=== PATIENT | female | born 1945 | race Caucasian/White ===

== ENCOUNTER 2024-09-09 18:25 | Inpatient (IN) | payer MEDICARE, BC, SELFPAY ==
[2024-09-09] VITALS (22 sets, daily range): BP systolic 48–102; BP diastolic 36–87; PULSE 79–171; RESP 14–21; TEMP 36.6; O2SAT 59–100; BMI 36.6
--- NOTE | 2024-09-09 18:29 | PD.EDRME ---
Rapid Medical Screening Exam RME Arrival date/time: 09/09/24 18:25 Time Seen by Provider: 09/09/24 18:29 RME Narrative: 79-year-old female with history of hypertension, on Xarelto, lisinopril, gabapentin, coming in with syncope while sitting down in bed. Patient was alert and oriented and talking to EMS on their arrival. Patient talking to EMS.
[2024-09-09] MEDS: SODIUM CHLORIDE 0.9% 1000 ML 1,000 ML 999 ML IV ×3 (19:10→20:06)
--- NOTE | 2024-09-09 19:17 | PD.EDADULT ---
ED General RME/HPI General Chief complaint: Nausea/Vomiting/Diarrhea Stated complaint: SYNCOPAL EPISODE Time Seen by Provider: 09/09/24 18:29 Arrival date/time: 09/09/24 18:25 CC: Syncope, weakness HPI patient presents to the ER with syncope and weakness. The EMS report hypotension 60s over palp. Patient is awake alert oriented x [address], stating that she is just tired she has a stomach ache, has had 2 episodes of diarrhea since last night has not been drinking a lot of fluid, and is tired . Patient denies any chest pain painful urination vomiting but is complaining of intermittent nausea. RME / HPI RME / HPI narrative: 79-year-old female with history of hypertension, on Xarelto, lisinopril, gabapentin, coming in with syncope while sitting down in bed. Patient was alert and oriented and talking to EMS on their arrival. Patient talking to EMS. Related Data Home Medications ?Medication ?Instructions ?Recorded ?Confirmed cyclobenzaprine 10 mg tablet 10 mg PO HS #0 tabs 06/23/17 05/31/23 gabapentin 100 mg capsule 200 mg PO BID 01/15/18 05/31/23 donepezil 5 mg tablet 5 mg PO QDAY 01/16/18 05/31/23 atorvastatin 20 mg tablet 60 mg PO QPM 09/14/18 05/31/23 duloxetine 60 mg capsule,delayed 60 mg PO BID 04/23/21 05/31/23 release ergocalciferol (vitamin D2) 1,250 50,000 unit PO QWEEK 04/23/21 05/31/23 mcg (50,000 unit) capsule multivitamin 1 tab PO QDAY 04/23/21 05/31/23 fesoterodine 4 mg tablet,extended 4 mg PO HS 05/31/23 05/31/23 release 24 hr (Toviaz) metoprolol tartrate 100 mg tablet 100 mg PO BID 05/31/23 05/31/23 mirabegron 50 mg tablet,extended 50 mg PO QDAY 05/31/23 05/31/23 release 24 hr (Myrbetriq) sumatriptan succinate 100 mg tablet 100 mg PO Q8H PRN Migraine Headache 06/02/23 06/02/23 Previous Rx's ?Medication ?Instructions ?Recorded ferrous sulfate 325 mg (65 mg 325 mg PO QOD #15 tabs 06/02/23 iron) tablet,delayed release miconazole nitrate 2 % topical 1 applic topical BID #14 grams 06/02/23 cream rivaroxaban 15 mg (42)-20 mg (9) See Rx Instructions PO .COMPLEX 06/02/23 tablets in a starter pack #51 tabs albuterol sulfate 90 mcg/actuation 2 puff inhalation Q6H PRN 01/18/24 aerosol inhaler shortness of breath or wheezing #8.5 grams prednisone 20 mg tablet 20 mg PO QDAY #15 tabs 01/18/24 Allergies Allergy/AdvReac Type Severity Reaction Status Date / Time ergotamine [From Cafergot] Allergy Intermediate Nausea Verified 09/09/24 18:46 adhesive tape Allergy Mild Rash Verified 09/09/24 18:46 citalopram [From Celexa] Allergy Mild Restless Verified 09/09/24 18:46 leg latex Allergy Mild Rash Verified 09/09/24 18:46 silver Allergy Rash Verified 09/09/24 18:46 Review of Systems Review of Systems Narrative Review of Systems: GEN: No fever, no chills, no weight loss EYES: No discharge, no visual changes, no pain HEENT: No ear pain, no congestion, no sore throat PULM: No shortness of breath, no cough, no congestion CV: No chest pain, no dyspnea on exertion, no palpitations GI: No nausea, no vomiting, no diarrhea, no pain, no constipation : No frequency, no urgency, no dysuria MUSC/SKEL: No joint pain, no back pain SKIN: No rash PSYCH: No hallucinations, no depression HEME/LYMPH: No easy bleeding or bruising tendencies NEURO: No weakness, no headache Past Medical History Past Medical History NEUROLOGIC: Positive Neurological Disorders, Peripheral Neuropathy, Migraine and Head Trauma; Negative Seizures CARDIAC: Positive Hypercholesterolemia, Hypertension and Varicose Veins; Negative Cardiac Disorders or Congestive Heart Failure RESPIRATORY: Positive Asthma, Pneumonia and Sleep Apnea; Negative Chronic Obstructive Pulmonary Disease (COPD) GASTROINTESTINAL: Positive Obesity; Negative Gastrointestinal Disorders GENITOURINARY: Positive Genitourinary Disorders; Negative Renal Disease REPRODUCTIVE: Positive Endometriosis and Previous Pregnancies MUSCULOSKELETAL: Positive Arthritis, Osteoporosis, Degenerative Disk Disease, Carpal Tunnel Syndrome, Fractures and Degenerative Joint Disease; Negative Musculoskeletal Disorders ENT: Positive Head Trauma; Negative Glaucoma or Macular Degeneration ENDOCRINE: Negative Endocrine Disorders, Diabetes Mellitus Type 1 or Diabetes Mellitus Type 2 HEMATOLOGIC: Negative Blood Disorders, Anemia or Sickle Cell Disease PSYCHO/SOCIAL: Positive Depression and Anxiety OTHER HISTORY: Positive Hospitalization, Autoimmune Disease, Falls, Chicken Pox and Measles; Negative Shingles, Blood Transfusions, Blood Transfusion Reaction or Anesthesia Reactions Family History FAMILY HISTORY: Positive Family Cardiac Disorders; Negative Family Psychiatric Problems, Family Respiratory Disorders, Family Gastrointestinal Problems, Family Cancer, Family Surgery or Family Anesthesia Reaction Surgical History SURGICAL: Positive Nose Surgery, Tonsillectomy, Abdominal Surgery, Joint Replacement and Hysterectomy Social History SMOKING STATUS: Never smoker SUBSTANCE USE: does not use ED Exam Narrative Physical exam: [General: Obese appears not in any acute distress Head normocephalic HEENT: Within acceptable limits Neck is supple nontender Chest equal chest rise nontender to palpation Respiratory: Clear to auscultation no wheezes crackles or rubs CV: Rate rhythm is regular no murmurs rubs or clicks Abdomen is distended secondary to body habitus soft nontender no masses positive bowel sounds all 4 quadrants Back: No CVA tenderness no spinous process tenderness from cervical spine thoracic and lumbar spine Skin: Intact no petechiae rash induration ulceration or crepitus Extremities: Moving all extremity against resistance cap refill less than 2 seconds neurosensory intact Neuro: Awake alert oriented x2, person and place Glascow coma 15 no focal deficits] Course Quality Measures none Orders Category Date Time Status Patient Condition Routine Admission 09/10/24 04:06 Ordered COVID-19 Screening Questionnaire NOW Care 09/10/24 04:08 Active Decision to Admit X1 Care 09/10/24 04:08 Completed EKG (ED ONLY) *Do not use* NOW Care 09/09/24 20:16 Completed In and Out Catheter X1 Care 09/09/24 20:22 Completed Notify provider NEEDED Care 09/10/24 04:06 Active Saline [Insert IV] NOW Care 09/09/24 19:16 Active EKG (ED Only) Stat Exams 09/09/24 20:15 Draft XR chest 1V Stat Exams 09/09/24 20:15 Completed B-Type Natriuretic Peptide Stat Lab 09/09/24 18:50 Completed Blood Culture (Lab) Stat Lab 09/09/24 18:58 Received CBC Stat Lab 09/09/24 18:50 Completed CMP [Comprehensive Metabolic Panel] Stat Lab 09/09/24 18:50 Completed CMP [Comprehensive Metabolic Panel] Stat Lab 09/09/24 22:49 Completed LDH (Lactate Dehydrogenase) Stat Lab 09/09/24 18:50 Completed Lactic Acid [Lactate (Lactic Acid)] Stat Lab 09/09/24 20:47 Completed Lactic Acid [Lactate (Lactic Acid)] Stat Lab 09/09/24 22:49 Completed Mag [Magnesium] Stat Lab 09/09/24 18:50 Completed Partial Thromboplastin Time Stat Lab 09/09/24 18:50 Completed Procalcitonin Stat Lab 09/09/24 18:50 Completed Prothrombin Time with INR Stat Lab 09/09/24 18:50 Completed Troponin I Stat Lab 09/09/24 18:50 Completed Urinalysis Stat Lab 09/09/24 21:30 Completed Sodium Chloride 0.9% 1000 ml [Ns] 1,000 ml Med 09/09/24 19:09 Discontinued IV 999 mls/hr Sodium Chloride 0.9% 1000 ml [Ns] 1,000 ml Med 09/09/24 19:35 Discontinued IV 999 mls/hr Code Status Routine Oth 09/10/24 04:06 Ordered Vital Signs Vital signs: Vital Signs Pulse Rate 171 H 09/09/24 18:38 Respiratory Rate 20 09/09/24 18:38 Oxygen Delivery Method Room Air 09/09/24 18:38 [facility] Patient data External records reviewed:: [facility] previous records and EMS form Clinical information provided by:: patient and EMS Social determinants that could affect healthcare access:: none Patient has the following chronic illnesses:: Morbid obesity, COPD severity of CPAP hypertension surgeries for right hip right knee How is presenting disease/condition affected by chronic disease/condition?: uneffected by Evaluation data The following diagnostics were reviewed and interpreted by me:: lab results and radiology exam(s) Lab and/or radiology exams considered but not ordered:: None Interpretation Summary: Hypotension Medications Medications considered but not ordered:: None Medication administrations:: Medication Administration History Acetaminophen (Acetaminophen 500 Mg Tablet) 1,000 mg PO Q6H PRN PRN Reason: Fever >101.5 Stop: 10/10/24 04:17 Hydrocodone Bitart/Acetaminophen (Hydrocodone/Apap 5/325 Tablet) 1 tab PO Q4HR PRN PRN Reason: PAIN SCALE 4-10(Mod-Sev Stop: 09/15/24 04:17 Albuterol/Ipratropium (Albuterol/Ipratropium (Duoneb) Rt Kristin 3 Ml Nebu) 3 ml INH BIDRT [facility] Stop: 10/10/24 07:14 Last Admin: 09/10/24 07:36 Dose: 3 ml Documented By: BandarT Atorvastatin Calcium (Atorvastatin Calcium 20 Mg Tablet) 40 mg PO HS [facility] Stop: 10/10/24 20:59 Budesonide (Budesonide Rt 0.25 Mg/2 Ml Nebu) 0.25 mg INH BIDRT [facility] Stop: 10/10/24 06:59 Last Admin: 09/10/24 07:05 Dose: Not Given Documented By: MANDY Non-Admin Reason: Medication Not Available Donepezil HCl (Donepezil Hcl 5 Mg Tablet) 5 mg PO HS [facility] Stop: 10/10/24 20:59 Duloxetine HCl (Duloxetine Hcl 30 Mg Capsule) 60 mg PO QDAY [facility] Stop: 10/10/24 08:59 Last Admin: 09/10/24 10:11 Dose: 60 mg Documented By: MGD Gabapentin (Gabapentin 100 Mg Capsule) 200 mg PO TID PRN PRN Reason: Back pain Stop: 10/10/24 05:59 Heparin Sodium (Porcine) (Heparin Sod Inj 5000 Unit/Ml Vial) 5,000 unit SC BID [facility] Stop: 09/24/24 08:59 Lactated Ringer's (Lactated Ringers) 1,000 mls @ 125 mls/hr IV .Q8H ONE Stop: 09/10/24 12:27 Last Admin: 09/10/24 08:35 Dose: 125 mls/hr Documented By: ANGELO Ondansetron HCl (Ondansetron Inj 2 Mg/Ml Inj 2 Ml) 4 mg IV Q6H PRN; Protocol PRN Reason: NAUSEA OR VOMITING Stop: 10/10/24 04:17 Last Admin: 09/10/24 06:32 Dose: 4 mg Documented By: DOROTA Pantoprazole Sodium (Pantoprazole Inj 40 Mg Vial) 40 mg IVP QDAY [facility] Stop: 10/10/24 08:59 Last Admin: 09/10/24 09:18 Dose: 40 mg Documented By: GM Discontinued Medications Acetaminophen (Acetaminophen 325 Mg Tablet) 1,000 mg PO Q6H PRN PRN Reason: Fever >101.5 Stop: 10/10/24 04:17 Albuterol/Ipratropium (Albuterol/Ipratropium (Duoneb) Rt Kristin 3 Ml Nebu) 3 ml INH BID [facility] Stop: 10/10/24 08:59 Dextrose (Dextrose 50%-Water Inj 50 Ml Syringe) 50 ml IV X1 ONE Stop: 09/10/24 09:13 Last Admin: 09/10/24 09:13 Dose: 50 ml Documented By: STEVE Dextrose (Dextrose 50%-Water Inj 50 Ml Syringe) Confirm Administered Dose 100 ml IV .STK-MED ONE Stop: 09/10/24 09:07 Last Admin: 09/10/24 09:18 Dose: Not Given Documented By: STEVE Non-Admin Reason: Duplicate Medication on eMAR Dextrose (Dextrose 50%-Water Inj 50 Ml Syringe) 50 ml IV X1 ONE Stop: 09/10/24 09:13 Last Admin: 09/10/24 09:19 Dose: 50 ml Documented By: STEVE Sodium Chloride (Ns) 1,000 mls @ 999 mls/hr IV .Q1H1M ONE Stop: 09/09/24 20:09 Last Infusion: 09/09/24 21:15 Dose: Infused Documented By: Admin: 09/09/24 20:04 Dose: 999 mls/hr Documented By: Infusion: 09/09/24 20:04 Dose: Infused Documented By: Admin: 09/09/24 19:10 Dose: 999 mls/hr Documented By: NATHAN Sodium Chloride (Ns) 1,000 mls @ 999 mls/hr IV .Q1H1M ONE Stop: 09/09/24 20:35 Last Infusion: 09/10/24 00:08 Dose: Infused Documented By: Admin: 09/09/24 20:06 Dose: 999 mls/hr Documented By: DOROTA None Consultations Consultation(s) initiated? (list below): No Diagnosis Differential Diagnosis ED Complaint MDM: Hypotension dehydration DARNELL Most likely diagnosis given after review of the tests above:: Hypotension dehydration Admission Indicated Admission indicated?: indicated Explain why admission is indicated or not indicated:: Further medical management Admission Request Was there a request for admission?: No Disposition Plan Disposition Plan: Admit Medical Decision Making Differential Diagnosis Differential Diagnosis: Hypotension dehydration DARNELL Lab Data 09/10/24 05:01 09/10/24 05:01 Labs: Lab Results 01/20/25 01/20/25 01/20/25 Range/Units 18:50 20:47 21:30 WBC 13.8 H (3.6-11.0) Thou/mm3 RBC 3.18 L (4.00-5.20) Miln/mm3 Hgb 9.0 L (12.0-16.0) g/dL Hct 30.2 L (36.0-46.0) % MCV 95 (80-100) fL MCH 28.3 (25.0-35.0) pg MCHC 29.8 L (31.0-37.0) g/dl RDW Std Deviation 50.1 H (36.4-46.3) fL Plt Count 405 (140-440) Thou/mm3 Neut % (Auto) 75 (37-80) % Lymph % (Auto) 14 (10-50) % [place] % (Auto) 6 (0-12) % Eos % (Auto) 4 (0-10) % Baso % (Auto) 1 (0-2.5) % Neut # (Auto) 10.3 H (1.8-7.7) Thou/mm3 Lymph # (Auto) 2.0 (1.0-4.8) Thou/mm3 [place] # (Auto) 0.9 H (0.0-0.8) Thou/mm3 Eos # (Auto) 0.5 (0.0-0.5) Thou/mm3 Baso # (Auto) 0.1 (0.0-0.2) Thou/mm3 Immature Gran # (Auto) 0.04 H (0.00-0.00) Thou/mm3 Absolute Nucleated RBC 0.00 (0.00-0.00) Thou/mm3 Immature Gran % 0 (0-0) % Nucleated RBC % 0 (0) /100 WBC PT 18.1 H (9.0-12.2) Seconds INR 1.7 H (0.9-1.3) APTT 36.1 H (22.0-36.0) Seconds Sodium 141 (136-145) mMol/L Potassium 4.4 (3.4-5.1) mMol/L Chloride 102 (98-107) mMol/L Carbon Dioxide 24.1 (20.0-31.0) mMol/L Anion Gap 15 (7-16) BUN 29 H (9-23) mg/dL Creatinine 1.7 H (0.6-1.3) mg/dL Estim Creat Clear Calc 28.6 L (>60) mL/min eGFR 31 L (60 - ) See Note BUN/Creatinine Ratio 17 (12-20) Ratio Glucose 132 H (74-106) mg/dL Calculated Osmolality 289 (275-295) Lactic Acid 2.8 H (0.4-2.0) mMol/L Calcium 9.0 (8.3-10.6) mg/dL Corrected Calcium 9.9 (8.5-10.1) mg/dL Magnesium 2.0 (1.6-2.6) mg/dL Total Bilirubin 0.2 L (0.3-1.2) mg/dL AST 26 (0-34) U/L ALT 14 (10-49) U/L Alkaline Phosphatase 64 (46-116) U/L Lactate Dehydrogenase 238 (120-246) U/L Troponin I < 0.020 (0.0-0.045) ng/mL B-Natriuretic Peptide 71 (0-100) pg/mL Total Protein 5.4 L (5.7-8.2) gm/dL Albumin 2.9 L (3.4-4.8) gm/dL Globulin 2.5 (2.3-3.5) gm/dL Albumin/Globulin Ratio 1.2 (1.2-2.2) Procalcitonin 0.94 H (0.0-0.49) ng/ml Ur Collection Type Catheter Urine Color Drk-Yellow A (Lt Yel-Yel) Urine Clarity Hazy (Clear/Hazy) Urine pH 5.0 (5.0-7.0) Ur Specific [place] 1.035 (1.001-1.035) Urine Protein 1+ A (Neg - Trace) Urine Glucose (UA) Negative (Negative) Urine Ketones Trace (Negative) Urine Blood Negative (Negative) Urine Nitrite Negative (Negative) Urine Bilirubin 1+ A (Negative) Urine Urobilinogen (Auto) 2.0 (0.0-1.0) mg/dL Ur Leukocyte Esterase Positive (Negative) Urine RBC 4 H (0-3) /hpf Urine WBC 7 H (0-5) /hpf Ur Squamous Epith Cells 2 (0-5) /hpf Urine Bacteria Rare (None) Hyaline Casts < 1 (0-1) /hpf Urine Yeast (Budding) Present A (None) 09/09/24 Range/Units 22:49 WBC (3.6-11.0) Thou/mm3 RBC (4.00-5.20) Miln/mm3 Hgb (12.0-16.0) g/dL Hct (36.0-46.0) % MCV (80-100) fL MCH (25.0-35.0) pg MCHC (31.0-37.0) g/dl RDW Std Deviation (36.4-46.3) fL Plt Count (140-440) Thou/mm3 Neut % (Auto) (37-80) % Lymph % (Auto) (10-50) % [place] % (Auto) (0-12) % Eos % (Auto) (0-10) % Baso % (Auto) (0-2.5) % Neut # (Auto) (1.8-7.7) Thou/mm3 Lymph # (Auto) (1.0-4.8) Thou/mm3 [place] # (Auto) (0.0-0.8) Thou/mm3 Eos # (Auto) (0.0-0.5) Thou/mm3 Baso # (Auto) (0.0-0.2) Thou/mm3 Immature Gran # (Auto) (0.00-0.00) Thou/mm3 Absolute Nucleated RBC (0.00-0.00) Thou/mm3 Immature Gran % (0-0) % Nucleated RBC % (0) /100 WBC PT (9.0-12.2) Seconds INR (0.9-1.3) APTT (22.0-36.0) Seconds Sodium 143 (136-145) mMol/L Potassium 4.4 (3.4-5.1) mMol/L Chloride 108 H (98-107) mMol/L Carbon Dioxide 26.7 (20.0-31.0) mMol/L Anion Gap 8 (7-16) BUN 25 H (9-23) mg/dL Creatinine 1.5 H (0.6-1.3) mg/dL Estim Creat Clear Calc 32.4 L (>60) mL/min eGFR 35 L (60 - ) See Note BUN/Creatinine Ratio 17 (12-20) Ratio Glucose 103 (74-106) mg/dL Calculated Osmolality 289 (275-295) Lactic Acid 1.9 (0.4-2.0) mMol/L Calcium 8.7 (8.3-10.6) mg/dL Corrected Calcium 9.5 (8.5-10.1) mg/dL Magnesium (1.6-2.6) mg/dL Total Bilirubin 0.2 L (0.3-1.2) mg/dL AST 39 H (0-34) U/L ALT 16 (10-49) U/L Alkaline Phosphatase 66 (46-116) U/L Lactate Dehydrogenase (120-246) U/L Troponin I (0.0-0.045) ng/mL B-Natriuretic Peptide (0-100) pg/mL Total Protein 5.3 L (5.7-8.2) gm/dL Albumin 3.0 L (3.4-4.8) gm/dL Globulin 2.3 (2.3-3.5) gm/dL Albumin/Globulin Ratio 1.3 (1.2-2.2) Procalcitonin (0.0-0.49) ng/ml Ur Collection Type Urine Color (Lt Yel-Yel) Urine Clarity (Clear/Hazy) Urine pH (5.0-7.0) Ur Specific [place] (1.001-1.035) Urine Protein (Neg - Trace) Urine Glucose (UA) (Negative) Urine Ketones (Negative) Urine Blood (Negative) Urine Nitrite (Negative) Urine Bilirubin (Negative) Urine Urobilinogen (Auto) (0.0-1.0) mg/dL Ur Leukocyte Esterase (Negative) Urine RBC (0-3) /hpf Urine WBC (0-5) /hpf Ur Squamous Epith Cells (0-5) /hpf Urine Bacteria (None) Hyaline Casts (0-1) /hpf Urine Yeast (Budding) (None) Discharge Plan Plan Patient Disposition: Admit Acute Care w/in Hospital Problem List Clinical Impression: Hypotension 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
[2024-09-09 19:48] LABS: Basophils # (Auto) 0.1 Thou/mm3 (0.0-0.2); Basophils % (Auto) 1 % (0-2.5); Eosinophils # (Auto) 0.5 Thou/mm3 (0.0-0.5); Eosinophils % (Auto) 4 % (0-10); Hematocrit 30.2 % (36.0-46.0); Immature Granulocytes % (Auto) 0 % (0-0); Immature Granulocytes Auto 0.04 Thou/mm3 (0.00-0.00); Lymphocytes % (Auto) 14 % (10-50); Mean Corpuscular HGB Conc 29.8 g/dl (31.0-37.0); Mean Corpuscular Hemoglobin 28.3 pg (25.0-35.0); Mean Corpuscular Volume 95 fL (80-100); Monocytes # (Auto) 0.9 Thou/mm3 (0.0-0.8); Monocytes % (Auto) 6 % (0-12); Neutrophils # (Auto) 10.3 Thou/mm3 (1.8-7.7); Neutrophils % (Auto) 75 % (37-80); Nucleated Red Blood Cell % 0 /100 WBC (0); Platelet Count 405 Thou/mm3 (140-440); RDW Standard Deviation 50.1 fL (36.4-46.3); Red Blood Count 3.18 Miln/mm3 (4.00-5.20); White Blood Count 13.8 Thou/mm3 (3.6-11.0)
--- NOTE | 2024-09-09 20:15 | EKG_ITS ---
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: : 1945 Requested By: Tobin Kramer Order Number: [id number] Reading MD: Tobin Kramer Measurements Intervals [place] Rate: 89 P: 36 NV: 149 QRS: -10 QRSD: 101 T: 2 QT: 387 QTc: 472 Interpretive Statements SINUS RHYTHM WITH OCCASIONAL SUPRAVENTRICULAR PREMATURE COMPLEXES MINIMAL VOLTAGE CRITERIA FOR LVH, CONSIDER NORMAL VARIANT [MEETS CRITERIA IN ONE OF: R(aVL), S(V1), R(V5), R(V5/V6)+S(V1)] POSSIBLE ANTERIOR MYOCARDIAL INFARCTION , OF INDETERMINATE AGE [30 ms Q WAVE IN V3/V4, OR R < 0.2 mV IN V4] Compared to ECG 05/31/2023 00:14:29 Myocardial infarct finding now present ST (T wave) deviation no longer present /store/S0/[id number].pdf
--- NOTE | 2024-09-09 20:15 | XR_ITS ---
Examination: AP chest single view Technique one AP portable chest single view Exam date and time: September 09, 20242030 hrs. Comparison January 18, 2024 Indications: Shortness of breath today. Findings: Air in the colon beneath right hemidiaphragm Mild enlargement cardiac contour with moderate vascular congestion Subsegmental atelectasis left lower lung zone Pneumonia right base obscuring detail right cardiac contour Impression: Right base pneumonia
[2024-09-09 20:16] LABS: Alanine Aminotransferase 14 U/L (10-49); Albumin, Serum 2.9 gm/dL (3.4-4.8); Albumin/Globulin Ratio 1.2 (1.2-2.2); Alkaline Phosphatase 64 U/L (46-116); Anion Gap 15 (7-16); Aspartate Amino Transferase 26 U/L (0-34); BUN/Creatinine Ratio 17 Ratio (12-20); Bilirubin,Total 0.2 mg/dL (0.3-1.2); Blood Urea Nitrogen 29 mg/dL (9-23); Calcium (Corrected) 9.9 mg/dL (8.5-10.1); Carbon Dioxide 24.1 mMol/L (20.0-31.0); Chloride 102 mMol/L (98-107); Creatinine (Component) 1.7 mg/dL (0.6-1.3); Estimated Creatinine Clearance 28.6 mL/min (>60); Globulin 2.5 gm/dL (2.3-3.5); Glucose 132 mg/dL (74-106); Osmolality,Calculated 289 (275-295); Potassium 4.4 mMol/L (3.4-5.1); Sodium 141 mMol/L (136-145); Total Protein 5.4 gm/dL (5.7-8.2); eGFR 31 See Note
[2024-09-09 20:51] LABS: Lactate (Lactic Acid) 2.8 mMol/L (0.4-2.0)
[2024-09-09 20:52] LABS: B-Type Natriuretic Peptide 71 pg/mL (0-100)
[2024-09-09 20:56] LABS: LDH (Lactate Dehydrogenase) 238 U/L (120-246); Procalcitonin 0.94 ng/ml (0.0-0.49); Troponin I < 0.020 ng/mL (0.0-0.045)
[2024-09-09 21:06] LABS: INR 1.7 (0.9-1.3); Partial Thromboplastin Time 36.1 Seconds (22.0-36.0); Prothrombin Time 18.1 Seconds (9.0-12.2)
[2024-09-09 21:42] LABS: Collection Type, Urine Catheter
[2024-09-09 21:55] LABS: Bacteria,Urine Rare; Bilirubin,Urine 1+ (Negative); Blood,Urine Negative (Negative); Budding Yeast,Urine Present; Color,Urine Drk-Yellow (Lt Yel-Yel); Glucose, Urine Negative (Negative); Hyaline Casts,Urine < 1 /hpf (0-1); Ketones,Urine Trace (Negative); Leukocyte Esterase,Urine Positive (Negative); Nitrite,Urine Negative (Negative); Protein,Urine 1+ (Neg - Trace); RBC,Urine 4 /hpf (0-3); Specific Gravity,Urine 1.035 (1.001-1.035); Squamous Epithelial Cell,Urine 2 /hpf (0-5); WBC,Urine 7 /hpf (0-5)
[2024-09-09 21:59] LABS: Clarity,Urine Hazy (Clear/Hazy)
[2024-09-09 22:54] LABS: Lactate (Lactic Acid) 1.9 mMol/L (0.4-2.0)
[2024-09-09 23:17] LABS: Alanine Aminotransferase 16 U/L (10-49); Albumin/Globulin Ratio 1.3 (1.2-2.2); Alkaline Phosphatase 66 U/L (46-116); Anion Gap 8 (7-16); Aspartate Amino Transferase 39 U/L (0-34); BUN/Creatinine Ratio 17 Ratio (12-20); Bilirubin,Total 0.2 mg/dL (0.3-1.2); Blood Urea Nitrogen 25 mg/dL (9-23); Calcium 8.7 mg/dL (8.3-10.6); Calcium (Corrected) 9.5 mg/dL (8.5-10.1); Carbon Dioxide 26.7 mMol/L (20.0-31.0); Chloride 108 mMol/L (98-107); Creatinine (Component) 1.5 mg/dL (0.6-1.3); Estimated Creatinine Clearance 32.4 mL/min (>60); Globulin 2.3 gm/dL (2.3-3.5); Glucose 103 mg/dL (74-106); Osmolality,Calculated 289 (275-295); Potassium 4.4 mMol/L (3.4-5.1); Sodium 143 mMol/L (136-145); Total Protein 5.3 gm/dL (5.7-8.2); eGFR 35 See Note
--- NOTE | 2024-09-09 23:27 | PC.NURSE ---
Pt continues to by hypotensive dispite IV fluids. Providers are aware.
--- NOTE | 2024-09-09 23:31 | PD.EDADDENDU ---
Emergency Room Addendum Addendum Narrative: 2325: Care assumed from Tobin Cha NP. Past medical, surgical, social and family history reviewed. Vitals and home medications reviewed. Results and treatment plan discussed. I will assume the care of the patient at this time and will follow the patient. Please refer to the emergency department record for history and examination from initial visit. 0058: Patient is awake and talking in full sentences. She appears clinically dehydrated. Her abdomen is soft, nontender, and not distended. She has a MAP of 85. She is agreeable to having a zapata catheter placed. Rectal exam shows light brown stool and very mildly positive. 0315: Patient's blood pressure is 97/60. 0319: Discussed case with [Dr. Lechuga] from Hospitalist service regarding admission. Discussed patients ED course, exam findings, labs, and radiology results. The Hospitalist states they will come evaluate the patient. 0347: Patient has a manual blood pressure of 120 systolically at the LUE and [address] RUE. [address]. Lechuga accepts the patient for admission.
[2024-09-09 23:49] LABS: Reflex Lactate? Y
[2024-09-10] VITALS (54 sets, daily range): BP systolic 50–205; BP diastolic 34–178; PULSE 56–124; RESP 13–85; TEMP 36.1–36.7; O2SAT 83–100
--- NOTE | 2024-09-10 00:20 | PC.NURSE ---
DR SMART HAD BEEN MADE AWARE OF THIS PT CONTINUOUSLY BEING HYPOTENSIVE BY NOT ONLY MYSELF BUT PRIMARY RN JOSE AND FRANCISCA PEREZ.
--- NOTE | 2024-09-10 04:36 | ECHO_ITS ---
Transthoracic Echo Report Ht (in): 62 Wt (lb): 200 Exam Location: Portable Status: Inpatient Modular Set Crew Member: Annel Sparks Indications: Procedure Performed: BP: 110 / 84 HR: 93 Rhythm: Sinus Technical Quality: Technically difficult study MEASUREMENTS (Male / Female) Normal Values 2D ECHO LVOT Diameter 1.9 cm LA Volume Index 20.7 cm?/m? 16 - 28 cm?/m? M-MODE Aortic Root Diameter MM 3.2 cm LA Systolic Diameter MM 3.9 cm LA Ao Ratio MM 1.2 AV Cusp Separation MM 2.3 cm DOPPLER AV Peak Velocity 135.0 cm/s AV Peak Gradient 7.3 mmHg AV Mean Gradient 4.0 mmHg AV Velocity Time Integral 23.5 cm LVOT Peak Velocity 101.0 cm/s LVOT Peak Gradient 4.1 mmHg LVOT Velocity Time Integral 19.8 cm LVOT Cardiac Index 2564.1 cm?/min?m? AV Area Cont Eq vti 2.4 cm? AV Area Cont Eq pk 2.1 cm? MV Peak Velocity 97.6 cm/s MV Peak Gradient 3.8 mmHg MV Mean Velocity 59.2 cm/s MV Mean Gradient 2.0 mmHg MV Area PHT 5.9 cm? Mitral E Point Velocity 50.4 cm/s Mitral A Point Velocity 86.3 cm/s Mitral E to A Ratio 0.6 LV E' Lateral Velocity 13.1 cm/s Mitral E to LV E' Lateral Ratio 3.8 LV E' Septal Velocity 11.5 cm/s Mitral E to LV E' Septal Ratio 4.4 FINDINGS Left Ventricle Normal left ventricular size, wall thickness, systolic function with no obvious regional wall motion abnormalities. The ejection fraction is visually estimated at 60-65%. Right Ventricle The right ventricle is normal in size and systolic function. Left Atrium The left atrium is normal by two-dimensional, color flow and Doppler imaging with no structural abnormalities, no thrombus formation present. Right Atrium The right atrium is normal by two-dimensional imaging, color flow and Doppler imaging with no struct ural abnormalities, no thrombus formation present. Atrial Septum The interatrial septum appears normal with no evidence of a shunt. Aorta The aorta is normal by two-dimensional, color flow and Doppler interrogation. Mitral Valve The mitral valve is normal by two-dimensional, color flow and Doppler interrogation. There is trace mitral valve regurgitation. Aortic Valve The aortic valve is trileaflet and normal by two-dimensional, color flow and Doppler interrogation. There is no significant aortic valve regurgitation. Tricuspid Valve The tricuspid valve is normal by two-dimensional, color flow and Doppler interrogation. There is tra ce tricuspid valve regurgitation. Pulmonic Valve The pulmonic valve is not well visualized. There is no significant pulmonic valve regurgitation. Vessels The pulmonary artery appears normal. The inferior vena cava pulmonary and hepatic veins appear apolonia l. Pericardium The pericardium is normal by two-dimensional imaging. There is no significant pericardial effusion. CONCLUSIONS Normal LV size and function. Estimated EF 60-65% Normal RV size and function Trace MR, TR. Jaelyn Simon (Electronically Signed) Final Date: 11 September 2024 08:21
--- NOTE | 2024-09-10 04:36 | PD.RESHP ---
Documentation for date of: 09/10/24 HPI History of Present Illness Chief complaint: Syncope, diarrhea History of present illness: HPI: Patient is a 79-year-old female with a past medical history significant for COPD on 3L home O2, history of pulmonary embolism [05/2023], essential hypertension, hyperlipidemia, major depressive disorder and iron deficiency anemia presenting today with a chief complaint of syncopal episode and diarrhea. According to the patient last night she was sitting on the toilet having an episode of diarrhea and the next thing she remembers is being carried into the ambulance by the inspector canned food reconditioning. Denies any head trauma, vomiting, fever, postictal aggression/confusion and fever. Family was not available at the time for further questioning. Patient endorses that 2 nights ago she had diarrhea throughout the entire night but only noticed it the next morning. Patient stated that she was farting during the night in bed and had fecal incontinence unknown to her, the following morning she awoke in a pool of her own stool. Described the diarrhea as watery, brown, no blood, no mucus and not dark. Patient also denies any recent travel, eating street food and any recent change in diet. Upon review patient denied any chest pain/pressure, palpitations, cough, sick contacts, headache, dizziness and LUTS. Of note patient states that for the past 3 years she has been bedbound due to her right femur fracture and never receiving adequate physiotherapy. She stated that after she broke her leg she was bedbound and gained about 100 pounds. ED course: BP 63/47 [110/87 manual], pulse 94, RR 18, temp 98F, SpO2 94% on 3L nasal cannula. Labs significant for WBC 13.8, Hb 9, HCT 30.2, platelets 4 5, BUN 29, CR 1.7, LA 2.8, PT 18.1, INR 1.7, APTT 36.1 and Pro-Williams 0.94. EKG significant for sinus rhythm with ectopic beats, rate 89, incomplete RBBB in V3. No acute ST changes. Chest x-ray significant for moderate vascular congestion, atelectasis left lung zone, right lung base consolidation. In the ED patient received 3L normal saline IV fluid bolus. On automatic vitals monitoring, patient appeared to be hypotensive. However this was due to improper cuff size, on manual BP monitoring patient is normotensive Patient will be admitted for workup and management of syncopal episode. GI, Dr. Diaz consulted and closely following the case. Appreciate recommendations. Review of Systems Review of Systems Narrative Review of Systems: GENERAL: Denies fever/chills or diaphoresis. HEENT: Denies headaches or visual changes. Denies discharge. Neuro: Denies unusual weakness or difficulty speaking. CARDIO: Denies chest pain or palpitations. PULM: Denies SOB, couging or wheezing. GI: As above URO: Denies buring/itching/pain/urinary changes. MSK/EXT/SKIN: Denies joint/skeletal/muscle pain, issues/changes in upper or lower extremities, itchiness, or superficial pain. PSYCH: Cooperative, pleasant mood & affect. The rest of the review of systems is otherwise negative. Past Medical History Past Medical History Comments [facility] COMMENT: Past medical history: ? Chronic bacteriuria ? History of pulmonary embolism [05/2023] ? COPD on 3.5L home oxygen ? Essential hypertension ? Hyperlipidemia ? Major depressive disorder ? Iron deficiency anemia - Obesity Class II Medication list: Awaiting reconciliation Past surgical history: Multiple surgeries on right femur and knee Right carpal tunnel release Multiple lower back surgeries Rhinoplasty x 2 Allergies: Ergotamines?nausea Citalopram?restless leg Latex?rash Sulfa?rash Social history: Occupational History: Retired. 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 Marital Status: . Has 2 children. 1 from a car crash and complications of mitral valve prolapse Tobacco use: Denies ETHO use: Denies Illicit drug use: Denies Social History Note: lives at home with grand-daughter. At baseline patient is bedbound and requires assistance with daily hygiene needs including bathing and using the toilet. Family History: Strong family history of cardiac disease. Son?congestive heart failure Grandson?congenital heart disease [unsure of name] Daughter?mitral valve prolapse Exam Vital Signs Temp Pulse Resp BP Pulse Ox O2 Del Method O2 Flow Rate 98.0 F 94 18 63/47 L 94 L Nasal Cannula 3 09/10/24 04:24 09/10/24 04:24 09/10/24 04:24 09/10/24 02:52 09/10/24 04:24 09/10/24 04:24 09/10/24 04:24 Narrative Exam Constitutional Alert, oriented x 3 and comfortable. Elderly female on O2 via NC, obese, mucous membranes dry and pale HEENT Vision grossly intact. Patent nares. Trachea midline Respiratory Chest normal on inspection and clear auscultation bilaterally, reduced air entry at bases bilaterally Cardiovascular S1 and S2 audible, RRR. No murmurs carotid bruit. No gross JVD. Abdominal Soft, obese and non tender to palpation in all quadrants. BS + Genitourinary No bladder tenderness, no flank pain. Normal to palpation Musculoskeletal Extremities tone within normal limits. Trace LE edema. Neurological CN II - XII grossly intact. Extremity motor and sensation grossly intact. Skin Warm, dry and intact. No apparent lesions. Psychiatric Patient has good affect, is cooperative Results: Labs 09/09/24 18:50 09/09/24 22:49 Labs: Short CBC 09/09/24 Range/Units 18:50 WBC 13.8 H (3.6-11.0) Thou/mm3 Hgb 9.0 L (12.0-16.0) g/dL Hct 30.2 L (36.0-46.0) % Plt Count 405 (140-440) Thou/mm3 BMP 09/09/24 09/09/24 18:50 22:49 Sodium 141 143 Potassium 4.4 4.4 Chloride 102 108 H Carbon Dioxide 24.1 26.7 BUN 29 H 25 H Creatinine 1.7 H 1.5 H Glucose 132 H 103 Calcium 9.0 8.7 Cardiac Enzymes 09/09/24 Range/Units 18:50 Troponin I < 0.020 (0.0-0.045) ng/mL Liver Function 09/09/24 09/09/24 Range/Units 18:50 22:49 Total Bilirubin 0.2 L 0.2 L (0.3-1.2) mg/dL AST 26 39 H (0-34) U/L ALT 14 16 (10-49) U/L Alkaline Phosphatase 64 66 (46-116) U/L Albumin 2.9 L 3.0 L (3.4-4.8) gm/dL Urine 09/09/24 Range/Units 21:30 Urine Color Drk-Yellow A (Lt Yel-Yel) Urine Clarity Hazy (Clear/Hazy) Urine pH 5.0 (5.0-7.0) Ur Specific [place] 1.035 (1.001-1.035) Urine Protein 1+ A (Neg - Trace) Urine Glucose (UA) Negative (Negative) Quality Measures Quality Measures VTE prophylaxis Advance care planning discussed with:: patient Medications Home Medications and Allergies Home Medications ?Medication ?Instructions ?Recorded ?Confirmed ?Type cyclobenzaprine 10 mg tablet 10 mg PO HS #0 tabs 06/23/17 05/31/23 History gabapentin 100 mg capsule 200 mg PO BID 01/15/18 05/31/23 History donepezil 5 mg tablet 5 mg PO QDAY 01/16/18 05/31/23 History atorvastatin 20 mg tablet 60 mg PO QPM 09/14/18 05/31/23 History duloxetine 60 mg capsule,delayed 60 mg PO BID 04/23/21 05/31/23 History release ergocalciferol (vitamin D2) 1,250 50,000 unit PO QWEEK 04/23/21 05/31/23 History mcg (50,000 unit) capsule multivitamin 1 tab PO QDAY 04/23/21 05/31/23 History fesoterodine 4 mg tablet,extended 4 mg PO HS 05/31/23 05/31/23 History release 24 hr (Toviaz) metoprolol tartrate 100 mg tablet 100 mg PO BID 05/31/23 05/31/23 History mirabegron 50 mg tablet,extended 50 mg PO QDAY 05/31/23 05/31/23 History release 24 hr (Myrbetriq) sumatriptan succinate 100 mg tablet 100 mg PO Q8H PRN Migraine Headache 06/02/23 06/02/23 History Allergies Allergy/AdvReac Type Severity Reaction Status Date / Time ergotamine [From Cafergot] Allergy Intermediate Nausea Verified 09/09/24 18:46 adhesive tape Allergy Mild Rash Verified 09/09/24 18:46 citalopram [From Celexa] Allergy Mild Restless Verified 09/09/24 18:46 leg latex Allergy Mild Rash Verified 09/09/24 18:46 silver Allergy Rash Verified 09/09/24 18:46 Visit Medications Acetaminophen (Acetaminophen 325 Mg Tablet) 1,000 mg PO Q6H PRN PRN Reason: Fever >101.5 Stop: 10/10/24 04:17 Hydrocodone Bitart/Acetaminophen (Hydrocodone/Apap 5/325 Tablet) 1 tab PO Q4HR PRN PRN Reason: PAIN SCALE 4-10(Mod-Sev Stop: 09/15/24 04:17 Albuterol/Ipratropium (Albuterol/Ipratropium (Duoneb) Rt Kristin 3 Ml Nebu) 3 ml INH BID CARLO Stop: 10/10/24 08:59 Atorvastatin Calcium (Atorvastatin Calcium 20 Mg Tablet) 40 mg PO HS CARLO Stop: 10/10/24 20:59 Donepezil HCl (Donepezil Hcl 5 Mg Tablet) 5 mg PO HS CARLO Stop: 10/10/24 20:59 Duloxetine HCl (Duloxetine Hcl 30 Mg Capsule) 60 mg PO QDAY CARLO Stop: 10/10/24 08:59 Gabapentin (Gabapentin 100 Mg Capsule) 200 mg PO TID PRN PRN Reason: Back pain Stop: 10/10/24 05:59 Heparin Sodium (Porcine) (Heparin Sod Inj 5000 Unit/Ml Vial) 5,000 unit SC BID CARLO Stop: 09/24/24 08:59 Lactated Ringer's (Lactated Ringers) 1,000 mls @ 125 mls/hr IV .Q8H ONE Stop: 09/10/24 12:27 Ondansetron HCl (Ondansetron Inj 2 Mg/Ml Inj 2 Ml) 4 mg IV Q6H PRN; Protocol PRN Reason: NAUSEA OR VOMITING Stop: 10/10/24 04:17 Pantoprazole Sodium (Pantoprazole Inj 40 Mg Vial) 40 mg IVP QDAY CARLO Stop: 10/10/24 08:59 Discontinued Medications Sodium Chloride (Ns) 1,000 mls @ 999 mls/hr IV .Q1H1M ONE Stop: 09/09/24 20:09 Last Infusion: 09/09/24 21:15 Dose: Infused Sodium Chloride (Ns) 1,000 mls @ 999 mls/hr IV .Q1H1M ONE Stop: 09/09/24 20:35 Last Infusion: 09/10/24 00:08 Dose: Infused Assessment & Plan Plan Patient is a 79-year-old female with a past medical history significant for COPD on 3L home O2, history of pulmonary embolism [05/2023], essential hypertension, hyperlipidemia, major depressive disorder and iron deficiency anemia presenting today with a chief complaint of syncopal episode and diarrhea. Patient will be admitted for workup and management of syncopal episode. 1. Syncopal episode for investigation 2. Diarrhea 3. Dehydration Patient was on the toilet last night having an episode of diarrhea when she had a syncopal episode. On arrival to the ED patient was A and O x 3. Patient initially appeared to be hypotensive but this was due to improper cuff size. Manual blood pressure was normotensive. Patient's mucous membranes were pale and dry and she had increased skin turgor initially. She was given 3 L normal saline IV fluid bolus in the ED. Plan: ? Cardiac diet ? Orthostatic vitals ? Transthoracic echocardiogram to assess for wall motion abnormalities, valvular defects and ejection fraction. ? Stool studies including C. difficile, calprotectin, Giardia antigen, H. pylori antigen, norovirus, ova and parasites, stool culture and stool for WBCs ordered. ? Blood cultures ordered ? 1 L lactated Ringer's IV fluid at 125 cc/hour ? CONSTANZA, Dr. Diaz consulted and closely following the case. Appreciate recommendations 4. Acute kidney injury prerenal versus renal On admission CR 1.7. From chart review baseline appears to be between 1?1.2 Etiology likely prerenal due to dehydration from excessive diarrhea. Plan: ? Encourage p.o. fluid intake ? Renally dose medication ? Avoid nephrotoxic drugs 5. Iron deficiency anemia 6. Possible GI bleed Patient had a history of iron deficiency anemia for many years. However her Hb from 01/18/2024 was 13.8 and on admission was 9 Plan: ? Iron panel ordered ?Guaiac test ordered ? Xarelto on hold ? CONSTANZA, Dr. Diaz consulted. Appreciate recommendations. 7. COPD 8. OHS versus BRYSON Patient says she never smoked but has COPD for many years On 3.5L home oxygen Patient also states that she uses a CPAP machine to sleep at night but has not used it for more than 2 years due to it being nonfunctional. Plan: ? Supplemental O2 to maintain O2 sats between 88-92% ? DuoNebs twice daily ? Beclomethasone inhaler twice daily ? CPAP as needed at night 9. History of pulmonary embolism [05/2023] Patient had a pulmonary embolism diagnosed May 2023 but still appears to be on therapeutic dose rivaroxaban. She says it was never stopped by her PCP and unsure if she has had a hypercoagulable workup. Chest CTA completed on 05/31/2023 findings include: Suspicious for small emboli in left lower pulmonary artery branches. This is not a definite finding and should be clinically correlated. Short-term follow-up imaging as clinically warranted Plan: ? Home rivaroxaban on hold as may no longer be necessary and also possibility of GI bleed. ? Day team to decide on follow-up chest CTA ? Recommend hypercoagulable workup 2 days after discontinuing Xarelto. 10. Essential hypertension 11. Hyperlipidemia Home medication metoprolol tartrate 100 Mg p.o. twice daily and atorvastatin 40 Mg p.o. at bedtime Plan: ? Antihypertensives on hold for now due to low blood pressure. ? Resumed home medication atorvastatin 40 Mg p.o. at bedtime? 12. Major depressive disorder Patient's home medication duloxetine 60 Mg p.o. daily and donepezil 5 Mg p.o. at bedtime Plan: ? Resume home medication duloxetine 60 Mg p.o. daily ? Resume home medication donepezil 5 Mg p.o. at bedtime Health maintenance: Disposition: IVF, Syncope workup. GI consult Diet: Cardiac Lines: pIVs GI Prophylaxis: Pantoprazole Thrombo Prophylaxis: Heparin Code status: Limited Code. [Defib, NO compressions, Intubation if only for a few days] Plan of care discussed with Attending Dr. Alan Miller MD PGY 1 Attending Provider Attestation/Addendum I have examined the patient, reviewed labs and imaging findings, discussed the case with the resident(s), and reviewed entered orders. I agree with the plan of care as outlined in this note, with these additional summaries/recommendations: Patient is a 79-year-old female with a medical history of COPD, BRYSON on CPAP, primary hypertension, morbid obesity, bedbound, pulmonary embolism on Xarelto, hyperlipidemia, restless leg syndrome, and dementia who presents to [facility] emergency department on 09/10/2024 for syncopal episode while in bed. Patient endorses diarrhea and poor oral intake. Patient seen at bedside. Of note machine blood pressure reading is giving extremely low readings with SBP trending in the 40s to 60s. Manual blood pressure readings show SBP 120s in left upper extremity and 110s in right upper extremity. Patient does not appear in distress, talking normally at bedside, and denies lightheadedness. Machine blood pressure readings are unreliable in this patient and recommend manual readings to monitor BP. Nonetheless patient will be admitted to the hospital for syncopal episode. Etiology for syncope possibly secondary to reflex versus orthostatic versus cardiac arrhythmia. EKG showed sinus rhythm with an occasional supraventricular premature complexes, rate 89, QTc 472 (slightly increased). Syncope in the setting of poor oral intake and diarrhea suggest orthostatic syncope from hypovolemia. Patient received 2L LR in ED and will be started on maintenance fluids. Order echocardiogram. Order orthostatic vital signs. Order stool studies. FOBT positive on admission, consult gastroenterology, hemoglobin 9.0 and HCT 30.2. Hold chemical anticoagulation. Patient was also noted to have acute kidney injury with creatinine 1.7 and BUN 29 on admission. Most likely secondary to prerenal azotemia and we will continue maintenance fluids. Repeat renal panel in a.m. and avoid nephrotoxic agents/renally dose medications. Baseline creatinine approximately 1.2. Lactic acidosis present on admission resolved with fluids. Chest x-ray on admission shows right base pneumonia although patient denying cough. We will defer antibiotics for now but low threshold to start if cough becomes evident or leukocytosis worsens. CPAP at night for BRYSON. As needed breathing treatments for COPD. Hold home Xarelto for now. Dr. Phillips
--- NOTE | 2024-09-10 05:00 | PC.LAC ---
unable to obtain manual bp. attempted 3 times. notified RN and rn wound
[2024-09-10 05:53] LABS: Basophils % (Auto) 0 % (0-2.5); Eosinophils # (Auto) 0.1 Thou/mm3 (0.0-0.5); Eosinophils % (Auto) 0 % (0-10); Hematocrit 26.8 % (36.0-46.0); Immature Granulocytes % (Auto) 1 % (0-0); Immature Granulocytes Auto 0.12 Thou/mm3 (0.00-0.00); Lymphocytes # (Auto) 0.9 Thou/mm3 (1.0-4.8); Lymphocytes % (Auto) 5 % (10-50); Mean Corpuscular HGB Conc 29.5 g/dl (31.0-37.0); Mean Corpuscular Hemoglobin 27.8 pg (25.0-35.0); Mean Corpuscular Volume 94 fL (80-100); Monocytes # (Auto) 1.6 Thou/mm3 (0.0-0.8); Monocytes % (Auto) 8 % (0-12); Neutrophils % (Auto) 86 % (37-80); Nucleated Red Blood Cell % 0 /100 WBC (0); Platelet Count 377 Thou/mm3 (140-440); RDW Standard Deviation 49.2 fL (36.4-46.3); Red Blood Count 2.84 Miln/mm3 (4.00-5.20); White Blood Count 18.7 Thou/mm3 (3.6-11.0)
[2024-09-10 05:55] LABS: Hemoglobin 7.9 g/dL (12.0-16.0)
--- NOTE | 2024-09-10 06:05 | PC.LAC ---
Throughout the night, Unable to obtain BP manualy or on monitor. Multiple RNs and CNAs.. However ER Dr is able to get it manualy. Pt appears pale but is able to carry on a conversation.
[2024-09-10 06:21] LABS: Alanine Aminotransferase 17 U/L (10-49); Albumin, Serum 2.8 gm/dL (3.4-4.8); Albumin/Globulin Ratio 1.3 (1.2-2.2); Alkaline Phosphatase 65 U/L (46-116); Anion Gap 8 (7-16); Aspartate Amino Transferase 33 U/L (0-34); BUN/Creatinine Ratio 18 Ratio (12-20); Bilirubin,Total 0.2 mg/dL (0.3-1.2); Blood Urea Nitrogen 28 mg/dL (9-23); Calcium 8.1 mg/dL (8.3-10.6); Calcium (Corrected) 9.1 mg/dL (8.5-10.1); Carbon Dioxide 25.8 mMol/L (20.0-31.0); Cardiac Risk Estimate 2.1 RATIO (3.7-5.6); Chloride 107 mMol/L (98-107); Cholesterol 83 mg/dL (132-200); Creatinine (Component) 1.6 mg/dL (0.6-1.3); Estimated Creatinine Clearance 30.4 mL/min (>60); Globulin 2.2 gm/dL (2.3-3.5); Glucose 90 mg/dL (74-106); HDL Cholesterol 39 mg/dL (40-60); LDL Cholesterol,Calculated 24 mg/dL (0-130); Magnesium 1.7 mg/dL (1.6-2.6); Osmolality,Calculated 286 (275-295); Potassium 4.1 mMol/L (3.4-5.1); Sodium 141 mMol/L (136-145); Thyroid Stimulating Hormone 3.01 uIU/mL (0.55-4.78); Triglycerides 101 mg/dL (30-150); eGFR 33 See Note
[2024-09-10] MEDS: ONDANSETRON INJ 2 MG/ML INJ 2 ML 4 MG IV (06:32)
--- NOTE | 2024-09-10 06:32 | PC.NURSE ---
Pt is awake and alert. pt co nausea.
[2024-09-10 07:00] LABS: Ferritin 38 ng/mL (7.3-270.7); Total Iron Binding Capacity 232 mcg/dL (250-425)
[2024-09-10 07:10] LABS: Iron 9 mcg/dL (50-170); Percent Iron Saturation 3 % (20-55); Unsaturated Iron Binding 223 (225-295)
[2024-09-10] MEDS: ALBUTEROL/IPRATROPIUM (Duoneb) RT SOL 3 ML NEBU INH ×2 (07:36→18:35)
[2024-09-10] MEDS: RINGERS LACTATED 1000 ML 1,000 ML 125 ML IV (08:35)
--- NOTE | 2024-09-10 08:52 | PC.NURSE ---
Unable to do orthostatics with patient standing, patient unable to bare weight, See othorstatic assessment lying and sitting.
--- NOTE | 2024-09-10 09:00 | PC.NURSE ---
PT GIVEN 1 ORANGE JUICE BOX. PT DRANK 100% OF IT WITH NO DIFFICULTY
[2024-09-10] MEDS: DEXTROSE 50%-WATER INJ 50 ML SYRINGE IV ×2 (09:13→09:19)
[2024-09-10] MEDS: PANTOPRAZOLE INJ 40 MG VIAL IVP (09:18)
[2024-09-10] MEDS: DULoxetine HCL 30 MG CAPSULE 60 MG PO (10:11)
--- NOTE | 2024-09-10 13:21 | ESPR_ITS ---
Documentation for date of: 09/10/24 Senior resident attestation: Patient is a 79-year-old female past medical history of COPD on 3.5 L home O2, history of pulmonary embolism in 2022, on Xarelto, hypertension, hyperlipidemia, major depressive disorder and iron deficiency anemia who presented following a syncopal episode and fecal incontinence/diarrhea. Stool occult was positive in the ER, hemoglobin 9 of note patient had a prior documented hemoglobin of 14, GI consult was placed for possible upper GI bleed. Initial chest imaging shows pneumonia right lung base. Patient is obese and has limited functional mobility. Manual blood pressure only. #Acute hypoxic respiratory failure #COPD exacerbation secondary to pneumonia #Acute blood loss anemia #Possible GI bleed?Dr. Diaz is consulted, will patient will be n.p.o. for EGD tomorrow. #Diarrhea: Diarrhea following antibiotic use, will order C. difficile studies. #Syncope?head CT on admission was negative for hemorrhage. 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 Patient likely requires lifelong anticoagulation. #Raynaud's phenomenon: Noted bilateral purplish discoloration of extremities, patient reported she often develops discoloration when she feels cold. Patient evaluated and examined at the bedside, plan of care discussed with rest of the team including my attending physician, except as noted. Quresh PGY2 Subjective Subjective Interval history: 09/10: Patient is an overnight admit. patient is seen and examined at bedside this morning. Patient states that she has been feeling weak for several weeks and has lost appetite and has not eaten anything in the last 3 days patient denies any nausea vomiting she states the decreased appetite is unrelated to any GI symptoms. Approximately 1 week ago patient completed a course of ciprofloxacin and complains of 1 episode of diarrhea. Patient states that she had a femur fracture for which he underwent surgery and after surgery she had knee replacement surgery which was then complicated which caused her to miss physiotherapy and since then she has been been bedbound. Patient states she lives with her 2 granddaughters who help her with daily activities and cooking and cleaning. Patient denies any blood in her stool. Patient states that she was diagnosed with COPD however she has never smoked in her life nor has she been exposed to secondhand smoking. Patient uses 3.5 L of oxygen at home for the past 1 year. Patient states that she has a chronic productive cough with phlegm because of COPD. Pt denies any abdominal pain or chest pain. Exam Vital Signs Temp Pulse Resp BP Pulse Ox O2 Del Method O2 Flow Rate 98.0 F 93 19 110/84 97 Nasal Cannula 3.5 09/10/24 08:56 09/10/24 08:53 09/10/24 08:53 09/10/24 08:53 09/10/24 08:53 09/10/24 08:53 09/10/24 08:53 Narrative Exam GENERAL: A&Ox3. Awake, obese elderly female not in acute distress NEURO: no focal neurological deficits HEENT: Atraumatic, Normocephalic. mucous membranes moist. Eyes open, symmetrical, & clear HEART: Normal Heart Sounds LUNGS: Clear to auscultation with no wheezing or crackles. ABDOMEN: soft, non-distended, non-tender, bowel sounds heard, no guarding or rebound tenderness SKIN: No Rash, multiple ecchymoses EXTREMITIES: Non pittin edema bilaterally on lower extremities, tenderness, able to move all 4 extremities, pedal pulses palpated Objective Labs 09/11/24 05:10 09/11/24 05:10 Labs: Laboratory Results - last 24 hr 09/09/24 09/09/24 09/09/24 18:50 20:47 21:30 WBC 13.8 H RBC 3.18 L Hgb 9.0 L Hct 30.2 L MCV 95 MCH 28.3 MCHC 29.8 L RDW Std Deviation 50.1 H Plt Count 405 Neut % (Auto) 75 Lymph % (Auto) 14 [place] % (Auto) 6 Eos % (Auto) 4 Baso % (Auto) 1 Neut # (Auto) 10.3 H Lymph # (Auto) 2.0 [place] # (Auto) 0.9 H Eos # (Auto) 0.5 Baso # (Auto) 0.1 Immature Gran # (Auto) 0.04 H Absolute Nucleated RBC 0.00 Immature Gran % 0 Nucleated RBC % 0 PT 18.1 H INR 1.7 H APTT 36.1 H Sodium 141 Potassium 4.4 Chloride 102 Carbon Dioxide 24.1 Anion Gap 15 BUN 29 H Creatinine 1.7 H Estim Creat Clear Calc 28.6 L eGFR 31 L BUN/Creatinine Ratio 17 Glucose 132 H Calculated Osmolality 289 Lactic Acid 2.8 H Calcium 9.0 Corrected Calcium 9.9 Magnesium 2.0 Iron TIBC Iron Saturation Unsat Iron Binding Ferritin Total Bilirubin 0.2 L AST 26 ALT 14 Alkaline Phosphatase 64 Lactate Dehydrogenase 238 Troponin I < 0.020 B-Natriuretic Peptide 71 Total Protein 5.4 L Albumin 2.9 L Globulin 2.5 Albumin/Globulin Ratio 1.2 Triglycerides Cholesterol LDL Cholesterol, Calc HDL Cholesterol Cholesterol/HDL Ratio Procalcitonin 0.94 H TSH Ur Collection Type Catheter Urine Color Drk-Yellow A Urine Clarity Hazy Urine pH 5.0 Ur Specific [place] 1.035 Urine Protein 1+ A Urine Glucose (UA) Negative Urine Ketones Trace Urine Blood Negative Urine Nitrite Negative Urine Bilirubin 1+ A Urine Urobilinogen (Auto) 2.0 Ur Leukocyte Esterase Positive Urine RBC 4 H Urine WBC 7 H Ur Squamous Epith Cells 2 Urine Bacteria Rare Hyaline Casts < 1 Urine Yeast (Budding) Present A Blood Type Antibody Screen Crossmatch Blood Bank Wristband ID 09/09/24 09/10/24 09/10/24 22:49 05:01 12:04 WBC 18.7 H RBC 2.84 L Hgb 7.9 L Hct 26.8 L MCV 94 MCH 27.8 MCHC 29.5 L RDW Std Deviation 49.2 H Plt Count 377 Neut % (Auto) 86 H Lymph % (Auto) 5 L [place] % (Auto) 8 Eos % (Auto) 0 Baso % (Auto) 0 Neut # (Auto) 16.0 H Lymph # (Auto) 0.9 L [place] # (Auto) 1.6 H Eos # (Auto) 0.1 Baso # (Auto) 0.0 Immature Gran # (Auto) 0.12 H Absolute Nucleated RBC 0.00 Immature Gran % 1 H Nucleated RBC % 0 PT INR APTT Sodium 143 141 Potassium 4.4 4.1 Chloride 108 H 107 Carbon Dioxide 26.7 25.8 Anion Gap 8 8 BUN 25 H 28 H Creatinine 1.5 H 1.6 H Estim Creat Clear Calc 32.4 L 30.4 L eGFR 35 L 33 L BUN/Creatinine Ratio 17 18 Glucose 103 90 Calculated Osmolality 289 286 Lactic Acid 1.9 Calcium 8.7 8.1 L Corrected Calcium 9.5 9.1 Magnesium 1.7 Iron 9 L TIBC 232 L Iron Saturation 3 L Unsat Iron Binding 223 L Ferritin 38 Total Bilirubin 0.2 L 0.2 L AST 39 H 33 ALT 16 17 Alkaline Phosphatase 66 65 Lactate Dehydrogenase Troponin I B-Natriuretic Peptide Total Protein 5.3 L 5.0 L Albumin 3.0 L 2.8 L Globulin 2.3 2.2 L Albumin/Globulin Ratio 1.3 1.3 Triglycerides 101 Cholesterol 83 L LDL Cholesterol, Calc 24 HDL Cholesterol 39 L Cholesterol/HDL Ratio 2.1 L Procalcitonin TSH 3.01 Ur Collection Type Urine Color Urine Clarity Urine pH Ur Specific [place] Urine Protein Urine Glucose (UA) Urine Ketones Urine Blood Urine Nitrite Urine Bilirubin Urine Urobilinogen (Auto) Ur Leukocyte Esterase Urine RBC Urine WBC Ur Squamous Epith Cells Urine Bacteria Hyaline Casts Urine Yeast (Budding) Blood Type A Positive Antibody Screen NEGATIVE Crossmatch See Detail Blood Bank Wristband ID Yes Quality Measures Quality Measures none Advance care planning discussed with:: patient Assessment & Plan Assessment Current Active Medications: Generic Name Dose Route Start Last Admin Trade Name Freq PRN Reason Stop Dose Admin Acetaminophen 1,000 mg 09/10/24 07:05 Acetaminophen 500 Mg Tablet PO 10/10/24 04:17 Q6H PRN Fever >101.5 Hydrocodone Bitart/Acetaminophen 1 tab 09/10/24 04:18 Hydrocodone/Apap 5/325 Tablet PO 09/15/24 04:17 Q4HR PRN PAIN SCALE 4-10(Mod-Sev Albuterol/Ipratropium 3 ml 09/10/24 07:15 09/10/24 07:36 Albuterol/Ipratropium (Duoneb) Rt Kristin 3 Ml Nebu INH 10/10/24 07:14 3 ml BIDRT CARLO Administration Atorvastatin Calcium 40 mg 09/10/24 21:00 Atorvastatin Calcium 20 Mg Tablet PO 10/10/24 20:59 HS CARLO Budesonide 0.25 mg 09/10/24 07:00 09/10/24 07:05 Budesonide Rt 0.25 Mg/2 Ml Nebu INH 10/10/24 06:59 Not Given BIDRT CARLO Donepezil HCl 5 mg 09/10/24 21:00 Donepezil Hcl 5 Mg Tablet PO 10/10/24 20:59 HS CARLO Duloxetine HCl 60 mg 09/10/24 09:00 09/10/24 10:11 Duloxetine Hcl 30 Mg Capsule PO 10/10/24 08:59 60 mg QDAY CARLO Administration Gabapentin 200 mg 09/10/24 04:24 Gabapentin 100 Mg Capsule PO 10/10/24 05:59 TID PRN Back pain Heparin Sodium (Porcine) 5,000 unit 09/10/24 09:00 Heparin Sod Inj 5000 Unit/Ml Vial SC 09/24/24 08:59 BID CARLO Ondansetron HCl 4 mg 09/10/24 04:18 09/10/24 06:32 Ondansetron Inj 2 Mg/Ml Inj 2 Ml IV 10/10/24 04:17 4 mg Q6H PRN Administration NAUSEA OR VOMITING Protocol Pantoprazole Sodium 40 mg 09/10/24 09:00 09/10/24 09:18 Pantoprazole Inj 40 Mg Vial IVP 10/10/24 08:59 40 mg QDAY CARLO Administration Plan Patient is a 79-year-old female with a past medical history significant for COPD on 3L home O2, history of pulmonary embolism [05/2023], essential hypertension, hyperlipidemia, major depressive disorder and iron deficiency anemia presenting today with a chief complaint of syncopal episode and diarrhea. Patient will be admitted for workup and management of syncopal episode. #Syncope #Diarrhea #Dehydration Patient was on the toilet last night having an episode of diarrhea when she had a syncopal episode. On arrival to the ED patient was A and O x 3. Patient initially appeared to be hypotensive but this was due to improper cuff size. Manual blood pressure was normotensive. Patient's mucous membranes were pale and dry and she had increased skin turgor initially. She was given 3 L normal saline IV fluid bolus in the ED. Plan: ? Cardiac diet ? Orthostatic vitals ? Transthoracic echocardiogram to assess for wall motion abnormalities, valvular defects and ejection fraction. ? Stool studies including C. difficile, calprotectin, Giardia antigen, H. pylori antigen, norovirus, ova and parasites, stool culture and stool for WBCs ordered. ? Blood cultures ordered ? 1 L lactated Ringer's IV fluid at 125 cc/hour ? GI, Dr. Diaz consulted and closely following the case. Appreciate recommendations #Acute kidney injury likely prerenal On admission CR 1.7. From chart review baseline appears to be between 1?1.2 Etiology likely prerenal due to dehydration from excessive diarrhea. Plan: ? Encourage p.o. fluid intake -Maintenance IV fluids ordered ? Renally dose medication ? Avoid nephrotoxic drugs #Iron deficiency anemia #Possible GI bleed Patient had a history of iron deficiency anemia for many years. However her Hb from 01/18/2024 was 13.8 and on admission was 9 -> 7.9 Plan: ? Iron panel ordered ?FOBT positive ? Xarelto on hold ? GI, Dr. Diaz consulted. Appreciate recommendations. #COPD #OHS versus [facility] Patient says she never smoked but has COPD for many years On 3.5L home oxygen Patient also states that she uses a CPAP machine to sleep at night but has not used it for more than 2 years due to it being nonfunctional. Plan: ? Supplemental O2 to maintain O2 sats between 88-92% ? DuoNebs twice daily ? Beclomethasone inhaler twice daily ? CPAP as needed at night #History of pulmonary embolism [05/2023] Patient had a pulmonary embolism diagnosed May 2023 but still appears to be on therapeutic dose rivaroxaban. She says it was never stopped by her PCP and unsure if she has had a hypercoagulable workup. Chest CTA completed on 05/31/2023 findings include:Suspicious for small emboli in left lower pulmonary artery branches. This is not a definite finding and should be clinically correlated. Plan: ? Home rivaroxaban on hold as may no longer be necessary and also possibility of GI bleed. ? Recommend hypercoagulable workup 2 days after discontinuing Xarelto. #Essential hypertension #Hyperlipidemia Home medication metoprolol tartrate 100 Mg p.o. twice daily and atorvastatin 40 Mg p.o. at bedtime Plan: ? Antihypertensives on hold for now due to low blood pressure. ? Resumed home medication atorvastatin 40 Mg p.o. at bedtime? #Major depressive disorder Patient's home medication duloxetine 60 Mg p.o. daily and donepezil 5 Mg p.o. at bedtime Plan: ? Resume home medication duloxetine 60 Mg p.o. daily ? Resume home medication donepezil 5 Mg p.o. at bedtime Health maintenance: Disposition: IVF, Syncope workup. GI consult Diet: Cardiac Lines: pIVs GI Prophylaxis: Pantoprazole Thrombo Prophylaxis: Heparin Code status: Limited Code. [Defib, NO compressions, Intubation if only for a few days] Assessment and plan discussed with my senior resident Dr. Davis & attending physician Dr. Tea Kaur (PGY-1)- Internal medicine resident Attending Provider Attestation/Addendum I, Dilcia Metcalf, DO, attest that I was physically present for the benavides portions of the service and evaluated the patient with the resident and I reviewed and discussed the case with the resident and agree with the resident's findings and plans of care as documented above Patient seen and evaluated this AM. Patient states she lives with her granddaughters at home. Pt is bedbound and states she gained a significant amount of weight since losing her mobility. However, she has since lost about 50lbs intentionally. She reports progressively worsening fatigue and some shortness of breath. She wears 3.5L/NC at home. Patient was FOBT positive in ED. Hgb downtrending. Will type and screen and hold 2 units of PRBCs. GI consulted, will f/u with recommendations. Syncope likely 2/2 acute blood loss anemia
[2024-09-10 15:58] LABS: Hematocrit 24.7 % (36.0-46.0)
[2024-09-10 16:13] LABS: Stool for WBCs Few (Negative)
[2024-09-10 17:45] LABS: Clostridium Difficile PCR Negative (Negative)
--- NOTE | 2024-09-10 17:53 | PC.NURSE ---
patient's finger tips purple in color bilateral since she arrived at the floor and cool to touch, patient said fingers is always like that secondary to back and neck injury before, dr. jansen is awre. .
[2024-09-10 18:35] LABS: Hemoglobin 7.7 g/dL (12.0-16.0)
[2024-09-10] MEDS: BUDESONIDE RT 0.25 MG/2 ML NEBU INH (18:35)
[2024-09-10] MEDS: DONEPEZIL HCL 5 MG TABLET PO (20:41)
[2024-09-10] MEDS: ATORVASTATIN CALCIUM 20 MG TABLET 40 MG PO (20:41)
[2024-09-10] MEDS: GABAPENTIN 100 MG CAPSULE 200 MG PO (20:44)
--- NOTE | 2024-09-10 21:12 | PD.IMCONS ---
HPI Data of Consult Requesting Physician: Sourav Phillips MD Primary Care Provider: Physician No Primary/Family Consult Narrative Reason for consult: Posthemorrhagic anemia, FOBT positive, drop in H/H 7.7/24.7 History of present illness: 79 years old female who presented to the emergency room with weakness and near syncopal episode Hemoglobin hematocrit initially was 7.9 and 26.8 which has gone down to 7.7 and 24.7 and she is FOBT positive BUN/creatinine 28 and 1.6 Platelet count 317,000 No history of any agnieszka GI bleeding Patient has significant drop in hemoglobin hematocrit from December of this year when it was 13 hemoglobin now 7.9 Patient has a history of COPD on 3 L nasal cannula pulmonary embolism on Xarelto essential hypertension hyperlipidemia depression and iron deficiency anemia Iron panel has been reordered cc:: cc: Sourav Phillips MD Review of Systems Review of Systems Systems Reviewed: All systems reviewed, normal except as documented Past Medical History Surgical History OTHER SURGICAL HX: As in the history of present illness Meds Home Medications and Allergies Home Medications ?Medication ?Instructions ?Recorded ?Confirmed ?Type cyclobenzaprine 10 mg tablet 5 mg PO HS #0 tabs 06/23/17 09/11/24 History gabapentin 100 mg capsule 200 mg PO BID 01/15/18 09/11/24 History donepezil 5 mg tablet 5 mg PO QDAY 01/16/18 09/11/24 History atorvastatin 20 mg tablet 40 mg PO QPM 09/14/18 09/11/24 History duloxetine 60 mg capsule,delayed 60 mg PO BID 04/23/21 09/11/24 History release ergocalciferol (vitamin D2) 1,250 50,000 unit PO QWEEK 04/23/21 09/11/24 History mcg (50,000 unit) capsule multivitamin (One Daily 1 tab PO QDAY 04/23/21 09/11/24 History Multivitamin tablet) metoprolol tartrate 100 mg tablet 100 mg PO BID 05/31/23 09/11/24 History sumatriptan succinate 100 mg tablet 100 mg PO Q8H PRN Migraine Headache 06/02/23 09/11/24 History celecoxib 200 mg capsule (Celebrex) 200 mg PO QDAY 09/10/24 09/11/24 History hydrocodone 10 mg-acetaminophen 1 tab PO Q6H PRN Pain (Scale Score 09/10/24 09/11/24 History 325 mg tablet 7-10) rivaroxaban 20 mg tablet (Xarelto) 20 mg PO QDAY 09/10/24 09/11/24 History Allergies Allergy/AdvReac Type Severity Reaction Status Date / Time ergotamine [From Cafergot] Allergy Intermediate Nausea Verified 09/09/24 18:46 adhesive tape Allergy Mild Rash Verified 09/09/24 18:46 citalopram [From Celexa] Allergy Mild Restless Verified 09/09/24 18:46 leg latex Allergy Mild Rash Verified 09/09/24 18:46 silver Allergy Rash Verified 09/09/24 18:46 Exam Vital Signs Temp Pulse Resp BP Pulse Ox O2 Del Method O2 Flow Rate 97.0 F 107 H 17 127/98 H 90 L Nasal Cannula 3 09/10/24 20:00 09/10/24 20:00 09/10/24 20:00 09/10/24 20:00 09/10/24 20:00 09/10/24 20:00 09/10/24 20:00 Constitutional Comments: Chronically ill-appearing Routine Respiratory Exam Comments: Scattered rhonchi Routine Abdominal Exam Comments: Soft nontender positive bowel sounds Results Labs 09/11/24 19:32 09/11/24 19:32 Labs: Short CBC 09/10/24 09/10/24 Range/Units 05:01 15:26 WBC 18.7 H (3.6-11.0) Thou/mm3 Hgb 7.9 L 7.7 L (12.0-16.0) g/dL Hct 26.8 L 24.7 L (36.0-46.0) % Plt Count 377 (140-440) Thou/mm3 [facility] 09/09/24 09/10/24 22:49 05:01 Sodium 143 141 Potassium 4.4 4.1 Chloride 108 H 107 Carbon Dioxide 26.7 25.8 BUN 25 H 28 H Creatinine 1.5 H 1.6 H Glucose 103 90 Calcium 8.7 8.1 L Liver Function 09/09/24 09/10/24 Range/Units 22:49 05:01 Total Bilirubin 0.2 L 0.2 L (0.3-1.2) mg/dL AST 39 H 33 (0-34) U/L ALT 16 17 (10-49) U/L Alkaline Phosphatase 66 65 (46-116) U/L Albumin 3.0 L 2.8 L (3.4-4.8) gm/dL Urine 09/09/24 Range/Units 21:30 Urine Color Drk-Yellow A (Lt Yel-Yel) Urine Clarity Hazy (Clear/Hazy) Urine pH 5.0 (5.0-7.0) Ur Specific [place] 1.035 (1.001-1.035) Urine Protein 1+ A (Neg - Trace) Urine Glucose (UA) Negative (Negative) Assessment and Plan Additional Assessment & Plan Additional Plan: # Posthemorrhagic anemia with FOBT + stool etiology uncertain being on the Xarelto which she needs for pulmonary embolism makes things more complicated and she has to stay on Xarelto for the long-term health Plan Clear liquid diet N.p.o. tomorrow at 9 AM EGD tomorrow afternoon Consent obtained If upper endoscopy negative we will consider doing a fibrotic colonoscopy prior to discharge Other medical problems include # Pulmonary embolism Xarelto on hold hopefully we can start back on prior to discharge # COPD on 3 L nasal cannula # Essential hypertension # Hyperlipidemia # Depression thank you very much for the opportunity to participate in care of this patient
[2024-09-11] VITALS (19 sets, daily range): BP systolic 83–133; BP diastolic 60–83; PULSE 103–135; RESP 15–30; TEMP 36.1–36.8; O2SAT 88–98; BMI 43.1
[2024-09-11] MEDS: DEXTROSE 50%-WATER INJ 50 ML SYRINGE IV ×2 (01:15→01:35)
[2024-09-11 02:23] LABS: Glucose 265 mg/dL (74-106)
[2024-09-11 06:10] LABS: Basophils # (Auto) 0.1 Thou/mm3 (0.0-0.2); Basophils % (Auto) 0 % (0-2.5); Eosinophils # (Auto) 0.4 Thou/mm3 (0.0-0.5); Eosinophils % (Auto) 2 % (0-10); Hematocrit 22.7 % (36.0-46.0); Immature Granulocytes % (Auto) 1 % (0-0); Lymphocytes # (Auto) 1.1 Thou/mm3 (1.0-4.8); Lymphocytes % (Auto) 7 % (10-50); Mean Corpuscular Hemoglobin 27.5 pg (25.0-35.0); Mean Corpuscular Volume 92 fL (80-100); Monocytes # (Auto) 1.9 Thou/mm3 (0.0-0.8); Monocytes % (Auto) 12 % (0-12); Neutrophils # (Auto) 12.5 Thou/mm3 (1.8-7.7); Neutrophils % (Auto) 77 % (37-80); Nucleated Red Blood Cell # 0.02 Thou/mm3 (0.00-0.00); Nucleated Red Blood Cell % 0 /100 WBC (0); Platelet Count 350 Thou/mm3 (140-440); RDW Standard Deviation 48.5 fL (36.4-46.3); Red Blood Count 2.47 Miln/mm3 (4.00-5.20); White Blood Count 16.2 Thou/mm3 (3.6-11.0)
[2024-09-11 06:19] LABS: Hemoglobin 6.8 g/dL (12.0-16.0)
[2024-09-11 06:24] LABS: Alanine Aminotransferase 21 U/L (10-49); Albumin, Serum 2.7 gm/dL (3.4-4.8); Albumin/Globulin Ratio 1.4 (1.2-2.2); Alkaline Phosphatase 74 U/L (46-116); Anion Gap 9 (7-16); Aspartate Amino Transferase 30 U/L (0-34); BUN/Creatinine Ratio 19 Ratio (12-20); Bilirubin,Total 0.2 mg/dL (0.3-1.2); Blood Urea Nitrogen 32 mg/dL (9-23); Calcium 8.3 mg/dL (8.3-10.6); Calcium (Corrected) 9.3 mg/dL (8.5-10.1); Carbon Dioxide 24.9 mMol/L (20.0-31.0); Chloride 103 mMol/L (98-107); Creatinine (Component) 1.7 mg/dL (0.6-1.3); Estimated Creatinine Clearance 31.4 mL/min (>60); Glucose 73 mg/dL (74-106); Magnesium 1.6 mg/dL (1.6-2.6); Osmolality,Calculated 279 (275-295); Phosphorous 4.4 mg/dL (2.4-5.1); Potassium 3.8 mMol/L (3.4-5.1); Sodium 137 mMol/L (136-145); Total Protein 4.7 gm/dL (5.7-8.2); eGFR 31 See Note
[2024-09-11] MEDS: BUDESONIDE RT 0.25 MG/2 ML NEBU INH ×2 (06:53→19:34)
[2024-09-11] MEDS: ALBUTEROL/IPRATROPIUM (Duoneb) RT SOL 3 ML NEBU INH ×2 (06:53→19:34)
[2024-09-11] MEDS: HYDROcodone/APAP 5/325 TABLET 1 TAB PO ×3 (08:54→22:36)
[2024-09-11] MEDS: PANTOPRAZOLE INJ 40 MG VIAL IVP (08:54)
[2024-09-11] MEDS: DULoxetine HCL 30 MG CAPSULE 60 MG PO (08:54)
[2024-09-11] MEDS: SODIUM CHLORIDE 0.9% 1000 ML 1,000 ML 100 ML IV ×2 (08:54→23:42)
--- NOTE | 2024-09-11 10:16 | PC.NURSE ---
Patient shivering/ shaking during blood transfusion, Dr. Kaur notified. Patient not having any fever or impending doom symptoms. No sob. Ok to continue blood transfusion.
--- NOTE | 2024-09-11 13:37 | PD.RESPRO ---
Documentation for date of: 09/11/24 Senior resident attestation: Patient is a 79-year-old female past medical history of COPD on 3.5 L home O2, history of pulmonary embolism in 2022, on Xarelto, hypertension, hyperlipidemia, major depressive disorder and iron deficiency anemia who presented following a syncopal episode and fecal incontinence/diarrhea. Stool occult was positive in the ER, hemoglobin 9 of note patient had a prior documented hemoglobin of 14, GI consult was placed for possible upper GI bleed. Initial chest imaging shows pneumonia right lung base. Patient is obese and has limited functional mobility. Manual blood pressure only, As there is marked difference between NIBP and manage blood pressure.. #Acute hypoxic respiratory failure #COPD exacerbation secondary to pneumonia - on banc and ceftriaxone. #Acute blood loss anemia - on Xarelto for PE, Hemoglobin 9.9 after blood transfusion. #Possible GI bleed?Dr. Diaz is consulted, will patient will be n.p.o. for EGD tomorrow. #Diarrhea: Diarrhea following antibiotic use, will order C. difficile studies. #Syncope?head CT on admission was negative for hemorrhage. #History of pulm embolism: Per patient she was diagnosed with pulm embolism in 2022 and has been on Xarelto since then, patient did not report following marketing area manager, though reported that Xarelto was started by her marketing area manager and the prescriptions are filled by primary care physician since then. Patient likely requires lifelong anticoagulation. #Raynaud's phenomenon: Noted bilateral purplish discoloration of extremities, patient reported she often develops discoloration when she feels cold. #Tachycardia -Noted to have tachycardia, heart rate in the 140s, patient's home medication metoprolol was held due to concern for hypotension. #Concern for Hypoglycemia - There is concern for hypoglycemia, hence patient's fingerstick blood glucose measurements have been in the low 20s to 30s, but patient has been conscious and alert at the time, blood glucose levels however have been normal. Patient reported a history of cold extremities and purple tinge to her fingers when she feels cold. Likely vasoconstriction causing falsely low fingerstick glucose levels. Patient evaluated and examined at the bedside, plan of care discussed with rest of the team including my attending physician, except as noted. Quresh PGY2 Subjective Subjective Interval history: 09/11: Overnight team reported patient's fingerstick glucose was in the 30s however patient remained asymptomatic she was given D50 x 2 and her fingerstick was between 60s and 70s after 30 minutes of each D50. But patient remained asymptomatic. Patient hemoglobin dropped to 6.9 and 2 units of PRBC is transfused. Patient is seen and examined at bedside this morning patient denies any shortness of breath or dizziness she states her whole body hurts all the time but this is a chronic problem for her. Patient is saturating on 3.5 L of oxygen via NC. Patient is scheduled for EGD today with Dr. Diaz. Patient denies any chest pain or abdominal pain. Exam Vital Signs Temp Pulse Resp BP Pulse Ox O2 Del Method O2 Flow Rate 97.8 F 113 H 15 92/62 91 L Nasal Cannula 4.5 09/11/24 13:09 09/11/24 13:09 09/11/24 13:09/11/24 13:09/11/24 13:09/11/24 12:00 09/11/24 12:00 Narrative Exam GENERAL: A&Ox3. Awake, obese elderly female not in acute distress NEURO: no focal neurological deficits HEENT: Atraumatic, Normocephalic. mucous membranes moist. Eyes open, symmetrical, & clear HEART: Normal Heart Sounds LUNGS: Clear to auscultation with no wheezing or crackles. ABDOMEN: soft, non-distended, non-tender, bowel sounds heard, no guarding or rebound tenderness SKIN: No Rash, multiple ecchymoses from IV lines EXTREMITIES: Non pitting edema bilaterally on lower extremities, no tenderness, able to move all 4 extremities, pedal pulses palpated Objective Labs 09/12/24 07:30 09/12/24 10:04 Labs: Laboratory Results - last 24 hr 09/10/24 09/10/24 09/10/24 12:04 15:00 15:26 WBC RBC Hgb 7.7 L Hct 24.7 L MCV MCH MCHC RDW Std Deviation Plt Count Neut % (Auto) Lymph % (Auto) Beckham % (Auto) Eos % (Auto) Baso % (Auto) Neut # (Auto) Lymph # (Auto) Beckham # (Auto) Eos # (Auto) Baso # (Auto) Immature Gran # (Auto) Absolute Nucleated RBC Immature Gran % Nucleated RBC % Sodium Potassium Chloride Carbon Dioxide Anion Gap BUN Creatinine Estim Creat Clear Calc eGFR BUN/Creatinine Ratio Glucose Calculated Osmolality Calcium Corrected Calcium Phosphorus Magnesium Total Bilirubin AST ALT Alkaline Phosphatase Total Protein Albumin Globulin Albumin/Globulin Ratio Stool for White Cells Few A Stl C. diff Tox B Gene Negative Blood Type A Positive Antibody Screen NEGATIVE Crossmatch See Detail Blood Bank Wristband ID Yes 09/11/24 09/11/24 01:21 05:10 WBC 16.2 H RBC 2.47 L Hgb 6.8 L* Hct 22.7 L MCV 92 MCH 27.5 MCHC 30.0 L RDW Std Deviation 48.5 H Plt Count 350 Neut % (Auto) 77 Lymph % (Auto) 7 L Beckham % (Auto) 12 Eos % (Auto) 2 Baso % (Auto) 0 Neut # (Auto) 12.5 H Lymph # (Auto) 1.1 Beckham # (Auto) 1.9 H Eos # (Auto) 0.4 Baso # (Auto) 0.1 Immature Gran # (Auto) 0.20 H Absolute Nucleated RBC 0.02 H Immature Gran % 1 H Nucleated RBC % 0 Sodium 137 Potassium 3.8 Chloride 103 Carbon Dioxide 24.9 Anion Gap 9 BUN 32 H Creatinine 1.7 H Estim Creat Clear Calc 31.4 L eGFR 31 L BUN/Creatinine Ratio 19 Glucose 265 H D 73 L D Calculated Osmolality 279 Calcium 8.3 Corrected Calcium 9.3 Phosphorus 4.4 Magnesium 1.6 Total Bilirubin 0.2 L AST 30 ALT 21 Alkaline Phosphatase 74 Total Protein 4.7 L Albumin 2.7 L Globulin 2.0 L Albumin/Globulin Ratio 1.4 Stool for White Cells Stl C. diff Tox B Gene Blood Type Antibody Screen Crossmatch Blood Bank Wristband ID Quality Measures Quality Measures none Advance care planning discussed with:: patient Assessment & Plan Assessment Current Active Medications: Generic Name Dose Route Start Last Admin Trade Name Freq PRN Reason Stop Dose Admin Acetaminophen 1,000 mg 09/10/24 07:05 Acetaminophen 500 Mg Tablet PO 10/10/24 04:17 Q6H PRN Fever >101.5 Hydrocodone Bitart/Acetaminophen 1 tab 09/10/24 04:18 09/11/24 08:54 Hydrocodone/Apap 5/325 Tablet PO 09/15/24 04:17 1 tab Q4HR PRN Administration PAIN SCALE 4-10(Mod-Sev Albuterol/Ipratropium 3 ml 09/10/24 07:15 09/11/24 06:53 Albuterol/Ipratropium (Duoneb) Rt Kristin 3 Ml Nebu INH 10/10/24 07:14 3 ml BIDRT CARLO Administration Atorvastatin Calcium 40 mg 09/10/24 21:00 09/10/24 20:41 Atorvastatin Calcium 20 Mg Tablet PO 10/10/24 20:59 40 mg HS CARLO Administration Budesonide 0.25 mg 09/10/24 07:00 09/11/24 06:53 Budesonide Rt 0.25 Mg/2 Ml Nebu INH 10/10/24 06:59 0.25 mg BIDRT CARLO Administration Donepezil HCl 5 mg 09/10/24 21:00 09/10/24 20:41 Donepezil Hcl 5 Mg Tablet PO 10/10/24 20:59 5 mg HS CARLO Administration Duloxetine HCl 60 mg 09/10/24 09:00 09/11/24 08:54 Duloxetine Hcl 30 Mg Capsule PO 10/10/24 08:59 60 mg QDAY CARLO Administration Gabapentin 200 mg 09/10/24 04:24 09/10/24 20:44 Gabapentin 100 Mg Capsule PO 10/10/24 05:59 200 mg TID PRN Administration Back pain Heparin Sodium (Porcine) 5,000 unit 09/10/24 09:00 Heparin Sod Inj 5000 Unit/Ml Vial SC 09/24/24 08:59 BID CARLO Sodium Chloride 1,000 mls @ 100 mls/hr 09/11/24 07:35 09/11/24 08:54 Ns IV 10/11/24 07:34 100 mls/hr .Q10H CARLO Administration Ondansetron HCl 4 mg 09/10/24 04:18 09/10/24 06:32 Ondansetron Inj 2 Mg/Ml Inj 2 Ml IV 10/10/24 04:17 4 mg Q6H PRN Administration NAUSEA OR VOMITING Protocol Pantoprazole Sodium 40 mg 09/10/24 09:00 09/11/24 08:54 Pantoprazole Inj 40 Mg Vial IVP 10/10/24 08:59 40 mg QDAY CARLO Administration Plan Patient is a 79-year-old female with a past medical history significant for COPD on 3L home O2, history of pulmonary embolism [05/2023], essential hypertension, hyperlipidemia, major depressive disorder and iron deficiency anemia presenting today with a chief complaint of syncopal episode and diarrhea. Patient will be admitted for workup and management of syncopal episode. #Syncope #Diarrhea #Dehydration Patient was on the toilet last night having an episode of diarrhea when she had a syncopal episode. On arrival to the ED patient was A and O x 3. Patient is hypotensive on automatic blood pressure cuff, Manual cuff give correct blood pressure reading for this patient. Patient's mucous membranes were pale and dry and she had increased skin turgor initially. She was given 3 L normal saline IV fluid bolus in the ED. Plan: ? Cardiac diet ? Orthostatic vitals ? Transthoracic echocardiogram to assess for wall motion abnormalities, valvular defects and ejection fraction. ? Stool studies including C. difficile (neg), calprotectin, Giardia antigen, H. pylori antigen, norovirus, ova and parasites, stool culture and stool for WBCs (few)- pending ? Blood cultures no growth after 48 hours ? 1 L NS IV fluid at 100 cc/hour ? GI, Dr. Diaz consulted and closely following the case. Appreciate recommendations- Pt is scheduled to undergo EGD today #Acute kidney injury likely prerenal On admission CR 1.7. From chart review baseline appears to be between 1?1.2 Etiology likely prerenal due to dehydration from excessive diarrhea. Plan: ? Encourage p.o. fluid intake -Maintenance IV fluids ordered ? Renally dose medication ? Avoid nephrotoxic drugs #Iron deficiency anemia #Possible GI bleed Patient had a history of iron deficiency anemia for many years. However her Hb from 01/18/2024 was 13.8 and on admission was 9 -> 7.9 Plan: ? Iron panel ordered ?FOBT positive ? Xarelto on hold ? GIDr. Diaz consulted. Appreciate recommendations. #COPD #OHS versus BRYSON Patient says she never smoked but has COPD for many years On 3.5L home oxygen Patient also states that she uses a CPAP machine to sleep at night but has not used it for more than 2 years due to it being nonfunctional. Plan: ? Supplemental O2 to maintain O2 sats between 88-92% ? DuoNebs twice daily ? Beclomethasone inhaler twice daily ? CPAP as needed at night #History of pulmonary embolism [05/2023] Patient had a pulmonary embolism diagnosed May 2023 but still appears to be on therapeutic dose rivaroxaban. She says it was never stopped by her PCP and unsure if she has had a hypercoagulable workup. Chest CTA completed on 05/31/2023 findings include:Suspicious for small emboli in left lower pulmonary artery branches. This is not a definite finding and should be clinically correlated. Plan: ? Home rivaroxaban on hold as may no longer be necessary and also possibility of GI bleed. ? Recommend hypercoagulable workup 2 days after discontinuing Xarelto. #Essential hypertension #Hyperlipidemia Home medication metoprolol tartrate 100 Mg p.o. twice daily and atorvastatin 40 Mg p.o. at bedtime Plan: ? Antihypertensives on hold for now due to low blood pressure. ? Resumed home medication atorvastatin 40 Mg p.o. at bedtime? #Major depressive disorder Patient's home medication duloxetine 60 Mg p.o. daily and donepezil 5 Mg p.o. at bedtime Plan: ? Resume home medication duloxetine 60 Mg p.o. daily ? Resume home medication donepezil 5 Mg p.o. at bedtime Health maintenance: Disposition: IVF, Syncope workup. GI consult Diet: Cardiac Lines: pIVs GI Prophylaxis: Pantoprazole Thrombo Prophylaxis: Heparin on hold in the setting of acute GI bleed. will resume when able post GI work up Code status: Limited Code. [Defib, NO compressions, Intubation if only for a few days] Assessment and plan discussed with my senior resident Dr. Davis & attending physician Dr. Tea Kaur (PGY-1)- Internal medicine resident Attending Provider Attestation/Addendum Dilcia Arias, , attest that I was physically present for the benavides portions of the service and evaluated the patient with the resident and I reviewed and discussed the case with the resident and agree with the resident's findings and plans of care as documented above Patient seen and evaluated this AM. She states that she is doing well. No acute events overnight. Patient noted to have hypoglycemia this morning, resolved with 2 amps of D50. Patient has no active complaints. She remains at her baseline 3.5L/NC. She denies any shortness of breath. However, patient began hallucinating in the afternoon around 6pm during which patient was noted to be hypoglycemic again. She again received 2 amps of D50 and BG increased to 354 from 85. Patient was otherwise able to answer questions appropriately. Patient continued to have sinus tachycardia, will give 2L bolus of IV fluids and increase IV fluid rate. Bcx reviewed and noted to be postiive for 1/2 bottles for GPC. Will start on broad spectrum antibiotics with vancomycin and rocephin. Will repeat blood cultures.
--- NOTE | 2024-09-11 14:24 | PC.CC ---
Notified by Dr. Kaur that patient this morning was having difficulty obtaining a medication outpatient. Met w/ patient and granddaughter, Niesha, at bedside. Patient reported it was a coordination issue between Jerry Rivas and her PCP regarding a nebulizer Rx, but it should be taken care of. No other needs at this time.
[2024-09-11] MEDS: DEXTROSE 50%-WATER INJ 50 ML SYRINGE 100 ML IV (18:16)
[2024-09-11 18:49] LABS: Glucose 136 mg/dL (74-106)
--- NOTE | 2024-09-11 18:54 | XR_ITS ---
Examination: AP chest single view Technique one AP portable upright chest single view Exam date and time: September 16, 2024 1914 hrs. Comparison September 09, 2024 Indications: Shortness of breath today. Findings: Mild prominence of ventricle Moderate ectasia thoracic aorta Subsegmental atelectasis both lungs Suspicious for early pneumonia in the right lower lung zone No pulmonary edema Impression: Suspicious for early pneumonia in the right lower lung zone
--- NOTE | 2024-09-11 19:33 | PC.NURSE ---
Patient having worsening shaking, confusion. BS check on finger less than 10. Repeat check 22 on other hand. Apple juice given and Dr. Sanders notified. Repeat BS on ear lobe checked 85. Dr. Metcalf ordered to still give 2 amps of D50. Patient awake alert but still confused. Post D50 BS check 354 on earlobe. Checked again 30 min later and BS 215. Dr. Metcalf notified of increase confusion and hallucinations. Dr. Morse called and notfied of Urine output for day of 275.
[2024-09-11 19:41] LABS: Base Excess, Venous -4 (-3-3); Basophils # (Auto) 0.1 Thou/mm3 (0.0-0.2); Basophils % (Auto) 1 % (0-2.5); Eosinophils # (Auto) 0.5 Thou/mm3 (0.0-0.5); Eosinophils % (Auto) 3 % (0-10); Hematocrit 30.3 % (36.0-46.0); Hemoglobin 9.9 g/dL (12.0-16.0); Immature Granulocytes % (Auto) 1 % (0-0); Immature Granulocytes Auto 0.07 Thou/mm3 (0.00-0.00); Lymphocytes # (Auto) 1.1 Thou/mm3 (1.0-4.8); Lymphocytes % (Auto) 8 % (10-50); Mean Corpuscular HGB Conc 32.7 g/dl (31.0-37.0); Mean Corpuscular Hemoglobin 29.7 pg (25.0-35.0); Mean Corpuscular Volume 91 fL (80-100); Monocytes # (Auto) 1.3 Thou/mm3 (0.0-0.8); Monocytes % (Auto) 9 % (0-12); Neutrophils % (Auto) 79 % (37-80); Nucleated Red Blood Cell % 0 /100 WBC (0); O2 Saturation, Venous 97 % (96-97); PCO2, Venous 38 mmHg (36-56); PO2, Venous 75 mmHg (15-58); Platelet Count 306 Thou/mm3 (140-440); RDW Standard Deviation 47.2 fL (36.4-46.3); Red Blood Count 3.33 Miln/mm3 (4.00-5.20); pH, Venous 7.36 (7.33-7.66)
[2024-09-11] MEDS: RINGERS LACTATED 1000 ML 1,000 ML 999 ML IV ×2 (19:42→22:37)
[2024-09-11 19:43] LABS: Lactate (Lactic Acid) 2.6 mMol/L (0.4-2.0)
[2024-09-11 20:00] LABS: Anion Gap 7 (7-16); Calcium 8.4 mg/dL (8.3-10.6); Carbon Dioxide 24.2 mMol/L (20.0-31.0); Chloride 108 mMol/L (98-107); Potassium 3.8 mMol/L (3.4-5.1); Sodium 139 mMol/L (136-145)
[2024-09-11 20:03] LABS: BUN/Creatinine Ratio 21 Ratio (12-20); Blood Urea Nitrogen 29 mg/dL (9-23); Creatinine (Component) 1.4 mg/dL (0.6-1.3); Estimated Creatinine Clearance 38.1 mL/min (>60); Glucose 164 mg/dL (74-106); Osmolality,Calculated 287 (275-295); eGFR 39 See Note
[2024-09-11] MEDS: Vancomycin Inj 1,500 MG in SODIUM CHLORIDE 0.9% 500 ML 500 ML 200 MG IV (20:46)
[2024-09-11] MEDS: cefTRIAXone/D5w 1gm IV premix 50 ML IV (20:46)
--- NOTE | 2024-09-11 21:07 | ESPR_ITS ---
Documentation for date of: 09/11/24 Subjective Subjective Interval history: Patient evaluated\hemoglobin hematocrit 9.9 and 30.3 after blood transfusion Patient is a rapid response today She was scheduled for an upper endoscopy but her heart rate in 140s I will wait till she is hemodynamically stable Procedure canceled Clear liquid diet Procedure rescheduled for tomorrow Exam Vital Signs Temp Pulse Resp BP Pulse Ox O2 Del Method O2 Flow Rate 97.1 F 126 H 22 H 118/69 98 Nasal Cannula 6 09/11/24 19:58 09/11/24 19:58 09/11/24 19:58 09/11/24 19:58 09/11/24 19:58 09/11/24 19:58 09/11/24 19:58 Objective Labs 09/11/24 19:32 09/11/24 19:32 Labs: Laboratory Results - last 24 hr 09/10/24 09/11/24 09/11/24 12:04 01:21 05:10 WBC 16.2 H RBC 2.47 L Hgb 6.8 L* Hct 22.7 L MCV 92 MCH 27.5 MCHC 30.0 L RDW Std Deviation 48.5 H Plt Count 350 Neut % (Auto) 77 Lymph % (Auto) 7 L Henderson % (Auto) 12 Eos % (Auto) 2 Baso % (Auto) 0 Neut # (Auto) 12.5 H Lymph # (Auto) 1.1 Henderson # (Auto) 1.9 H Eos # (Auto) 0.4 Baso # (Auto) 0.1 Immature Gran # (Auto) 0.20 H Absolute Nucleated RBC 0.02 H Immature Gran % 1 H Nucleated RBC % 0 VBG pH VBG pCO2 VBG pO2 VBG O2 Sat (Osiris) VBG Base Excess Sodium 137 Potassium 3.8 Chloride 103 Carbon Dioxide 24.9 Anion Gap 9 BUN 32 H Creatinine 1.7 H Estim Creat Clear Calc 31.4 L eGFR 31 L BUN/Creatinine Ratio 19 Glucose 265 H D 73 L D Calculated Osmolality 279 Lactic Acid Calcium 8.3 Corrected Calcium 9.3 Phosphorus 4.4 Magnesium 1.6 Total Bilirubin 0.2 L AST 30 ALT 21 Alkaline Phosphatase 74 Total Protein 4.7 L Albumin 2.7 L Globulin 2.0 L Albumin/Globulin Ratio 1.4 Blood Type A Positive Antibody Screen NEGATIVE Crossmatch See Detail Blood Bank Wristband ID Yes 09/11/24 09/11/24 18:20 19:32 WBC 14.0 H RBC 3.33 L Hgb 9.9 L D Hct 30.3 L MCV 91 MCH 29.7 MCHC 32.7 RDW Std Deviation 47.2 H Plt Count 306 D Neut % (Auto) 79 Lymph % (Auto) 8 L Henderson % (Auto) 9 Eos % (Auto) 3 Baso % (Auto) 1 Neut # (Auto) 11.0 H Lymph # (Auto) 1.1 Henderson # (Auto) 1.3 H Eos # (Auto) 0.5 Baso # (Auto) 0.1 Immature Gran # (Auto) 0.07 H Absolute Nucleated RBC 0.00 Immature Gran % 1 H Nucleated RBC % 0 VBG pH 7.36 VBG pCO2 38 VBG pO2 75 H VBG O2 Sat (Osiris) 97 VBG Base Excess -4 L Sodium 139 Potassium 3.8 Chloride 108 H Carbon Dioxide 24.2 Anion Gap 7 BUN 29 H Creatinine 1.4 H Estim Creat Clear Calc 38.1 L eGFR 39 L BUN/Creatinine Ratio 21 H Glucose 136 H D 164 H Calculated Osmolality 287 Lactic Acid 2.6 H Calcium 8.4 Corrected Calcium Phosphorus Magnesium Total Bilirubin AST ALT Alkaline Phosphatase Total Protein Albumin Globulin Albumin/Globulin Ratio Blood Type Antibody Screen Crossmatch Blood Bank Wristband ID Impressions Impression: # Acute posthemorrhagic anemia requiring blood transfusion Procedure canceled today which was upper endoscopy because the patient general condition once it improves I will reschedule for tomorrow ABG Interpretation ABG results: 09/11/24 19:32 VBG pH 7.36 VBG pCO2 38 VBG pO2 75 H VBG Base Excess -4 L Assessment & Plan A&P Narrative # Posthemorrhagic anemia with FOBT + stool etiology uncertain being on the Xarelto which she needs for pulmonary embolism makes things more complicated and she has to stay on Xarelto for the long-term health Plan Clear liquid diet N.p.o. tomorrow at 9 AM EGD tomorrow afternoon Consent obtained If upper endoscopy negative we will consider doing a fibrotic colonoscopy prior to discharge Other medical problems include # Pulmonary embolism Xarelto on hold hopefully we can start back on prior to discharge # COPD on 3 L nasal cannula # Essential hypertension # Hyperlipidemia # Depression thank you very much for the opportunity to participate in care of this patient Time Spent With Patient Time: Total time spent is greater than 50% in coordination of care (as documented) at patient's floor/unit and/or counseling patient:
[2024-09-11] MEDS: ATORVASTATIN CALCIUM 20 MG TABLET 40 MG PO (21:27)
[2024-09-11] MEDS: DONEPEZIL HCL 5 MG TABLET PO (21:28)
[2024-09-11 22:38] LABS: Reflex Lactate? Y
[2024-09-12] VITALS (12 sets, daily range): BP systolic 105–147; BP diastolic 62–88; PULSE 98–141; RESP 16–21; TEMP 36–36.2; O2SAT 90–100; BMI 43.1
[2024-09-12 00:03] LABS: Lactic Acid, 3 HR 3.4 mMol/L (0.4-2.0)
[2024-09-12] MEDS: SODIUM CHLORIDE 0.9% 1000 ML 1,000 ML 999 ML IV (00:45)
[2024-09-12 06:06] LABS: Lactate (Lactic Acid) 1.3 mMol/L (0.4-2.0)
[2024-09-12 06:51] LABS: Alanine Aminotransferase 29 U/L (10-49); Albumin, Serum 2.8 gm/dL (3.4-4.8); Albumin/Globulin Ratio 1.4 (1.2-2.2); Alkaline Phosphatase 89 U/L (46-116); Anion Gap 7 (7-16); Aspartate Amino Transferase 44 U/L (0-34); BUN/Creatinine Ratio 25 Ratio (12-20); Bilirubin,Total 0.3 mg/dL (0.3-1.2); Blood Urea Nitrogen 25 mg/dL (9-23); Calcium 7.9 mg/dL (8.3-10.6); Calcium (Corrected) 8.9 mg/dL (8.5-10.1); Carbon Dioxide 24.3 mMol/L (20.0-31.0); Chloride 107 mMol/L (98-107); Estimated Creatinine Clearance 53.3 mL/min (>60); Glucose 83 mg/dL (74-106); Magnesium 1.6 mg/dL (1.6-2.6); Osmolality,Calculated 279 (275-295); Phosphorous 2.9 mg/dL (2.4-5.1); Potassium 4.2 mMol/L (3.4-5.1); Sodium 138 mMol/L (136-145); Total Protein 4.8 gm/dL (5.7-8.2); eGFR 58 See Note
[2024-09-12] MEDS: ALBUTEROL/IPRATROPIUM (Duoneb) RT SOL 3 ML NEBU INH (07:17)
[2024-09-12] MEDS: BUDESONIDE RT 0.25 MG/2 ML NEBU INH ×2 (07:17→19:53)
--- NOTE | 2024-09-12 07:46 | EKG_ITS ---
[facility] (Formerly [facility])[3] Test Date: 2024-09-12 Pat Name: MANUEL ALBA Department: Room: S265A Gender: Female [employer]: MAE : 1945 Requested By: Prabhakar Bethea Order Number: [id number] Reading MD: Prabhakar Bethea Measurements Intervals [place] Rate: 143 P: 23 ID: [id number] QRS: -11 QRSD: 91 T: 29 QT: 327 QTc: 506 Interpretive Statements SINUS TACHYCARDIA, POSSIBLE ATRIAL FLUTTER POSSIBLE ANTERIOR MYOCARDIAL INFARCTION , PROBABLY OLD ABNORMAL RHYTHM ECG Compared to ECG 09/09/2024 20:29:02 Sinus rhythm no longer present Myocardial infarct finding still present /store/S0/[id number].pdf
--- NOTE | 2024-09-12 08:12 | PC.SS ---
Update: Rapid response initiated due to patient experiencing elevated heart rate. Plan is for EKG.
--- NOTE | 2024-09-12 08:21 | XR_ITS ---
Examination: CTA chest with intravenous contrast 2-D reconstructions 3-D reconstructions, vascular Date and time of exam: September 12, 2024 at 10:45 AM INDICATIONS: Onset chest pain shortness of breath today CTDI: vol (mGy) 19.6 DLP: (mGycm) 678 Technique: Multiple axial sections of the thorax have been obtained. 3 mm slice thickness, from below the hemidiaphragms to above the apices of the lungs. Mediastinal and lung density settings have been obtained. 2-D sagittal and coronal reconstructions. 3-D angiographic renderings, 3-D volume renderings, 3D post processing, vascular maximum intensity projections obtained. Contrast administered is 100 cc Isovue-370. Low dose protocols were performed. One or more of the following dose reduction techniques were used; automated exposure control, adjustment of the mA and/or KV according to patient size, use of iterative reconstruction technique. Findings: No thoracic aortic aneurysm dilatation or dissection No pulmonary artery emboli No paratracheal tracheobronchial or bronchopulmonary adenopathy Mild pneumonia right lung base Moderate vascular congestion No agnieszka pulmonary edema Significant calcification left anterior descending coronary artery IMPRESSION: Negative for pulmonary artery emboli Mild pneumonia right base Moderate vascular congestion
[2024-09-12] MEDS: SODIUM CHLORIDE 0.9% 1000 ML 1,000 ML 125 ML IV (08:23)
--- NOTE | 2024-09-12 08:31 | PD.RESEVENT ---
Documentation for date of: 09/12/24 Event Note Event Note: Rapid response called at 8:09 am for Pt's HR in 160's. On arrival patients is laying calmly, not in acute distress. Pt is A&O x3. Pt states she would like to brush teeth and take her dentures off. bedside glucose check is 100, BP 117/73 on manual cuff. Pt denies chest pain, abdominal pain, or diziness. Pt is started on IV fluids at 125ml/hr. Stat EKG, Lactic acid and CTA (wells score is 4.5) are ordered. Pt is given metoprolol 25mg x1, Pt HR is below <130 and EKG show sinus tachycardia. Assessment and plan discussed with my senior resident Dr. Davis & attending physician Dr. Tea Kaur (PGY-1)- Internal medicine resident
[2024-09-12 08:41] LABS: Basophils # (Auto) 0.1 Thou/mm3 (0.0-0.2); Basophils % (Auto) 1 % (0-2.5); Eosinophils # (Auto) 0.6 Thou/mm3 (0.0-0.5); Eosinophils % (Auto) 4 % (0-10); Hematocrit 30.7 % (36.0-46.0); Hemoglobin 9.7 g/dL (12.0-16.0); Immature Granulocytes % (Auto) 0 % (0-0); Immature Granulocytes Auto 0.04 Thou/mm3 (0.00-0.00); Lymphocytes # (Auto) 1.3 Thou/mm3 (1.0-4.8); Lymphocytes % (Auto) 9 % (10-50); Mean Corpuscular HGB Conc 31.6 g/dl (31.0-37.0); Mean Corpuscular Hemoglobin 28.8 pg (25.0-35.0); Mean Corpuscular Volume 91 fL (80-100); Monocytes # (Auto) 1.4 Thou/mm3 (0.0-0.8); Monocytes % (Auto) 10 % (0-12); Neutrophils # (Auto) 10.6 Thou/mm3 (1.8-7.7); Neutrophils % (Auto) 76 % (37-80); Nucleated Red Blood Cell % 0 /100 WBC (0); Platelet Count 344 Thou/mm3 (140-440); RDW Standard Deviation 48.5 fL (36.4-46.3); Red Blood Count 3.37 Miln/mm3 (4.00-5.20)
[2024-09-12] MEDS: GABAPENTIN 100 MG CAPSULE 200 MG PO (08:45)
[2024-09-12] MEDS: PANTOPRAZOLE INJ 40 MG VIAL IVP ×2 (08:45→21:51)
[2024-09-12] MEDS: cefTRIAXone/D5w 1gm IV premix 50 ML IV (08:46)
[2024-09-12] MEDS: DULoxetine HCL 30 MG CAPSULE 60 MG PO (08:46)
[2024-09-12] MEDS: METOPROLOL TARTRATE 25 MG TABLET PO ×2 (08:46→14:33)
--- NOTE | 2024-09-12 08:55 | PC.SS ---
Delayed entry from 09-11-24: BEHAVIOR CLINICIAN conducted bedside contact with the patient conduct initial assessment and to discuss discharge planning. Patient confirmed demographic information. Patient resides at home with granddaughter, Niesha Mohr . Patient utilizes a wheelchair for mobility. Patient utilizes home oxygen. Patient possesses a nebulizer. Patient requires assistance with completion of ADL?s. Family provides assistance with completion of ADL?s. Patient identified granddaughter, Niesha Mohr; as medical surrogate decision maker. Patient?s PCP is Samreen Brooks [facility]. Patient does not participate with dialysis. Patient does not possess any specialty providers. Patient utilizes [facility] for medication services. Patient is aligned with home health services. Patient could not recall name of agency. Patient wants to resume home health services upon discharge. Patient requesting wheel chair upon discharge. adoption services manager to submit DME referral. Plan is for the patient to return home at the time of discharge. Family will provide transportation on behalf of the patient. No further intervention required at this time, social group worker will be available to address any further concerns. Next of Kin: Niesha Mohr D/C Plan: Home
--- NOTE | 2024-09-12 08:58 | PC.SS ---
Walkers The diagnosis creates mobility limitation that significantly impairs ability to participate in the patients activities of daily living either in their entirety, or in a reasonable time frame. Also the patient is able to safely use the walker and the patient?s mobility is sufficiently resolved with the use of the walker and cane has been ruled out.
[2024-09-12] MEDS: Magnesium Sulfate 4 GM Ivpb 4 GM/50 ML BAG IV (09:12)
[2024-09-12 10:16] LABS: Lactate (Lactic Acid) 1.8 mMol/L (0.4-2.0)
[2024-09-12 10:38] LABS: Glucose 85 mg/dL (74-106)
--- NOTE | 2024-09-12 14:55 | ESPR_ITS ---
Documentation for date of: 09/12/24 Senior resident attestation: Patient is a 79-year-old female past medical history of COPD on 3.5 L home O2, history of pulmonary embolism in 2022, on Xarelto, hypertension, hyperlipidemia, major depressive disorder and iron deficiency anemia who presented following a syncopal episode and fecal incontinence/diarrhea. Stool occult was positive in the ER, hemoglobin 9 of note patient had a prior documented hemoglobin of 14, GI consult was placed for possible upper GI bleed. Initial chest imaging shows pneumonia right lung base. Patient is obese and has limited functional mobility. Manual blood pressure only. Due to vasoconstriction patient falsely low fingerstick glucose, recommend blood glucose checks only. -Rapid response was called in the morning for tachycardia, heart rate in the 160s, heart rate in the 160s, EKG showed sinus tachycardia, given Xarelto and aspirin was withheld, concern for pulmonary embolism, CTA chest was ordered to rule out PE, which was negative. Patient's home dose of metoprolol tartrate 100 mg twice daily was on hold as patient's presentation was with hypotension. Manual blood pressure reading was normal and patient was given metoprolol to tartrate 25 mg x 1, repeat dose was given an hour later as heart rate, which resulted in improvement in heart rate. Ordered metoprolol tartrate 50 mg twice daily with holding parameters in place. -Rapid response was called at 6 PM for altered mental status, due to concern for stroke head CT and CTA was ordered, teleneuro consult was initiated, head CT was negative for stroke, teleneurologist recommended against tPA due to history of GI bleed, also determined patient's presentation is more consistent with somnolence and less likely stroke. #Acute encephalopathy?likely toxic/metabolic encephalopathy, patient was noted hallucinating by the RN in the morning, we spoke to the patient and she was A and O x 3, said she was fine and she has a habit of talking to herself even at her home, RN reported patient was seeing cats in the room, we spoke to the patient's family who reported patient can become confused when she is unable to sleep, she has not slept for 2 nights and is found to be excessively somnolent. Rapid response was called at 6 PM for altered mental status, due to concern for stroke head CT and CTA was ordered, teleneuro consult was initiated, head CT was negative for stroke, teleneurologist recommended against tPA due to history of GI bleed, also determined patient's presentation is more consistent with somnolence and less likely stroke. #GPC bacteremia- Blood cultures grew GPC's 04/21/2025 and 2 bottles, grew 2 different organisms from 1 sample, likely contamination, repeat blood cultures on 09/11/2024 negative to date. Patient was started on vancomycin in addition to ceftriaxone. #Acute hypoxic respiratory failure #COPD exacerbation secondary to pneumonia #Acute blood loss anemia?blood transfusion to keep hemoglobin more than 7 #Possible GI bleed?Dr. Diaz is consulted, pending EGD, which has been canceled twice due to patient's deteriorating condition as noted above. Patient home medication include Xarelto, celecoxib and aspirin 325 mg, putting her at risk for gastritis/peptic ulcer disease. On IV Protonix twice daily. #Diarrhea: Diarrhea following antibiotic use, will order C. difficile which were negative, stool culture only grew coliforms. #Syncope?head CT on admission was negative for hemorrhage. 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 Patient likely requires lifelong anticoagulation. #Concern for pulmonary embolism?ruled out?she had a rapid response on 09/12/2023 for tachycardia, heart rate in the 160s, EKG showed sinus tachycardia, given Xarelto and aspirin was withheld, concern for pulmonary embolism, CTA chest was ordered to rule out PE, which was negative. Heparin drip was considered but given the risk of EGD bleed requiring blood transfusion, and will hold off on heparin drip until EGD is done. #Raynaud's phenomenon: Noted bilateral purplish discoloration of extremities, patient reported she often develops discoloration when she feels cold. #Concern for hypoglycemia?ruled out?the patient has purple discoloration of her extremities, which she reported has been off and on for quite some time, and are more prominent when she becomes cold. Likely Raynaud's phenomenon, causing vasoconstriction, leading to falsely low fingerstick glucose readings, D50 pushes have been given multiple times, but patient has been asymptomatic throughout, also blood draw glucose has been normal as well as glucometer readings from earlobe have also been normal. Patient evaluated and examined at the bedside, plan of care discussed with rest of the team including my attending physician, except as noted. Quresh PGY2 Subjective Subjective Interval history: 09/12: Overnight pt became hypoglycemic and asymptomatic. and pt was given dextrose. Pt is seen and examined at bedside. Pt had a rapid response earlier for HR of 160's. Pt is seen again later in the morning and her HR remains around 130's and additional metoprolol 25mg is given. Pt underwent CTA which is pending official read by radiologist. Pt remains asymptomatic, denies chest pain or dizzinesses. Pt was scheduled to undergo EGD yesterday which is rescheduled for today. noted that paitents who body is shaking to which she states she always have tremors at baseline. Exam Vital Signs Temp Pulse Resp BP Pulse Ox O2 Del Method O2 Flow Rate 97.2 F 109 H 16 105/62 95 Nasal Cannula 3.5 09/12/24 12:00 09/12/24 14:33 09/12/24 12:00 09/12/24 14:33 09/12/24 12:00 09/12/24 12:00 09/12/24 12:00 Narrative Exam GENERAL: A&Ox3. Awake, obese elderly female not in acute distress, on 3.5L O2 via [place] NEURO: no focal neurological deficits HEENT: Atraumatic, Normocephalic. mucous membranes moist. Eyes open, symmetrical, & clear HEART: Normal Heart Sounds LUNGS: Clear to auscultation with no wheezing or crackles. ABDOMEN: soft, non-distended, non-tender, bowel sounds heard, no guarding or rebound tenderness SKIN: No Rash, multiple ecchymoses from IV lines EXTREMITIES: Non pitting edema bilaterally on lower extremities, no tenderness, able to move all 4 extremities, pedal pulses palpated Objective Labs 09/13/24 07:43 09/13/24 07:43 Labs: Laboratory Results - last 24 hr 09/10/24 09/11/24 09/11/24 12:04 18:20 19:32 WBC 14.0 H RBC 3.33 L Hgb 9.9 L D Hct 30.3 L MCV 91 MCH 29.7 MCHC 32.7 RDW Std Deviation 47.2 H Plt Count 306 D Neut % (Auto) 79 Lymph % (Auto) 8 L [place] % (Auto) 9 Eos % (Auto) 3 Baso % (Auto) 1 Neut # (Auto) 11.0 H Lymph # (Auto) 1.1 [place] # (Auto) 1.3 H Eos # (Auto) 0.5 Baso # (Auto) 0.1 Immature Gran # (Auto) 0.07 H Absolute Nucleated RBC 0.00 Immature Gran % 1 H Nucleated RBC % 0 VBG pH 7.36 VBG pCO2 38 VBG pO2 75 H VBG O2 Sat (Osiris) 97 VBG Base Excess -4 L Sodium 139 Potassium 3.8 Chloride 108 H Carbon Dioxide 24.2 Anion Gap 7 BUN 29 H Creatinine 1.4 H Estim Creat Clear Calc 38.1 L eGFR 39 L BUN/Creatinine Ratio 21 H Glucose 136 H D 164 H Calculated Osmolality 287 Lactic Acid 2.6 H Calcium 8.4 Corrected Calcium Phosphorus Magnesium Total Bilirubin AST ALT Alkaline Phosphatase Total Protein Albumin Globulin Albumin/Globulin Ratio Blood Type A Positive Antibody Screen NEGATIVE Crossmatch See Detail Blood Bank Wristband ID Yes 09/11/24 09/12/24 09/12/24 23:55 05:52 07:30 WBC 14.0 H RBC 3.37 L Hgb 9.7 L Hct 30.7 L MCV 91 MCH 28.8 MCHC 31.6 RDW Std Deviation 48.5 H Plt Count 344 D Neut % (Auto) 76 Lymph % (Auto) 9 L [place] % (Auto) 10 Eos % (Auto) 4 Baso % (Auto) 1 Neut # (Auto) 10.6 H Lymph # (Auto) 1.3 [place] # (Auto) 1.4 H Eos # (Auto) 0.6 H Baso # (Auto) 0.1 Immature Gran # (Auto) 0.04 H Absolute Nucleated RBC 0.00 Immature Gran % 0 Nucleated RBC % 0 VBG pH VBG pCO2 VBG pO2 VBG O2 Sat (Osiris) VBG Base Excess Sodium 138 Potassium 4.2 Chloride 107 Carbon Dioxide 24.3 Anion Gap 7 BUN 25 H Creatinine 1.0 Estim Creat Clear Calc 53.3 L eGFR 58 L BUN/Creatinine Ratio 25 H Glucose 83 D Calculated Osmolality 279 Lactic Acid 3.4 H 1.3 Calcium 7.9 L Corrected Calcium 8.9 Phosphorus 2.9 Magnesium 1.6 Total Bilirubin 0.3 AST 44 H ALT 29 Alkaline Phosphatase 89 D Total Protein 4.8 L Albumin 2.8 L Globulin 2.0 L Albumin/Globulin Ratio 1.4 Blood Type Antibody Screen Crossmatch Blood Bank Wristband ID 09/12/24 10:04 WBC RBC Hgb Hct MCV MCH MCHC RDW Std Deviation Plt Count Neut % (Auto) Lymph % (Auto) [place] % (Auto) Eos % (Auto) Baso % (Auto) Neut # (Auto) Lymph # (Auto) [place] # (Auto) Eos # (Auto) Baso # (Auto) Immature Gran # (Auto) Absolute Nucleated RBC Immature Gran % Nucleated RBC % VBG pH VBG pCO2 VBG pO2 VBG O2 Sat (Osiris) VBG Base Excess Sodium Potassium Chloride Carbon Dioxide Anion Gap BUN Creatinine Estim Creat Clear Calc eGFR BUN/Creatinine Ratio Glucose 85 Calculated Osmolality Lactic Acid 1.8 Calcium Corrected Calcium Phosphorus Magnesium Total Bilirubin AST ALT Alkaline Phosphatase Total Protein Albumin Globulin Albumin/Globulin Ratio Blood Type Antibody Screen Crossmatch Blood Bank Wristband ID ABG Interpretation ABG results: 09/11/24 19:32 VBG pH 7.36 VBG pCO2 38 VBG pO2 75 H VBG Base Excess -4 L Quality Measures Quality Measures none Advance care planning discussed with:: patient Assessment & Plan Assessment Current Active Medications: Generic Name Dose Route Start Last Admin Trade Name Freq PRN Reason Stop Dose Admin Acetaminophen 1,000 mg 09/10/24 07:05 Acetaminophen 500 Mg Tablet PO 10/10/24 04:17 Q6H PRN Fever >101.5 Hydrocodone Bitart/Acetaminophen 1 tab 09/10/24 04:18 09/11/24 22:36 Hydrocodone/Apap 5/325 Tablet PO 09/15/24 04:17 1 tab Q4HR PRN Administration PAIN SCALE 4-10(Mod-Sev Atorvastatin Calcium 40 mg 09/10/24 21:00 09/11/24 21:27 Atorvastatin Calcium 20 Mg Tablet PO 10/10/24 20:59 40 mg HS CARLO Administration Budesonide 0.25 mg 09/10/24 07:00 09/12/24 07:17 Budesonide Rt 0.25 Mg/2 Ml Nebu INH 10/10/24 06:59 0.25 mg BIDRT CARLO Administration Dextrose 25 ml 09/11/24 19:28 Dextrose 50%-Water Inj 50 Ml Syringe IV 10/11/24 19:27 Q15MIN PRN BG 50-70 responsive npo pt Dextrose 50 ml 09/11/24 19:28 Dextrose 50%-Water Inj 50 Ml Syringe IV 10/11/24 19:27 Q15MIN PRN BG <50 OR BG <70 & pt unresponsive Donepezil HCl 5 mg 09/10/24 21:00 09/11/24 21:28 Donepezil Hcl 5 Mg Tablet PO 10/10/24 20:59 5 mg HS CARLO Administration Duloxetine HCl 60 mg 09/10/24 09:00 09/12/24 08:46 Duloxetine Hcl 30 Mg Capsule PO 10/10/24 08:59 60 mg QDAY CARLO Administration Gabapentin 200 mg 09/10/24 04:24 09/10/24 20:44 Gabapentin 100 Mg Capsule PO 10/10/24 05:59 200 mg TID PRN Administration Back pain Gabapentin 200 mg 09/12/24 09:00 09/12/24 08:45 Gabapentin 100 Mg Capsule PO 10/12/24 08:59 200 mg BID CARLO Administration Glucagon 1 mg 09/11/24 19:28 Glucagon Inj 1 Mg Vial IM Q15MIN PRN BG <70, and no IV access Heparin Sodium (Porcine) 5,000 unit 09/10/24 09:00 Heparin Sod Inj 5000 Unit/Ml Vial SC 09/24/24 08:59 BID CARLO Ceftriaxone Sodium/Dextrose 50 mls @ 100 mls/hr 09/11/24 19:17 09/12/24 08:46 Rocephin/D5w 1gm Iv Premix IV 09/18/24 19:16 100 mls/hr QDAY CARLO Administration Vancomycin HCl 200 mls @ 120 mls/hr 09/12/24 22:00 Vancomycin/Water 1250 Mg Ivpb IV 09/19/24 21:59 QDAY@2200 CARLO Sodium Chloride 1,000 mls @ 125 mls/hr 09/12/24 07:36 09/12/24 08:23 Ns IV 10/12/24 07:35 125 mls/hr .Q8H CARLO Administration Metoprolol Tartrate 100 mg 09/12/24 09:00 Metoprolol Tartrate 25 Mg Tablet PO 10/12/24 08:59 BID CARLO Ondansetron HCl 4 mg 09/10/24 04:18 09/10/24 06:32 Ondansetron Inj 2 Mg/Ml Inj 2 Ml IV 10/10/24 04:17 4 mg Q6H PRN Administration NAUSEA OR VOMITING Protocol Pantoprazole Sodium 40 mg 09/10/24 09:00 09/12/24 08:45 Pantoprazole Inj 40 Mg Vial IVP 10/10/24 08:59 40 mg QDAY CARLO Administration Pharmacy Consult 1 each 09/12/24 06:39 Vancomycin Pharmacy To Dose 1 Each Each IV 10/12/24 06:38 QDAY PRN CONSULT Plan Patient is a 79-year-old female with a past medical history significant for COPD on 3L home O2, history of pulmonary embolism [05/2023], essential hypertension, hyperlipidemia, major depressive disorder and iron deficiency anemia presenting today with a chief complaint of syncopal episode and diarrhea. Patient will be admitted for workup and management of syncopal episode. #sinus tachycardia -Pt HR has been above 130's, her home metoprolol 100mg was held due to hypotension on admission and Pts BP remained soft during hospitalization. Pt denies chest pain or dizziness. -Pt is given metoprolol 25mg x2 today (09/12) -will resume home dose of the metoprolol when able when BP permits. -will continue IV fluids at 125ml/hr -will diurese if pt becomes fluid overlaoded. Pt's net balance in 24 hours is +5L, Pt denies SOB, No crackles are heard on lung auscultation and no pitting edema is notes on LE #Hypoglycemia -at night pts. finger stick glucose is in 30's and pt remains asymptomatic -confirm Blood sugar with labs draws and use ear lobes for spot check glucose -dextrose is given -continue IV fluids #Iron deficiency anemia #Possible GI bleed Patient had a history of iron deficiency anemia for many years. However her Hb from 01/18/2024 was 13.8 and on admission was 9 -> 7.9 Plan: ? Iron panel - Iron 9, TIBC 232, iron saturation 3, unsat iron binding 223 ?FOBT positive ? Hold chemical anticoagulation in the setting of possible GI bleed ? GI, Dr. Diaz consulted. Appreciate recommendations- pt is pending EGD, due to tachycardia pt is rescheduled #Syncope- resolved #Diarrhea-resolved #Dehydration-improving Patient was on the toilet last night having an episode of diarrhea when she had a syncopal episode. On arrival to the ED patient was A and O x 3. Patient is hypotensive on automatic blood pressure cuff, Manual cuff give correct blood pressure reading for this patient. Patient's mucous membranes were pale and dry and she had increased skin turgor initially. She was given 3 L normal saline IV fluid bolus in the ED. Plan: ? Cardiac diet ? Transthoracic echocardiogram to assess for wall motion abnormalities, valvular defects and ejection fraction. ? Stool studies including C. difficile (neg), calprotectin, Giardia antigen, H. pylori antigen, norovirus, ova and parasites, stool culture and stool for WBCs (few)- pending ? Blood cultures 1/2 positive for GPC -Patient was started on ceftriaxone and vancomycin on 09/11? ? 1 L NS IV fluid at 125 cc/hour ? GI, Dr. Diaz consulted and closely following the case. Appreciate recommendations- Pt is scheduled to undergo EGD today #Acute kidney injury likely prerenal - resolved On admission CR 1.7. From chart review baseline appears to be between 1?1.2 Etiology likely prerenal due to dehydration from excessive diarrhea. Plan: ? Encourage p.o. fluid intake -Maintenance IV fluids ordered ? Renally dose medication ? Avoid nephrotoxic drugs #COPD #OHS versus BRYSON Patient says she never smoked but has COPD for many years On 3.5L home oxygen Patient also states that she uses a CPAP machine to sleep at night but has not used it for more than 2 years due to it being nonfunctional. Plan: ? Supplemental O2 to maintain O2 sats between 88-92% ? DuoNebs twice daily ? Beclomethasone inhaler twice daily ? CPAP as needed at night #History of pulmonary embolism [05/2023] Patient had a pulmonary embolism diagnosed May 2023 but still appears to be on therapeutic dose rivaroxaban. She says it was never stopped by her PCP and unsure if she has had a hypercoagulable workup. Chest CTA completed on 05/31/2023 findings include:Suspicious for small emboli in left lower pulmonary artery branches. This is not a definite finding and should be clinically correlated. Plan: ? Home rivaroxaban on hold due possibility of GI bleed. -Repeat CTA ordered-pending radiologist read #Essential hypertension #Hyperlipidemia Home medication metoprolol tartrate 100 Mg p.o. twice daily and atorvastatin 40 Mg p.o. at bedtime Plan: ? Antihypertensives on hold for now due to low blood pressure. ? Resumed home medication atorvastatin 40 Mg p.o. at bedtime? #Major depressive disorder Patient's home medication duloxetine 60 Mg p.o. daily and donepezil 5 Mg p.o. at bedtime Plan: ? Resume home medication duloxetine 60 Mg p.o. daily ? Resume home medication donepezil 5 Mg p.o. at bedtime Health maintenance: Disposition: IVF, Syncope workup. GI consult Diet: Cardiac Lines: pIVs GI Prophylaxis: Pantoprazole Thrombo Prophylaxis: Heparin on hold in the setting of acute GI bleed. will resume when able post GI work up Code status: Limited Code. [Defib, NO compressions, Intubation if only for a few days] Assessment and plan discussed with my senior resident Dr. Davis & attending physician Dr. Tea Kaur (PGY-1)- Internal medicine resident Attending Provider Attestation/Addendum I, Dilcia Metcalf DO, attest that I was physically present for the benavides portions of the service and evaluated the patient with the resident and I reviewed and discussed the case with the resident and agree with the resident's findings and plans of care as documented above Patient seen and evaluated this AM during which she had a rapid response for sinus tachycardia in the 150s. BP has been stable and lactic acid improved with IV fluids overnight. Will start patient on metoprolol 25mg PO BID and uptitrate as tolerated, as patient takes 100mg PO BID at home. Blood glucose remains low- normal. However, patient is scheduled for endoscopy this evening, will place on D5LR. Patient denied any further episodes of hallucinations at time of evaluation and able to answer questions appropriately, but has had intermittent confusion per nursing. Suspect hospital delirium. Patient is tremulous, but states that she has tremors at baseline. PGY3 was able to speak with granddaughters who stated that the patient suffers from insomnia and has not slept for 4 nights, which may contribute to her confusion. Patient had a rapid response in the evening due to worsening lethargy and confusion. Stroke alert was called. CT head negative for acute CVA. However, patient's change in mentation appears to be more consistent with metabolic encephalopathy due to gradual progression. ABG, CMP, ammonia, lactic acid ordered. Will hold rocephin as it may cause confusion as well. Continue with vancomycin otherwise.
--- NOTE | 2024-09-12 15:14 | PC.SS ---
Rounding Note: EGD is pending.
[2024-09-12] MEDS: DEXTROSE 5%-LACTATED RINGERS 1,000 ML 75 ML IV (16:01)
--- NOTE | 2024-09-12 16:04 | PC.SS ---
DME referral submitted on [facility]. Pending responses.
--- NOTE | 2024-09-12 18:46 | ECHO_ITS ---
Transthoracic Echo Report Ht (in): 62 Wt (lb): 236 Exam Location: Echo Lab Status: Inpatient Case Monitor: Parris Boudreaux Indications: Procedure Performed: BP: 112 / 70 HR: 102 Rhythm: Sinus Technical Quality: Very technically difficult study MEASUREMENTS (Male / Female) Normal Values 2D ECHO LV Diastolic Diameter PLAX 3.9 cm 4.2 - 5.9 / 3.9 - 5.3 cm LV Systolic Diameter PLAX 2.8 cm IVS Diastolic Thickness 1.1 cm 0.6 - 1.0 / 0.6 - 0.9 cm LVPW Diastolic Thickness 0.9 cm 0.6 - 1.0 / 0.6 - 0.9 cm LV Relative Wall Thickness 0.5 LVOT Diameter 1.7 cm Aortic Root Diameter 3.7 cm DOPPLER AV Peak Velocity 100.0 cm/s AV Peak Gradient 4.0 mmHg AV Mean Gradient 2.0 mmHg AV Velocity Time Integral 19.0 cm LVOT Peak Velocity 80.5 cm/s LVOT Peak Gradient 2.6 mmHg LVOT Velocity Time Integral 15.7 cm LVOT Cardiac Index 1633.2 cm?/min?m? AV Area Cont Eq vti 1.9 cm? AV Area Cont Eq pk 1.8 cm? MV Area PHT 4.6 cm? Mitral E Point Velocity 71.8 cm/s Mitral A Point Velocity 92.6 cm/s Mitral E to A Ratio 0.8 LV E' Lateral Velocity 12.5 cm/s Mitral E to LV E' Lateral Ratio 5.7 LV E' Septal Velocity 10.0 cm/s Mitral E to LV E' Septal Ratio 7.2 TR Peak Velocity 297.0 cm/s TR Peak Gradient 35.3 mmHg FINDINGS Left Ventricle Normal left ventricular size, wall thickness, systolic function with no obvious regional wall motion abnormalities. Normal left ventricular diastolic filling pattern for age. The ejection fraction is v isually estimated at 60-65 %. Right Ventricle The right ventricle is normal in size and systolic function. Left Atrium The left atrium is normal by two-dimensional, color flow and Doppler imaging with no structural abnormalities, no thrombus formation present. Right Atrium The right atrium is normal by two-dimensional imaging, color flow and Doppler imaging with no struct ural abnormalities, no thrombus formation present. Atrial Septum The interatrial septum appears normal with no evidence of a shunt. Aorta The aorta is normal by two-dimensional, color flow and Doppler interrogation. Mitral Valve The mitral valve is normal by two-dimensional, color flow and Doppler interrogation. There is trace mitral valve regurgitation, stenosis or prolapse. Aortic Valve The aortic valve is trileaflet and normal by two-dimensional, color flow and Doppler interrogation. There is no significant aortic valve regurgitation. Tricuspid Valve The tricuspid valve is normal by two-dimensional, color flow and Doppler interrogation. There is mil d tricuspid valve regurgitation. Pulmonic Valve The pulmonic valve is not well visualized. There is no significant pulmonic valve regurgitation. Vessels The pulmonary artery appears normal. The inferior vena cava pulmonary and hepatic veins appear apolonia l. Pericardium The pericardium is normal by two-dimensional imaging. There is no significant pericardial effusion. CONCLUSIONS Indication: with bubble study Bubble study negative Normal left ventricular size and function. Estimated EF 60-65% RV is normal in size and systolic function. Trace MR. Mild TR. Altagracia Burr (Electronically Signed) Final Date: 14 September 2024 09:13
--- NOTE | 2024-09-12 18:46 | XR_ITS ---
Examination: CT brain head without contrast. 2-D sagittal coronal reconstructions Date and time of exam:2024 1802 hours Indications: Stroke alert, onset focal neurologic deficit beginning this morning 0700 hrs. CTDI: vol (mGy):823 DLP: (mGycm):1642 Technique: Multiple CT axial sections of the brain have been obtained, 5 mm slice thickness. Contrast has not been administered. 2-D sagittal, coronal reconstructions have been obtained Low dose protocols were performed. One or more of the following dose reduction techniques were used; automated exposure control, adjustment of the mA and/or KV according to patient size, use of iterative reconstruction technique. Findings: No significant ventricular enlargement. 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 No mass effect or midline shift Basal cisterns are not remarkable. Fourth ventricle is midline. Cranial vault intact. Impression: Negative for acute hemorrhage, mass effect or midline shift Consider brain MRI MRA, without contrast, stroke protocol, follow-up
--- NOTE | 2024-09-12 18:47 | EKG_ITS ---
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
--- NOTE | 2024-09-12 19:00 | XR_ITS ---
Examination: CTA carotids with intravenous contrast CTA brain, head with intravenous contrast. 2-D sagittal, coronal reconstructions. 3-D reconstructions. Exam date and time: September 12, 2024 1904 hrs. Indications: Stroke alert, onset focal neurologic deficit beginning 7:00 AM this morning CTDI: vol (mGy) 11.3 DLP: (mGycm) 386 Technique: Multiple CTA axial brain, head carotid images post intravenous contrast injection 75 cc, [id number]. 2-D sagittal, coronal reconstructions. 3-D reconstructions, 3-D post processing including vascular maximum intensity projection images. Low dose protocols were performed. One or more of the following dose reduction techniques were used; automated exposure control, adjustment of the mA and/or KV according to patient size, use of iterative reconstruction technique. Findings: Pleural and parenchymal disease right upper lobe image 204 No significant common carotid carotid bifurcation or internal carotid artery stenoses Dominant right vertebral artery Markedly atretic left vertebral artery No cerebral large vessel arterial occlusions thrombus or dissection Impression: No significant neck carotid stenoses Markedly atretic left vertebral artery, recommend carotid vertebral Doppler sonography to exclude retrograde flow in the left vertebral artery No cerebral large vessel arterial occlusions
--- NOTE | 2024-09-12 19:01 | EVENTNT_ITS ---
Documentation for date of: 09/12/24 Event Note Event Note: Rapid response: Rapid response was called at 18:38. Patient was found altered and was alert to herself and mumbling with generalized shaking. Patient was able to protect her airways. Vitals were difficult to assess due to her Raynaud's/autoimmune disease however blood pressure was 140 systolic, heart rate 131 bpm, saturating 87% on 3.5 L nasal cannula and was afebrile. Patient's blood sugar was 116 mg/dL. Examination showed bilateral reactive pupils, sinus tachycardia and bilateral breath sounds without crackles or wheezing. She was having generalized shaking. No tongue bite or urinary incontinence. Stroke alert was initiated. We ordered stat head CT for stroke protocol, CT angio for stroke protocol, MRI brain for stroke protocol, lactic acid, CBC, CMP, electrolytes, ABGs and EKG. Additionally, her medications including gabapentin, duloxetine, donepezil and ceftriaxone were held. Additionally, metoprolol tartrate was also stopped to allow permissive hypertension. Teleneuro was consulted for stroke. Dr Wilkinson, neurologist has been consulted for further recommendations.She is NPO and we ordered PT/speech therapist. Head CT came negative for acute hemorrhage, mass effect or midline shift.Rest of Imagings/labs are pending. We updated night team to follow-up with imaging findings. I called Grand Daughter Slick who is person to notify and informed her about patients' altere d mental status. Attending, Dr. Metcalf was updated regarding patient's evaluation and stroke workup. -- Patient was seen and discussed with attending physician, Dr. Alan Torrez MD, PGY 2
[2024-09-12 19:20] LABS: Lactate (Lactic Acid) 1.1 mMol/L (0.4-2.0)
[2024-09-12 19:45] LABS: Basophils # (Auto) 0.1 Thou/mm3 (0.0-0.2); Basophils % (Auto) 1 % (0-2.5); Eosinophils # (Auto) 0.6 Thou/mm3 (0.0-0.5); Eosinophils % (Auto) 6 % (0-10); Hematocrit 29.5 % (36.0-46.0); Hemoglobin 9.7 g/dL (12.0-16.0); Immature Granulocytes % (Auto) 0 % (0-0); Immature Granulocytes Auto 0.05 Thou/mm3 (0.00-0.00); Lymphocytes # (Auto) 0.7 Thou/mm3 (1.0-4.8); Lymphocytes % (Auto) 7 % (10-50); Mean Corpuscular HGB Conc 32.9 g/dl (31.0-37.0); Mean Corpuscular Hemoglobin 29.8 pg (25.0-35.0); Mean Corpuscular Volume 91 fL (80-100); Monocytes # (Auto) 0.9 Thou/mm3 (0.0-0.8); Monocytes % (Auto) 8 % (0-12); Neutrophils # (Auto) 8.8 Thou/mm3 (1.8-7.7); Neutrophils % (Auto) 79 % (37-80); Nucleated Red Blood Cell % 0 /100 WBC (0); Platelet Count 412 Thou/mm3 (140-440); RDW Standard Deviation 48.9 fL (36.4-46.3); Red Blood Count 3.26 Miln/mm3 (4.00-5.20); White Blood Count 11.1 Thou/mm3 (3.6-11.0)
[2024-09-12 19:48] LABS: Ammonia 13 uMol/L (11-32)
--- NOTE | 2024-09-12 19:49 | PD.TNEURO ---
Tele Neuro Consultation Consultation Date 09/12/24 Most Recent Vital Signs Last Vital Signs Temp 96.8 F 09/12/24 16:00 Pulse 110 H 09/12/24 16:00 Resp 21 H 09/12/24 16:00 BP 117/66 09/12/24 16:00 Pulse Ox 95 09/12/24 16:00 O2 Del Method Nasal Cannula 09/12/24 16:00 O2 Flow Rate 3.5 09/12/24 16:00 Laboratory-Coagulation Panel PT 18.1 Seconds (9.0-12.2) H 09/09/24 18:50 INR 1.7 (0.9-1.3) H 09/09/24 18:50 APTT 36.1 Seconds (22.0-36.0) H 09/09/24 18:50 Consultation Narrative [facility] Patient Name:???Gabriela Milan Date of :???1945 Identification Number:??? Date of Service:???09/12/2024 18:47:15 Diagnosis:?R40.0 - Somnolence Impression: ?79 yo woman currently admitted for syncope and likely GI bleed who is a stroke alert for worsening lethargy and slurred speech. While her speech is slurred, it seems like that of someone who is somnolent rather than a true dysarthria. While a stroke is possible, she is not a thrombolytic candidate due to her GI bleed and anemia. Low suspicion of LVO but CTA is pending. ? ?Recommend brain MRI if she does not improve. Please have neurology follow. Our recommendations are outlined below. Recommendations: ? Stroke/Telemetry Floor ? Neuro Checks ? Bedside Swallow Eval ? DVT Prophylaxis ? IV Fluids, Normal Saline ? Head of Bed 30 Degrees ? Euglycemia and Avoid Hyperthermia (PRN Acetaminophen) Sign Out: ? Discussed with Primary Attending Advanced Imaging:Advanced imaging has been ordered. Results pending. Metrics: Last Known Well: 09/12/2024 14:00:00 Dispatch Time: 09/12/2024 18:47:15 Initial Response Time: 09/12/2024 18:48:59Symptoms: lethargy, garbled speech. Initial patient interaction: 09/12/2024 19:08:31 NIHSS Assessment Completed: 09/12/2024 19:13:33Patient is not a candidate for Thrombolytic. Thrombolytic Medical Decision: 09/12/2024 19:13:34Patient was not deemed candidate for Thrombolytic because of following reasons: Recent gastrointestinal or urinary tract hemorrhage (within previous 21 days) . CT head showed no acute hemorrhage or acute core infarct. Primary Provider Notified of Diagnostic Impression and Management Plan on: 09/12/2024 19:22:56 Spoke With: Dr. Puckett Able to Reach 09/12/2024 19:22:56 History of Present Illness:Patient is a 79 year old Female. Inpatient stroke alert was called for symptoms of lethargy, garbled speech. This is a 79 yo woman who has a history of HTN, HLD, PE on xarelto who presented with syncope. She was also noted to be quite anemic and there is a concern for gastric ulcer. An EGD is pending. FOBT was positive and she has been transfused. A stroke alert is called tonight after she was found to be quite lethargic and having mumbling speech once aroused. She had a rapid response called this morning for pulse in the 160s. Her nurse reports that since last night, she's had visual hallucinations of cats in her room and then saw people in her room who weren't there. It sounds like this has progressed throughout the day. On my current exam, she is quite somnolent but will wake up after being roused several times. She'll keep her eyes open but once we stop talking to her, they close. She says she is very sleepy. She will follow basic commands. She is weak throughout and quite tremulous in her upper extremities. Speech is dysarthric with the quality more due to somnolence. She is able to name some objects and read a sentence. Spontaneous speech is minimal. No clear gaze deviation. Head CT neg for acute pathology. dr puckett [phone] ? Past Medical History: ?Hypertension ?Hyperlipidemia Other PMH:? depression ?PE Medications: No Anticoagulant use? No Antiplatelet use Reviewed EMR for current medications Allergies:? Reviewed Social History: Unable To Obtain Due To Patient Status :?Patient Is Obtunded/ Comatose Family History: Family History Cannot Be Obtained Because:Patient Is Obtunded/ Comatose ROS :?ROS Cannot Be Obtained Because:? Patient Is Obtunded/ Comatose Past Surgical History: Past Surgical History Cannot Be Obtained Because: Patient Is Obtunded/ Comatose ? Examination: BP(113/69),?Pulse(102), 1A: Level of Consciousness - Arouses to minor stimulation?+ 1 1B: Ask Month and Age - Could Not Answer Either Question Correctly?+ 2 1C: Blink Eyes & Squeeze Hands - Performs Both Tasks?+ 0 2: Test Horizontal Extraocular Movements - Normal?+ 0 3: Test Visual Ruff - No Visual Loss?+ 0 4: Test Facial Palsy (Use Grimace if Obtunded) - Normal symmetry?+ 0 5A: Test Left Arm Motor Drift - Drift, but doesn't hit bed?+ 1 5B: Test Right Arm Motor Drift - Drift, but doesn't hit bed?+ 1 6A: Test Left Leg Motor Drift - Some Effort Against Poth?+ 2 6B: Test Right Leg Motor Drift - Some Effort Against Poth?+ 2 7: Test Limb Ataxia (FNF/Heel-Wilcox) - No Ataxia?+ 0 8: Test Sensation - Normal; No sensory loss?+ 0 9: Test Language/Aphasia - Normal; No aphasia?+ 0 10: Test Dysarthria - Normal?+ 0 11: Test Extinction/Inattention - No abnormality?+ 0 NIHSS Score:?9 Pre-Morbid Modified Susana Scale:Unable to assess Spoke with :?Dr. Puckett This consult was conducted in real time using interactive audio and video technology. Patient was informed of the technology being used for this visit and agreed to proceed. Patient located in hospital and provider located at home/office setting. Patient is being evaluated for possible acute neurologic impairment and high probability of imminent or life-threatening deterioration. I spent total of 45 minutes providing care to this patient, including time for face to face visit via telemedicine, review of medical records, imaging studies and discussion of findings with providers, the patient and/or family. Dr Mukund Mobley [facility] For Inpatient follow-up with [facility] physician please call [facility] at . As we are not an outpatient service for any post hospital discharge needs please contact the hospital for assistance. If you have any questions for the [facility] physicians or need to reconsult for clinical or diagnostic changes please contact us via [facility] at . ?
[2024-09-12 19:57] LABS: Alanine Aminotransferase 27 U/L (10-49); Albumin, Serum 2.4 gm/dL (3.4-4.8); Albumin/Globulin Ratio 1.3 (1.2-2.2); Alkaline Phosphatase 76 U/L (46-116); Anion Gap 7 (7-16); Aspartate Amino Transferase 34 U/L (0-34); BUN/Creatinine Ratio 21 Ratio (12-20); Bilirubin,Total 0.2 mg/dL (0.3-1.2); Blood Urea Nitrogen 19 mg/dL (9-23); Calcium 7.6 mg/dL (8.3-10.6); Calcium (Corrected) 8.9 mg/dL (8.5-10.1); Carbon Dioxide 22.6 mMol/L (20.0-31.0); Chloride 107 mMol/L (98-107); Creatinine (Component) 0.9 mg/dL (0.6-1.3); Estimated Creatinine Clearance 59.3 mL/min (>60); Globulin 1.9 gm/dL (2.3-3.5); Glucose 102 mg/dL (74-106); Magnesium 2.4 mg/dL (1.6-2.6); Osmolality,Calculated 276 (275-295); Sodium 137 mMol/L (136-145); Total Protein 4.3 gm/dL (5.7-8.2); Troponin I 0.034 ng/mL (0.0-0.045); eGFR > 60 See Note
--- NOTE | 2024-09-12 20:12 | PD.IMPROG ---
Documentation for date of: 09/12/24 Subjective Subjective Interval history: Patient tachycardic heart rate in the 130s Rapid response called twice today I have canceled the procedure for today for safety of the patient and reevaluation in the morning Exam Vital Signs Temp Pulse Resp BP Pulse Ox O2 Del Method O2 Flow Rate 96.8 F 98 21 H 117/66 100 Nasal Cannula 6 09/12/24 16:00 09/12/24 19:53 09/12/24 19:53 09/12/24 16:00 09/12/24 19:53 09/12/24 16:00 09/12/24 19:53 Objective Labs 09/12/24 19:34 09/12/24 19:13 Labs: Laboratory Results - last 24 hr 09/11/24 09/12/24 09/12/24 23:55 05:52 07:30 WBC 14.0 H RBC 3.37 L Hgb 9.7 L Hct 30.7 L MCV 91 MCH 28.8 MCHC 31.6 RDW Std Deviation 48.5 H Plt Count 344 D Neut % (Auto) 76 Lymph % (Auto) 9 L [place] % (Auto) 10 Eos % (Auto) 4 Baso % (Auto) 1 Neut # (Auto) 10.6 H Lymph # (Auto) 1.3 [place] # (Auto) 1.4 H Eos # (Auto) 0.6 H Baso # (Auto) 0.1 Immature Gran # (Auto) 0.04 H Absolute Nucleated RBC 0.00 Immature Gran % 0 Nucleated RBC % 0 Sodium 138 Potassium 4.2 Chloride 107 Carbon Dioxide 24.3 Anion Gap 7 BUN 25 H Creatinine 1.0 Estim Creat Clear Calc 53.3 L eGFR 58 L BUN/Creatinine Ratio 25 H Glucose 83 D Calculated Osmolality 279 Lactic Acid 3.4 H 1.3 Calcium 7.9 L Corrected Calcium 8.9 Phosphorus 2.9 Magnesium 1.6 Total Bilirubin 0.3 AST 44 H ALT 29 Alkaline Phosphatase 89 D Ammonia Troponin I Total Protein 4.8 L Albumin 2.8 L Globulin 2.0 L Albumin/Globulin Ratio 1.4 09/12/24 09/12/24 09/12/24 10:04 19:13 19:34 WBC 11.1 H RBC 3.26 L Hgb 9.7 L Hct 29.5 L MCV 91 MCH 29.8 MCHC 32.9 RDW Std Deviation 48.9 H Plt Count 412 D Neut % (Auto) 79 Lymph % (Auto) 7 L [place] % (Auto) 8 Eos % (Auto) 6 Baso % (Auto) 1 Neut # (Auto) 8.8 H Lymph # (Auto) 0.7 L [place] # (Auto) 0.9 H Eos # (Auto) 0.6 H Baso # (Auto) 0.1 Immature Gran # (Auto) 0.05 H Absolute Nucleated RBC 0.00 Immature Gran % 0 Nucleated RBC % 0 Sodium 137 Potassium 4.0 Chloride 107 Carbon Dioxide 22.6 Anion Gap 7 BUN 19 Creatinine 0.9 Estim Creat Clear Calc 59.3 L eGFR > 60 BUN/Creatinine Ratio 21 H Glucose 85 102 Calculated Osmolality 276 Lactic Acid 1.8 1.1 Calcium 7.6 L Corrected Calcium 8.9 Phosphorus Magnesium 2.4 Total Bilirubin 0.2 L AST 34 ALT 27 Alkaline Phosphatase 76 Ammonia 13 Troponin I 0.034 Total Protein 4.3 L Albumin 2.4 L Globulin 1.9 L Albumin/Globulin Ratio 1.3 Impressions Impression: # Anemia blood loss # Status post diabetes positive heart rate in the 130s Procedure canceled for today Reevaluation in the morning ABG Interpretation ABG results: 09/11/24 19:32 VBG pH 7.36 VBG pCO2 38 VBG pO2 75 H VBG Base Excess -4 L Assessment & Plan A&P Narrative # Posthemorrhagic anemia with FOBT + stool etiology uncertain being on the Xarelto which she needs for pulmonary embolism makes things more complicated and she has to stay on Xarelto for the long-term health Plan Clear liquid diet N.p.o. tomorrow at 9 AM EGD tomorrow afternoon Consent obtained If upper endoscopy negative we will consider doing a fibrotic colonoscopy prior to discharge Other medical problems include # Pulmonary embolism Xarelto on hold hopefully we can start back on prior to discharge # COPD on 3 L nasal cannula # Essential hypertension # Hyperlipidemia # Depression thank you very much for the opportunity to participate in care of this patient Time Spent With Patient Time: Total time spent is greater than 50% in coordination of care (as documented) at patient's floor/unit and/or counseling patient:
[2024-09-12 20:15] LABS: INR 1.1 (0.9-1.3); Prothrombin Time 11.9 Seconds (9.0-12.2)
[2024-09-12 20:42] LABS: Base Excess, Venous -2 (-3-3); O2 Saturation, Venous 77 % (96-97); PCO2, Venous 52 mmHg (36-56); PO2, Venous 39 mmHg (15-58); pH, Venous 7.29 (7.33-7.66)
[2024-09-12] MEDS: WATER IV (21:51)
[2024-09-12] MEDS: VANCOMYCIN IV (21:51)
[2024-09-12] MEDS: ATORVASTATIN CALCIUM 20 MG TABLET 40 MG PO (21:53)
[2024-09-13] VITALS (15 sets, daily range): BP systolic 80–116; BP diastolic 48–84; PULSE 88–102; RESP 13–85; TEMP 36.1–36.6; O2SAT 93–98; BMI 43.5; BMI 43.7
--- NOTE | 2024-09-13 | XR_ITS ---
Examinations: MRI Brain without intravenous contrast. MRA brain without intravenous contrast. MRA carotids without intravenous contrast 3-D vascular reconstructions Date and time of exam: September 13, 2024 1429 hours Comparison July 11, 2017 INDICATIONS: Syncope weakness, stroke alert September 12, 2024 onset focal neurologic deficit Technique: Multiple axial and sagittal images of the brain have been obtained MRA brain carotid images without contrast obtained, including 3-D postprocessing, vascular maximum intensity projection images Findings: S[place] is not enlarged. The optic chiasm and infundibular stalk are not remarkable. Prepontine and interpeduncular cisterns are not enlarged. No localized enlargement of the medulla or dorie. Fourth ventricle and cerebellar tonsils normal in position. Subacute hemorrhage is not seen. Fourth ventricle is midline. Mass in the cerebellopontine angle region is not evident. 7th and 8th nerve complexes exhibits symmetry. Globes are symmetrical with no retro-orbital mass. 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 Patient refused MRA carotid images MRA brain images no large vessel occlusions Impression: Negative for acute hemorrhage mass effect or midline shift No acute infarct No cerebral large vessel occlusions
[2024-09-13] MEDS: DEXTROSE 5%-LACTATED RINGERS 1,000 ML 75 ML IV (05:11)
[2024-09-13 08:20] LABS: Basophils # (Auto) 0.1 Thou/mm3 (0.0-0.2); Basophils % (Auto) 1 % (0-2.5); Eosinophils # (Auto) 0.7 Thou/mm3 (0.0-0.5); Eosinophils % (Auto) 9 % (0-10); Hematocrit 30.4 % (36.0-46.0); Hemoglobin 9.7 g/dL (12.0-16.0); Immature Granulocytes % (Auto) 1 % (0-0); Immature Granulocytes Auto 0.06 Thou/mm3 (0.00-0.00); Lymphocytes # (Auto) 0.9 Thou/mm3 (1.0-4.8); Lymphocytes % (Auto) 12 % (10-50); Mean Corpuscular HGB Conc 31.9 g/dl (31.0-37.0); Mean Corpuscular Volume 91 fL (80-100); Monocytes # (Auto) 0.8 Thou/mm3 (0.0-0.8); Monocytes % (Auto) 10 % (0-12); Neutrophils # (Auto) 5.3 Thou/mm3 (1.8-7.7); Neutrophils % (Auto) 69 % (37-80); Nucleated Red Blood Cell % 0 /100 WBC (0); Platelet Count 318 Thou/mm3 (140-440); RDW Standard Deviation 49.4 fL (36.4-46.3); Red Blood Count 3.35 Miln/mm3 (4.00-5.20); White Blood Count 7.7 Thou/mm3 (3.6-11.0)
[2024-09-13] MEDS: PANTOPRAZOLE INJ 40 MG VIAL IVP ×2 (08:20→21:19)
[2024-09-13] MEDS: METOPROLOL TARTRATE 25 MG TABLET 50 MG PO ×2 (08:37→21:17)
[2024-09-13 08:40] LABS: Alanine Aminotransferase 28 U/L (10-49); Albumin, Serum 2.5 gm/dL (3.4-4.8); Albumin/Globulin Ratio 1.3 (1.2-2.2); Alkaline Phosphatase 85 U/L (46-116); Anion Gap 7 (7-16); Aspartate Amino Transferase 42 U/L (0-34); BUN/Creatinine Ratio 20 Ratio (12-20); Bilirubin,Total 0.3 mg/dL (0.3-1.2); Blood Urea Nitrogen 16 mg/dL (9-23); Calcium 8.1 mg/dL (8.3-10.6); Calcium (Corrected) 9.3 mg/dL (8.5-10.1); Carbon Dioxide 24.8 mMol/L (20.0-31.0); Chloride 108 mMol/L (98-107); Creatinine (Component) 0.8 mg/dL (0.6-1.3); Glucose 84 mg/dL (74-106); Magnesium 2.3 mg/dL (1.6-2.6); Osmolality,Calculated 279 (275-295); Phosphorous 2.7 mg/dL (2.4-5.1); Potassium 3.9 mMol/L (3.4-5.1); Sodium 140 mMol/L (136-145); Total Protein 4.5 gm/dL (5.7-8.2); eGFR > 60 See Note
--- NOTE | 2024-09-13 11:51 | PC.SS ---
SHOP SUPERVISOR informed by PT that recommendation is for patient to obtain melanie lyft. In addition patient will require a wheelchair. SHOP SUPERVISOR to submit DME referral on [facility].
--- NOTE | 2024-09-13 11:52 | PC.SS ---
Update: Patient undergoing stroke work up, receiving IV antibiotics.
--- NOTE | 2024-09-13 13:25 | PC.SS ---
Wheel Chairs Patients diagnosis creates mobility limitations that significantly impairs ability to participate in the patients activities of daily living either in their entirety, or in a reasonable time frame in the home and the patients mobility limitations can not be sufficiently resolved with an appropriately fitted cane or walker. Also the use of a manual wheelchair will sufficiently improve patient?s ability to participate in the activities of daily living in the home and the patient is willing to use the wheelchair that is provided in the home. The patient has some one in the home that is available, willing and able to provide assistance with the wheelchair. Lindy Lift Patient requires transfer between the bed, chair, wheelchair and commode that requires the assistance of more than one person. Without the use of the lift the patient would be confined or a dependent transfer.
--- NOTE | 2024-09-13 14:48 | PC.PT ---
PT eval only. Patient is at her PLOF.
--- NOTE | 2024-09-13 18:03 | ESPR_ITS ---
<Statement entered by Parker Jin MD - 09/21/24 13:38> I reviewed above note and agree with findings and plans. I have also personally examined the patient with medicine team and went over assessment and plan with medical team including event marketing intern and resident physician. Documentation for date of: 09/13/24 Senior resident attestation: Patient is a 79-year-old female past medical history of COPD on 3.5 L home O2, history of pulmonary embolism in 2022, on Xarelto, hypertension, hyperlipidemia, major depressive disorder and iron deficiency anemia who presented following a syncopal episode and fecal incontinence/diarrhea. Stool occult was positive in the ER, hemoglobin 9 of note patient had a prior documented hemoglobin of 14, GI consult was placed for possible upper GI bleed. Initial chest imaging shows pneumonia right lung base. Patient is obese and has limited functional mobility. Manual blood pressure only. Due to vasoconstriction patient falsely low fingerstick glucose, recommend blood glucose checks only. #Acute toxic/metabolic encephalopathy vs hospital acquired delirium #Ruled out acute Stroke- intermittent hallucainations and altered mental status , possibly due to hypoglycemia, due to concern for stroke head CT and CTA was ordered, teleneuro consult was initiated, head CT was negative for stroke, teleneurologist recommended against tPA due to history of GI bleed, also determined patient's presentation is more consistent with somnolence and less likely stroke. #GPC bacteremia- Blood cultures grew GPC's 04/21/2025 and 08/22 bottles, grew 2 different organisms from 1 sample, likely contamination, repeat blood cultures on 09/11/2024 negative to date. Patient was started on vancomycin in addition to ceftriaxone. Staph auricularis likely contaminant. #Acute hypoxic respiratory failure #COPD exacerbation secondary to pneumonia #Acute blood loss anemia?blood transfusion to keep hemoglobin more than 7 #Possible GI bleed?Dr. Diaz is consulted, pending EGD, which has been canceled twice due to patient's deteriorating condition as noted above. Patient home medication include Xarelto, celecoxib and aspirin 325 mg, putting her at risk for gastritis/peptic ulcer disease. On IV Protonix twice daily. Pending EGD once stable for procedure. #Diarrhea: Diarrhea following antibiotic use, C. difficile negative, stool culture only grew coliforms. #Syncope?head CT on admission was negative for hemorrhage. #History of pulm embolism: Per patient she was diagnosed with pulm embolism in 2022 and has been on Xarelto since then, patient did not report following central processing tech, though reported that Xarelto was started by her central processing tech and the prescriptions are filled by primary care physician since then. Patient likely requires lifelong anticoagulation. Ruled out acute pulmonary embolism, CTA negative for PE. #Concern for hypoglycemia?ruled out?the patient has purple discoloration of her extremities, which she reported has been off and on for quite some time, and are more prominent when she becomes cold. Likely Raynaud's phenomenon, causing vasoconstriction, leading to falsely low fingerstick glucose readings, D50 pushes have been given multiple times, but patient has been asymptomatic throughout, also blood draw glucose has been normal as well as glucometer readings from earlobe have also been normal. Patient evaluated and examined at the bedside, plan of care discussed with rest of the team including my attending physician, except as noted. Quresh PGY2 Subjective Subjective Interval history: 09/13: Late evening patient had a rapid response called for altered mental status and generalized shaking. Stroke alert was activated. CT and MRI were negative for acute stroke. Patient is seen and examined at bedside this morning patient is awake and alert with heart rate of 100 patient is saturating 97% on 3.5 L of oxygen. Patient denies any chest pain or abdominal pain she states she has chronic shoulder and neck pain as well as bilateral leg pain. Patient's EGD was rescheduled the last couple days due to unstable vital signs however patient is scheduled to undergo EGD today. Patient's hemoglobin is stable at 9.7. Due to frequency of patient becoming hypoglycemic in the evenings with altered mentation likely secondary to the extreme hypoglycemia requiring dextrose will order abdominal MRI with and without contrast. Patient otherwise has no other complaints. Exam Vital Signs Temp Pulse Resp BP Pulse Ox O2 Del Method O2 Flow Rate 97.0 F 91 18 112/70 95 BiPAP 6 09/13/24 08:00 09/13/24 16:00 09/13/24 08:00 09/13/24 08:37 09/13/24 08:00 09/13/24 08:00 09/13/24 04:00 FiO2 30 09/13/24 07:00 Narrative Exam GENERAL: A&Ox3. Awake, obese elderly female not in acute distress, on 3.5L O2 via NC NEURO: no focal neurological deficits HEENT: Atraumatic, Normocephalic. mucous membranes moist. Eyes open, symmetrical, & clear HEART: Normal Heart Sounds LUNGS: Clear to auscultation with no wheezing or crackles. ABDOMEN: soft, non-distended, non-tender, bowel sounds heard, no guarding or rebound tenderness SKIN: No Rash, multiple ecchymoses from IV lines EXTREMITIES: Non pitting edema bilaterally on lower extremities, no tenderness, able to move all 4 extremities, pedal pulses palpated Objective Labs 09/13/24 07:43 09/13/24 07:43 Labs: Laboratory Results - last 24 hr 09/12/24 09/12/24 09/12/24 19:13 19:34 20:30 WBC 11.1 H RBC 3.26 L Hgb 9.7 L Hct 29.5 L MCV 91 MCH 29.8 MCHC 32.9 RDW Std Deviation 48.9 H Plt Count 412 D Neut % (Auto) 79 Lymph % (Auto) 7 L [place] % (Auto) 8 Eos % (Auto) 6 Baso % (Auto) 1 Neut # (Auto) 8.8 H Lymph # (Auto) 0.7 L [place] # (Auto) 0.9 H Eos # (Auto) 0.6 H Baso # (Auto) 0.1 Immature Gran # (Auto) 0.05 H Absolute Nucleated RBC 0.00 Immature Gran % 0 Nucleated RBC % 0 PT 11.9 D INR 1.1 APTT 31.0 VBG pH 7.29 L VBG pCO2 52 D VBG pO2 39 D VBG O2 Sat ([place]is) 77 L VBG Base Excess -2 Sodium 137 Potassium 4.0 Chloride 107 Carbon Dioxide 22.6 Anion Gap 7 BUN 19 Creatinine 0.9 Estim Creat Clear Calc 59.3 L eGFR > 60 BUN/Creatinine Ratio 21 H Glucose 102 Calculated Osmolality 276 Lactic Acid 1.1 Calcium 7.6 L Corrected Calcium 8.9 Phosphorus Magnesium 2.4 Total Bilirubin 0.2 L AST 34 ALT 27 Alkaline Phosphatase 76 Ammonia 13 Troponin I 0.034 Total Protein 4.3 L Albumin 2.4 L Globulin 1.9 L Albumin/Globulin Ratio 1.3 09/13/24 07:43 WBC 7.7 RBC 3.35 L Hgb 9.7 L Hct 30.4 L MCV 91 MCH 29.0 MCHC 31.9 RDW Std Deviation 49.4 H Plt Count 318 D Neut % (Auto) 69 Lymph % (Auto) 12 [place] % (Auto) 10 Eos % (Auto) 9 Baso % (Auto) 1 Neut # (Auto) 5.3 Lymph # (Auto) 0.9 L [place] # (Auto) 0.8 Eos # (Auto) 0.7 H Baso # (Auto) 0.1 Immature Gran # (Auto) 0.06 H Absolute Nucleated RBC 0.00 Immature Gran % 1 H Nucleated RBC % 0 PT INR APTT VBG pH VBG pCO2 VBG pO2 VBG O2 Sat ([place]) VBG Base Excess Sodium 140 Potassium 3.9 Chloride 108 H Carbon Dioxide 24.8 Anion Gap 7 BUN 16 Creatinine 0.8 Estim Creat Clear Calc 67.0 eGFR > 60 BUN/Creatinine Ratio 20 Glucose 84 Calculated Osmolality 279 Lactic Acid Calcium 8.1 L Corrected Calcium 9.3 Phosphorus 2.7 Magnesium 2.3 Total Bilirubin 0.3 AST 42 H ALT 28 Alkaline Phosphatase 85 Ammonia Troponin I Total Protein 4.5 L Albumin 2.5 L Globulin 2.0 L Albumin/Globulin Ratio 1.3 ABG Interpretation ABG results: 09/11/24 09/12/24 19:32 20:30 VBG pH 7.36 7.29 L VBG pCO2 38 52 D VBG pO2 75 H 39 D VBG Base Excess -4 L -2 Quality Measures Quality Measures none Advance care planning discussed with:: patient Assessment & Plan Assessment Current Active Medications: Generic Name Dose Route Start Last Admin Trade Name Katerin PRN Reason Stop Dose Admin Acetaminophen 1,000 mg 09/10/24 07:05 Acetaminophen 500 Mg Tablet PO 10/10/24 04:17 Q6H PRN Fever >101.5 Hydrocodone Bitart/Acetaminophen 1 tab 09/10/24 04:18 09/11/24 22:36 Hydrocodone/Apap 5/325 Tablet PO 09/15/24 04:17 1 tab Q4HR PRN Administration PAIN SCALE 4-10(Mod-Sev Atorvastatin Calcium 40 mg 09/10/24 21:00 09/12/24 21:53 Atorvastatin Calcium 20 Mg Tablet PO 10/10/24 20:59 40 mg HS CARLO Administration Dextrose 25 ml 09/11/24 19:28 Dextrose 50%-Water Inj 50 Ml Syringe IV 10/11/24 19:27 Q15MIN PRN BG 50-70 responsive npo pt Dextrose 50 ml 09/11/24 19:28 Dextrose 50%-Water Inj 50 Ml Syringe IV 10/11/24 19:27 Q15MIN PRN BG <50 OR BG <70 & pt unresponsive Diphenhydramine HCl 25 mg 09/13/24 17:44 Diphenhydramine Inj 50 Mg/Ml Vial IV 09/13/24 19:44 [id number] PRN MODERATE SEDATION Donepezil HCl 5 mg 09/10/24 21:00 09/11/24 21:28 Donepezil Hcl 5 Mg Tablet PO 10/10/24 20:59 5 mg HS CARLO Administration Duloxetine HCl 60 mg 09/10/24 09:00 09/12/24 08:46 Duloxetine Hcl 30 Mg Capsule PO 10/10/24 08:59 60 mg QDAY CARLO Administration Fentanyl Citrate 50 mcg 09/13/24 17:44 Fentanyl Cit Inj 50 Mcg/Ml Amp 2ml IV 09/13/24 19:44 Q2M PRN MODERATE SEDATION Gabapentin 200 mg 09/12/24 09:00 09/12/24 08:45 Gabapentin 100 Mg Capsule PO 10/12/24 08:59 200 mg BID CARLO Administration Glucagon 1 mg 09/11/24 19:28 Glucagon Inj 1 Mg Vial IM Q15MIN PRN BG <70, and no IV access Heparin Sodium (Porcine) 5,000 unit 09/10/24 09:00 Heparin Sod Inj 5000 Unit/Ml Vial SC 09/24/24 08:59 BID CARLO Vancomycin HCl 200 mls @ 120 mls/hr 09/12/24 22:00 09/12/24 21:51 Vancomycin/Water 1250 Mg Ivpb IV 09/19/24 21:59 120 mls/hr QDAY@2200 CARLO Administration Protocol Dextrose/Lactated Ringer's 1,000 mls @ 75 mls/hr 09/12/24 15:45 09/13/24 05:11 D5-Lr IV 10/12/24 15:44 75 mls/hr .[id number] CARLO Administration Metoprolol Tartrate 50 mg 09/12/24 21:00 09/13/24 08:37 Metoprolol Tartrate 25 Mg Tablet PO 10/12/24 20:59 50 mg BID CARLO Administration Midazolam HCl 2 mg 09/13/24 17:44 Midazolam Inj 1 Mg/Ml Vial 2 Ml IV 09/13/24 19:44 Q2M PRN Moderate Sedation Ondansetron HCl 4 mg 09/10/24 04:18 09/10/24 06:32 Ondansetron Inj 2 Mg/Ml Inj 2 Ml IV 10/10/24 04:17 4 mg Q6H PRN Administration NAUSEA OR VOMITING Protocol Pantoprazole Sodium 40 mg 09/12/24 21:00 09/13/24 08:20 Pantoprazole Inj 40 Mg Vial IVP 10/12/24 20:59 40 mg BID CARLO Administration Pharmacy Consult 1 each 09/12/24 06:39 Vancomycin Pharmacy To Dose 1 Each Each IV 10/12/24 06:38 QDAY PRN CONSULT Plan Patient is a 79-year-old female with a past medical history significant for COPD on 3L home O2, history of pulmonary embolism [05/2023], essential hypertension, hyperlipidemia, major depressive disorder and iron deficiency anemia presenting today with a chief complaint of syncopal episode and diarrhea. Patient will be admitted for workup and management of syncopal episode. #sinus tachycardia- improved -Pt HR has been above 130's, her home metoprolol 100mg was held due to hypotension on admission and Pts BP remained soft during hospitalization. Pt denies chest pain or dizziness. -Pt is given metoprolol 25mg x2 today (09/12) -will resume home dose of the metoprolol when able when BP permits. -will continue D5 LR 75ml/hr -will diurese if pt becomes fluid overlaoded. Pt's net balance in 24 hours is +5L, Pt denies SOB, No crackles are heard on lung auscultation and no pitting edema is notes on LE #Hypoglycemia -at night pts. finger stick glucose is in 30's and pt remains asymptomatic -confirm Blood sugar with labs draws and use ear lobes for spot check glucose -dextrose is given -continue IV fluids -M RI with and without contrast pending-to rule out adrenal and neuroendocrine type tumor such as insulinoma #Possible GI bleed #Iron deficiency anemia Patient had a history of iron deficiency anemia for many years. However her Hb from 01/18/2024 was 13.8 and on admission was 9 -> 7.9 Plan: ? Iron panel - Iron 9, TIBC 232, iron saturation 3, unsat iron binding 223 ?FOBT positive ? Hold chemical anticoagulation in the setting of possible GI bleed ? GI, Dr. Diaz consulted. Appreciate recommendations- pt is pending EGD, due to tachycardia and hypoglycemia pt was rescheduled multiple times #Syncope- resolved #Diarrhea-resolved #Dehydration-improving Patient was on the toilet last night having an episode of diarrhea when she had a syncopal episode. On arrival to the ED patient was A and O x 3. Patient is hypotensive on automatic blood pressure cuff, Manual cuff give correct blood pressure reading for this patient. Patient's mucous membranes were pale and dry and she had increased skin turgor initially. She was given 3 L normal saline IV fluid bolus in the ED. Plan: ? Cardiac diet ? Transthoracic echocardiogram to assess for wall motion abnormalities, valvular defects and ejection fraction. ? Stool studies including C. difficile (neg), calprotectin, Giardia antigen, H. pylori antigen, norovirus, ova and parasites, stool culture and stool for WBCs (few)- pending ? Blood cultures 1/2 positive for GPC -Patient was started on ceftriaxone and vancomycin on 09/11? ? 1 L NS IV fluid at 125 cc/hour ? GI, Dr. Diaz consulted and closely following the case. Appreciate recommendations- Pt is scheduled to undergo EGD today #Acute kidney injury likely prerenal - resolved On admission CR 1.7. From chart review baseline appears to be between 1?1.2 Etiology likely prerenal due to dehydration from excessive diarrhea. Plan: ? Encourage p.o. fluid intake -Maintenance IV fluids ordered ? Renally dose medication ? Avoid nephrotoxic drugs #COPD #OHS versus BRYSON Patient says she never smoked but has COPD for many years On 3.5L home oxygen Patient also states that she uses a CPAP machine to sleep at night but has not used it for more than 2 years due to it being nonfunctional. Plan: ? Supplemental O2 to maintain O2 sats between 88-92% ? DuoNebs twice daily ? Beclomethasone inhaler twice daily ? CPAP as needed at night #History of pulmonary embolism [05/2023] Patient had a pulmonary embolism diagnosed May 2023 but still appears to be on therapeutic dose rivaroxaban. She says it was never stopped by her PCP and unsure if she has had a hypercoagulable workup. Chest CTA completed on 05/31/2023 findings include:Suspicious for small emboli in left lower pulmonary artery branches. This is not a definite finding and should be clinically correlated. Plan: ? Home rivaroxaban on hold due possibility of GI bleed. -Repeat CTA ordered-pending radiologist read #Essential hypertension #Hyperlipidemia Home medication metoprolol tartrate 100 Mg p.o. twice daily and atorvastatin 40 Mg p.o. at bedtime Plan: ? Antihypertensives on hold for now due to low blood pressure. ? Resumed home medication atorvastatin 40 Mg p.o. at bedtime? #Major depressive disorder #chronic should and neck pain Patient's home medication duloxetine 60 Mg p.o. daily and donepezil 5 Mg p.o. at bedtime Pt has history of chronic pain in the shoulders and neck for which she takes norco prn at home Plan: ? Resume home medication duloxetine 60 Mg p.o. daily ? Resume home medication donepezil 5 Mg p.o. at bedtime -Resume home [place] 5 as needed Health maintenance: Disposition: IVF, Syncope workup. GI consult Diet: Cardiac Lines: pIVs GI Prophylaxis: Pantoprazole Thrombo Prophylaxis: Heparin on hold in the setting of acute GI bleed. will resume when able post GI work up Code status: Limited Code. [Defib, NO compressions, Intubation if only for a few days] Assessment and plan discussed with my senior resident Dr. Davis & attending physician Dr. Annabel Kaur (PGY-1)- Internal medicine resident
[2024-09-13] MEDS: ATORVASTATIN CALCIUM 20 MG TABLET 40 MG PO (21:18)
[2024-09-13] MEDS: VANCOMYCIN IV (21:20)
[2024-09-13] MEDS: WATER IV (21:20)
[2024-09-13] MEDS: ACETAMINOPHEN 500 MG TABLET 1000 MG PO (22:54)
--- NOTE | 2024-09-13 23:26 | VVPN_ITS ---
Telemedicine visit statement This visit was conducted with the use of interactive audio and video telecommunications system that permits real time communication between the patient and the provider. Patient's verbal consent for virtual visit was obtained on 09/13/24 at 2326. Documentation for date of: 09/13/24 Subjective Subjective Interval history: Patient is in telemetry. No recurrent episodes of altered mental status or fainting for the last 24 hours. She complains of pain in the neck and is asking for medication to control. Virtual exam Vital Signs Temp Pulse Resp BP Pulse Ox O2 Del Method O2 Flow Rate 96.9 F 93 16 106/66 97 Nasal Cannula 3 09/13/24 20:00 09/13/24 21:17 09/13/24 20:30 09/13/24 21:17 09/13/24 20:30 09/13/24 20:00 09/13/24 20:30 FiO2 30 09/13/24 07:00 Objective Labs 09/13/24 07:43 09/13/24 07:43 Labs: Laboratory Results - last 24 hr 09/13/24 07:43 WBC 7.7 RBC 3.35 L Hgb 9.7 L Hct 30.4 L MCV 91 MCH 29.0 MCHC 31.9 RDW Std Deviation 49.4 H Plt Count 318 D Neut % (Auto) 69 Lymph % (Auto) 12 [place] % (Auto) 10 Eos % (Auto) 9 Baso % (Auto) 1 Neut # (Auto) 5.3 Lymph # (Auto) 0.9 L [place] # (Auto) 0.8 Eos # (Auto) 0.7 H Baso # (Auto) 0.1 Immature Gran # (Auto) 0.06 H Absolute Nucleated RBC 0.00 Immature Gran % 1 H Nucleated RBC % 0 Sodium 140 Potassium 3.9 Chloride 108 H Carbon Dioxide 24.8 Anion Gap 7 BUN 16 Creatinine 0.8 Estim Creat Clear Calc 67.0 eGFR > 60 BUN/Creatinine Ratio 20 Glucose 84 Calculated Osmolality 279 Calcium 8.1 L Corrected Calcium 9.3 Phosphorus 2.7 Magnesium 2.3 Total Bilirubin 0.3 AST 42 H ALT 28 Alkaline Phosphatase 85 Total Protein 4.5 L Albumin 2.5 L Globulin 2.0 L Albumin/Globulin Ratio 1.3 ABG Interpretation ABG results: 09/11/24 09/12/24 19:32 20:30 VBG pH 7.36 7.29 L VBG pCO2 38 52 D VBG pO2 75 H 39 D VBG Base Excess -4 L -2 Assessment & Plan Problem List (1) Altered mental status: Status: Acute Assessment and plan: Resolved, EEG did not show any epileptiform discharges. (2) Sepsis secondary to UTI: Status: Acute Assessment and plan: Continue with antibiotics and follow-up with the culture (3) Hypertension: Status: Chronic Assessment and plan: Continue with metoprolol (4) Acute febrile illness: Status: Acute Assessment and plan: Continue with symptomatic therapy, antibiotics and follow-up with culture.
[2024-09-14] VITALS (9 sets, daily range): BP systolic 110–132; BP diastolic 68–88; PULSE 64–94; RESP 12–21; TEMP 36.1–36.3; O2SAT 94–99; BMI 47.0
[2024-09-14] MEDS: DEXTROSE 5%-LACTATED RINGERS 1,000 ML 75 ML IV (02:26)
[2024-09-14 05:51] LABS: Basophils # (Auto) 0.1 Thou/mm3 (0.0-0.2); Basophils % (Auto) 1 % (0-2.5); Eosinophils # (Auto) 0.6 Thou/mm3 (0.0-0.5); Eosinophils % (Auto) 12 % (0-10); Hematocrit 30.4 % (36.0-46.0); Hemoglobin 9.7 g/dL (12.0-16.0); Immature Granulocytes % (Auto) 1 % (0-0); Immature Granulocytes Auto 0.06 Thou/mm3 (0.00-0.00); Lymphocytes # (Auto) 0.8 Thou/mm3 (1.0-4.8); Lymphocytes % (Auto) 15 % (10-50); Mean Corpuscular HGB Conc 31.9 g/dl (31.0-37.0); Mean Corpuscular Hemoglobin 29.2 pg (25.0-35.0); Mean Corpuscular Volume 92 fL (80-100); Monocytes # (Auto) 0.8 Thou/mm3 (0.0-0.8); Monocytes % (Auto) 14 % (0-12); Neutrophils # (Auto) 2.9 Thou/mm3 (1.8-7.7); Neutrophils % (Auto) 56 % (37-80); Nucleated Red Blood Cell % 0 /100 WBC (0); Platelet Count 327 Thou/mm3 (140-440); RDW Standard Deviation 50.6 fL (36.4-46.3); Red Blood Count 3.32 Miln/mm3 (4.00-5.20); White Blood Count 5.2 Thou/mm3 (3.6-11.0)
[2024-09-14 06:24] LABS: Alanine Aminotransferase 26 U/L (10-49); Albumin, Serum 2.5 gm/dL (3.4-4.8); Albumin/Globulin Ratio 1.3 (1.2-2.2); Alkaline Phosphatase 86 U/L (46-116); Anion Gap 7 (7-16); Aspartate Amino Transferase 24 U/L (0-34); BUN/Creatinine Ratio 15 Ratio (12-20); Bilirubin,Total 0.3 mg/dL (0.3-1.2); Blood Urea Nitrogen 12 mg/dL (9-23); Calcium 8.2 mg/dL (8.3-10.6); Calcium (Corrected) 9.4 mg/dL (8.5-10.1); Carbon Dioxide 25.8 mMol/L (20.0-31.0); Chloride 109 mMol/L (98-107); Creatinine (Component) 0.8 mg/dL (0.6-1.3); Estimated Creatinine Clearance 65.7 mL/min (>60); Globulin 1.9 gm/dL (2.3-3.5); Glucose 108 mg/dL (74-106); Osmolality,Calculated 283 (275-295); Potassium 3.6 mMol/L (3.4-5.1); Sodium 142 mMol/L (136-145); Total Protein 4.4 gm/dL (5.7-8.2); eGFR > 60 See Note
[2024-09-14] MEDS: METOPROLOL TARTRATE 25 MG TABLET 50 MG PO (08:10)
[2024-09-14] MEDS: PANTOPRAZOLE INJ 40 MG VIAL IVP (08:11)
--- NOTE | 2024-09-14 11:52 | PC.CM ---
Addendum entered by Prudence Suh 09/14/24 12:07: 1153 ASWPrudence spoke to Esteban with [facility] as they have accepted patient but were requesting a d/c date ASW informed him that d/c can possibly happen today he reports SOC date would be tomorrow 09/15/2024. Original Note: 1152 ASWPrudence submitted referral via [facility].
--- NOTE | 2024-09-14 12:04 | PC.SS ---
Addendum entered by Ines Wallis 09/14/24 14:52: Pt has O2 tank at bedside for transportation. SS setup transportation with Rashid from [employer] for 4:30pm. Pt is returning home. Pt is aware. Both granddaughters are aware. Pt states her granddaughters are unable to afford to pay for transportation. Bedside nurse, Miley is aware. Zarina LÓPEZ is aware. Addendum entered by Ines Wallis 09/14/24 12:54: SS attempted to setup gurney transportation with [employer] but was unsuccessful. Dinorah from [facility] explained pt is not found in their system. Per bedside nurse, Miley pt is maximum assist to transfer. Addendum entered by Ines Wallis 09/14/24 12:38: SS met with pt who states she was requesting a wheelchair not a rollator walker. [facility] has delivered rollator walker to bedside. SS followed up with Marsha from [facility] this morning who explained pt is not eligible for a new wheelchair as she has received one a couple of years ago. Pt is aware. Pt utilizes home O2 from [facility] but states she does not have small O2 tanks. Pt is adamant about not paying privately for transportation. Pt is aware to contact [facility] when she needs small O2 tanks to be refilled. SS has contacted her granddaughter, Kathe who is requesting to speak with physicians before pt is d/c. SS attempted to contact her granddaughter, Niesha but was unsuccessful. Original Note: Pt is waiting to have zapata cath removed and void on her own before being d/c.
--- NOTE | 2024-09-14 14:04 | ESDS_ITS ---
<Statement entered by Parker Jin MD - 09/21/24 13:39> I reviewed above note and agree with findings and plans. I have also personally examined the patient with medicine team and went over assessment and plan with medical team including mechanical intern and resident physician. Planned Discharge Date 09/14/24 DS: Providers Provider Date of admission: 09/10/24 04:18 Primary care physician: Physician No Primary/Family Admitting Provider: Sourav Phillips MD Attending Provider on Admission: Dilcia Metcalf DO Consults: 09/10/24 04:37 Consult to Gastroenterology Routine Comment: FOBT (+) Consulting Provider: Gomez Diaz 09/12/24 18:48 Referral Speech Therapy Stat Comment: 09/12/24 18:51 Consult to Neurology / Tele-Neurology Stat Comment: Consulting Provider: Eleazar Wilkinson Referral Physical Therapy Stat Comment: Physician Instructions: Attending Provider on DC: Prabhakar Bethea MD Discharging Provider: Prabhakar Bethea MD DS: Diagnosis Problem List Completed Was Problem List Reviewed/Reconciled?: Yes Hospital Course Hospital Course Hospital course: Ms. Milan is a 79-year-old female with past medical history of COPD on 3 L at home, previous history of pulmonary emboli (May/2023), essential hypertension, hyperlipidemia, major depressive disorder, and iron deficiency anemia who presented to [facility] following a episode of syncope and associated diarrhea. Patient was at home having an active bowel movement on the toilet and passed out with the next memory being emergency medical collections representative arriving and taking her to the hospital. Prior to the episode of syncope she denied any chest pain, shortness of breath, postictal confusion or associated fever. Patient had been having diarrhea for period of a few days with associated incontinence and a noted diarrhea that was watery and brown. Patient also informed the admitting team that she had been bedbound for the past 3 years following a right femur fracture and had led to 100 pound weight gain. In initial presentation patient's blood pressure was noted to be extremely hypotensive with BP 63/47 but a manual blood pressure was taken which improved to 110/87 so it is our suspicion that it was due to patient's large circumference of her arm that was contributing to lower than appropriate readings. Chest x-ray revealed moderate vascular congestion and atelectasis in the left lung zone along with right lung base consolidation. She was admitted for the workup of her syncope and her initial hemoglobin was noted to be 9. Patient was initiated on broad-spectrum antibiotic therapy due to the x-ray findings and GI was consulted due to patient's hemoglobin being lower than her previously documented hemoglobin of 14. Patient informed us that she had been taking Xarelto, aspirin 325, and Celebrex for management of her chronic conditions. Quickly during patient's hospitalization she began to develop signi ficant hypoglycemia with her blood glucose noted to be in the 30s requiring the use of D50 so decision was made to use the patient's ears as a source of her blood glucose measurements. Also patient developed significant tachycardia due to the fact that her home metoprolol was being held so it was later resumed. Later on her hemoglobin down trended to 6.8 requiring blood transfusion with 2 units of PRBCs given and appropriate increased to 9.9. Patient is EGD remained held for period of 2 days due to the complications associated with her hospitalization. She also developed tremors and altered mentation which primary team suspected was due to hospital associated delirium but a stroke alert was called and patient underwent a complete stroke workup with MRI being negative for any acute infarct. Once patient had obtained adequate sleep it appeared that her mentation has improved to her baseline. Patient received EGD with Dr. Diaz on September 13 which revealed gastritis and esophagitis along with previous ring around the stomach indicating that patient may have had a gastric sleeve in the past. Dr. Diaz was able to pass his scope through the gastric sleeve indicating that there was no obstruction. No acute site was located for the bleed the patient's hemoglobin remained stable above 9.7 once the blood transfusions had been given. Patient's tachycardia resolved as well with a dequate hydration and the resumption of her home medication of metoprolol. During the course of her hospitalization patient was also noted to have a bloodstream infection with staph auricularis growing 1 out of 2 bottles and later blood cultures being negative for more than 72 hours. It is our suspicion that the patient's blood cultures were likely positive due to contamination. Patient was medically cleared for discharge following her EGD with fairly benign findings of gastritis and esophagitis for which she will be prescribed Protonix 40 mg to be taken twice daily. Patient's Xarelto was discontinued and we counseled family that patient would benefit from outpatient follow-up with hematology or cardiology in regards to continuation of that medication due to the unknown nature of this being a provoked versus unprovoked pulmonary emboli for which she was prescribed this medication. Her Celebrex is also being discontinued due to the recent history of potential GI bleed along with co ncurrent use of aspirin 325 which may have exacerbated all of these things together leading to her syncopal episode. Patient will benefit from outpatient cardiology workup to measure her cardiac risks for atherosclerotic disease so we recommend outpatient follow-up with primary care physician to obtain referral for cardiology. We also recommend outpatient follow-up with gastroenterology to obtain colonoscopy because last colonoscopy date is unknown and currently patient does not require inpatient workup. Patient appears to be trending towards baseline health and home health will be ordered for the patient along with a Lindy lift to help assist family with physical therapy. Plan for discharge discussed with supervising attending Dr. Jin #New medications Protonix 40 twice daily Aspirin 81 mg p.o. daily Discontinued medications Xarelto Aspirin 325 mg p.o. daily Celebrex Continue to avoid NSAIDs upon discharge and use acetaminophen for pain. Patient is a 79-year-old female with a past medical history significant for COPD on 3L home O2, history of pulmonary embolism [05/2023], essential hypertension, hyperlipidemia, major depressive disorder and iron deficiency anemia presenting today with a chief complaint of syncopal episode and diarrhea. Patient will be admitted for workup and management of syncopal episode. #sinus tachycardia- improved -Pt HR has been above 130's, her home metoprolol 100mg was held due to hypotension on admission and Pts BP remained soft during hospitalization. Pt denies chest pain or dizziness. -Pt is given metoprolol 25mg x2 today (09/12) -will resume home dose of the metoprolol when able when BP permits. -will continue D5 LR 75ml/hr -will diurese if pt becomes fluid overlaoded. Pt's net balance in 24 hours is +5 L, Pt denies SOB, No crackles are heard on lung auscultation and no pitting edema is notes on LE #Hypoglycemia -at night pts. finger stick glucose is in 30's and pt remains asymptomatic -confirm Blood sugar with labs draws and use ear lobes for spot check glucose -dextrose is given -continue IV fluids -M RI with and without contrast pending-to rule out adrenal and neuroendocrine type tumor such as insulinoma #Possible GI bleed #Iron deficiency anemia Patient had a history of iron deficiency anemia for many years. However her Hb from 01/18/2024 was 13.8 and on admission was 9 -> 7.9 Plan: ? Iron panel - Iron 9, TIBC 232, iron saturation 3, unsat iron binding 223 ?FOBT positive ? Hold chemical anticoagulation in the setting of possible GI bleed ? GI, Dr. Diaz consulted. Appreciate recommendations- pt is pending EGD, due to tachycardia and hypoglycemia pt was rescheduled multiple times #Syncope- resolved #Diarrhea-resolved #Dehydration-improving Patient was on the toilet last night having an episode of diarrhea when she had a syncopal episode. On arrival to the ED patient was A and O x 3. Patient is hypotensive on automatic blood pressure cuff, Manual cuff give correct blood pressure reading for this patient. Patient's mucous membranes were pale and dry and she had increased skin turgor initially. She was given 3 L normal saline IV fluid bolus in the ED. Plan: ? Cardiac diet ? Transthoracic echocardiogram to assess for wall motion abnormalities, valvular defects and ejection fraction. ? Stool studies including C. difficile (neg), calprotectin, Giardia antigen, H. pylori antigen, norovirus, ova and parasites, stool culture and stool for WBCs (few)- pending ? Blood cultures 1/2 positive for GPC -Patient was started on ceftriaxone and vancomycin on 09/11? ? 1 L NS IV fluid at 125 cc/hour ? GI, Dr. Diaz consulted and closely following the case. Appreciate recommendations- Pt is scheduled to undergo EGD today #Acute kidney injury likely prerenal - resolved On admission CR 1.7. From chart review baseline appears to be between 1?1.2 Etiology likely prerenal due to dehydration from excessive diarrhea. Plan: ? Encourage p.o. fluid intake -Maintenance IV fluids ordered ? Renally dose medication ? Avoid nephrotoxic drugs #COPD #OHS versus BRYSON Patient says she never smoked but has COPD for many years On 3.5L home oxygen Patient also states that she uses a CPAP machine to sleep at night but has not used it for more than 2 years due to it being nonfunctional. Plan: ? Supplemental O2 to maintain O2 sats between 88-92% ? DuoNebs twice daily ? Beclomethasone inhaler twice daily ? CPAP as needed at night #History of pulmonary embolism [05/2023] Patient had a pulmonary embolism diagnosed May 2023 but still appears to be on therapeutic dose rivaroxaban. She says it was never stopped by her PCP and unsure if she has had a hypercoagulable workup. Chest CTA completed on 05/31/2023 findings include:Suspicious for small emboli in left lower pulmonary artery branches. This is not a definite finding and should be clinically correlated. Plan: ? Home rivaroxaban on hold due possibility of GI bleed. -Repeat CTA ordered-pending radiologist read #Essential hypertension #Hyperlipidemia Home medication metoprolol tartrate 100 Mg p.o. twice daily and atorvastatin 40 Mg p.o. at bedtime Plan: ? Antihypertensives on hold for now due to low blood pressure. ? Resumed home medication atorvastatin 40 Mg p.o. at bedtime? #Major depressive disorder #chronic should and neck pain Patient's home medication duloxetine 60 Mg p.o. daily and donepezil 5 Mg p.o. at bedtime Pt has history of chronic pain in the shoulders and neck for which she takes norco prn at home Plan: ? Resume home medication duloxetine 60 Mg p.o. daily ? Resume home medication donepezil 5 Mg p.o. at bedtime -Resume home [place] 5 as needed Health maintenance: Disposition: IVF, Syncope workup. GI consult Diet: Cardiac Lines: pIVs GI Prophylaxis: Pantoprazole Thrombo Prophylaxis: Heparin on hold in the setting of acute GI bleed. will resume when able post GI work up Code status: Limited Code. [Defib, NO compressions, Intubation if only for a few days] Status at Discharge Functional status at discharge: bed bound Overall status at discharge: patient is progressing back to baseline Time Spent with Patient Time attestation: Total time spent providing and/or coordinating discharge services:60 Time spent: Greater than 30 minutes Quality: Stroke Pt Provided Written Stroke Discharge Instructions: No (education given) Home Health Home Health Referral Orders: 09/14/24 10:38 Home Health Referral Routine Reason For Exam: PT and Lindy salguero Home-Bound The patient must either because of illness or injury, need the aid of supportive devices such as crutches, canes, wheelchairs, and walkers; the use of special transportation; or the assistance of another person in order to leave their place of residence; OR have a condition such that leaving his or her home is medically contraindicated. In addition, the patient also meets the following criteria: patient is normally unable to leave the home and leaving home requires considerable taxing effort. Addendum to Home Health Certification Practitioner's Certification: I certify that the patient has been under my care in the hospital and the care of attending physician (see below). We had a [id number] encounter on (see date below). My clinical findings indicate that the patient is home bound per the above criteria and the Home Health Services noted in these orders are medically necessary. The primary reason for the [id number] encounter is related to the fact that the patient requires home health services. Date Certifying [id number]-[id number] Physician Encounter: 09/10/24 Physician's Name who will Assume Oversight for HH Services: Physician No Primary/Family DIRECTOR ELECTRONICS - Community Resources: No PT to Evaluate: Yes PT to evaluate and provide a treatmnet plan to increase patient's mobility and strength. Wound Care: No IV Therapy: No RN Safety Evaluation: Yes RN to evaluate and create a plan of care that will produce positive outcomes. Palliative Treatment: No Palliative treatment and evaluate the need for hospice. Home Health Aide - Personal Care: No Home Health Aide to assist with any ADL's. Exam Vital Signs Temp Pulse Resp BP Pulse Ox O2 Del Method O2 Flow Rate 97.2 F 81 16 132/88 H 95 Nasal Cannula 3 09/14/24 12:09/14/24 12:09/14/24 12:09/14/24 12:09/14/24 12:09/14/24 12:09/14/24 12:00 FiO2 30 09/14/24 02:16 Narrative Exam GENERAL: A&Ox3. Awake, obese elderly female not in acute distress, on 3.5L O2 via [place] NEURO: no focal neurological deficits HEENT: Atraumatic, Normocephalic. mucous membranes moist. Eyes open, symmetrical, & clear HEART: Normal Heart Sounds LUNGS: Clear to auscultation with no wheezing or crackles. ABDOMEN: soft, non-distended, non-tender, bowel sounds heard, no guarding or rebound tenderness SKIN: No Rash, multiple ecchymoses from IV lines EXTREMITIES: Non pitting edema bilaterally on lower extremities, no tenderness, able to move all 4 extremities, pedal pulses palpated Discharge Plan Plan Patient Disposition: Home w/HOME HEALTH Care Plan Goals: Patient is recommended to follow-up with primary care physician within 1 week to discuss recent hospitalization Patient is also recommended to obtain outpatient referral to cardiology for further management of cardiac risk. Recommend to hold Xarelto until follow-up with cardiology. Recommend discontinuation of aspirin 325 mg once daily and to only continue with 81 mg once daily to stratify CVA risk Patient is also recommended to discontinue Celebrex completely and continue only with acetaminophen for pain. Patient source of bleed may have been secondary to the use of Xarelto with concurrent use of aspirin and Celebrex. Patient's hemoglobin has remained stable since initial blood transfusions. Patient will be sent home on Protonix for management of gastritis likely secondary to NSAID use. Patient grew staph auricularis and 1 out of 2 bottles on blood cultures and remained on vancomycin and ceftriaxone during hospitalization. Blood cultures came back negative after 48 hours and it is our suspicion that likely this was a contaminant and patient does not require antibiotic therapy. Prescriptions/Referrals Prescriptions/Med Rec: New pantoprazole 40 mg tablet,delayed release (DR/EC) 40 mg PO BID Qty: 60 0RF Continued cyclobenzaprine 10 mg Tablet 5 mg PO HS Qty: 0 gabapentin 100 mg Capsule 200 mg PO BID Rx Instructions: 200 mg orally ;100 mg orally donepezil 5 mg Tablet 5 mg PO QDAY atorvastatin 20 mg Tablet 40 mg PO QPM multivitamin [One Daily Multivitamin] Tablet 1 tab PO QDAY ergocalciferol (vitamin D2) 1,250 mcg (50,000 unit) capsule 50,000 unit PO QWEEK Patient Comments: TAKE 1 CAPSULE BY MOUTH EVERY WEEK duloxetine 60 mg capsule,delayed release(DR/EC) 60 mg PO BID Patient Comments: TAKE 1 CAPSULE BY MOUTH TWICE DAILY metoprolol tartrate 100 mg tablet 100 mg PO BID sumatriptan succinate 100 mg tablet 100 mg PO Q8H PRN (Reason: Migraine Headache) Patient Comments: TAKE 1 TABLET BY MOUTH AT ONSET OF MIGRAINE. MAY REPEAT IN 2 HOURS NEEDED ferrous sulfate 325 mg (65 mg iron) Tablet,Delayed Release (Dr/Ec) 325 mg PO QOD Qty: 15 0RF albuterol sulfate 90 mcg/actuation HFA aerosol inhaler 2 puff inhalation Q6H PRN (Reason: shortness of breath or wheezing) Qty: 8.5 0RF hydrocodone-acetaminophen 10-325 mg Tablet 1 tab PO Q6H PRN (Reason: Pain (Scale Score 7-10)) Discontinued celecoxib [Celebrex] 200 mg Capsule 200 mg PO QDAY Xarelto 20 mg Tablet 20 mg PO QDAY Rx Instructions: must administer with evening meal Referrals: Gomez Diaz MD [Physician] - No Primary/Family,Physician [Primary Care Provider] - Eleazar Wilkinson MD [Physician] - Patient/Caregiver Discharge Instructions Print Language: Malagasy Stand Alone Forms: [employer] Award Info., Patient Portal Info Letter Discharge Order Discharge Orders: Discharge (Routine); Ordered 09/14/24 Ordered By: Theo Pfeiffer Quality Discharge Quality Measures none
--- NOTE | 2024-09-14 14:59 | PC.CM ---
Addendum entered by Victor M Maria RN 09/14/24 18:58: dc summary and dc orders sent. Start of care date is 09/15/24 Addendum entered by Victor M Maria RN 09/14/24 15:00: need to send dc orders and dc summary. Tamela ALAN gave start of care of 09/15/24 but pt is still inhouse. start of care depends on pt discharge. Original Note: initial HH referral sent by . Tamela ALAN accepted the pt and it was booked by
--- NOTE | 2024-09-14 15:56 | PD.IMPROG ---
Documentation for date of: 09/14/24 Subjective Subjective Interval history: Hemoglobin hematocrit 9.7 and 30.4 Upper endoscopy showed gastritis and esophagitis At least at the moment patient is not a candidate for colonoscopy But if the things change and patient gets more stabilized we will do a GoLytely prep and do the colonoscopy Exam Vital Signs Temp Pulse Resp BP Pulse Ox O2 Del Method O2 Flow Rate 97.2 F 81 16 132/88 H 95 Nasal Cannula 3 09/14/24 12:00 09/14/24 12:00 09/14/24 12:00 09/14/24 12:00 09/14/24 12:00 09/14/24 12:00 09/14/24 12:00 FiO2 30 09/14/24 02:16 Objective Labs 09/14/24 05:15 09/14/24 05:15 Labs: Laboratory Results - last 24 hr 09/14/24 05:15 WBC 5.2 RBC 3.32 L Hgb 9.7 L Hct 30.4 L MCV 92 MCH 29.2 MCHC 31.9 RDW Std Deviation 50.6 H Plt Count 327 Neut % (Auto) 56 Lymph % (Auto) 15 [place] % (Auto) 14 H Eos % (Auto) 12 H Baso % (Auto) 1 Neut # (Auto) 2.9 Lymph # (Auto) 0.8 L [place] # (Auto) 0.8 Eos # (Auto) 0.6 H Baso # (Auto) 0.1 Immature Gran # (Auto) 0.06 H Absolute Nucleated RBC 0.00 Immature Gran % 1 H Nucleated RBC % 0 Sodium 142 Potassium 3.6 Chloride 109 H Carbon Dioxide 25.8 Anion Gap 7 BUN 12 Creatinine 0.8 Estim Creat Clear Calc 65.7 eGFR > 60 BUN/Creatinine Ratio 15 Glucose 108 H Calculated Osmolality 283 Calcium 8.2 L Corrected Calcium 9.4 Magnesium 2.0 Total Bilirubin 0.3 AST 24 ALT 26 Alkaline Phosphatase 86 Total Protein 4.4 L Albumin 2.5 L Globulin 1.9 L Albumin/Globulin Ratio 1.3 Impressions Impression: # Posthemorrhagic anemia # Gastritis # Esophagitis Continue current management ABG Interpretation ABG results: 09/11/24 09/12/24 19:32 20:30 VBG pH 7.36 7.29 L VBG pCO2 38 52 D VBG pO2 75 H 39 D VBG Base Excess -4 L -2 Assessment & Plan A&P Narrative # Posthemorrhagic anemia with FOBT + stool etiology uncertain being on the Xarelto which she needs for pulmonary embolism makes things more complicated and she has to stay on Xarelto for the long-term health Plan Clear liquid diet N.p.o. tomorrow at 9 AM EGD tomorrow afternoon Consent obtained If upper endoscopy negative we will consider doing a fibrotic colonoscopy prior to discharge Other medical problems include # Pulmonary embolism Xarelto on hold hopefully we can start back on prior to discharge # COPD on 3 L nasal cannula # Essential hypertension # Hyperlipidemia # Depression thank you very much for the opportunity to participate in care of this patient Time Spent With Patient Time: Total time spent is greater than 50% in coordination of care (as documented) at patient's floor/unit and/or counseling patient:
--- NOTE | 2024-09-14 16:04 | VVPN_ITS ---
Telemedicine visit statement This visit was conducted with the use of interactive audio and video telecommunications system that permits real time communication between the patient and the provider. Patient's verbal consent for virtual visit was obtained on 09/14/24. Documentation for date of: 09/14/24 Subjective Subjective Interval history: Patient is in telemetry. No recurrent episodes of altered mental status or fainting for the last 24 hours. She complains of pain in the neck and is asking for medication to control. Virtual exam Vital Signs Temp Pulse Resp BP Pulse Ox O2 Del Method O2 Flow Rate 96.9 F 89 15 119/73 96 Nasal Cannula 3 09/14/24 16:00 09/14/24 16:00 09/14/24 16:00 09/14/24 16:00 09/14/24 16:00 09/14/24 16:00 09/14/24 16:00 FiO2 30 09/14/24 02:16 Objective Labs 09/14/24 05:15 09/14/24 05:15 Labs: Laboratory Results - last 24 hr 09/14/24 05:15 WBC 5.2 RBC 3.32 L Hgb 9.7 L Hct 30.4 L MCV 92 MCH 29.2 MCHC 31.9 RDW Std Deviation 50.6 H Plt Count 327 Neut % (Auto) 56 Lymph % (Auto) 15 [place] % (Auto) 14 H Eos % (Auto) 12 H Baso % (Auto) 1 Neut # (Auto) 2.9 Lymph # (Auto) 0.8 L [place] # (Auto) 0.8 Eos # (Auto) 0.6 H Baso # (Auto) 0.1 Immature Gran # (Auto) 0.06 H Absolute Nucleated RBC 0.00 Immature Gran % 1 H Nucleated RBC % 0 Sodium 142 Potassium 3.6 Chloride 109 H Carbon Dioxide 25.8 Anion Gap 7 BUN 12 Creatinine 0.8 Estim Creat Clear Calc 65.7 eGFR > 60 BUN/Creatinine Ratio 15 Glucose 108 H Calculated Osmolality 283 Calcium 8.2 L Corrected Calcium 9.4 Magnesium 2.0 Total Bilirubin 0.3 AST 24 ALT 26 Alkaline Phosphatase 86 Total Protein 4.4 L Albumin 2.5 L Globulin 1.9 L Albumin/Globulin Ratio 1.3 ABG Interpretation ABG results: 09/11/24 09/12/24 19:32 20:30 VBG pH 7.36 7.29 L VBG pCO2 38 52 D VBG pO2 75 H 39 D VBG Base Excess -4 L -2 Assessment & Plan Problem List (1) Altered mental status: Status: Acute Assessment and plan: Resolved, EEG did not show any epileptiform discharges. Patient is stable for discharge (2) Sepsis secondary to UTI: Status: Acute Assessment and plan: Treated with antibiotics (3) Hypertension: Status: Chronic Assessment and plan: Continue with metoprolol (4) Acute febrile illness: Status: Acute Assessment and plan: Continue with symptomatic therapy, antibiotics. Culture resulted negative.
[2024-09-17 07:01] LABS: Giardia Result NOT DETECTED; Helicobacter pylori Ag, Stool* NOT DETECTED (NOT DETECTED); Norovirus, EIA (Stool)* NOT DETECTED
[2024-09-18 06:45] LABS: Calprotectin, Stool* 200 mcg/g
== END 2024-09-14 17:25 | disposition home health service (06) | DRG 377 ==
LOC: SERX 19:33 → SERHOLD 09-10 04:38 → S2NX 09-10 09:50
PROVIDERS: Registered Nurse General Practice; Specialist; Student in an Organized Health Care Education/Training Program; Admitting Provider Student in an Organized Health Care Education/Training Program; Emergency Provider Emergency Medicine; Visit Provider Internal Medicine
PROC: 0DJ08ZZ Inspection of Upper Intestinal Tract, Via Natural or Artificial Opening Endoscopic (ICD-10-PCS; CPT 43239; principal; 2024-09-13 19:30)
DX: K29.71 Gastritis, unspecified, with bleeding (principal); J18.9 Pneumonia, unspecified organism; J96.01 Acute respiratory failure with hypoxia; N17.9 Acute kidney failure, unspecified; D62 Acute posthemorrhagic anemia; Z68.42 Body mass index [BMI] 45.0-49.9, adult; E87.20 Acidosis, unspecified; J44.0 Chronic obstructive pulmonary disease with (acute) lower respiratory infection; F03.93 Unspecified dementia, unspecified severity, with mood disturbance; F03.918 Unspecified dementia, unspecified severity, with other behavioral disturbance; J44.1 Chronic obstructive pulmonary disease with (acute) exacerbation; K20.91 Esophagitis, unspecified with bleeding; I10 Essential (primary) hypertension; E86.0 Dehydration; E78.5 Hyperlipidemia, unspecified; F32.9 Major depressive disorder, single episode, unspecified; G47.00 Insomnia, unspecified; G25.81 Restless legs syndrome; G47.33 Obstructive sleep apnea (adult) (pediatric); E16.2 Hypoglycemia, unspecified; F03.92 Unspecified dementia, unspecified severity, with psychotic disturbance; R44.1 Visual hallucinations; I73.00 Raynaud's syndrome without gangrene; E66.01 Morbid (severe) obesity due to excess calories; M54.2 Cervicalgia; I95.9 Hypotension, unspecified; G89.29 Other chronic pain; M25.519 Pain in unspecified shoulder; Z99.81 Dependence on supplemental oxygen; Z86.711 Personal history of pulmonary embolism; Z96.659 Presence of unspecified artificial knee joint; Z74.01 Bed confinement status; Z66 Do not resuscitate; Z79.899 Other long term (current) drug therapy
CPT/HCPCS: 36415; 36600; 70450; 70496; 70498; 70544; 70551; 71045; 71275; 80048; 80053; 80061; 80202; 81001; 82140; 82728; 82803; 82947; 83540; 83550; 83605; 83615; 83735; 83880; 83993; 84100; 84145; 84443; 84484; 85014; 85018; 85025; 85610; 85730; 86850; 86900; 86901; 86923; 87015; 87040; 87045; 87046; 87077; 87081; 87177; 87186; 87205; 87209; 87329; 87338; 87449; 87493; 87811; 87899; 92526; 92610; 93005; 93306; 94640; 94660; 94664; 94762; 95816; 96374; 97162; 99285; A4649; A9270; J0696; J1200; J2250; J2405; J2470; J3010; J3370; J3372; J3475; J7030; J7040; J7120; J7121; P9016; Q9967

== ENCOUNTER 2024-10-16 07:53 | Inpatient (IN) | payer MEDICARE, BC, SELFPAY ==
[2024-10-16] VITALS (8 sets, daily range): BP systolic 121–162; BP diastolic 68–98; PULSE 72–100; RESP 18–21; TEMP 36.5–37.5; O2SAT 91–100; BMI 48.9; BMI 12.0; BMI 55.5
--- NOTE | 2024-10-16 | XR_ITS ---
Examination: MRI brain without intravenous contrast. Date and time of exam: October 16, 2024 1259 hrs. Indications: Onset nausea shortness of breath hallucinations loss of consciousness episode today Technique: Multiple axial and sagittal images of the brain obtained. Siemens high-resolution 1.5 Leelee short bore scanners utilized. Sagittal sections, T1-weighted, TR 500, TE 14, are performed. Axial sections proton-density and T2-weighted have been obtained. Inversion recovery axial images, TR 9, 260, TE 111, TI 2500. Diffusion weighted images, axial sections, TR 4800, TE 128, B value 1000 Axial sections, ADC map, TR 4800, TE 128 Findings: Enlargement of the sella turcica is not present. The optic chiasm and infundibular are not remarkable. Prepontine and interpeduncular cisterns are not enlarged. There is no localized enlargement of the medulla or dorie. Fourth ventricle and cerebellar tonsils appear normal in position. No subacute area of hemorrhage density is seen. Mass in the cerebellopontine angle region is not evident. Globes symmetrical. Orbital musculature including medial lateral rectus muscles do not exhibit abnormality. Diffusion-weighted images demonstrate no focus of restricted diffusion. Increased white matter signal moderate including old infarcts left cerebellar hemisphere right frontal lobe Prominent left mastoiditis Mass effect upon the ventricular system is not identified. 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
--- NOTE | 2024-10-16 07:57 | EKG_ITS ---
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
--- NOTE | 2024-10-16 07:58 | PD.EDAMS ---
Altered Mental Status RME/HPI General Chief Complaint: Psychiatric Symptoms Stated Complaint: HALLUCINATIONS Time Seen by Provider: 10/16/24 07:56 Arrival date/time: 10/16/24 07:53 RME / HPI RME / HPI narrative: 79 year old female with history of COPD on 3L home O2, hypertension, hyperlipidemia, major depressive disorder presents to the ED BIBA from home for evaluation of hallucinations. Per medics, patient en route was talking to babies in the ambulance that were not there. While in the ED patient reports I've been having a hard time with psychotic episodes . Patient additionally complains of nausea and shortness of breath although is unchanged from her usual. Prehospital BS 94. No other associated symptoms or complaints reported. Related Data Home Medications ?Medication ?Instructions ?Recorded ?Confirmed cyclobenzaprine 10 mg tablet 5 mg PO HS #0 tabs 06/23/17 09/11/24 gabapentin 100 mg capsule 200 mg PO BID 01/15/18 09/11/24 donepezil 5 mg tablet 5 mg PO QDAY 01/16/18 09/11/24 atorvastatin 20 mg tablet 40 mg PO QPM 09/14/18 09/11/24 duloxetine 60 mg capsule,delayed 60 mg PO BID 04/23/21 09/11/24 release ergocalciferol (vitamin D2) 1,250 50,000 unit PO QWEEK 04/23/21 09/11/24 mcg (50,000 unit) capsule multivitamin (One Daily 1 tab PO QDAY 04/23/21 09/11/24 Multivitamin tablet) metoprolol tartrate 100 mg tablet 100 mg PO BID 05/31/23 09/11/24 sumatriptan succinate 100 mg tablet 100 mg PO Q8H PRN Migraine Headache 06/02/23 09/11/24 hydrocodone 10 mg-acetaminophen 1 tab PO Q6H PRN Pain (Scale Score 09/10/24 09/11/24 325 mg tablet 7-10) Previous Rx's ?Medication ?Instructions ?Recorded ferrous sulfate 325 mg (65 mg 325 mg PO QOD #15 tabs 06/02/23 iron) tablet,delayed release albuterol sulfate 90 mcg/actuation 2 puff inhalation Q6H PRN 01/18/24 aerosol inhaler shortness of breath or wheezing #8.5 grams pantoprazole 40 mg tablet,delayed 40 mg PO BID #60 tabs 09/14/24 release Allergies Allergy/AdvReac Type Severity Reaction Status Date / Time ergotamine (From Cafergot) Allergy Intermediate Nausea Verified 09/13/24 20:28 adhesive tape Allergy Mild Rash Verified 09/13/24 20:28 citalopram (From Celexa) Allergy Mild Restless Verified 09/13/24 20:28 leg latex Allergy Mild Rash Verified 09/13/24 20:28 silver Allergy Rash Verified 09/13/24 20:28 Review of Systems Review of Systems Narrative Review of Systems: Constitutional: DENIES; Fevers Eyes: DENIES; Loss of vision Head/Ear/Nose: DENIES; Loss of hearing Throat: DENIES; Dysphagia Cardiovascular: DENIES; Chest pain, dyspnea or syncope Respiratory: DENIES; Shortness of breath Gastrointestinal: DENIES; Rectal bleeding or melena. Genitourinary: DENIES; Dysuria (painful or difficult urination) Musculoskeletal: DENIES; Arthralgia (pain in a joint),; Skin: DENIES; Rash Neurological: DENIES; Loss of function or movement Psychiatric: DENIES; recent major life stressor, emotional problem, illicit drug use or abuse Endocrinology: DENIES; Weight change Hematologic/Lymphatic: DENIES; Abnormal bruising Allergic/Immunologic: DENIES; Urticaria (hives) ED Exam Narrative Physical exam: Physical Exam: General: The vital signs were reviewed. Patient states she is having a psychotic episodes, no obvious hallucinosis at this time EMS reports an O2 sat of 96% on room air the patient is non-toxic, in no apparent distress and appears healthy with a patent airway, no respiratory distress and has no apparent circulatory problems. Head & Scalp: Normocephalic, atraumatic. Face: Appears normal and is without lesions, deformity. Ears: Left external pinna appears normal. Right external pinna appears normal. Eyes: The sclera is anicteric. No obvious photophobia. The Left and Right Orbit/Lid/Conjunctiva appears normal without swelling, discoloration or injection. Nose: The nose is without deformity, discharge or tenderness; Throat: Appears normal. The mucous membranes are pink and moist without exudates, redness or mass seen. The tongue appears normal. Neck: The neck is supple and no apparent mass or adenopathy. Chest: The chest wall is normal in size and symmetry and has no chest wall tenderness or crepitus. The patient displays normal ventilator effort without retractions, accessory muscle use and has adequate air movement bilaterally with no wheezes and no rales. Cardiovascular: Regular rate and rhythm; No murmurs, rubs, or gallops; Gastrointestinal: The abdomen appears normal. No obvious hernias or mass. The abdomen is soft and benign, non-distended, with no pain, no guarding and no rebound tenderness. Bowel sounds are present and normal sounding. No CVA tenderness. Genitourinary: Back/Spine: Normal inspection Extremities/Musculoskeletal/lymphatic: The bilateral upper and lower extremities are warm. There is no evidence of arterial insufficiency. There is no evidence of venous insufficiency/edema. The patient spontaneously moves bilateral upper and lower extremities with no pain and no limitation of movement. There is no apparent, injury or trauma. Skin: The skin is warm, dry and intact. No rashes. No petechia. No purpura. No abnormal bruising. The color is appropriate with no cyanosis. Mental status/Psychiatric: Mental status is appropriate for age. The patient has no apparent delusions, visual hallucinations, no apparent audible hallucinations. The patient has no apparent suicidal thoughts/ideation and no apparent homicidal thoughts/ideation. There are reports that the patient is talking to people at the house and seeing babies. Neurological: The patient is awake, alert, interactive, cordial, cooperative and is oriented to name and situation. The patient follows commands and answers historical question with no impairment. There is no visual disturbance apparent. The pupils are equal and reactive bilaterally with normal eye movements and no diplopia The bilateral upper and lower extremities have normal strength, normal range of motion and normal functioning. The gait, station and balance were not tested due to in the ambulance bay. Course Quality Measures none Orders Category Date Time Status Bedside Blood Glucose NOW Care 10/16/24 07:57 Active EKG (ED ONLY) *Do not use* NOW Care 10/16/24 07:57 Completed MRI Screening NOW Care 10/16/24 11:51 Active PT [Referral Physical Therapy] Stat Cons 10/16/24 10:[address] chest abdomen pelvis wo Stat Exams 10/16/24 11:[address] head/brain wo con Stat Exams 10/16/24 07:57 Completed EKG (ED Only) Stat Exams 10/16/24 07:57 Draft MR head/brain wo con Stat Exams 10/16/24 Completed XR chest 1V portable Stat Exams 10/16/24 07:57 Completed Alcohol, Blood Medical Stat Lab 10/16/24 08:53 Completed Ammonia Stat Lab 10/16/24 08:53 Completed B-Type Natriuretic Peptide Stat Lab 10/16/24 08:53 Completed Blood Culture (Lab) Stat Lab 10/16/24 08:48 Received CBC Stat Lab 10/16/24 08:53 Completed Comprehensive Metabolic Panel Stat Lab 10/16/24 08:53 Completed Drug Screen,Urine Stat Lab 10/16/24 10:04 Completed Lactate (Lactic Acid) Stat Lab 10/16/24 08:53 Completed Procalcitonin Stat Lab 10/16/24 08:53 Completed Prothrombin Time with INR Stat Lab 10/16/24 08:53 Completed T4 (Thyroxine) Stat Lab 10/16/24 08:50 Completed Thyroid Stimulating Hormone Stat Lab 10/16/24 08:53 Completed Troponin I Stat Lab 10/16/24 08:53 Completed Type and Screen Stat Lab 10/16/24 08:53 Completed Urinalysis, C/S if Indicated Stat Lab 10/16/24 10:04 Completed Venous Blood Gas Stat Lab 10/16/24 08:53 Completed Piper/Tazo Inj [Zosyn Inj] 3.375 gm Med 10/16/24 15:34 Discontinued SODIUM CHLORIDE 0.9% (Popper) [NS 0.9% (Popper)] 50 ml IV X1 Sodium Chloride 0.9% 1000 ml [Ns] 1,000 ml Med 10/16/24 07:57 Discontinued IV 1,000 mls/hr Sodium Chloride 0.9% 1000 ml [Ns] 2,000 ml Med 10/16/24 07:57 Active IV 150 mls/hr Vital Signs Vital signs: Vital Signs Temperature 98.6 F 10/16/24 08:09 Pulse Rate 95 10/16/24 08:09 Respiratory Rate 19 10/16/24 08:09 Blood Pressure 129/71 10/16/24 08:09 Pulse Oximetry (%) 96 10/16/24 08:09 Oxygen Delivery Method Nasal Cannula 10/16/24 08:09 Oxygen Flow Rate 4 10/16/24 08:09 Pulse ox is 96% on 4L nasal cannula which is adequate. Altered Mental Status MDM Narrative MDM Narrative:: Patient's got multiple medical problems see the recent discharge summary in August today she is having hallucinations and seeing babies although on arrival she appears to have count of a blank flat affect. And her mouth is quite dry. We will work her up for altered mental status. Medical workup came back CT scan of the head has no acute chest x-ray has a questionable atelectasis of alpha level was negative urine drug screen was negative. Urinalysis reveals no evidence of a UTI specific already of 1012. CMP with a negative procalcitonin BNP was 86 troponin was negative ammonia was normal transaminases were negative. Glucose was 84 BUN 9 creatinine of 0.6 sodium 142 potassium 3.5, sodium 142 venous blood gas pH is 752 pCO2 of 46 PT INR were normal. CBC with a white count of 5 hemoglobin 11.8. Reevaluation the patient after liter fluid shows her to be about the same her granddaughter is now in the room reports hallucinations of intermittently throughout the day for a long time. She is also been unable to walk for over 2 years and that is gotten worse and they are asking for prison placement at this time The cause of the hallucinosis in the past are unclear. She has had some outburst at home but most the time she is able to be managed by family. PT came down ill patient is unable to stand and walk. And documenting her weakness. The etiology of her lower leg weakness and inability to walk is unclear. Note her CT scan today was negative. At this time are planning on prison placement. I am going to add on a T4 and a TSH and MRI of the brain. She denies any back pain and no injury or trauma. MRI came back with old strokes and a mastoiditis, and a CT of the chest revealed a small right lower lobe pneumonia. Course this could be contributing to the dementia and the hallucinosis. Called the hospitalist come down the came down saw the patient I will be admitting. We started her on antibiotics to cover the infection Patient data External records reviewed:: [facility] previous records (I reviewed admission from 09/10/2024 through 09/14/2024) and EMS form Clinical information provided by:: patient and EMS Social determinants that could affect healthcare access:: none Patient has the following chronic illnesses:: COPD on 3L home O2, hypertension, hyperlipidemia, major depressive disorder How is presenting disease/condition affected by chronic disease/condition?: exacerbated by Evaluation data The following diagnostics were reviewed and interpreted by me:: lab results, radiology exam(s) and EKG tracing(s) (Sinus rhythm, rate 90, low voltage in V4, no STEMI ) Lab and/or radiology exams considered but not ordered:: None Interpretation Summary: Ordering Physician: Michael Snow MD Date of Service: 10/16/24 Procedure(s): XR chest 1V portable Accession Number(s): [id number] cc: Michael Snow MD; Olman Laguna MD; Hernandez Grijalva MD~ Examination: AP chest single view Technique one AP portable upright chest single view Exam date and time: October 16, 2024 0837 hrs. Comparison September 11, 2024 Indications: Chest pain today. Findings: Mild prominence cardiac contour Moderate ectasia thoracic aorta. Subsegmental atelectasis in the left mid and lower lung zone No lobar pneumonia Prominent osteopenia Impression: Subsegmental atelectasis left lung Dictated By: Olman Laguna MD Signed By: <Electronically signed by Olman Laguna MD in OV> 10/16/24 09 Ordering Physician: Michael Snow MD Date of Service: 10/16/24 Procedure(s): CT head/brain wo con Accession Number(s): [id number] cc: Michael Snow MD; Olmna Laguna MD; Hernandez Grijalva MD~ Examination: CT brain head without contrast. 2-D sagittal coronal reconstructions Date and time of exam:October 16, 2024 0817 hrs. Indications: Loss of consciousness episode today CTDI: vol (mGy):52.5 DLP: (mGycm):1105 Technique: Multiple CT axial sections of the brain have been obtained, 5 mm slice thickness. Contrast has not been administered. 2-D sagittal, coronal reconstructions have been obtained Low dose protocols were performed. One or more of the following dose reduction techniques were used; automated exposure control, adjustment of the mA and/or KV according to patient size, use of iterative reconstruction technique. Findings: No significant ventricular enlargement. Multiple small old left cerebellar infarcts Intra-axial or extra-axial hemorrhage density is not seen. No mass effect or midline shift Basal cisterns are not remarkable. Fourth ventricle is midline. Cranial vault intact. Impression: Negative for acute hemorrhage, mass effect or midline shift If symptoms persist, as clinically warranted, consider brain MRI follow-up Dictated By: Olman Laguan MD Signed By: <Electronically signed by Olman Laguna MD in OV> 10/16/24 0953 Ordering Physician: Michael Snow MD Date of Service: 10/16/24 Procedure(s): MR head/brain wo con Accession Number(s): [id number] cc: Michael Snow MD; Olman Laguna MD; Hernandez Grijalva MD~ Examination: MRI brain without intravenous contrast. Date and time of exam: October 16, 2024 1259 hrs. Indications: Onset nausea shortness of breath hallucinations loss of consciousness episode today Technique: Multiple axial and sagittal images of the brain obtained. Siemens high-resolution 1.5 Leelee short bore scanners utilized. Sagittal sections, T1-weighted, TR 500, TE 14, are performed. Axial sections proton-density and T2-weighted have been obtained. Inversion recovery axial images, TR 9, 260, TE 111, TI 2500. Diffusion weighted images, axial sections, TR 4800, TE 128, B value 1000 Axial sections, ADC map, TR 4800, TE 128 Findings: Enlargement of the sella turcica is not present. The optic chiasm and infundibular are not remarkable. Prepontine and interpeduncular cisterns are not enlarged. There is no localized enlargement of the medulla or dorie. Fourth ventricle and cerebellar tonsils appear normal in position. No subacute area of hemorrhage density is seen. Mass in the cerebellopontine angle region is not evident. Globes symmetrical. Orbital musculature including medial lateral rectus muscles do not exhibit abnormality. Diffusion-weighted images demonstrate no focus of restricted diffusion. Increased white matter signal moderate including old infarcts left cerebellar hemisphere right frontal lobe Prominent left mastoiditis Mass effect upon the ventricular system is not identified. 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 CT abdomen, without intravenous contrast. CT pelvis, without intravenous contrast. 2-D sagittal and coronal reconstructions. 3-D reconstructions. Date and time of exam:October 16, 2024 1209 hrs. Indications: Loss of consciousness today, weakness unable to walk, chest pain abdominal pain CTDI vol (mgy) 23.9 DLP (MGycm)1663 Technique: Multiple CT images, 3.0 mm slice thickness, obtained chest, abdomen, pelvis, with the high-resolution 64 slice scanner.. Sagittal and coronal 2-D reconstructions are obtained. 3-D reconstructions Low dose protocols were performed. One or more of the following dose reduction techniques were used; automated exposure control, adjustment of the mA and/or KV according to patient size, use of iterative reconstruction technique. Findings: AP dimension ascending thoracic aorta 4.0 cm Pulmonary artery segments are not enlarged Significant calcification proximal left anterior descending coronary artery Calcification mitral valve Trace pericardial thickening Mild enlargement cardiac contour Atelectasis versus mild pneumonia right base Small bilateral pleural effusions No focal liver or splenic lesions No gallstones Gastric sutures No pancreatic mass Atrophic left kidney Moderate renal parenchymal scar formation, no hydronephrosis No pericecal inflammatory change No bowel obstruction Colonic diverticulosis, no diverticulitis Contracted urinary bladder Prominent osteopenia Lumbar fusion L4-S1, advanced degenerative disc disease L3-L4 Old fracture body of the sternum Impression: Right base pneumonia Small bilateral pleural effusions Atrophic left kidney Moderate renal parenchymal scar formation, no hydronephrosis No CT findings of bowel obstruction or diverticulitis Dictated By: Olman Laguna MD Signed By: <Electronically signed by Olman Laguna MD in OV> 10/16/24 1349 Medications / Prescriptions Medications or Prescriptions considered but not ordered:: None Medication administrations:: Medication Administration History Acetaminophen (Acetaminophen 325 Mg Tablet) 650 mg PO Q6H PRN PRN Reason: Pain 1-3 and/or Fever >100.1 Stop: 11/15/24 16:22 Cyclobenzaprine HCl (Cyclobenzaprine 5 Mg Tablet) 5 mg PO HS [facility] Stop: 11/15/24 20:59 Donepezil HCl (Donepezil Hcl 5 Mg Tablet) 5 mg PO QDAY CARLO Stop: 11/16/24 08:59 Duloxetine HCl (Duloxetine Hcl 30 Mg Capsule) 60 mg PO QDAY CARLO Stop: 11/16/24 08:59 Gabapentin (Gabapentin 100 Mg Capsule) 200 mg PO BID CARLO Stop: 11/15/24 20:59 Heparin Sodium (Porcine) (Heparin Sod Inj 5000 Unit/Ml Vial) 5,000 unit SC Q12HR CARLO Stop: 10/30/24 20:59 Sodium Chloride (Ns) 2,000 mls @ 150 mls/hr IV .[id number] ONE Stop: 10/16/24 21:16 Last Admin: 10/16/24 10:11 Dose: 150 mls/hr Documented By: CYNTHIA Metoprolol Tartrate (Metoprolol Tartrate 25 Mg Tablet) 100 mg PO BID [facility] Stop: 11/15/24 20:59 Ondansetron HCl (Ondansetron Inj 2 Mg/Ml Inj 2 Ml) 4 mg IV Q6H PRN; Protocol PRN Reason: NAUSEA OR VOMITING Stop: 11/15/24 16:22 Sennosides (Senna Tablet) 1 tab PO QDAY CARLO; Protocol Stop: 11/16/24 08:59 Discontinued Medications Sodium Chloride (Ns) 1,000 mls @ 1,000 mls/hr IV .Q1H ONE Stop: 10/16/24 08:56 Last Infusion: 10/16/24 10:10 Dose: Infused Documented By: Admin: 10/16/24 09:20 Dose: 1,000 mls/hr Documented By: CYNTHIA Piperacillin Sod/Tazobactam (Sod 3.375 gm/ Sodium Chloride) 50 mls @ 100 mls/hr IV X1 ONE Stop: 10/16/24 16:03 Last Infusion: 10/16/24 16:20 Dose: Infused Documented By: Admin: 10/16/24 15:45 Dose: 100 mls/hr Documented By: CYNTHIA See above Consultations Consultation(s) initiated? (list below): Yes Consultation #1 (Physician, Specialty, Details): I spoke with hospitalist Dr. Jordan. Discussed patients PMHx, HPI, ED course, exam findings, labs, and radiology results. The hospitalist agree to accept the patient for admission. Diagnosis Differential diagnosis altered mental status: altered mental status, delirium, dementia, hypoglycemia, subarachnoid hemorrhage and sepsis Most likely diagnosis given after review of the tests above:: weakness unable to ambulate hallucinations dehydration Admission Indicated Admission indicated?: indicated Admission Request Was there a request for admission?: Yes Admission Attestation Admission request attestation: Discussed case with [] from Hospitalist service regarding admission. Discussed patients ED course, exam findings, labs, and radiology results. The Hospitalist [agrees,declines] to accept the patient for admission. Disposition Plan Disposition Plan: Admit Discharge Plan Plan Patient Disposition: Admit Acute Care w/in Hospital Disposition Comment: Hospitalist to admit Problem List Clinical Impression: Weakness, Unable to ambulate, Hallucinosis, Dehydration, Right lower lobe pneumonia, Acute mastoiditis of left side
[2024-10-16] MEDS: SODIUM CHLORIDE 0.9% 1000 ML 1,000 ML IV (09:20)
[2024-10-16 09:21] LABS: Lactate (Lactic Acid) 1.4 mMol/L (0.4-2.0)
[2024-10-16 09:24] LABS: Base Excess, Venous 13 (-3-3); O2 Saturation, Venous 91 % (96-97); PCO2, Venous 46 mmHg (36-56); PO2, Venous 46 mmHg (15-58); pH, Venous 7.52 (7.33-7.66)
[2024-10-16 09:28] LABS: Basophils # (Auto) 0.1 Thou/mm3 (0.0-0.2); Basophils % (Auto) 2 % (0-2.5); Eosinophils # (Auto) 0.3 Thou/mm3 (0.0-0.5); Eosinophils % (Auto) 7 % (0-10); Hematocrit 38.3 % (36.0-46.0); Hemoglobin 11.8 g/dL (12.0-16.0); Immature Granulocytes % (Auto) 0 % (0-0); Immature Granulocytes Auto 0.01 Thou/mm3 (0.00-0.00); Lymphocytes % (Auto) 20 % (10-50); Mean Corpuscular HGB Conc 30.8 g/dl (31.0-37.0); Mean Corpuscular Volume 91 fL (80-100); Monocytes # (Auto) 0.8 Thou/mm3 (0.0-0.8); Monocytes % (Auto) 15 % (0-12); Neutrophils # (Auto) 2.8 Thou/mm3 (1.8-7.7); Neutrophils % (Auto) 56 % (37-80); Nucleated Red Blood Cell % 0 /100 WBC (0); Platelet Count 239 Thou/mm3 (140-440); RDW Standard Deviation 57.4 fL (36.4-46.3); Red Blood Count 4.21 Miln/mm3 (4.00-5.20)
[2024-10-16 09:37] LABS: INR 1.1 (0.9-1.3)
[2024-10-16 09:44] LABS: Ammonia 18 uMol/L (11-32)
[2024-10-16 09:58] LABS: Alanine Aminotransferase 17 U/L (10-49); Albumin, Serum 2.5 gm/dL (3.4-4.8); Alcohol, Blood Medical < 3.0 mg/dL (0-10.0); Anion Gap 6 (7-16); Aspartate Amino Transferase 32 U/L (0-34); BUN/Creatinine Ratio 15 Ratio (12-20); Bilirubin,Total 0.3 mg/dL (0.3-1.2); Blood Urea Nitrogen 9 mg/dL (9-23); Calcium 8.3 mg/dL (8.3-10.6); Calcium (Corrected) 9.5 mg/dL (8.5-10.1); Carbon Dioxide 38.1 mMol/L (20.0-31.0); Chloride 98 mMol/L (98-107); Creatinine (Component) 0.6 mg/dL (0.6-1.3); Estimated Creatinine Clearance 103.1 mL/min (>60); Globulin 2.6 gm/dL (2.3-3.5); Glucose 84 mg/dL (74-106); Osmolality,Calculated 280 (275-295); Potassium 3.5 mMol/L (3.4-5.1); Procalcitonin 0.22 ng/ml (0.0-0.49); Sodium 142 mMol/L (136-145); Total Protein 5.1 gm/dL (5.7-8.2); Troponin I < 0.020 ng/mL (0.0-0.045); eGFR > 60 See Note
[2024-10-16 10:00] LABS: B-Type Natriuretic Peptide 86 pg/mL (0-100)
[2024-10-16 10:05] LABS: Collection Type, Urine Catheter; Squamous Epithelial Cell,Urine 0 /hpf (0-5)
[2024-10-16] MEDS: SODIUM CHLORIDE 0.9% 1000 ML 2,000 ML 150 ML IV (10:11)
[2024-10-16 10:13] LABS: Alkaline Phosphatase 91 U/L (46-116)
[2024-10-16 10:27] LABS: Amphetamine/Methamp Scrn,U Negative (Negative); Barbiturate Screen,Urine Negative (Negative); Benzodiazepines Screen,Urine Negative (Negative); Benzoylecgonine Screen, Ur Negative (Negative); Fentanyl Screen,Urine Negative (Negative); Opiate Screen,Urine Negative (Negative); THC Screen,Urine Negative (Negative)
[2024-10-16 10:35] LABS: Amorphous Crystals,Urine Present (Absent); Bilirubin,Urine Negative (Negative); Blood,Urine Negative (Negative); Clarity,Urine Clear (Clear/Hazy); Color,Urine Lt-Yellow (Lt Yel-Yel); Culture Indicated,Urine Not Indicated; Glucose, Urine Negative (Negative); Ketones,Urine Negative (Negative); Leukocyte Esterase,Urine Negative (Negative); Nitrite,Urine Negative (Negative); Protein,Urine Negative (Neg - Trace); RBC,Urine 1 /hpf (0-3); Specific Gravity,Urine 1.012 (1.001-1.035); Urobilinogen,Urine Negative mg/dL (0.0-1.0); WBC,Urine 2 /hpf (0-5)
--- NOTE | 2024-10-16 10:41 | PC.CC ---
Patient is a 79 year-old female who was BIBA for hallucination from home. ASWPrudence introduced self, role, and reason for visit to patient's granddaughter, Kathe Kruger who is at bedside and patient. However, patient is not oriented but is alert. Patient's granddaughter completed initial assessment with ASW. Patient lives with her granddaughters, Niesha. Patient does not ambulate at home although she has a wheelchair. Patient is full assist with ADLs and her granddaughter help in completing ADLs. Patient has a diagnosis of dementia from [facility], provider Hernandez Grijalva. Per patient's granddaughter she would like patient to go to a SNF as they need help with getting patient strong physically. veterans services specialist to follow up with any discharge needs.
--- NOTE | 2024-10-16 11:14 | PC.NURSE ---
Physical Therapist at bedside
--- NOTE | 2024-10-16 11:57 | XR_ITS ---
Examination: CT chest, without intravenous contrast. CT abdomen, without intravenous contrast. CT pelvis, without intravenous contrast. 2-D sagittal and coronal reconstructions. 3-D reconstructions. Date and time of exam:October 16, 2024 1209 hrs. Indications: Loss of consciousness today, weakness unable to walk, chest pain abdominal pain CTDI vol (mgy) 23.9 DLP (MGycm)1663 Technique: Multiple CT images, 3.0 mm slice thickness, obtained chest, abdomen, pelvis, with the high-resolution 64 slice scanner.. Sagittal and coronal 2-D reconstructions are obtained. 3-D reconstructions Low dose protocols were performed. One or more of the following dose reduction techniques were used; automated exposure control, adjustment of the mA and/or KV according to patient size, use of iterative reconstruction technique. Findings: AP dimension ascending thoracic aorta 4.0 cm Pulmonary artery segments are not enlarged Significant calcification proximal left anterior descending coronary artery Calcification mitral valve Trace pericardial thickening Mild enlargement cardiac contour Atelectasis versus mild pneumonia right base Small bilateral pleural effusions No focal liver or splenic lesions No gallstones Gastric sutures No pancreatic mass Atrophic left kidney Moderate renal parenchymal scar formation, no hydronephrosis No pericecal inflammatory change No bowel obstruction Colonic diverticulosis, no diverticulitis Contracted urinary bladder Prominent osteopenia Lumbar fusion L4-S1, advanced degenerative disc disease L3-L4 Old fracture body of the sternum Impression: Right base pneumonia Small bilateral pleural effusions Atrophic left kidney Moderate renal parenchymal scar formation, no hydronephrosis No CT findings of bowel obstruction or diverticulitis
[2024-10-16 13:01] LABS: T4 (Thyroxine) 6.3 mcg/dL (4.5-10.9)
[2024-10-16 13:10] LABS: Thyroid Stimulating Hormone 4.41 uIU/mL (0.55-4.78)
--- NOTE | 2024-10-16 13:11 | PC.CC ---
KETURAH Prudence met with granddaughter at bedside to inform her that the patient's packet was sent out via [facility] for SNF placement; however, HERMANW was informed by Lizett at [facility] that patient's last inpatient stay for 3 midnights had on Monday.
--- NOTE | 2024-10-16 13:19 | PC.NURSE ---
PATIENT TO MRI
--- NOTE | 2024-10-16 14:40 | PC.CM ---
I received a call from [facility]. Patient is opened to them. If patient discharges from the ED we do not need to have doctor put in new home health orders. If patient is admitted and is discharged home, we will need new home health orders.
[2024-10-16] MEDS: PIPER/TAZO INJ 3.375 GM in SODIUM CHLORIDE 0.9% (Popper) 50 ML IV (15:45)
--- NOTE | 2024-10-16 16:29 | ESHP_ITS ---
<Statement entered by Anibal Andre MD - 10/16/24 18:45> I discussed with and supervised the physician general internal medicine physician involved in the care of this patient. Patient assessment and plan was discussed with entire medicine team, including my attending. I agree with the assessment and plan as documented by physician general internal medicine doctor. Patient care was discussed with my attending physician Dr. Nikki Andre, PGY-2 Documentation for date of: 10/16/24 HPI History of Present Illness Chief complaint: Increased hallucinations, altered History of present illness: 79-year-old female with past medical history of COPD on 3L home O2, history of pulmonary embolism [05/2023], essential hypertension, hyperlipidemia, major depressive disorder and iron deficiency anemia presenting to the ED brought along by granddaughter was her production posting clerk for increased altered mental status and hallucinations. Per granddaughter, the patient for the past couple days has been having progressive episodes of hallucinations where she is experiencing seeing relatives and hearing inanimate objects speaking. Patient does have baseline memory issues/dementia which the granddaughter is not aware of but the patient is on donepezil based off checking home medication list. Patient's granddaughter is concerned that they are not able to take care of her as well as they can at home; moreover, they are requesting for SNF placement for 24-hour care as both her and her sister work during the day. During examination, patient is able to respond to questions and denies having any concerning symptoms such as chest pain, palpitations, dizziness, headache; however, she does state that she is short of breath but that is a chronic condition secondary to COPD. Past medical history: As stated above Past surgical history: Multiple surgeries on right femur and knee. Right carpal tunnel release. Multiple lower back surgeries. Rhinoplasty x 2 Medications: Pending official med rec Allergies: Ergotamines?nausea. Citalopram?restless leg. Latex?rash. Sulfa?rash Family History: Cardiac disease. Son?congestive heart failure. Grandson?congenital heart disease. 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 At baseline patient is bedbound and requires assistance with ADL ROS: All 12 systems assessed and the patient denies unless otherwise stated in HPI In the ED, patient presented normotensive, normal heart rate and afebrile satting 96 on 3-4 liters nasal cannula. Pertinent lab findings included WBC of 5.0, carbon dioxide 38.1, EGFR greater than 60, ammonia within normal limits, troponin negative, BNP 86, TSH 4.41. Urinalysis negative for any signs of bacterial infection. U tox negative. CT chest abdomen pelvis showed right base pneumonia, small bilateral pleural effusions, atrophic left kidney, moderate renal parenchymal scar formation. EKG was normal sinus rhythm. Head CT was negative for any acute process. Chest x-ray showed subsegmental atelectasis of the left lung. 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 Patient will be admitted for acute encephalopathy secondary to worsening dementia versus possible polypharmacy; moreover, will look for SNF placement and social group worker recommendations. Exam Vital Signs Temp Pulse Resp BP Pulse Ox O2 Del Method O2 Flow Rate 98.4 F 72 18 162/80 H 100 Room Air 3 10/16/24 14:00 10/16/24 14:00 10/16/24 14:10/16/24 14:10/16/24 14:00 10/16/24 14:00 10/16/24 12:38 Narrative Exam Physical Exam: GENERAL: Awake, answering questions appropriately, appears stated age, on 3-4L NC HEENT: NC/AT. Moist mucosa. PERRLA/EOMI. CARDIO: Heart RRR, no obvious murmurs, no JVD. PULM: No coughing noted. CTA B/L except for reduced breath sounds noted on R lower lobe GI: Abdomen soft, NT/ND, +BS. SKIN/MSK/EXT: B/l upper extremity ecchymosis noted. No wounds/rashes/edema/amputations noted. +Pedal pulses present B/L. NEURO: Oriented x3, no focal neurological deficits noted. Moves extremities x4. Results: Labs 10/17/24 04:45 10/17/24 04:45 Labs: Short CBC 10/16/24 Range/Units 08:53 WBC 5.0 (3.6-11.0) Thou/mm3 Hgb 11.8 L (12.0-16.0) g/dL Hct 38.3 (36.0-46.0) % Plt Count 239 D (140-440) Thou/mm3 BMP 10/16/24 08:53 Sodium 142 Potassium 3.5 Chloride 98 Carbon Dioxide 38.1 H BUN 9 Creatinine 0.6 Glucose 84 Calcium 8.3 Cardiac Enzymes 10/16/24 Range/Units 08:53 Troponin I < 0.020 (0.0-0.045) ng/mL Liver Function 10/16/24 Range/Units 08:53 Total Bilirubin 0.3 (0.3-1.2) mg/dL AST 32 (0-34) U/L ALT 17 (10-49) U/L Alkaline Phosphatase 91 (46-116) U/L Albumin 2.5 L (3.4-4.8) gm/dL Urine 10/16/24 Range/Units 10:04 Urine Color Lt-Yellow (Lt Yel-Yel) Urine Clarity Clear (Clear/Hazy) Urine pH 8.0 H (5.0-7.0) Ur Specific Fleischmanns 1.012 (1.001-1.035) Urine Protein Negative (Neg - Trace) Urine Glucose (UA) Negative (Negative) ABG Interpretation ABG results: 10/16/24 08:53 VBG pH 7.52 VBG pCO2 46 VBG pO2 46 VBG Base Excess 13 H Quality Measures Quality Measures none Advance care planning discussed with:: patient and other (granddaughter) Medications Home Medications and Allergies Home Medications ?Medication ?Instructions ?Recorded ?Confirmed ?Type cyclobenzaprine 10 mg tablet 5 mg PO HS #0 tabs 10/16/24 History gabapentin 100 mg capsule 200 mg PO BID 01/15/1810/16 History donepezil 5 mg tablet 5 mg PO QDAY 01/16/18 History atorvastatin 20 mg tablet 40 mg PO QPM 09/14/18 History duloxetine 60 mg capsule,delayed 60 mg PO BID 04/23/21 10/16/24 History release ergocalciferol (vitamin D2) 1,250 50,000 unit PO QWEEK 04/23/21 10/16/24 History mcg (50,000 unit) capsule multivitamin (One Daily 1 tab PO QDAY 04/23/2110/16 History Multivitamin tablet) metoprolol tartrate 100 mg tablet 100 mg PO BID 10/16/24 History sumatriptan succinate 100 mg tablet 100 mg PO Q8H PRN Migraine Headache 06/02/23 09/11/24 History hydrocodone 10 mg-acetaminophen 1 tab PO Q6H PRN Pain (Scale Score 09/10/24 10/16/24 History 325 mg tablet 7-10) cyclobenzaprine 5 mg tablet mg 10/16/24 History Allergies Allergy/AdvReac Type Severity Reaction Status Date / Time ergotamine (From Cafergot) Allergy Intermediate Nausea Verified 09/13/24 20:28 adhesive tape Allergy Mild Rash Verified 09/13/24 20:28 citalopram (From Celexa) Allergy Mild Restless Verified 09/13/24 20:28 leg latex Allergy Mild Rash Verified 09/13/24 20:28 silver Allergy Rash Verified 09/13/24 20:28 Visit Medications Acetaminophen (Acetaminophen 325 Mg Tablet) 650 mg PO Q6H PRN PRN Reason: Pain 1-3 and/or Fever >100.1 Stop: 11/15/24 16:22 Cyclobenzaprine HCl (Cyclobenzaprine 5 Mg Tablet) 5 mg PO HS CARLO Stop: 11/15/24 20:59 Donepezil HCl (Donepezil Hcl 5 Mg Tablet) 5 mg PO QDAY CARLO Stop: 11/16/24 08:59 Duloxetine HCl (Duloxetine Hcl 30 Mg Capsule) 60 mg PO QDAY CARLO Stop: 11/16/24 08:59 Gabapentin (Gabapentin 100 Mg Capsule) 200 mg PO BID CARLO Stop: 11/15/24 20:59 Heparin Sodium (Porcine) (Heparin Sod Inj 5000 Unit/Ml Vial) 5,000 unit SC Q12HR CARLO Stop: 10/30/24 20:59 Sodium Chloride (Ns) 2,000 mls @ 150 mls/hr IV .[id number] ONE Stop: 10/16/24 21:16 Last Admin: 10/16/24 10:11 Dose: 150 mls/hr Metoprolol Tartrate (Metoprolol Tartrate 25 Mg Tablet) 100 mg PO BID CARLO Stop: 11/15/24 20:59 Ondansetron HCl (Ondansetron Inj 2 Mg/Ml Inj 2 Ml) 4 mg IV Q6H PRN; Protocol PRN Reason: NAUSEA OR VOMITING Stop: 11/15/24 16:22 Sennosides (Senna Tablet) 1 tab PO QDAY CARLO; Protocol Stop: 11/16/24 08:59 Discontinued Medications Sodium Chloride (Ns) 1,000 mls @ 1,000 mls/hr IV .Q1H ONE Stop: 10/16/24 08:56 Last Infusion: 10/16/24 10:10 Dose: Infused Piperacillin Sod/Tazobactam (Sod 3.375 gm/ Sodium Chloride) 50 mls @ 100 mls/hr IV X1 ONE Stop: 10/16/24 16:03 Last Infusion: 10/16/24 16:20 Dose: Infused Assessment & Plan Plan 79-year-old female with past medical history of COPD on 3L home O2, history of pulmonary embolism [05/2023], essential hypertension, hyperlipidemia, major depressive disorder and iron deficiency anemia presenting for increased altered mental status and hallucinations will be admitted for acute encephalopathy secondary to worsening dementia versus possible polypharmacy; moreover, will look for SNF placement and social group worker recommendations. #Acute encephalopathy #Dementia, likely vascular versus Alzheimer's versus Lewy body less likely Patient is presenting with worsening mental status along with hallucinations as noted in HPI Per patient's granddaughter who is production posting clerk, she states that the patient has been having hallucinations to relatives and inanimate objects Patient has underlying dementia and is on donepezil At home, patient denies having any fever/chills, chest pain, dysuria or abnormal muscle movements In the ED, patient presented afebrile, urinalysis negative, chest x-ray shows possible right base pneumonia and mastoiditis was seen on CT but no real signs of infection WBC of 5, U/A negative Head CT was negative for any acute process Brain MRI was negative for any acute process but there was 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 Chest x-ray showed subsegmental atelectasis of the left lung. Plan: Will hold off on antibiotics at this time as the patient does not have a white count or any clinical signs of pneumonia Supplemental oxygenation as needed Will consider DuoNebs if the patient becomes more symptomatic #Hypertension #Hyperlipidemia #Major depressive disorder Will restart home medications as prescribed With Toprol tartrate 100 mg twice daily, duloxetine 60 mg, gabapentin 200 mg twice daily, cyclobenzaprine 5 mg Hospital Management: Lines: PIV Diet: Cardiac, dysphagia II Bowel: Senna GI prophylaxis: Not needed DVT prophylaxis: Heparin subcu Dispo: Monitoring for hallucinations and acute encephalopathy; looking for SNF placement Code: Limited, no chest compressions but intubation is okay for several days along with shocking heart Patient seen and examined with attending Dr. Jordan and senior resident Dr. Jes Byrd, PGY-1 Attending Provider Attestation/Addendum I reviewed labs, imaging, EKG, home medications and prior available records. Face to face evaluation was performed by me. I have personally examined the patient and discussed assessment and plan with the IM team. I reviewed the resident note and agree with the plan with exceptions as below. Patient is a 79-year-old female with history of Alzheimer's disease who presented with a chief complaint of change in mental status described as hallucinations and not being herself. She was admitted for further evaluation and SNF placement. Dementia, Alzheimer's type, early onset Acute encephalopathy Debility Patient's change in mental status is likely hypoactive delirium in the setting of dementia. Possible polypharmacy. Decrease the dose of duloxetine. Protect sleep hours. Treat constipation/urinary retention as needed. Treat pain as needed Resume home donepezil Ordered PT evaluation
[2024-10-16] MEDS: CYCLObenzaPRINE 5 MG TABLET PO (21:10)
[2024-10-16] MEDS: METOPROLOL TARTRATE 25 MG TABLET 100 MG PO (21:11)
[2024-10-16] MEDS: GABAPENTIN 100 MG CAPSULE 200 MG PO (21:11)
[2024-10-16] MEDS: HEPARIN SOD INJ 5000 UNIT/ML VIAL SC (21:12)
[2024-10-17] VITALS (10 sets, daily range): BP systolic 123–158; BP diastolic 73–99; PULSE 64–91; RESP 18–20; TEMP 36.2–36.4; O2SAT 90–991; BMI 55.3
[2024-10-17 05:55] LABS: Basophils # (Auto) 0.1 Thou/mm3 (0.0-0.2); Basophils % (Auto) 1 % (0-2.5); Eosinophils # (Auto) 0.5 Thou/mm3 (0.0-0.5); Eosinophils % (Auto) 8 % (0-10); Hematocrit 35.6 % (36.0-46.0); Hemoglobin 10.8 g/dL (12.0-16.0); Immature Granulocytes % (Auto) 0 % (0-0); Immature Granulocytes Auto 0.02 Thou/mm3 (0.00-0.00); Lymphocytes # (Auto) 1.4 Thou/mm3 (1.0-4.8); Lymphocytes % (Auto) 24 % (10-50); Mean Corpuscular HGB Conc 30.3 g/dl (31.0-37.0); Mean Corpuscular Hemoglobin 27.8 pg (25.0-35.0); Mean Corpuscular Volume 92 fL (80-100); Monocytes # (Auto) 1.1 Thou/mm3 (0.0-0.8); Monocytes % (Auto) 20 % (0-12); Neutrophils # (Auto) 2.7 Thou/mm3 (1.8-7.7); Neutrophils % (Auto) 47 % (37-80); Nucleated Red Blood Cell % 0 /100 WBC (0); Platelet Count 225 Thou/mm3 (140-440); RDW Standard Deviation 58.4 fL (36.4-46.3); Red Blood Count 3.88 Miln/mm3 (4.00-5.20); White Blood Count 5.8 Thou/mm3 (3.6-11.0)
[2024-10-17] MEDS: DEXTROSE 50%-WATER INJ 50 ML SYRINGE IV (06:13)
--- NOTE | 2024-10-17 06:15 | XR_ITS ---
Examination: CT brain head without contrast. 2-D sagittal coronal reconstructions Date and time of exam:October 17, 2024 at 0624 hrs. Indications: Stroke alert, onset altered mental status beginning 20 minutes ago CTDI: vol (mGy):55.5 DLP: (mGycm):1187 Technique: Multiple CT axial sections of the brain have been obtained, 5 mm slice thickness. Contrast has not been administered. 2-D sagittal, coronal reconstructions have been obtained Low dose protocols were performed. One or more of the following dose reduction techniques were used; automated exposure control, adjustment of the mA and/or KV according to patient size, use of iterative reconstruction technique. Findings: No significant ventricular enlargement. Small bowel old infarcts in the cerebellar hemispheres Intra-axial or extra-axial hemorrhage density is not seen. No mass effect or midline shift Basal cisterns are not remarkable. Fourth ventricle is midline. Cranial vault intact. Impression: Negative for acute hemorrhage, mass effect or midline shift
--- NOTE | 2024-10-17 06:16 | PD.RESEVENT ---
Documentation for date of: 10/17/24 Event Note Event Note: Rapid response called for the patient around 6 AM for altered mental status, patient unresponsive to name, unable to answer questions, was responsive to sternal rub. Bedside blood glucose was low, ordered an amp of dextrose, labs from this morning were pending, medications reviewed, patient is admitted for delirium considering patient's worsening altered mental status stroke alert was called. Ordered CT head per stroke protocol, head and neck CTA, ABG. Will follow up with results and tele-neuro recommendations. Case discussed with Attending Dr. Daily. Andrzej Hoffman PGY1 Disclaimer: This note was dictated by speech recognition. Minor errors in shrimp peeling machine operator may be present due to voice recognition software.
[2024-10-17 06:28] LABS: Alanine Aminotransferase 19 U/L (10-49); Albumin, Serum 2.4 gm/dL (3.4-4.8); Alkaline Phosphatase 84 U/L (46-116); Anion Gap 8 (7-16); Aspartate Amino Transferase 33 U/L (0-34); BUN/Creatinine Ratio 16 Ratio (12-20); Bilirubin,Total 0.3 mg/dL (0.3-1.2); Blood Urea Nitrogen 8 mg/dL (9-23); Calcium 8.1 mg/dL (8.3-10.6); Calcium (Corrected) 9.4 mg/dL (8.5-10.1); Carbon Dioxide 35.3 mMol/L (20.0-31.0); Chloride 100 mMol/L (98-107); Creatinine (Component) 0.5 mg/dL (0.6-1.3); Globulin 2.5 gm/dL (2.3-3.5); Glucose 81 mg/dL (74-106); Osmolality,Calculated 282 (275-295); Potassium 3.7 mMol/L (3.4-5.1); Sodium 143 mMol/L (136-145); Thyroid Stimulating Hormone 4.64 uIU/mL (0.55-4.78); Total Protein 4.9 gm/dL (5.7-8.2); eGFR > 60 See Note
--- NOTE | 2024-10-17 06:40 | XR_ITS ---
Examination: CTA carotids with intravenous contrast CTA brain, head with intravenous contrast. 2-D sagittal, coronal reconstructions. 3-D reconstructions. Exam date and time: October 17, 2024 at 0614 hrs. CTDI: vol (mGy) 76.8 DLP: (mGycm) 497 Technique: Multiple CTA axial brain, head carotid images post intravenous contrast injection 75 cc, [id number]. 2-D sagittal, coronal reconstructions. 3-D reconstructions, 3-D post processing including vascular maximum intensity projection images. Low dose protocols were performed. One or more of the following dose reduction techniques were used; automated exposure control, adjustment of the mA and/or KV according to patient size, use of iterative reconstruction technique. Findings: Partial visualization bilateral pleural fluid No significant common carotid carotid bifurcation or internal carotid artery stenoses Dominant right vertebral artery with very small but patent left vertebral artery No cerebral large vessel arterial occlusions or thrombus Impression: No significant neck arterial stenoses No cerebral large vessel arterial occlusions or thrombus Consider repeat brain MRI without contrast stroke protocol
--- NOTE | 2024-10-17 07:36 | PC.NURSE ---
Code rapid was called due to patient having change in mental status. During the assessment of the patient, ordered for a code stroke to be called. Once stroke alert was called patient was immediatly taken to CT for scanning. Nurse spoke to neurologist and notified the neurologist regarding patient's change mental status. After patient was done with CT, patient was taken back to her room. During CT scanning patient was becoming more verbal and was able to follow some commands that were given to her. An NIHS was performed on patient by both neurologist and nurse.
--- NOTE | 2024-10-17 08:09 | ESCONSULT_ITS ---
Tele Neuro Consultation Consultation Date 10/17/24 Most Recent Vital Signs Last Vital Signs Temp 97.1 F 10/17/24 07:55 Pulse 89 10/17/24 07:55 Resp 19 10/17/24 07:55 BP 127/73 10/17/24 07:55 Pulse Ox 991 H 10/17/24 07:55 O2 Del Method Nasal Cannula 10/17/24 07:55 O2 Flow Rate 6 10/17/24 07:55 Laboratory-Coagulation Panel PT 12.0 Seconds (9.0-12.2) 10/16/24 08:53 INR 1.1 (0.9-1.3) 10/16/24 08:53 Consultation Narrative [facility] Tele[facility]rology Consult [facility] Patient Name:???Gabriela Milan Date of :???1945 Identification Number:??? Date of Service:???10/17/2024 06:19:50 Diagnosis:?R41.0 - Disorientation, unspecified Impression: ?79yo woman w/PMH of HTN, HLD, COPD, PE, dementia who was admitted for AMS on 10/16/24. Stroke alert called for AMS, aphasia. Staff notes she stopped speaking this morning. Her family reports she has not slept for the past few days, and had hallucinations at home. She has had hallucinations during admission. She is now speaking again. She states she is at home. She is unable to provide history or follow commands. NIHSS 15. CT Head has no acute findings, chronic infarcts noted. Pt is not a candidate for thrombolytics due to being out of the 4.5 hour window and return to recent baseline. CTA Head/Neck shows no large vessel occlusion. Presentation is concerning for infectious/metabolic encephalopathy and/or delirium, but unable to rule out an acute small vessel ischemic stroke at this time. There is also concern for worsening of her bas ning dementia causing her hallucinations. Our recommendations are outlined below. Recommendations: ? Neuro Checks ? Bedside Swallow Eval ? DVT Prophylaxis ? IV Fluids, Normal Saline ? Initiate or continue Aspirin 81 MG daily ?Consider repeat routine MRI Brain without contrast to assess for stroke if change in mental status persists ?PT/OT, Speech/Swallow evaluation ?Infectious/metabolic workup and management as per primary team ?Optimize blood pressure, temp, glucose ?Delirium precautions Sign Out: ? Discussed with Primary Attending ? Discussed with Rapid Response Team Advanced Imaging: CTA Head and Neck Completed. LVO:No Patient in not a candidate for DIDI Metrics: Last Known Well: Unknown Dispatch Time: 10/17/2024 06:19:50 Initial Response Time: 10/17/2024 06:21:16Symptoms: AMS, aphasia. Initial patient interaction: 10/17/2024 06:30:00 NIHSS Assessment Completed: 10/17/2024 06:34:10Patient is not a candidate for Thrombolytic. Thrombolytic Medical Decision: 10/17/2024 06:35:17Patient was not deemed candidate for Thrombolytic because of following reasons: LKW outside [address] head showed no acute hemorrhage or acute core infarct. Primary Provider Notified of Diagnostic Impression and Management Plan on: 10/17/2024 08:06:23 Spoke With: attending [phone] Able to Reach 10/17/2024 08:06:23 History of Present Illness:Patient is a 79 year old Female. Inpatient stroke alert was called for symptoms of AMS, aphasia. 79yo woman w/PMH of HTN, HLD, COPD, PE, dementia who was admitted for AMS on 10/16/24. Stroke alert called for AMS, aphasia. Staff notes she stopped speaking this morning. Her family reports she has not slept for the past few days, and had hallucinations at home. She has had hallucinations during admission. She is now speaking again. She states she is at home. She is unable to provide history or follow commands. Past Medical History: Other PMH:? see hpi unable to obtain due to:?? Patient Is Confused Medications: No Anticoagulant use? No Antiplatelet use Reviewed EMR for current medications Allergies:? Reviewed Allergies Unable To Obtain Due To:?Patient Is Confused Social History: Unable To Obtain Due To Patient Status :?Patient Is Confused Family History: Family History Cannot Be Obtained Because:Patient Is Confused ROS :?ROS Cannot Be Obtained Because:? Patient Is Confused Past Surgical History: Past Surgical History Cannot Be Obtained Because: Patient Is Confused Examination: BP(/),?Pulse(80), 1A: Level of Consciousness - Alert; keenly responsive?+ 0 1B: Ask Month and Age - Could Not Answer Either Question Correctly?+ 2 1C: Blink Eyes & Squeeze Hands - Performs 0 Tasks?+ 2 2: Test Horizontal Extraocular Movements - Normal?+ 0 3: Test Visual Ruff - No Visual Loss?+ 0 4: Test Facial Palsy (Use Grimace if Obtunded) - Normal symmetry?+ 0 5A: Test Left Arm Motor Drift - Some Effort Against [place]?+ 2 5B: Test Right Arm Motor Drift - Some Effort Against [place]?+ 2 6A: Test Left Leg Motor Drift - Some Effort Against [place]?+ 2 6B: Test Right Leg Motor Drift - Some Effort Against [place]?+ 2 7: Test Limb Ataxia (FNF/Heel-Wilcox) - No Ataxia?+ 0 8: Test Sensation - Normal; No sensory loss?+ 0 9: Test Language/Aphasia - Severe Aphasia: Fragmentary Expression, Inference Needed, Cannot Identify Materials?+ 2 10: Test Dysarthria - Mild-Moderate Dysarthria: Slurring but can be understood?+ 1 11: Test Extinction/Inattention - No abnormality?+ 0 NIHSS Score:?15 Pre-Morbid Modified Mason Scale:Unable to assess Spoke with :?attending [phone] This consult was conducted in real time using interactive audio and video technology. Patient was informed of the technology being used for this visit and agreed to proceed. Patient located in hospital and provider located at home/office setting. Patient is being evaluated for possible acute neurologic impairment and high probability of imminent or life-threatening deterioration. I spent total of 35 minutes providing care to this patient, including time for face to face visit via telemedicine, review of medical records, imaging studies and discussion of findings with providers, the patient and/or family. Dr Patrick Houston [facility] For Inpatient follow-up with [facility] physician please call [facility] at . As we are not an outpatient service for any post hospital discharge needs please contact the hospital for assistance. If you have any questions for the [facility] physicians or need to reconsult for clinical or diagnostic changes please contact us via [facility] at .
--- NOTE | 2024-10-17 08:58 | PC.SS ---
Addendum entered by ANSHU Marte 10/17/24 14:27: SS follow up: provided choices accepting SNF choices to patient's granddaughter, Niesha. She informs she will conduct some research to determine the preferred SNF out of the accepting facilities at this time. Addendum entered by ANSHU Marte 10/17/24 09:01: PASRR has already been completed. LV1. Original Note: SS follow up: Patient was admitted to [facility]. Per SNF inquiry on [facility], the only current accepting facility is : [facility] in [place]. ASW sent message notification to local SNF's that have yet to respond to determine if any other accepting facilities in local area.
[2024-10-17] MEDS: HEPARIN SOD INJ 5000 UNIT/ML VIAL SC ×2 (09:55→23:21)
[2024-10-17] MEDS: GABAPENTIN 100 MG CAPSULE 200 MG PO (09:55)
[2024-10-17] MEDS: DULoxetine HCL 30 MG CAPSULE 60 MG PO (09:55)
[2024-10-17] MEDS: METOPROLOL TARTRATE 25 MG TABLET 100 MG PO ×2 (09:56→23:18)
[2024-10-17] MEDS: DONEPEZIL HCL 5 MG TABLET PO (09:56)
[2024-10-17] MEDS: SENNA TABLET 1 TAB PO (09:56)
[2024-10-17] MEDS: ASPIRIN EC 81 MG TABEC PO (09:56)
--- NOTE | 2024-10-17 11:23 | ESPR_ITS ---
Documentation for date of: 10/17/24 Subjective Subjective Interval history: 10/17/2024: Overnight there was a rapid response called for the patient having altered mental status, stroke protocol was initiated. CT head along with CTA of the head and neck are negative. Patient seen and assessed this morning at her baseline mental status. Neurology was consulted for recommendations regarding her home medications and if further workup is required at this time. Teleneurology did state that if the mentation worsens to consider getting an MRI brain but likely diagnosis is delirium versus worsening dementia. Will continue to monitor for any acute changes and expect discharge within the next 48 hours to SNF. Exam Vital Signs Temp Pulse Resp BP Pulse Ox O2 Del Method O2 Flow Rate 97.1 F 78 18 127/73 98 Nasal Cannula 3 10/17/24 07:55 10/17/24 10:46 10/17/24 10:46 10/17/24 09:56 10/17/24 10:46 10/17/24 07:55 10/17/24 10:46 Narrative Exam Physical Exam: GENERAL: Awake, answering questions appropriately, appears stated age, on 4L NC HEENT: NC/AT. Moist mucosa. PERRLA/EOMI. CARDIO: Heart RRR, no obvious murmurs, no JVD. PULM: No coughing noted. CTA B/L except for reduced breath sounds noted on R lower lobe GI: Abdomen soft, NT/ND, +BS. SKIN/MSK/EXT: B/l upper extremity ecchymosis noted. No wounds/rashes/edema/amputations noted. +Pedal pulses present B/L. NEURO: Oriented x3, no focal neurological deficits noted. Moves extremities x4. Objective Labs 10/17/24 04:45 10/17/24 04:45 Labs: Laboratory Results - last 24 hr 10/16/24 10/16/24 10/17/24 08:50 08:53 04:45 WBC 5.8 RBC 3.88 L Hgb 10.8 L Hct 35.6 L MCV 92 MCH 27.8 MCHC 30.3 L RDW Std Deviation 58.4 H Plt Count 225 Neut % (Auto) 47 Lymph % (Auto) 24 Mcmullen % (Auto) 20 H Eos % (Auto) 8 Baso % (Auto) 1 Neut # (Auto) 2.7 Lymph # (Auto) 1.4 Mcmullen # (Auto) 1.1 H Eos # (Auto) 0.5 Baso # (Auto) 0.1 Immature Gran # (Auto) 0.02 H Absolute Nucleated RBC 0.00 Immature Gran % 0 Nucleated RBC % 0 Sodium 143 Potassium 3.7 Chloride 100 Carbon Dioxide 35.3 H Anion Gap 8 BUN 8 L Creatinine 0.5 L Estim Creat Clear Calc 134.0 eGFR > 60 BUN/Creatinine Ratio 16 Glucose 81 Calculated Osmolality 282 Calcium 8.1 L Corrected Calcium 9.4 Total Bilirubin 0.3 AST 33 ALT 19 Alkaline Phosphatase 84 Total Protein 4.9 L Albumin 2.4 L Globulin 2.5 Albumin/Globulin Ratio 1.0 L TSH 4.41 4.64 Thyroxine (T4) 6.3 ABG Interpretation ABG results: 10/16/24 08:53 VBG pH 7.52 VBG pCO2 46 VBG pO2 46 VBG Base Excess 13 H Quality Measures Quality Measures none Advance care planning discussed with:: patient and other (Granddaughter) Assessment & Plan Assessment Current Active Medications: Generic Name Dose Route Start Last Admin Trade Name Freq PRN Reason Stop Dose Admin Acetaminophen 650 mg 10/16/24 16:23 Acetaminophen 325 Mg Tablet PO 11/15/24 16:22 Q6H PRN Pain 1-3 and/or Fever >100.1 Aspirin 81 mg 10/17/24 09:00 10/17/24 09:56 Aspirin Ec 81 Mg Tabec PO 11/16/24 08:59 81 mg QDAY CARLO Administration Cyclobenzaprine HCl 5 mg 10/16/24 21:00 10/16/24 21:10 Cyclobenzaprine 5 Mg Tablet PO 11/15/24 20:59 5 mg HS CARLO Administration Donepezil HCl 5 mg 10/17/24 09:00 10/17/24 09:56 Donepezil Hcl 5 Mg Tablet PO 11/16/24 08:59 5 mg QDAY CARLO Administration Duloxetine HCl 60 mg 10/17/24 09:00 10/17/24 09:55 Duloxetine Hcl 30 Mg Capsule PO 11/16/24 08:59 60 mg QDAY CARLO Administration Gabapentin 200 mg 10/16/24 21:00 10/17/24 09:55 Gabapentin 100 Mg Capsule PO 11/15/24 20:59 200 mg BID CARLO Administration Heparin Sodium (Porcine) 5,000 unit 10/16/24 21:00 10/17/24 09:55 Heparin Sod Inj 5000 Unit/Ml Vial SC 10/30/24 20:59 5,000 unit Q12HR CARLO Administration Metoprolol Tartrate 100 mg 10/16/24 21:00 10/17/24 09:56 Metoprolol Tartrate 25 Mg Tablet PO 11/15/24 20:59 100 mg BID CARLO Administration Ondansetron HCl 4 mg 10/16/24 16:23 Ondansetron Inj 2 Mg/Ml Inj 2 Ml IV 11/15/24 16:22 Q6H PRN NAUSEA OR VOMITING Protocol Sennosides 1 tab 10/17/24 09:00 10/17/24 09:56 Senna Tablet PO 11/16/24 08:59 1 tab QDAY CARLO Administration Protocol Plan 79-year-old female with past medical history of COPD on 3L home O2, history of pulmonary embolism [05/2023], essential hypertension, hyperlipidemia, major depressive disorder and iron deficiency anemia presenting for increased altered mental status and hallucinations will be admitted for acute encephalopathy secondary to worsening dementia versus possible polypharmacy; moreover, will look for SNF placement and neonatal social worker recommendations. #Acute encephalopathy #Dementia, likely vascular versus Alzheimer's versus Lewy body less likely Patient is presenting with worsening mental status along with hallucinations as noted in HPI Per patient's granddaughter who is product craftsman, she states that the patient has been having hallucinations to relatives and inanimate objects Patient has underlying dementia and is on donepezil At home, patient denies having any fever/chills, chest pain, dysuria or abnormal muscle movements In the ED, patient presented afebrile, urinalysis negative, chest x-ray shows possible right base pneumonia and mastoiditis was seen on CT but no real signs of infection WBC of 5, U/A negative Head CT was negative for any acute process Brain MRI was negative for any acute process but there was old infarct in the left cerebellar hemisphere right frontal lobe and significant left mastoiditis Plan: Neurology consulted, appreciate recommendations Prevent delirium by frequently reorienting patient Keep family bedside when appropriate Continue home medications; however, held gabapentin Pending neonatal social worker for SNF placement #COPD #Right base pneumonia #Mastoiditis Patient has history of COPD with home 3 L oxygen use Currently saturating 95-96 on 3 to 4 L oxygen Denies being acutely short of breath, on exam there is no signs of wheezing CT chest abdomen pelvis showed right base pneumonia, small bilateral pleural effusions, atrophic left kidney, moderate renal parenchymal scar formation. Chest x-ray showed subsegmental atelectasis of the left lung. Plan: Supplemental oxygenation as needed Will consider DuoNebs if the patient becomes more symptomatic #Hypertension #Hyperlipidemia #Major depressive disorder Will restart home medications as prescribed With Toprol tartrate 100 mg twice daily, duloxetine 60 mg, cyclobenzaprine 5 mg Hospital Management: Lines: PIV Diet: Cardiac, dysphagia II Bowel: Senna GI prophylaxis: Not needed DVT prophylaxis: Heparin subcu Dispo: Monitoring for hallucinations and acute encephalopathy; looking for SNF placement Code: Limited, no chest compressions but intubation is okay for several days along with shocking heart Patient seen and examined with attending Dr. Jordan and senior resident Dr. Jes Byrd, PGY-1 Attending Provider Attestation/Addendum I reviewed labs, imaging, EKG, home medications and prior available records. Face to face evaluation was performed by me. I have personally examined the patient and discussed assessment and plan with the IM team. I reviewed the resident note and agree with the plan with exceptions as below. Patient is a 79-year-old female with history of Alzheimer's disease who presented with a chief complaint of change in mental status described as hallucinations and not being herself. She was admitted for further evaluation and SNF placement. Dementia, Alzheimer's type, early onset Acute encephalopathy Debility Rapid response was called in the morning of 10/17 for worsening mental status. She was found to be hypoglycemic. CT head and CTA head/neck showed no acute changes. Consulted neurology. Patient later was alert and at her baseline mental status. Patient's change in mental status is likely hypoactive delirium in the setting of dementia. Possible polypharmacy. Decrease the dose of duloxetine. Protect sleep hours. Treat constipation/urinary retention as needed. Treat pain as needed Resumed home donepezil Ordered PT evaluation
--- NOTE | 2024-10-17 11:53 | PCS.ST ---
swallow evaluation completed. HARDWARE DEVELOPER recommends D3 and thin liquids. No further HARDWARE DEVELOPER services warranted. See report for additional details.
--- NOTE | 2024-10-17 15:52 | PD.RESCONSUL ---
HPI Data of Consult Patient: new to practice Requesting Physician: Navneet Jordan MD Admitting Provider: Navneet Jordan MD Attending Provider: Navneet Jordan MD Primary Care Provider: Hernandez Grijalva MD Consult Narrative Reason for consult: altered mental status History of present illness: A 79-year-old female with a medical history of COPD (on 3L home oxygen), pulmonary embolism (from 05/2023), essential hypertension, hyperlipidemia, major depressive disorder, and iron deficiency anemia, presented to the emergency department, accompanied by her granddaughter, who is her caregiver. She came in due to increased confusion and hallucinations. According to the granddaughter, the patient has been experiencing progressively worsening hallucinations over the past few days, seeing relatives and hearing inanimate objects speak. The patient has baseline memory issues and dementia, which the granddaughter was not fully aware of, but it was noted that the patient is on donepezil as per her home medication list. The symptoms are concerning for infectious or metabolic encephalopathy and/or delirium, though an acute small vessel ischemic stroke cannot be ruled out at this time. Additionally, there is concern that her baseline dementia could be worsening, contributing to the hallucinations. Neurology consulted for altered mental status. cc:: cc: Navneet Jordan MD Review of Systems Review of Systems Systems Reviewed: All systems reviewed, normal except as documented Exam Vital Signs Temp Pulse Resp BP Pulse Ox O2 Del Method O2 Flow Rate 97.5 F 91 18 143/83 H 100 Nasal Cannula 3 10/17/24 11:40 10/17/24 11:40 10/17/24 11:40 10/17/24 11:40 10/17/24 11:40 10/17/24 11:40 10/17/24 11:40 Narrative Exam GENERAL: Awake/alert, answering questions appropriately HEENT: NC/AT. Moist mucosa. PERRLA/EOMI. CARDIO: Heart RRR, no obvious murmurs, no JVD. PULM: No coughing noted. CTA B/L except for reduced breath sounds noted on R lower lobe GI: Abdomen soft, NT/ND, +BS. SKIN/MSK/EXT: B/l upper extremity ecchymosis noted. No wounds/rashes/edema/amputations noted. +Pedal pulses present B/L. NEURO: Oriented x3, no focal neurological deficits noted. Moves extremities x4. Results Labs 10/18/24 05:39 10/18/24 05:39 Labs: Short CBC 10/17/24 Range/Units 04:45 WBC 5.8 (3.6-11.0) Thou/mm3 Hgb 10.8 L (12.0-16.0) g/dL Hct 35.6 L (36.0-46.0) % Plt Count 225 (140-440) Thou/mm3 BMP 10/17/24 04:45 Sodium 143 Potassium 3.7 Chloride 100 Carbon Dioxide 35.3 H BUN 8 L Creatinine 0.5 L Glucose 81 Calcium 8.1 L Liver Function 10/17/24 Range/Units 04:45 Total Bilirubin 0.3 (0.3-1.2) mg/dL AST 33 (0-34) U/L ALT 19 (10-49) U/L Alkaline Phosphatase 84 (46-116) U/L Albumin 2.4 L (3.4-4.8) gm/dL ABG Interpretation ABG results: 10/16/24 08:53 VBG pH 7.52 VBG pCO2 46 VBG pO2 46 VBG Base Excess 13 H Quality Measures Quality Measures none Advance care planning discussed with:: other Medications Home Medications and Allergies Home Medications ?Medication ?Instructions ?Recorded ?Confirmed ?Type cyclobenzaprine 10 mg tablet 5 mg PO HS #0 tabs 06/23/17 10/16/24 History gabapentin 100 mg capsule 200 mg PO BID 01/15/18 10/16/24 History donepezil 5 mg tablet 5 mg PO QDAY 01/16/18 10/16/24 History atorvastatin 20 mg tablet 40 mg PO QPM 09/14/18 09/11/24 History duloxetine 60 mg capsule,delayed 60 mg PO BID 04/23/21 10/16/24 History release ergocalciferol (vitamin D2) 1,250 50,000 unit PO QWEEK 04/23/21 10/16/24 History mcg (50,000 unit) capsule multivitamin (One Daily 1 tab PO QDAY 04/23/21 10/16/24 History Multivitamin tablet) metoprolol tartrate 100 mg tablet 100 mg PO BID 05/31/23 10/16/24 History sumatriptan succinate 100 mg tablet 100 mg PO Q8H PRN Migraine Headache 06/02/23 09/11/24 History hydrocodone 10 mg-acetaminophen 1 tab PO Q6H PRN Pain (Scale Score 09/10/24 10/16/24 History 325 mg tablet 7-10) cyclobenzaprine 5 mg tablet mg 10/16/24 History Allergies Allergy/AdvReac Type Severity Reaction Status Date / Time ergotamine (From Cafergot) Allergy Intermediate Nausea Verified 09/13/24 20:28 adhesive tape Allergy Mild Rash Verified 09/13/24 20:28 citalopram (From Celexa) Allergy Mild Restless Verified 09/13/24 20:28 leg latex Allergy Mild Rash Verified 09/13/24 20:28 silver Allergy Rash Verified 09/13/24 20:28 Visit Medications Acetaminophen (Acetaminophen 325 Mg Tablet) 650 mg PO Q6H PRN PRN Reason: Pain 1-3 and/or Fever >100.1 Stop: 11/15/24 16:22 Aspirin (Aspirin Ec 81 Mg Tabec) 81 mg PO QDAY CARLO Stop: 11/16/24 08:59 Last Admin: 10/17/24 09:56 Dose: 81 mg Cyclobenzaprine HCl (Cyclobenzaprine 5 Mg Tablet) 5 mg PO HS CARLO Stop: 11/15/24 20:59 Last Admin: 10/16/24 21:10 Dose: 5 mg Donepezil HCl (Donepezil Hcl 5 Mg Tablet) 5 mg PO QDAY CARLO Stop: 11/16/24 08:59 Last Admin: 10/17/24 09:56 Dose: 5 mg Duloxetine HCl (Duloxetine Hcl 30 Mg Capsule) 60 mg PO QDAY CARLO Stop: 11/16/24 08:59 Last Admin: 10/17/24 09:55 Dose: 60 mg Gabapentin (Gabapentin 100 Mg Capsule) 200 mg PO BID CARLO Stop: 11/15/24 20:59 Last Admin: 10/17/24 09:55 Dose: 200 mg Heparin Sodium (Porcine) (Heparin Sod Inj 5000 Unit/Ml Vial) 5,000 unit SC Q12HR CARLO Stop: 10/30/24 20:59 Last Admin: 10/17/24 09:55 Dose: 5,000 unit Metoprolol Tartrate (Metoprolol Tartrate 25 Mg Tablet) 100 mg PO BID CARLO Stop: 11/15/24 20:59 Last Admin: 02/27/25 09:56 Dose: 100 mg Ondansetron HCl (Ondansetron Inj 2 Mg/Ml Inj 2 Ml) 4 mg IV Q6H PRN; Protocol PRN Reason: NAUSEA OR VOMITING Stop: 11/15/24 16:22 Sennosides (Senna Tablet) 1 tab PO QDAY CARLO; Protocol Stop: 11/16/24 08:59 Last Admin: 10/17/24 09:56 Dose: 1 tab Discontinued Medications Dextrose (Dextrose 50%-Water Inj 50 Ml Syringe) 50 ml IV X1 ONE Stop: 10/17/24 06:10 Last Admin: 10/17/24 06:13 Dose: 50 ml Sodium Chloride (Ns) 2,000 mls @ 150 mls/hr IV .[id number] ONE Stop: 10/16/24 21:16 Last Admin: 10/16/24 10:11 Dose: 150 mls/hr Sodium Chloride (Ns) 1,000 mls @ 1,000 mls/hr IV .Q1H ONE Stop: 10/16/24 08:56 Last Infusion: 10/16/24 10:10 Dose: Infused Piperacillin Sod/Tazobactam (Sod 3.375 gm/ Sodium Chloride) 50 mls @ 100 mls/hr IV X1 ONE Stop: 10/16/24 16:03 Last Infusion: 10/16/24 16:20 Dose: Infused Assessment & Plan Plan #Acute encephalopathy #Dementia, worsening #Hx of L cerebellar, R frontal lobe infarcts Assessment: Etiology of patient's AMS is likely 2/2 to progressive dementia Patient is having visual hallucinations Currently on donepazil 5mg PO HS Infectious etiologies have been ruled out CT head on admission was negative MR brain showed negative for any acute process but there was old infarct in the left cerebellar hemisphere right frontal lobe and significant left mastoiditis Recommendations: -family for redirections -avoid night time disturbances -keep the room light up during the day -avoid benzodiazepines -hold gabapentin -cont ASA 81mg -physical therapy - Patient's care was discussed with my attending physician, Dr. Jaja Fonseca MD Internal Medicine PGY-3 Attending Provider Attestation/Addendum Personally have seen and examined the patient at the bedside and I agree with the residents findings, assessment and plan of care. Patient most likely has mild dementia at baseline with psychosis, will benefit from adding Seroquel.
[2024-10-17] MEDS: CYCLObenzaPRINE 5 MG TABLET PO (23:19)
[2024-10-18] VITALS (10 sets, daily range): BP systolic 113–136; BP diastolic 70–81; PULSE 73–84; RESP 16–18; TEMP 36.1–36.4; O2SAT 90–100
[2024-10-18 06:59] LABS: Basophils # (Auto) 0.1 Thou/mm3 (0.0-0.2); Basophils % (Auto) 2 % (0-2.5); Eosinophils # (Auto) 0.6 Thou/mm3 (0.0-0.5); Eosinophils % (Auto) 11 % (0-10); Hematocrit 32.5 % (36.0-46.0); Immature Granulocytes % (Auto) 0 % (0-0); Immature Granulocytes Auto 0.02 Thou/mm3 (0.00-0.00); Lymphocytes # (Auto) 1.4 Thou/mm3 (1.0-4.8); Lymphocytes % (Auto) 27 % (10-50); Mean Corpuscular HGB Conc 30.8 g/dl (31.0-37.0); Mean Corpuscular Hemoglobin 27.9 pg (25.0-35.0); Mean Corpuscular Volume 91 fL (80-100); Monocytes # (Auto) 0.8 Thou/mm3 (0.0-0.8); Monocytes % (Auto) 16 % (0-12); Neutrophils # (Auto) 2.3 Thou/mm3 (1.8-7.7); Neutrophils % (Auto) 44 % (37-80); Nucleated Red Blood Cell % 0 /100 WBC (0); Platelet Count 226 Thou/mm3 (140-440); RDW Standard Deviation 58.4 fL (36.4-46.3); Red Blood Count 3.58 Miln/mm3 (4.00-5.20); White Blood Count 5.1 Thou/mm3 (3.6-11.0)
[2024-10-18 07:18] LABS: Alanine Aminotransferase 18 U/L (10-49); Albumin, Serum 2.2 gm/dL (3.4-4.8); Alkaline Phosphatase 77 U/L (46-116); Anion Gap 4 (7-16); Aspartate Amino Transferase 24 U/L (0-34); BUN/Creatinine Ratio 13 Ratio (12-20); Bilirubin,Total 0.3 mg/dL (0.3-1.2); Blood Urea Nitrogen 8 mg/dL (9-23); Calcium 8.3 mg/dL (8.3-10.6); Calcium (Corrected) 9.7 mg/dL (8.5-10.1); Carbon Dioxide > 40.0 mMol/L (20.0-31.0); Chloride 102 mMol/L (98-107); Creatinine (Component) 0.6 mg/dL (0.6-1.3); Estimated Creatinine Clearance 111.7 mL/min (>60); Globulin 2.2 gm/dL (2.3-3.5); Glucose 79 mg/dL (74-106); Osmolality,Calculated 287 (275-295); Potassium 4.1 mMol/L (3.4-5.1); Sodium 146 mMol/L (136-145); Total Protein 4.4 gm/dL (5.7-8.2); eGFR > 60 See Note
[2024-10-18] MEDS: METOPROLOL TARTRATE 25 MG TABLET 100 MG PO ×2 (08:28→20:40)
[2024-10-18] MEDS: SENNA TABLET 1 TAB PO (08:28)
[2024-10-18] MEDS: DONEPEZIL HCL 5 MG TABLET PO (08:28)
[2024-10-18] MEDS: ASPIRIN EC 81 MG TABEC PO (08:28)
[2024-10-18] MEDS: DULoxetine HCL 30 MG CAPSULE 60 MG PO (08:28)
[2024-10-18] MEDS: HEPARIN SOD INJ 5000 UNIT/ML VIAL SC ×2 (08:29→20:39)
[2024-10-18] MEDS: ACETAMINOPHEN 325 MG TABLET 650 MG PO ×2 (08:35→20:46)
--- NOTE | 2024-10-18 10:29 | PD.RESPRO ---
Documentation for date of: 10/18/24 Subjective Subjective Interval history: 10/18/2024: No acute overnight events reported. Patient seen and examined in hospital bed with slightly improved mental status; however, this is likely patient's baseline and she will have better days and worse days secondary to the underlying dementia. Neurology was consulted and the recommendations are to hold gabapentin, continue aspirin 81 mg and to continue reorienting the patient and keeping a day/night cycle intact. rehabilitation services manager working to get the patient admitted to a SNF, pending discharge within the next 24 hours. Exam Vital Signs Temp Pulse Resp BP Pulse Ox O2 Del Method O2 Flow Rate 97.1 F 78 17 113/77 100 Nasal Cannula 2 10/18/24 07:44 10/18/24 08:28 10/18/24 07:44 10/18/24 08:28 10/18/24 07:44 10/18/24 07:44 10/18/24 07:44 Narrative Exam Physical Exam: GENERAL: Awake, answering questions appropriately, appears stated age, on 2-3L NC HEENT: NC/AT. Moist mucosa. PERRLA/EOMI. CARDIO: Heart RRR, no obvious murmurs, no JVD. PULM: No coughing noted. CTA B/L except for reduced breath sounds noted on R lower lobe GI: Abdomen soft, NT/ND, +BS. SKIN/MSK/EXT: B/l upper extremity ecchymosis noted. No wounds/rashes/edema/amputations noted. +Pedal pulses present B/L. NEURO: Oriented x3, no focal neurological deficits noted. Moves extremities x4. Objective Labs 10/18/24 05:39 10/18/24 05:39 Labs: Laboratory Results - last 24 hr 10/18/24 05:39 WBC 5.1 RBC 3.58 L Hgb 10.0 L Hct 32.5 L MCV 91 MCH 27.9 MCHC 30.8 L RDW Std Deviation 58.4 H Plt Count 226 Neut % (Auto) 44 Lymph % (Auto) 27 [place] % (Auto) 16 H Eos % (Auto) 11 H Baso % (Auto) 2 Neut # (Auto) 2.3 Lymph # (Auto) 1.4 [place] # (Auto) 0.8 Eos # (Auto) 0.6 H Baso # (Auto) 0.1 Immature Gran # (Auto) 0.02 H Absolute Nucleated RBC 0.00 Immature Gran % 0 Nucleated RBC % 0 Sodium 146 H Potassium 4.1 Chloride 102 Carbon Dioxide > 40.0 H Anion Gap 4 L BUN 8 L Creatinine 0.6 Estim Creat Clear Calc 111.7 eGFR > 60 BUN/Creatinine Ratio 13 Glucose 79 Calculated Osmolality 287 Calcium 8.3 Corrected Calcium 9.7 Total Bilirubin 0.3 AST 24 ALT 18 Alkaline Phosphatase 77 Total Protein 4.4 L Albumin 2.2 L Globulin 2.2 L Albumin/Globulin Ratio 1.0 L ABG Interpretation ABG results: 10/16/24 08:53 VBG pH 7.52 VBG pCO2 46 VBG pO2 46 VBG Base Excess 13 H Quality Measures Quality Measures none Advance care planning discussed with:: patient and other (Granddaughter) Assessment & Plan Assessment Current Active Medications: Generic Name Dose Route Start Last Admin Trade Name Freq PRN Reason Stop Dose Admin Acetaminophen 650 mg 10/16/24 16:23 10/18/24 08:35 Acetaminophen 325 Mg Tablet PO 11/15/24 16:22 650 mg Q6H PRN Administration Pain 1-3 and/or Fever >100.1 Aspirin 81 mg 10/17/24 09:00 10/18/24 08:28 Aspirin Ec 81 Mg Tabec PO 11/16/24 08:59 81 mg QDAY CARLO Administration Cyclobenzaprine HCl 5 mg 10/16/24 21:00 10/17/24 23:19 Cyclobenzaprine 5 Mg Tablet PO 11/15/24 20:59 5 mg HS CARLO Administration Donepezil HCl 5 mg 10/17/24 09:00 10/18/24 08:28 Donepezil Hcl 5 Mg Tablet PO 11/16/24 08:59 5 mg QDAY CARLO Administration Duloxetine HCl 60 mg 10/17/24 09:00 10/18/24 08:28 Duloxetine Hcl 30 Mg Capsule PO 11/16/24 08:59 60 mg QDAY CARLO Administration Gabapentin 200 mg 10/16/24 21:00 10/17/24 09:55 Gabapentin 100 Mg Capsule PO 11/15/24 20:59 200 mg BID CARLO Administration Heparin Sodium (Porcine) 5,000 unit 10/16/24 21:00 10/18/24 08:29 Heparin Sod Inj 5000 Unit/Ml Vial SC 10/30/24 20:59 5,000 unit Q12HR CARLO Administration Metoprolol Tartrate 100 mg 10/16/24 21:00 10/18/24 08:28 Metoprolol Tartrate 25 Mg Tablet PO 11/15/24 20:59 100 mg BID CARLO Administration Ondansetron HCl 4 mg 10/16/24 16:23 Ondansetron Inj 2 Mg/Ml Inj 2 Ml IV 11/15/24 16:22 Q6H PRN NAUSEA OR VOMITING Protocol Sennosides 1 tab 10/17/24 09:00 10/18/24 08:28 Senna Tablet PO 11/16/24 08:59 1 tab QDAY CARLO Administration Protocol Plan 79-year-old female with past medical history of COPD on 3L home O2, history of pulmonary embolism [05/2023], essential hypertension, hyperlipidemia, major depressive disorder and iron deficiency anemia presenting for increased altered mental status and hallucinations will be admitted for acute encephalopathy secondary to worsening dementia versus possible polypharmacy; moreover, will look for SNF placement and social worker delinquency prevention recommendations. #Acute encephalopathy #Dementia, likely vascular versus Alzheimer's versus Lewy body less likely Patient is presenting with worsening mental status along with hallucinations as noted in HPI Per patient's granddaughter who is tower cleaner, she states that the patient has been having hallucinations to relatives and inanimate objects Patient has underlying dementia and is on donepezil At home, patient denies having any fever/chills, chest pain, dysuria or abnormal muscle movements In the ED, patient presented afebrile, urinalysis negative, chest x-ray shows possible right base pneumonia and mastoiditis was seen on CT but no real signs of infection WBC of 5, U/A negative Head CT was negative for any acute process Brain MRI was negative for any acute process but there was old infarct in the left cerebellar hemisphere right frontal lobe and significant left mastoiditis Plan: Neurology consulted, appreciate recommendations Prevent delirium by frequently reorienting patient Keep family bedside when appropriate Continue home medications; however, held gabapentin Pending social worker delinquency prevention for SNF placement Continue aspirin 81 mg #COPD #Right base pneumonia #Mastoiditis Patient has history of COPD with home 3 L oxygen use Currently saturating 95-96 on 3 to 4 L oxygen Denies being acutely short of breath, on exam there is no signs of wheezing CT chest abdomen pelvis showed right base pneumonia, small bilateral pleural effusions, atrophic left kidney, moderate renal parenchymal scar formation. Chest x-ray showed subsegmental atelectasis of the left lung. Plan: Supplemental oxygenation as needed Will consider DuoNebs if the patient becomes more symptomatic #Hypertension #Hyperlipidemia #Major depressive disorder Will restart home medications as prescribed With Toprol tartrate 100 mg twice daily, duloxetine 60 mg, cyclobenzaprine 5 mg Hospital Management: Lines: PIV Diet: Cardiac, dysphagia II Bowel: Senna GI prophylaxis: Not needed DVT prophylaxis: Heparin subcu Dispo: Monitoring for hallucinations and acute encephalopathy; looking for SNF placement Code: Limited, no chest compressions but intubation is okay for several days along with shocking heart Patient seen and examined with attending Dr. Jordan and senior resident Dr. Jes Byrd, PGY-1 Attending Provider Attestation/Addendum I reviewed labs, imaging, EKG, home medications and prior available records. Face to face evaluation was performed by me. I have personally examined the patient and discussed assessment and plan with the IM team. I reviewed the resident note and agree with the plan with exceptions as below. Patient is a 79-year-old female with history of Alzheimer's disease who presented with a chief complaint of change in mental status described as hallucinations and not being herself. She was admitted for further evaluation and SNF placement. Dementia, Alzheimer's type, early onset Acute encephalopathy Debility Patient's change in mental status is likely hypoactive delirium in the setting of dementia. Possible polypharmacy. Decreased the dose of duloxetine. Held gabapentin. Avoid benzodiazepine. Protect sleep hours. Treat constipation/urinary retention as needed. Treat pain as needed Resumed home donepezil Ordered PT evaluation: Recommended SNF. She will need 3 mandatory inpatient night stays prior to placement. Discussed with social sciences chair: She was accepted to [facility] and may be discharged tomorrow.
--- NOTE | 2024-10-18 15:03 | PC.SS ---
Seeking placement: [facility] [address] [place] [address] [facility] Facility Booked elsewhere Considering 10/16/2024 12:24 10/16/2024 12:02 Pending nurse evaluation ?(1) [facility] [place] [id number] [facility] Facility Booked elsewhere Yes 10/17/2024 09:22 10/16/2024 12:02 We can accept this patient. Thank you for your referral ?(4) [facility] [place], [place] [id number] [facility]sp Facility Booked elsewhere No 10/16/2024 12:37 10/16/2024 12:02 Unable to meet specialty/medical needs ?(2) [facility] [place] [address] [place], [place] [id number] Usp Facility Booked elsewhere Considering 10/17/2024 09:22 10/16/2024 12:02 Pending nurse evaluation ?(3) [facility] [place], [place] [id number] Usp Facility Booked elsewhere No 10/16/2024 14:50 10/16/2024 12:02 Unable to meet specialty/medical needs ?(1) [facility] ([facility])[address] [place], [place] [id number] Usp Facility Booked elsewhere 10/16/2024 12:02 ?(1) [facility] [place] [phone] Usp Facility Booked elsewhere Yes 10/18/2024 09:26 10/16/2024 12:02 We can accept this patient. Thank you for your referral ?(5) [facility] [address] [place], [place] [id number] [facility] Facility Booked elsewhere 10/16/2024 12:02 ?(1) [facility] [address] [place] [address] Usp Facility Booked Yes 10/17/2024 10:06 10/16/2024 12:02 We can accept this patient. Thank you for your referral ?(3) [facility] [place] [address] [place], [place] [phone] Usp Facility Booked elsewhere No [facility] [address] [place], [place] [id number] Usp Facility Booked elsewhere 10/16/2024 12:02 ?(1) [facility] [place] [address] Usp Facility Booked elsewhere Considering 10/17/2024 09:41 10/16/2024 12:02 Other ?(4) [facility] [address] [place], [place] [id number] Usp Facility Booked elsewhere No 10/16/2024 12:18 10/16/2024 12:02 Behavioral issues ?(1) [facility] [place], [place] [id number] Usp Facility Booked elsewhere No 10/16/2024 12:19 10/16/2024 12:02 Unable to meet specialty/medical needs ?(1) [facility] [address] [place], [place] [phone] Usp Facility Booked elsewhere No 10/16/2024 16:53 10/16/2024 12:02 Unable to meet specialty/medical needs ?(1) [facility] [address] [place] [address] Usp Facility Booked elsewhere Yes 10/17/2024 09:42 10/16/2024 12:02 We can accept this patient. Thank you for your referral ?(5) [facility] [place], [place] [phone] Usp Facility Booked elsewhere Considering 10/16/2024 14:25 10/16/2024 12:02 Other ?(2) [facility] [place], [place] [phone] Usp Facility Booked elsewhere No 10/16/2024 12:24 10/16/2024 12:02 Unable to meet specialty/medical needs ?(1) [facility] [address] [place] [phone] Usp Facility Booked elsewhere Yes 10/17/2024 09:24 10/16/2024 12:02 We can accept this patient. Thank you for your referral ?(8) [facility] [place] [phone] Usp Facility Booked elsewhere [facility] [address] [place], [place] [address] 10/16/2024 12:02 ?(1)
--- NOTE | 2024-10-18 15:05 | PC.SS ---
Karla from [facility] had questing regarding pt having a worker's comp case being opened. SS was informed by dtr, Shelby pt has been retired for several years and this not a worker's comp case. SS has informed Karla from [facility]. SS provided dtr with verbal choices for accepting SNF. 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 Dtr is refusing pt to be placed at a SNF outside of [place]. Dtr is aware [facility], [facility], [facility]only [facility]). D[facility]'s choice [facility]. SS has spoken to Karla at [facility] who states she will accept pt tomorrow. Dtr is aware pt has 100 days covered by Medicare for SNF.
[2024-10-18] MEDS: CYCLObenzaPRINE 5 MG TABLET PO (20:41)
--- NOTE | 2024-10-18 22:29 | ESPR_ITS ---
Documentation for date of: 10/18/24 Subjective Subjective Interval history: Patient was seen in [facility] today. Significant improvement noted in the mental status. No more hallucinations reported. Able to sleep overnight. Exam - Neurology Vital Signs Temp Pulse Resp BP Pulse Ox O2 Del Method O2 Flow Rate 97.1 F 84 18 136/81 H 94 L Nasal Cannula 3 10/18/24 20:00 10/18/24 20:40 10/18/24 20:00 10/18/24 20:40 10/18/24 20:00 10/18/24 20:00 10/18/24 20:00 FiO2 72 10/18/24 15:33 Narrative Exam GENERAL APPEARANCE: Well hydrated, well-nourished in no acute distress. HEENT: Normocephalic, atraumatic, extraocular movements intact. Pupils: Equal reacting to light NECK: Supple, no JVD or bruits. CARDIOVASULAR: Heart: S1, S2 heard, regular without S3-S4 or murmur no rubs or gallops. LUNGS/CHEST: Clear to auscultation bilaterally. No rails, rhonchi, or wheezing. Normal inspection. ABDOMEN: Soft, nontender, with normal bowel sounds. No pulsatile masses. No rebound, rigidity, or guarding. Normal inspection and palpation. EXTREMITIES: Normal inspection and palpation. No edema, clubbing or cyanosis. SKIN: Warm and dry without rashes. Normal inspection. MUSCULOSKELETAL: No cervical, thoracic, lumbar or midline bony tenderness. Normal inspection. NEURO: Alert, awake and oriented x3. Cranial nerves: II through XII grossly intact. Speech and language: Normal with no dysarthria or dysphasia. Motor system: Tone and bulk: Normal: Strength: 5 out of 5 in all 4 extremities; No pronator drift noted. Deep tendon reflexes: 12+ bilaterally symmetrical. Plantar reflex: Downgoing bilaterally. Sensory system: Intact to pinprick sensation bilaterally. Coordination: Intact to qwwsap-[id number]-effbiz bilaterally. No ataxia, no dysmetria, or dysdiadochokinesia noted. No intention tremors noted. Gait: Not tested. No signs of meningeal irritation noted. PSYCHIATRIC: Normal mood and affect. Denies homicidal or suicidal ideation. Objective Labs 10/18/24 05:39 10/18/24 05:39 Labs: Laboratory Results - last 24 hr 10/18/24 05:39 WBC 5.1 RBC 3.58 L Hgb 10.0 L Hct 32.5 L MCV 91 MCH 27.9 MCHC 30.8 L RDW Std Deviation 58.4 H Plt Count 226 Neut % (Auto) 44 Lymph % (Auto) 27 [place] % (Auto) 16 H Eos % (Auto) 11 H Baso % (Auto) 2 Neut # (Auto) 2.3 Lymph # (Auto) 1.4 [place] # (Auto) 0.8 Eos # (Auto) 0.6 H Baso # (Auto) 0.1 Immature Gran # (Auto) 0.02 H Absolute Nucleated RBC 0.00 Immature Gran % 0 Nucleated RBC % 0 Sodium 146 H Potassium 4.1 Chloride 102 Carbon Dioxide > 40.0 H Anion Gap 4 L BUN 8 L Creatinine 0.6 Estim Creat Clear Calc 111.7 eGFR > 60 BUN/Creatinine Ratio 13 Glucose 79 Calculated Osmolality 287 Calcium 8.3 Corrected Calcium 9.7 Total Bilirubin 0.3 AST 24 ALT 18 Alkaline Phosphatase 77 Total Protein 4.4 L Albumin 2.2 L Globulin 2.2 L Albumin/Globulin Ratio 1.0 L ABG Interpretation ABG results: 10/16/24 08:53 VBG pH 7.52 VBG pCO2 46 VBG pO2 46 VBG Base Excess 13 H Assessment & Plan Additional Assessment & Plan Additional Plan: #Acute encephalopathy: resolved #Dementia: stable #Hx of L cerebellar, R frontal lobe infarcts Assessment: Etiology of patient's AMS is likely 2/2 to progressive dementia Patient is having visual hallucinations, but resolved now. Currently on donepazil 5mg PO HS Infectious etiologies have been ruled out CT head on admission was negative MR brain showed negative for any acute process but there was old infarct in the left cerebellar hemisphere right frontal lobe and significant left mastoiditis Resume gabapentin, continue ASA 81mg and Seroquel QHS for hallucinations as needed. -physical therapy
[2024-10-19] VITALS (7 sets, daily range): BP systolic 130–180; BP diastolic 65–128; PULSE 68–100; RESP 17–20; TEMP 36.2–36.4; O2SAT 94–98
[2024-10-19 05:23] LABS: Basophils # (Auto) 0.1 Thou/mm3 (0.0-0.2); Basophils % (Auto) 2 % (0-2.5); Eosinophils # (Auto) 0.6 Thou/mm3 (0.0-0.5); Eosinophils % (Auto) 12 % (0-10); Hematocrit 32.6 % (36.0-46.0); Hemoglobin 9.9 g/dL (12.0-16.0); Immature Granulocytes % (Auto) 0 % (0-0); Immature Granulocytes Auto 0.01 Thou/mm3 (0.00-0.00); Lymphocytes # (Auto) 1.5 Thou/mm3 (1.0-4.8); Lymphocytes % (Auto) 32 % (10-50); Mean Corpuscular HGB Conc 30.4 g/dl (31.0-37.0); Mean Corpuscular Hemoglobin 27.7 pg (25.0-35.0); Mean Corpuscular Volume 91 fL (80-100); Monocytes # (Auto) 0.8 Thou/mm3 (0.0-0.8); Monocytes % (Auto) 17 % (0-12); Neutrophils # (Auto) 1.7 Thou/mm3 (1.8-7.7); Neutrophils % (Auto) 37 % (37-80); Nucleated Red Blood Cell % 0 /100 WBC (0); Platelet Count 209 Thou/mm3 (140-440); RDW Standard Deviation 58.4 fL (36.4-46.3); Red Blood Count 3.57 Miln/mm3 (4.00-5.20); White Blood Count 4.6 Thou/mm3 (3.6-11.0)
[2024-10-19 05:49] LABS: Alanine Aminotransferase 18 U/L (10-49); Albumin, Serum 2.2 gm/dL (3.4-4.8); Albumin/Globulin Ratio 0.9 (1.2-2.2); Alkaline Phosphatase 71 U/L (46-116); Anion Gap 2 (7-16); Aspartate Amino Transferase 21 U/L (0-34); BUN/Creatinine Ratio 15 Ratio (12-20); Bilirubin,Total 0.3 mg/dL (0.3-1.2); Blood Urea Nitrogen 9 mg/dL (9-23); Calcium 8.2 mg/dL (8.3-10.6); Calcium (Corrected) 9.6 mg/dL (8.5-10.1); Carbon Dioxide 39.6 mMol/L (20.0-31.0); Chloride 103 mMol/L (98-107); Creatinine (Component) 0.6 mg/dL (0.6-1.3); Estimated Creatinine Clearance 92.5 mL/min (>60); Globulin 2.4 gm/dL (2.3-3.5); Glucose 85 mg/dL (74-106); Osmolality,Calculated 286 (275-295); Potassium 4.1 mMol/L (3.4-5.1); Sodium 145 mMol/L (136-145); Total Protein 4.6 gm/dL (5.7-8.2); eGFR > 60 See Note
[2024-10-19] MEDS: ASPIRIN EC 81 MG TABEC PO (09:22)
[2024-10-19] MEDS: DULoxetine HCL 30 MG CAPSULE 60 MG PO (09:22)
[2024-10-19] MEDS: DONEPEZIL HCL 5 MG TABLET PO (09:23)
[2024-10-19] MEDS: METOPROLOL TARTRATE 25 MG TABLET 100 MG PO (09:25)
[2024-10-19] MEDS: SENNA TABLET 1 TAB PO (09:28)
[2024-10-19] MEDS: HEPARIN SOD INJ 5000 UNIT/ML VIAL SC (09:36)
--- NOTE | 2024-10-19 12:59 | PC.SS ---
SS spoke to Mukund with [facility]- ETA 1600- Going to [facility] with Miriam DUNN.
--- NOTE | 2024-10-19 13:02 | PC.SS ---
Addendum entered by Ayleen Avelar 10/19/24 15:51: ETA pushed via [facility] to 1700 Original Note: SS spoke to pt granddaughter Niesha in regards to DC today. She confirmed DC plan is to [facility]. SS also spoke to Tamra at [facility] who confirmed pt is clear to DC to their facility
--- NOTE | 2024-10-19 15:28 | PD.RESDS ---
Planned Discharge Date 10/19/24 DS: Providers Provider Date of admission: 10/16/24 16:19 Primary care physician: Hernandez Grijalva MD Admitting Provider: Navneet Jordan MD Attending Provider on Admission: Navneet Jordan MD Consults: 10/16/24 10:29 PT [Referral Physical Therapy] Stat Comment: Physician Instructions: Instructions: Please evaluate 10/17/24 10:29 Consult to Neurology / Tele-Neurology Routine Comment: Altered mental status, CT negative, hx of dementia Consulting Provider: Eleazar Wilkinson 10/17/24 10:30 Referral Speech Therapy Routine Comment: Attending Provider on DC: Rola Benitez MD Discharging Provider: Rola Benitez MD DS: Diagnosis Problem List Completed Was Problem List Reviewed/Reconciled?: Yes Hospital Course Hospital Course Hospital course: Reason for hospitalization: Altered mental status secondary to dementia versus polypharmacy Patient is a 79-year-old female with past medical history of COPD on 3L home O2, history of pulmonary embolism [05/2023], essential hypertension, hyperlipidemia, major depressive disorder, and iron deficiency anemia who presented to the ED brought along by granddaughter, her diamond sizer and sorter, for increased altered mental status and hallucinations. Per granddaughter, the patient had been for the past couple days having progressive episodes of hallucinations where she is experiencing seeing relatives and hearing inanimate objects speaking. Patient's granddaughter was concerned that they are not able to take care of her at home and requested for SNF placement. Patient was admitted and worked up for acute encephalopathy. Infectious workup was negative. MRI of the brain was done was negative for any acute process but there was old infarct in the left cerebellar hemisphere right frontal lobe and significant left mastoiditis. Neurology was consulted and recommended starting aspirin 81 mg daily and Seroquel as needed at night for psychosis. Patient was stable for discharge to SNF. Discharge Recommendations: -Follow up with PCP within 1 week of discharge -Follow up with Neurology Dr. Wilkinson -Start aspirin 81 mg daily -Continue rest of medications as previously prescribed -Return to the ED or call EMS if symptoms return and/or worsen. Hospital Diagnoses: #Acute encephalopathy #Dementia, likely vascular versus Alzheimer's versus Lewy body less likely #COPD #Right base pneumonia #Mastoiditis #Hypertension #Hyperlipidemia #Major depressive disorder Patient plan of care was discussed with the attending physician, Dr. Phillips. Rola Benitez, PGY-2 Time Spent with Patient Time attestation: Total time spent providing and/or coordinating discharge services: Exam Vital Signs Temp Pulse Resp BP Pulse Ox O2 Del Method O2 Flow Rate 97.1 F 73 18 130/65 94 L Nasal Cannula 3 10/19/24 12:00 10/19/24 12:00 10/19/24 12:00 10/19/24 12:00 10/19/24 12:10/19/24 12:10/19/24 12:00 FiO2 72 10/18/24 15:33 Narrative Exam Physical Exam: GENERAL: Awake, answering questions appropriately, appears stated age, on 2-3L NC HEENT: NC/AT. Moist mucosa. PERRLA/EOMI. CARDIO: Heart RRR, no obvious murmurs, no JVD. PULM: No coughing noted. CTA B/L except for reduced breath sounds noted on R lower lobe GI: Abdomen soft, NT/ND, +BS. SKIN/MSK/EXT: B/l upper extremity ecchymosis noted. No wounds/rashes/edema/amputations noted. +Pedal pulses present B/L. NEURO: Oriented x3, no focal neurological deficits noted. Moves extremities x4. Discharge Plan Plan Patient Disposition: Xfer Skilled Nsg Fac (SNF) Disposition Comment: [facility] Patient condition on transfer: Stable Care Plan Goals: Discharge Recommendations: -Follow up with PCP within 1 week of discharge -Follow up with Neurology Dr. Wilkinson -Start aspirin 81 mg daily -Continue rest of medications as previously prescribed -Return to the ED or call EMS if symptoms return and/or worsen. Prescriptions/Referrals Prescriptions/Med Rec: New aspirin [Ecotrin Low Strength] 81 mg Tablet,Delayed Release (Dr/Ec) 81 mg PO QDAY 30 Days Qty: 30 0RF quetiapine [Seroquel] 25 mg tablet 25 mg PO HS PRN (Reason: agitation, hallucinations) Qty: 30 0RF Continued gabapentin 100 mg Capsule 200 mg PO BID Rx Instructions: 200 mg orally ;100 mg orally donepezil 5 mg Tablet 5 mg PO QDAY atorvastatin 20 mg Tablet 40 mg PO QPM multivitamin [One Daily Multivitamin] Tablet 1 tab PO QDAY ergocalciferol (vitamin D2) 1,250 mcg (50,000 unit) capsule 50,000 unit PO QWEEK Patient Comments: TAKE 1 CAPSULE BY MOUTH EVERY WEEK duloxetine 60 mg capsule,delayed release(DR/EC) 60 mg PO BID Patient Comments: TAKE 1 CAPSULE BY MOUTH TWICE DAILY metoprolol tartrate 100 mg tablet 100 mg PO BID ferrous sulfate 325 mg (65 mg iron) Tablet,Delayed Release (Dr/Ec) 325 mg PO QOD Qty: 15 0RF albuterol sulfate 90 mcg/actuation HFA aerosol inhaler 2 puff inhalation Q6H PRN (Reason: shortness of breath or wheezing) Qty: 8.5 0RF cyclobenzaprine 5 mg tablet Patient Comments: TAKE 1 TABLET BY MOUTH EVERY DAY AT BEDTIME FOR SPASMS Discontinued cyclobenzaprine 10 mg Tablet 5 mg PO HS Qty: 0 sumatriptan succinate 100 mg tablet 100 mg PO Q8H PRN (Reason: Migraine Headache) Patient Comments: TAKE 1 TABLET BY MOUTH AT ONSET OF MIGRAINE. MAY REPEAT IN 2 HOURS NEEDED hydrocodone-acetaminophen 10-325 mg Tablet 1 tab PO Q6H PRN (Reason: Pain (Scale Score 7-10)) pantoprazole 40 mg tablet,delayed release (DR/EC) 40 mg PO BID Qty: 60 0RF Referrals: Hernandez Grijalva([facility])MD [Primary Care Provider] - Eleazar Wilkinson MD [Physician] - Patient/Caregiver Discharge Instructions Education Materials: Back Safety Bed, Treatment for COPD Print Language: Turkish Stand Alone Forms: [employer] Award Info., Patient Portal Info Letter Discharge Order Discharge Orders: Discharge (Routine); Ordered 10/19/24 Ordered By: Rola Benitez Quality Discharge Quality Measures VTE prophylaxis Attestestation Attestation I have examined the patient, reviewed labs and imaging findings, discussed the case with the resident(s), and reviewed entered orders. I agree with the plan of care as outlined in this note. Dr. Alan MD
== END 2024-10-19 16:23 | disposition skilled nursing facility (03) | DRG 70 ==
LOC: SERX 11:32 → SERHOLD 16:44 → S3SX 19:59
PROVIDERS: Admitting Provider Student in an Organized Health Care Education/Training Program; Emergency Provider Emergency Medicine; PCP Family Medicine; Visit Provider Student in an Organized Health Care Education/Training Program
DX: G93.40 Encephalopathy, unspecified (principal); J18.9 Pneumonia, unspecified organism; J44.0 Chronic obstructive pulmonary disease with (acute) lower respiratory infection; J98.11 Atelectasis; F02.83 Dementia in other diseases classified elsewhere, unspecified severity, with mood disturbance; G30.9 Alzheimer's disease, unspecified; H70.92 Unspecified mastoiditis, left ear; F32.9 Major depressive disorder, single episode, unspecified; E86.0 Dehydration; I10 Essential (primary) hypertension; D50.9 Iron deficiency anemia, unspecified; E78.5 Hyperlipidemia, unspecified; Z86.73 Personal history of transient ischemic attack (TIA), and cerebral infarction without residual deficits; Z86.711 Personal history of pulmonary embolism; Z99.81 Dependence on supplemental oxygen; Z79.899 Other long term (current) drug therapy; Z74.01 Bed confinement status; Z79.82 Long term (current) use of aspirin
CPT/HCPCS: 36415; 36600; 70450; 70496; 70498; 70551; 71045; 71250; 74176; 80053; 80307; 80320; 81001; 82140; 82803; 83605; 83880; 84145; 84436; 84443; 84484; 85025; 85610; 86850; 86900; 86901; 87040; 92610; 93005; 93225; 96127; 96361; 96365; 99285; A4649; J1643; J2543; J7030; J7050; Q9967; A9270; G0480

== ENCOUNTER 2024-11-08 18:04 | Observation (INO) | payer MEDICARE, BC, SELFPAY ==
[2024-11-08 18:07] VITALS: PULSE 79; PULSE 87; RESP 19; RESP 33; TEMP 36.7; O2SAT 100; O2SAT 93
[2024-11-08 18:13] VITALS: BMI 38.9
--- NOTE | 2024-11-08 18:19 | PD.EDSOB ---
ED SOB =RME/HPI General Chief Complaint: Shortness of Breath/Dyspnea Stated Complaint: CRITICAL LABS, SOB Time Seen by Provider: 11/08/24 18:19 Arrival date/time: 11/08/24 18:04 RME / HPI RME / HPI Narrative: This section includes all my notes and documentations, including HPI, PE, and ED course. Sea Portillo MD HPI: 79-year-old female here to be evaluated with hypoxia and respiratory distress. She is from a local senior care. Has COPD, 2L oxygen dependent. But she is needing more oxygen today. Patient reports feeling short of breath and coughing for over a year. No obvious fever. No obvious chest pain. No leg edema. No obvious other complaints. ROS: All negative except as documented in HPI. Physical Exam: General: Alert and oriented X 1. Mild respiratory distress noted. Severe hypoxia noted. Eyes: Conjunctivae and lids clear. ENT: No nasal congestion. Neck: Supple. Heart: RRR. Lungs: Mild respiratory distress. Moderately decreased air movement with diffuse wheezing and bibasilar Rales. Abdomen: Soft and nontender. Legs: No clubbing, cyanosis, edema. Skin: Warm and dry. Neuro: Alert and oriented X 1. Cranial nerves II to XII grossly normal. No peripheral motor deficits. I reviewed all diagnostic test results. My interpretation of the EKG is sinus rhythm with no acute ST?T changes. My interpretation of the chest x-ray is no acute findings. Blood tests and urine tests remarkable for BNP 232. COVID/influenza negative. ABG showed pH 7.36, pCO2 72, pHCO3 40. At this point, diagnoses include acute respiratory failure with hypoxia and hypercapnia, COPD exacerbation. Treatment here included BiPAP, Duoneb, Methylprednisolone, Rocephin, and Morphine. Significant permanent noted. I discussed the case with our hospitalist. About the presentation and exam and diagnostics and treatments here. And need of further care in the hospital. Will accept the patient. Sea Portillo MD Related Data Home Medications ?Medication ?Instructions ?Recorded ?Confirmed gabapentin 100 mg capsule 200 mg PO BID 01/15/18 10/16/24 donepezil 5 mg tablet 5 mg PO QDAY 01/16/18 10/16/24 atorvastatin 20 mg tablet 40 mg PO QPM 09/14/18 09/11/24 duloxetine 60 mg capsule,delayed 60 mg PO BID 04/23/21 10/16/24 release ergocalciferol (vitamin D2) 1,250 50,000 unit PO QWEEK 04/23/21 10/16/24 mcg (50,000 unit) capsule multivitamin (One Daily 1 tab PO QDAY 04/23/21 10/16/24 Multivitamin tablet) metoprolol tartrate 100 mg tablet 100 mg PO BID 05/31/23 10/16/24 cyclobenzaprine 5 mg tablet mg 10/16/24 Previous Rx's ?Medication ?Instructions ?Recorded ferrous sulfate 325 mg (65 mg 325 mg PO QOD #15 tabs 06/02/23 iron) tablet,delayed release albuterol sulfate 90 mcg/actuation 2 puff inhalation Q6H PRN 01/18/24 aerosol inhaler shortness of breath or wheezing #8.5 grams aspirin 81 mg tablet,delayed 81 mg PO QDAY 30 days #30 tabs 10/19/24 release (Ecotrin Low Strength) quetiapine 25 mg tablet (Seroquel) 25 mg PO HS PRN agitation, 10/19/24 hallucinations #30 tabs Allergies Allergy/AdvReac Type Severity Reaction Status Date / Time ergotamine (From Cafergot) Allergy Intermediate Nausea Verified 09/13/24 20:28 adhesive tape Allergy Mild Rash Verified 09/13/24 20:28 citalopram (From Celexa) Allergy Mild Restless Verified 09/13/24 20:28 leg latex Allergy Mild Rash Verified 09/13/24 20:28 silver Allergy Rash Verified 09/13/24 20:28 Review of Systems Review of Systems Systems Reviewed: All systems reviewed, normal except as documented Past Medical History Past Medical History NEUROLOGIC: Positive Neurological Disorders, Seizures (60 yr ago), Peripheral Neuropathy, Migraine and Head Trauma; Negative Cerebrovascular Accident, Transient Ischemic Attacks (TIA), Dementia, Alzheimer's Disease, Parkinson's Disease, Brain Tumor, Meningitis, Epilepsy, Multiple Sclerosis, Cerebral Palsy, Amyotrophic Lateral Sclerosis (ALS/Clare Gehrig's), Guillain-Roach Syndrome, Spina Bifida, Paralysis, Zacarias's Palsy, Subdural Hematoma, Spinal Cord Injury or Traumatic Brain Injury CARDIAC: Positive Hypercholesterolemia, Hypertension and Varicose Veins; Negative Cardiac Disorders, Myocardial Infarction, Cardiac Arrhythmia, Atrial Fibrillation, Angina, Heart Murmur, Coronary Artery Disease, Atherosclerotic Heart Disease, Peripheral Vascular Disease, Aneurysm, Congestive Heart Failure, Congenital Heart Disease, Valvular Heart Disease, Rheumatic Fever, Cardiomyopathy, Edema, Pericarditis, Cellulitis, Deep Vein Thrombosis or Hypotension RESPIRATORY: Positive Chronic Obstructive Pulmonary Disease (COPD), Asthma, Bronchitis, Pneumonia and Sleep Apnea; Negative Emphysema, Pulmonary Fibrosis, Cystic Fibrosis, Tuberculosis, Pulmonary Embolism or Pulmonary Edema GASTROINTESTINAL: Positive Gastrointestinal Disorders, Gastroesophageal Reflux Disease and Obesity; Negative Hepatitis, Cirrhosis, Pancreatitis, Celiac Disease, Gall Bladder Disease, Gastrointestinal Bleed, Esophageal Varices, Hebert's Esophagus, Colitis, Ulcerative Colitis, Diverticulitis, Diverticulosis, Ulcer, Colorectal Cancer, Irritable Bowel, Crohn's Disease, Obstructive Bowel, Hiatal Hernia or Hemorrhoids GENITOURINARY: Negative Genitourinary Disorders, Renal Disease, Kidney Stones, Polycystic Kidney Disease, Neurogenic Bladder, Inguinal Hernia, Dialysis or Benign Prostatic Hyperplasia REPRODUCTIVE: Positive Endometriosis and Previous Pregnancies; Negative Breast Cancer, Genital Herpes, Gonorrhea, Syphilis or Uterine Prolapse MUSCULOSKELETAL: Positive Musculoskeletal Disorders, Arthritis (knees, feet), Osteoporosis, Degenerative Disk Disease, Carpal Tunnel Syndrome, Fractures and Degenerative Joint Disease; Negative Muscular Dystrophy, Myasthenia Gravis, Marfan's Syndrome, Bone Cancer, Rheumatoid Arthritis, Gout, Scoliosis, Fibromyalgia, Osteomyelitis or Poliovirus ENT: Positive Head Trauma; Negative Cataracts, Glaucoma, Blind, Retinal Detachment, Macular Degeneration, Ear Infection, Deafness or Eye Prosthesis ENDOCRINE: Negative Endocrine Disorders, Diabetes Mellitus Type 1, Diabetes Mellitus Type 2, Hypoglycemia, Vito's Syndrome, [place]'s Disease, Hyperthyroidism, Hypothyroidism, Parathyroid Disease, Pituitary Disease, Systemic Lupus Erythematosus, Syndrome of Inappropriate Antidiuretic Hormone (SIADH), Adrenal Disease or Graves' Disease HEMATOLOGIC: Positive Blood Disorders and Anemia; Negative Leukemia, Hemophilia, Thalassemia, Sickle Cell Disease or Clotting Problems PSYCHO/SOCIAL: Positive Depression and Anxiety; Negative Psychiatric Problems, Schizophrenia, Recreational Drug Use, Bipolar Disorder, Behavior Problems, Self-Mutilation, Attention Deficit Disorder, Attention Deficit Hyperactivity Disorder, Depression, Post Traumatic Stress Disorder or Eating Disorder OTHER HISTORY: Positive Hospitalization, Autoimmune Disease, Falls, Blood Transfusions (09/11), Chicken Pox and Measles; Negative Down Syndrome, Autism, Developmental Delay, Shingles, Blood Transfusion Reaction, Anesthesia Reactions (nausea), Organ Transplant, Chemotherapy, Radiation Therapy, Hyperbaric Therapy, MRSA, VRSA, Vancomycin-Resistant Enterococci, Human Immunodeficiency Virus (HIV), Mumps, Rubella (American Measles), Pertussis, Clostridium Difficile, Cancer, Breast Cancer, Cervical Cancer, Colorectal Cancer, Lung Cancer or Ovarian Cancer Family History FAMILY HISTORY: Positive Family Cardiac Disorders and Family Cancer (PT'S MOTHER UTERINE CANCER); Negative Family Psychiatric Problems, Family Respiratory Disorders, Family Gastrointestinal Problems, Family Surgery or Family Anesthesia Reaction Surgical History SURGICAL: Positive Ear Surgery, Nose Surgery, Tonsillectomy, Abdominal Surgery, Joint Replacement and Hysterectomy; Negative Cardiac Surgery, Open Heart Surgery, Coronary Artery Bypass Graft, Valve Replacement, Vascular Surgery, Coronary Stent, Cardiac Catheterization, Pacemaker, Angiogram, Auto Implanted Cardiovert Defib, Carotid Endarterectomy, Endocrine Surgery, Thyroidectomy, Tympanostomy Tube, Eye Surgery, Oral Surgery, Adenoidectomy, Cochlear Implant, Corneal Transplant, Throat Surgery, Tracheostomy, Gastric Bypass Surgery, Gastrostomy, Bowel Surgery, Nephrectomy, Transurethral Resection, Amputation, Open Reduction Internal Fixation, Arthroscopy, Mastectomy, Lumpectomy, Tubal Ligation, Section or Organ Transplant Social History SMOKING STATUS: Never smoker SUBSTANCE USE: does not use ED Exam Narrative Physical exam: As noted in HPI. Course Course Course Narrative: CXR is ordered for determining the etiology of shortness of breath. Quality Measures none Orders Category Date Time Status Bedside COVID-19 Antigen Test NOW Care 11/08/24 18:20 Active Bedside Influenza A&B Antigen Test NOW Care 11/08/24 18:20 Completed COVID-19 Screening Questionnaire NOW Care 11/08/24 21:[address] Screening NOW Care 11/08/24 18:21 Active Decision to Admit X1 Care 11/08/24 21:48 Active EKG (ED ONLY) *Do not use* NOW Care 11/08/24 18:21 Completed Saline [Insert IV] NOW Care 11/08/24 18:20 Active Straight [In and Out Catheter] X1 Care 11/08/24 18:20 Active EKG (ED Only) Stat Exams 11/08/24 18:21 Draft XR chest 1V portable Stat Exams 11/08/24 18:21 Completed ABG [Arterial Blood Gas] Stat Lab 11/08/24 19:02 Completed BNP [B-Type Natriuretic Peptide] Stat Lab 11/08/24 20:05 Completed Blood Culture (Lab) Stat Lab 11/08/24 20:05 Received CBC Stat Lab 11/08/24 20:05 Completed CMP [Comprehensive Metabolic Panel] Stat Lab 11/08/24 20:05 Completed CRP [C-Reactive Protein] Stat Lab 11/08/24 20:05 Completed D-Dimer Stat Lab 11/08/24 20:05 Completed ESR [Sed Rate (ESR)] Stat Lab 11/08/24 20:05 Completed Lactate (Lactic Acid) Stat Lab 11/08/24 20:05 Completed Magnesium Stat Lab 11/08/24 20:05 Completed Procalcitonin Stat Lab 11/08/24 20:05 Completed RSV [Respiratory Syncytial Virus Ag] Stat Lab 11/08/24 18:22 Ordered TSH [Thyroid Stimulating Hormone] Stat Lab 11/08/24 20:05 Completed Troponin I Stat Lab 11/08/24 20:05 Completed UA, C/S IF [Urinalysis, C/S if Indicated] Stat Lab 11/08/24 18:23 Ordered Albuterol/Ipratr Rt Kristin [Duoneb Rt Kristin] Med 11/08/24 18:20 Discontinued 3 ml INH X1 ONE MethylPREDNISolone.* [SoluMEDROL Inj] Med 11/08/24 18:20 Discontinued 125 mg IVP X1 ONE Morphine Inj Med 11/08/24 20:02 Discontinued 2 mg IVP X1 ONE cefTRIAXone [Rocephin] 1,000 mg Med 11/08/24 20:02 Discontinued SODIUM CHLORIDE 0.9% (Popper) [Ns 0.9% (P)] 50 ml IV X1 BiPAP / CPAP NOW RT 11/08/24 18:20 Active Vital Signs Vital signs: Vital Signs Temperature 98.0 F 11/08/24 18:07 Pulse Rate 87 11/08/24 18:07 Respiratory Rate 33 H 11/08/24 18:07 Pulse Oximetry (%) 100 11/08/24 18:07 Shortness of Breath / Dyspnea Patient data External records reviewed:: [facility] previous records (Per chart review, patient was admitted here on 10/16/24 for acute mastoiditis of left side.) Clinical information provided by:: patient Social determinants that could affect healthcare access:: none Patient has the following chronic illnesses:: COPD on 3L home O2, history of pulmonary embolism [05/2023], HTN, HLD, major depressive disorder, and iron deficiency anemia How is presenting disease/condition affected by chronic disease/condition?: exacerbated by Evaluation data The following diagnostics were reviewed and interpreted by me:: lab results, radiology exam(s) and EKG tracing(s) (My interpretation of the EKG is: Sinus rhythm (78 bpm) with nonspecific ST-T changes. Sea Portillo MD) Lab and/or radiology exams considered but not ordered:: none Interpretation Summary: Acute respiratory failure with hypoxia and hypercapnia. Medications / Prescriptions Medications or Prescriptions considered but not ordered:: none Medication administrations:: Medication Administration History Discontinued Medications Albuterol/Ipratropium (Albuterol/Ipratropium (Duoneb) Rt Kristin 3 Ml Nebu) 3 ml INH X1 ONE Stop: 11/08/24 18:21 Last Admin: 11/08/24 19:10 Dose: 3 ml Documented By: DU Ceftriaxone Sodium 1,000 mg/ (Sodium Chloride) 50 mls @ 100 mls/hr IV X1 ONE Stop: 11/08/24 20:31 Last Admin: 11/08/24 20:33 Dose: 100 mls/hr Documented By: EF Methylprednisolone Sodium Succinate (Methylprednisolone Sod Succ 62.5 Mg/Ml 2ml Vial) 125 mg IVP X1 ONE Stop: 11/08/24 18:21 Last Admin: 11/08/24 18:50 Dose: 125 mg Documented By: EH Morphine Sulfate (Morphine Sulf Inj 10 Mg/Ml Vial) 2 mg IVP X1 ONE Stop: 11/08/24 20:03 Last Admin: 11/08/24 20:33 Dose: 2 mg Documented By: EF Duoneb, Methylprednisolone, Rocephin, Morphine, BiPAP Consultations Consultation(s) initiated? (list below): No Diagnosis Shortness of Breath Differential Diagnosis: acute exacerbation of chronic obstructive airways disease, congestive heart failure, community acquired pneumonia, asthma with exacerbation and pulmonary embolism Most likely diagnosis given after review of the tests above:: Acute respiratory failure with hide proxy and hypercapnia. Admission Indicated Admission indicated?: indicated Explain why admission is indicated or not indicated:: Acute respiratory failure. Admission Request Was there a request for admission?: Yes Admission Attestation Admission request attestation: Discussed case with Hospitalist service regarding admission. Discussed patients ED course, exam findings, labs, and radiology results. The Hospitalist [agrees] to accept the patient for admission. Disposition Plan Disposition Plan: Admit Discharge Plan Plan Patient Disposition: Admit Acute Care w/in Hospital Prescriptions/Referrals Prescriptions/Med Rec: No Action gabapentin 100 mg Capsule 200 mg PO BID Rx Instructions: 200 mg orally ;100 mg orally donepezil 5 mg Tablet 5 mg PO QDAY atorvastatin 20 mg Tablet 40 mg PO QPM multivitamin [One Daily Multivitamin] Tablet 1 tab PO QDAY ergocalciferol (vitamin D2) 1,250 mcg (50,000 unit) capsule 50,000 unit PO QWEEK Patient Comments: TAKE 1 CAPSULE BY MOUTH EVERY WEEK duloxetine 60 mg capsule,delayed release(DR/EC) 60 mg PO BID Patient Comments: TAKE 1 CAPSULE BY MOUTH TWICE DAILY metoprolol tartrate 100 mg tablet 100 mg PO BID ferrous sulfate 325 mg (65 mg iron) Tablet,Delayed Release (Dr/Ec) 325 mg PO QOD Qty: 15 0RF albuterol sulfate 90 mcg/actuation HFA aerosol inhaler 2 puff inhalation Q6H PRN (Reason: shortness of breath or wheezing) Qty: 8.5 0RF cyclobenzaprine 5 mg tablet Patient Comments: TAKE 1 TABLET BY MOUTH EVERY DAY AT BEDTIME FOR SPASMS aspirin [Ecotrin Low Strength] 81 mg Tablet,Delayed Release (Dr/Ec) 81 mg PO QDAY 30 Days Qty: 30 0RF quetiapine [Seroquel] 25 mg tablet 25 mg PO HS PRN (Reason: agitation, hallucinations) Qty: 30 0RF Referrals: Boubacar Carrillo MD [Primary Care Provider] - In 1 week Problem List Clinical Impression: Acute respiratory failure with hypoxia and hypercapnia Patient/Caregiver Discharge Instructions Print Language: Turkish Stand Alone Forms: [employer] Award Info., Patient Portal Info Letter
--- NOTE | 2024-11-08 18:21 | XR_ITS ---
Examination: AP chest single view TECHNIQUE: AP portable semiupright chest single view Exam date and time: November 08, 2024 1818 hours Comparison October 16, 2024 INDICATIONS: Shortness of breath today. FINDINGS: No significant cardiac enlargement Ectatic thoracic aorta. Subsegmental atelectasis in the left lung. No lobar pneumonia or pulmonary edema. Moderate osteopenia IMPRESSION: No lobar pneumonia or pulmonary edema
--- NOTE | 2024-11-08 18:21 | EKG_ITS ---
[facility], [place] Test Date: 2024-11-08 Pat Name: MANUEL ALBA Department: Room: - Gender: Female Market Survey Representative: : 1945 Requested By: Sea Garber Order Number: [id number] Reading MD: Sea Garber Measurements Intervals [place] Rate: 78 P: 14 GA: 144 QRS: -13 QRSD: 94 T: -6 QT: 375 QTc: 429 Interpretive Statements SINUS RHYTHM WITH MARKED SINUS ARRHYTHMIA MODERATE VOLTAGE CRITERIA FOR LVH, CONSIDER NORMAL VARIANT [MEETS CRITERIA IN ONE OF: R(aVL), S(V1), R(V5), R(V5/V6)+S(V1)] Compared to ECG 10/16/2024 08:54:57 No significant changes /store/S0/[id number]/ecg/[id number].pdf
[2024-11-08 18:38] VITALS: PULSE 78; RESP 12; RESP 18; O2SAT 89
[2024-11-08] MEDS: MethylPREDNISolone SOD SUCC 62.5 MG/ML 2ML VIAL 125 MG IVP (18:50)
[2024-11-08 19:08] LABS: Base Excess 12 (-3-3); HCO3 40 mEq/L (20-26); Inspired Oxygen, FIO2 90 %; O2 Saturation 101 % (91-98); PCO2 72 mmHg (32.0-48.0); PO2 320 mmHg (83-108); pH, Arterial 7.36 (7.35-7.45)
[2024-11-08 19:10] VITALS: PULSE 85; RESP 19; O2SAT 89
[2024-11-08] MEDS: ALBUTEROL/IPRATROPIUM (Duoneb) RT SOL 3 ML NEBU INH (19:10)
[2024-11-08 19:16] LABS: Allen Test Performed/OK; Puncture Site Left Brachial
[2024-11-08 20:17] LABS: Lactate (Lactic Acid) 1.2 mMol/L (0.4-2.0)
[2024-11-08 20:18] LABS: Basophils # (Auto) 0.1 Thou/mm3 (0.0-0.2); Basophils % (Auto) 1 % (0-2.5); Eosinophils # (Auto) 0.3 Thou/mm3 (0.0-0.5); Eosinophils % (Auto) 3 % (0-10); Hemoglobin 11.3 g/dL (12.0-16.0); Immature Granulocytes % (Auto) 0 % (0-0); Immature Granulocytes Auto 0.03 Thou/mm3 (0.00-0.00); Lymphocytes # (Auto) 1.5 Thou/mm3 (1.0-4.8); Lymphocytes % (Auto) 19 % (10-50); Mean Corpuscular HGB Conc 31.4 g/dl (31.0-37.0); Mean Corpuscular Hemoglobin 28.4 pg (25.0-35.0); Mean Corpuscular Volume 91 fL (80-100); Monocytes # (Auto) 0.6 Thou/mm3 (0.0-0.8); Monocytes % (Auto) 8 % (0-12); Neutrophils # (Auto) 5.4 Thou/mm3 (1.8-7.7); Neutrophils % (Auto) 69 % (37-80); Nucleated Red Blood Cell % 0 /100 WBC (0); Platelet Count 342 Thou/mm3 (140-440); Red Blood Count 3.98 Miln/mm3 (4.00-5.20); White Blood Count 7.8 Thou/mm3 (3.6-11.0)
[2024-11-08 20:29] LABS: Sed Rate (ESR) 53 mm/hr (0-30)
[2024-11-08] MEDS: cefTRIAXone 1,000 MG in SODIUM CHLORIDE 0.9% (Popper) 50 ML 100 MG IV (20:33)
[2024-11-08] MEDS: MORPHINE SULF INJ 10 MG/ML VIAL 2 MG IVP (20:33)
[2024-11-08 21:00] LABS: D-Dimer < 250 ng/mL (<600)
[2024-11-08 21:01] LABS: B-Type Natriuretic Peptide 232 pg/mL (0-100)
[2024-11-08 21:32] LABS: Alanine Aminotransferase 20 U/L (10-49); Albumin/Globulin Ratio 0.9 (1.2-2.2); Alkaline Phosphatase 75 U/L (46-116); Anion Gap 7 (7-16); Aspartate Amino Transferase 29 U/L (0-34); BUN/Creatinine Ratio 18 Ratio (12-20); Bilirubin,Total 0.3 mg/dL (0.3-1.2); Blood Urea Nitrogen 11 mg/dL (9-23); Calcium 9.5 mg/dL (8.3-10.6); Calcium (Corrected) 10.3 mg/dL (8.5-10.1); Carbon Dioxide 36.6 mMol/L (20.0-31.0); Chloride 96 mMol/L (98-107); Creatinine (Component) 0.6 mg/dL (0.6-1.3); Globulin 3.2 gm/dL (2.3-3.5); Glucose 91 mg/dL (74-106); Magnesium 1.6 mg/dL (1.6-2.6); Osmolality,Calculated 278 (275-295); Potassium 4.4 mMol/L (3.4-5.1); Procalcitonin 0.04 ng/ml (0.0-0.49); Sodium 140 mMol/L (136-145); Thyroid Stimulating Hormone 3.89 uIU/mL (0.55-4.78); Total Protein 6.2 gm/dL (5.7-8.2); Troponin I < 0.020 ng/mL (0.0-0.045); eGFR > 60 See Note
[2024-11-08 21:46] LABS: C-Reactive Protein < 0.5 mg/dL (0.0-0.9)
[2024-11-08 22:21] VITALS: PULSE 96; RESP 12; RESP 24; O2SAT 100
[2024-11-08] MEDS: LORazepam 2 MG/ML VIAL 0.75 MG IVP (23:07)
[2024-11-08 23:09] VITALS: BP 99/66; PULSE 80; RESP 20; TEMP 36.9; O2SAT 100
[2024-11-09] VITALS (7 sets, daily range): BP systolic 111–145; BP diastolic 62–95; PULSE 76–113; RESP 14–17; TEMP 35.9–37.6; O2SAT 96–100; BMI 38.1
--- NOTE | 2024-11-09 01:28 | PD.RESHP ---
Documentation for date of: 11/09/24 HPI History of Present Illness Chief complaint: difficulty breathing History of present illness: Gabriela Milan is 79 yr female with PMH of COPD on 3L home oxygen, PE, HTN, HLD, depression, neuropathy, obesity, GERD, and iron deficiency anemia who has presented to ED from snf due to hypoxia and difficulty breathing. Patient is poor historian so most history obtained from chart review. In ED, she was started on BIPAP after desaturating on 15L oxymask. ABG reflected pH of 7.36, Co2 72. Oxygenation improved and she was taken off BiPAP. Now saturating adequately on NC. Chest xray negative for active pulmonary disease. Patient admitted for AHRF 2/2 COPD exacerbation. Past medical history: As stated above Past surgical history: Multiple surgeries on right femur and knee. Right carpal tunnel release. Multiple lower back surgeries. Rhinoplasty x 2 Medications: gabapentin 100mg daily, ferrous sulfate 1 tab everyother day, melatonin 2 tab at bedtime, metoprolol 100mg daily, milk of mag, PEG PRN, pantoprazole 40 mg daily, sumatriptan 100mg daily Allergies: Ergotamines?nausea. Citalopram?restless leg. Latex?rash. Sulfa?rash Family History: Cardiac disease. Son?congestive heart failure. Grandson?congenital heart disease. Daughter?mitral valve prolapse Social history: Retired, . 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 At baseline patient is bedbound and requires assistance with ADL Review of Systems Review of Systems Systems Reviewed: All systems reviewed, normal except as documented Exam Vital Signs Temp Pulse Resp BP Pulse Ox O2 Del Method FiO2 98.5 F 80 20 99/66 100 BiPAP 90 11/08/24 23:09 11/08/24 23:09 11/08/24 23:09 11/08/24 23:09 11/08/24 23:11/08/24 23:11/08/24 18:38 Narrative Exam General: Elderly lady, obese, No acute distress, cooperative HEENT: NCAT, No JVD noted. Mucosa dry. Pupils are equal and reactive to light bilaterally Cardiovascular: Normal S1 and S2. Regular rate and rhythm. Respiratory: Lungs are clear to auscultation bilaterally. No wheezing or crackles heard. Abdomen: Soft, nontender, not distended, normal bowel sounds. Skin: Warm to touch, dry, senile purpura UE Musculoskeletal: No gross injuries. Able to move all 4 extremities. No pitting edema Neuro: Alert and oriented x3. No focal neuro deficits. Psych: Normal affect and mood Results: Labs 11/08/24 20:05 11/09/24 03:00 Labs: Short CBC 11/08/24 Range/Units 20:05 WBC 7.8 (3.6-11.0) Thou/mm3 Hgb 11.3 L (12.0-16.0) g/dL Hct 36.0 (36.0-46.0) % Plt Count 342 D (140-440) Thou/mm3 BMP 11/08/24 20:05 Sodium 140 Potassium 4.4 Chloride 96 L Carbon Dioxide 36.6 H BUN 11 Creatinine 0.6 Glucose 91 Calcium 9.5 Cardiac Enzymes 11/08/24 Range/Units 20:05 Troponin I < 0.020 (0.0-0.045) ng/mL Liver Function 11/08/24 Range/Units 20:05 Total Bilirubin 0.3 (0.3-1.2) mg/dL AST 29 (0-34) U/L ALT 20 (10-49) U/L Alkaline Phosphatase 75 (46-116) U/L Albumin 3.0 L (3.4-4.8) gm/dL ABG Interpretation ABG results: 11/08/24 19:02 ABG pH 7.36 ABG pCO2 72 H* ABG pO2 320 H ABG HCO3 40 H ABG O2 Saturation 101 H ABG Base Excess 12 H Quality Measures Quality Measures none Advance care planning discussed with:: patient Medications Home Medications and Allergies Home Medications ?Medication ?Instructions ?Recorded ?Confirmed ?Type gabapentin 100 mg capsule 200 mg PO BID 01/15/18 11/09/24 History donepezil 5 mg tablet 5 mg PO QDAY 01/16/18 11/09/24 History atorvastatin 20 mg tablet 40 mg PO QPM 09/14/18 11/09/24 History duloxetine 60 mg capsule,delayed 60 mg PO BID 04/23/21 11/09/24 History release ergocalciferol (vitamin D2) 1,250 50,000 unit PO QWEEK 04/23/21 11/09/24 History mcg (50,000 unit) capsule multivitamin (One Daily 1 tab PO QDAY 04/23/21 11/09/24 History Multivitamin tablet) metoprolol tartrate 100 mg tablet 100 mg PO BID 05/31/23 11/09/24 History cyclobenzaprine 5 mg tablet 5 mg PO HS 10/16/24 11/09/24 History brexpiprazole 0.5 mg tablet mg 11/09/24 History (Rexulti) pantoprazole 40 mg tablet,delayed 40 mg PO Q12H 11/09/24 11/09/24 History release Allergies Allergy/AdvReac Type Severity Reaction Status Date / Time ergotamine (From Cafergot) Allergy Intermediate Nausea Verified 09/13/24 20:28 adhesive tape Allergy Mild Rash Verified 09/13/24 20:28 citalopram (From Celexa) Allergy Mild Restless Verified 09/13/24 20:28 leg latex Allergy Mild Rash Verified 09/13/24 20:28 silver Allergy Rash Verified 09/13/24 20:28 Visit Medications Acetaminophen (Acetaminophen 325 Mg Tablet) 650 mg PO Q6H PRN PRN Reason: Fever >100.3 or pain Stop: 12/08/24 23:58 Albuterol/Ipratropium (Albuterol/Ipratropium (Duoneb) Rt Kristin 3 Ml Nebu) 3 ml INH Q4HRRT [facility] Stop: 12/09/24 02:59 Enoxaparin Sodium (Enoxaparin Sod Inj 40 Mg/0.4 Ml Syringe) 40 mg SC QDAY [facility] Stop: 11/23/24 08:59 Methylprednisolone Sodium Succinate (Methylprednisolone Sod Succ 40 Mg Vial) 40 mg IVP BID [facility] Stop: 11/16/24 08:59 Sennosides (Senna Tablet) 1 tab PO QDAY [facility]; Protocol Stop: 12/09/24 08:59 Discontinued Medications Albuterol/Ipratropium (Albuterol/Ipratropium (Duoneb) Rt Kristin 3 Ml Nebu) 3 ml INH X1 ONE Stop: 11/08/24 18:21 Last Admin: 11/08/24 19:10 Dose: 3 ml Ceftriaxone Sodium 1,000 mg/ (Sodium Chloride) 50 mls @ 100 mls/hr IV X1 ONE Stop: 11/08/24 20:31 Last Infusion: 11/08/24 21:03 Dose: Infused Lorazepam (Lorazepam 2 Mg/Ml Vial) 0.75 mg IVP X1 ONE Stop: 11/08/24 23:00 Last Admin: 11/08/24 23:07 Dose: 0.75 mg Methylprednisolone Sodium Succinate (Methylprednisolone Sod Succ 62.5 Mg/Ml 2ml Vial) 125 mg IVP X1 ONE Stop: 11/08/24 18:21 Last Admin: 11/08/24 18:50 Dose: 125 mg Morphine Sulfate (Morphine Sulf Inj 10 Mg/Ml Vial) 2 mg IVP X1 ONE Stop: 11/08/24 20:03 Last Admin: 11/08/24 20:33 Dose: 2 mg Assessment & Plan Plan Gabriela iMlan is 79 yr female with PMH of COPD on 3L home oxygen, PE, HTN, HLD, depression, neuropathy, obesity, GERD, and iron deficiency anemia who has presented to ED from snf due to hypoxia and difficulty breathing. She was admitted for AHRF 2/2 COPD exacerbation. #AHRF 2/2 COPD exacerbation #Hx COPD Patient presenting with SOB and increased oxygen requirements from SNF. States that she is feeling okay. Endorses using oxygen at home but not able to communicate how often. She was started on BiPAP with improvement. Transitioned to NC and now comfortable and saturating adequately. ABG showing pH 7.36, CO2 72 most likely due to her chronic retention from hx COPD. -duonebs q4hr -IV methylprednisone 40 mg BID -Oxygen PRN Oxygen Support, goal of 88-92% SpO2 #Hx HTN #Hx HLD #Hx depression #Hx iron deficiency anemia -med rec pending Health maintenance: Dispo: obs for COPD exacerbation DVT prophylaxis: Lovenox 40mg daily Diet: Regular CODE STATUS: Full code The patient's management plan was discussed with my attending physician Dr. Jin and senior Dr. Morse. Michelle Dominguez, PGY-1 Attending Provider Attestation/Addendum 79-year-old male with multiple comorbidities including hypertension, hyperlipidemia, depression and remote history of PE status post therapy and COPD on 3 L supplemental oxygen who presented to the ER with chief complaint of shortness of breath. In the ER, patient was noted to have acute hypoxic respiratory failure and initially placed on BiPAP and plan to observe the patient overnight, IV methylprednisone and patient does not have any fevers or white count to suggest any pneumonia. Anticipate discharge tomorrow morning.I reviewed above note and agree with findings and plans. I have also personally examined the patient with medicine team and went over assessment and plan with medical team including photo intern and resident physician.
[2024-11-09 04:01] LABS: Respiratory Syncytial Virus Ag Negative (Negative)
[2024-11-09 04:19] LABS: Albumin, Serum 3.2 gm/dL (3.4-4.8); Anion Gap 9 (7-16); BUN/Creatinine Ratio 16 Ratio (12-20); Blood Urea Nitrogen 11 mg/dL (9-23); Calcium 9.2 mg/dL (8.3-10.6); Calcium (Corrected) 9.8 mg/dL (8.5-10.1); Carbon Dioxide 34.9 mMol/L (20.0-31.0); Chloride 92 mMol/L (98-107); Creatinine (Component) 0.7 mg/dL (0.6-1.3); Estimated Creatinine Clearance 73.7 mL/min (>60); Glucose 92 mg/dL (74-106); Osmolality,Calculated 271 (275-295); Phosphorous 4.3 mg/dL (2.4-5.1); Sodium 136 mMol/L (136-145); eGFR > 60 See Note
[2024-11-09 04:44] LABS: Potassium 5.2 mMol/L (3.4-5.1)
[2024-11-09 05:47] LABS: Basophils % (Auto) 0 % (0-2.5); Eosinophils % (Auto) 0 % (0-10); Hematocrit 36.3 % (36.0-46.0); Hemoglobin 11.1 g/dL (12.0-16.0); Immature Granulocytes % (Auto) 1 % (0-0); Immature Granulocytes Auto 0.02 Thou/mm3 (0.00-0.00); Lymphocytes # (Auto) 0.5 Thou/mm3 (1.0-4.8); Lymphocytes % (Auto) 14 % (10-50); Mean Corpuscular HGB Conc 30.6 g/dl (31.0-37.0); Mean Corpuscular Volume 91 fL (80-100); Monocytes # (Auto) 0.1 Thou/mm3 (0.0-0.8); Monocytes % (Auto) 2 % (0-12); Neutrophils # (Auto) 3.1 Thou/mm3 (1.8-7.7); Neutrophils % (Auto) 83 % (37-80); Nucleated Red Blood Cell % 0 /100 WBC (0); Platelet Count 320 Thou/mm3 (140-440); RDW Standard Deviation 60.4 fL (36.4-46.3); Red Blood Count 3.97 Miln/mm3 (4.00-5.20); White Blood Count 3.8 Thou/mm3 (3.6-11.0)
[2024-11-09 06:19] LABS: Alanine Aminotransferase 18 U/L (10-49); Albumin, Serum 2.9 gm/dL (3.4-4.8); Albumin/Globulin Ratio 0.9 (1.2-2.2); Alkaline Phosphatase 72 U/L (46-116); Anion Gap 12 (7-16); Aspartate Amino Transferase 22 U/L (0-34); BUN/Creatinine Ratio 17 Ratio (12-20); Bilirubin,Total 0.3 mg/dL (0.3-1.2); Blood Urea Nitrogen 12 mg/dL (9-23); Calcium 9.1 mg/dL (8.3-10.6); Carbon Dioxide 33.7 mMol/L (20.0-31.0); Chloride 92 mMol/L (98-107); Creatinine (Component) 0.7 mg/dL (0.6-1.3); Estimated Creatinine Clearance 73.7 mL/min (>60); Globulin 3.1 gm/dL (2.3-3.5); Glucose 94 mg/dL (74-106); Magnesium 1.7 mg/dL (1.6-2.6); Osmolality,Calculated 275 (275-295); Phosphorous 4.3 mg/dL (2.4-5.1); Potassium 4.8 mMol/L (3.4-5.1); Sodium 138 mMol/L (136-145); eGFR > 60 See Note
[2024-11-09] MEDS: SENNA TABLET 1 TAB PO (08:50)
[2024-11-09] MEDS: ENOXAPARIN SOD INJ 40 MG/0.4 ML SYRINGE SC (08:50)
--- NOTE | 2024-11-09 13:37 | ESDS_ITS ---
<Statement entered by Dilcia Metcalf DO - 11/10/24 09:00> I, Dilcia Metcalf DO, attest that I was physically present for the benavides portions of the service and evaluated the patient with the resident and I reviewed and discussed the case with the resident and agree with the resident's findings and plans of care as documented above <Statement entered by Rola Benitez MD - 11/10/24 07:54> Patient was seen and examined by me personally. I have reviewed the below documentation by the team resident and agree with its findings with any exceptions as below. Discharge plan was discussed with the attending, Dr. Metcalf. Patient stable for discharge back to SNF, granddaughter who is point of contact updated and agreeable to plan. Recommended 3 more days of prednisone 40 mg once daily and DuoNeb breathing treatment. Rola Benitez, PGY-2 Planned Discharge Date 11/09/24 DS: Providers Provider Date of admission: 11/09/24 00:00 Primary care physician: Boubacar Carrillo MD Admitting Provider: Parker Jin MD Attending Provider on Admission: Parker Jin MD Attending Provider on DC: Lulu Hathaway MD Discharging Provider: Lulu Hathaway MD DS: Diagnosis Problem List Completed Was Problem List Reviewed/Reconciled?: Yes Hospital Course Hospital Course Hospital course: Gabriela Milan is 79 yr female with PMH of COPD on 3L home oxygen, PE, HTN, HLD, depression, neuropathy, obesity, GERD, and iron deficiency anemia who has [facility] due to hypoxia and difficulty breathing. Patient is poor historian so most history obtained from chart review. In ED, she was started on BIPAP after desaturating on 15L oxymask. ABG reflected pH of 7.36, CO2 72. RSV, Influenza A and B bedside tests were negative. Oxygenation improved and she was taken off BiPAP. After a few hours on BiPAP, patient was weaned down to nasal cannula, saturating adequately. Chest xray negative for active pulmonary disease. Patient was admitted for AHRF 2/2 COPD exacerbation. Patient has received ceftriaxone one, was started on steroids. Her oxygen went back to baseline level. On AM examination, patient is AOx3, reports improvement in shortness of breath. AM labs negative for leukocytosis. Patient was seen and examined by the bedside and was medically cleared for discharge back to the SNF. Hospital diagnoses: #Acute hypoxic respiratory failure #Acute COPD exacerbation #Hx COPD #Hx HTN #Hx HLD #Hx depression #Hx iron deficiency anemia Discharge plans: - Follow-up with your PCP in 1-2 weeks after discharge - Take prednisone 40 mg per mouth once a day for 3 days - Use ipratropium-albuterol breathing nebulizer as needed for shortness of breath or wheezing - Continue use oxygen via nasal cannula as needed - Use BiPAP/CPAP machine at night - Take the rest of your medictions as presribed Plan of care discussed with attending Dr. Metcalf, PGY-[address] Benitez. Lulu Hathaway MD, PGY 1. Time Spent with Patient Time attestation: Total time spent providing and/or coordinating discharge services: Time spent: Greater than 30 minutes Exam Vital Signs Temp Pulse Resp BP Pulse Ox O2 Del Method O2 Flow Rate 97.2 F 82 17 128/95 H 97 Nasal Cannula 3 11/09/24 12:00 11/09/24 12:00 11/09/24 12:00 11/09/24 12:00 11/09/24 12:00 11/09/24 12:00 11/09/24 12:00 FiO2 90 11/09/24 08:00 Narrative Exam Physical Exam General: Awake and in no acute distress. Conversational and non-toxic appearing. HEENT: Normocephalic, atraumatic, mucous membranes moist. Heart: Regular rate and rhythm, no murmurs. Lungs: Clear to auscultation with no wheezing or crackles. Abdomen: Soft, nondistended, nontender, positive bowel sounds. ?No guarding or rebound tenderness. Neurologic: Alert and oriented x3, no gross neurological deficit, and patient able to move all 4 extremities. Bilateral hand and jaw tremor. Extremities: Trace ankle edema. Skin: No rash or ecchymoses. Discharge Plan Problem List Was Problem List Reviewed/Reconciled?: Yes Plan Patient Disposition: [facility]fer [facility] ([facility]NF) Patient condition on transfer: Stable Care Plan Goals: Discharge plans: - Follow-up with your PCP in 1-2 weeks after discharge - Take prednisone 40 mg per mouth once a day for 3 days - Use ipratropium-albuterol breathing nebulizer as needed for shortness of breath or wheezing - Continue use oxygen via nasal cannula as needed - Use BiPAP/CPAP machine at night - Take the rest of your medictions as presribed Prescriptions/Referrals Prescriptions/Med Rec: New prednisone 20 mg tablet 40 mg PO QDAY MDD 40 3 Days Qty: 6 0RF ipratropium-albuterol 0.5 mg-3 mg(2.5 mg base)/3 mL Solution For Nebulization 3 ml INH Q4HRRT PRN (Reason: Shortness of breath or wheezing) 3 Days Qty: 90 0RF Continued gabapentin 100 mg Capsule 200 mg PO BID Rx Instructions: 200 mg orally ;100 mg orally donepezil 5 mg Tablet 5 mg PO QDAY atorvastatin 20 mg Tablet 40 mg PO QPM multivitamin [One Daily Multivitamin] Tablet 1 tab PO QDAY ergocalciferol (vitamin D2) 1,250 mcg (50,000 unit) capsule 50,000 unit PO QWEEK Patient Comments: TAKE 1 CAPSULE BY MOUTH EVERY WEEK duloxetine 60 mg capsule,delayed release(DR/EC) 60 mg PO BID Patient Comments: TAKE 1 CAPSULE BY MOUTH TWICE DAILY metoprolol tartrate 100 mg tablet 100 mg PO BID ferrous sulfate 325 mg (65 mg iron) Tablet,Delayed Release (Dr/Ec) 325 mg PO QOD Qty: 15 0RF albuterol sulfate 90 mcg/actuation HFA aerosol inhaler 2 puff inhalation Q6H PRN (Reason: shortness of breath or wheezing) Qty: 8.5 0RF cyclobenzaprine 5 mg tablet 5 mg PO HS Patient Comments: TAKE 1 TABLET BY MOUTH EVERY DAY AT BEDTIME FOR SPASMS aspirin [Ecotrin Low Strength] 81 mg Tablet,Delayed Release (Dr/Ec) 81 mg PO QDAY 30 Days Qty: 30 0RF quetiapine [Seroquel] 25 mg tablet 25 mg PO HS PRN (Reason: agitation, hallucinations) Qty: 30 0RF pantoprazole 40 mg tablet,delayed release (DR/EC) 40 mg PO Q12H Patient Comments: TAKE 1 TABLET BY MOUTH TWICE DAILY DIRECTED FOR GASTRITIS Rexulti 0.5 mg tablet Referrals: Boubacar Carrillo MD [Primary Care Provider] - Patient/Caregiver Discharge Instructions Discharge Activity: activity as tolerated and wear oxygen at night Education Materials: Discharge Instructions: COPD, Chronic Lung Disease Avoiding ..., Chronic Lung Disease Dyspnea Scale Print Language: Austrian Stand Alone Forms: [employer] Award Info., Patient Portal Info Letter Discharge Order Discharge Orders: Discharge (Routine); Ordered 11/09/24 Ordered By: Rola Benitez Quality Discharge Quality Measures VTE prophylaxis
[2024-11-09] MEDS: SUMAtriptan 25 MG TABLET PO (13:57)
--- NOTE | 2024-11-09 14:35 | PC.RT ---
SCALE TECHNICIAN met with pt to follow up on transportation and inform them that their insurance does not cover transportation, pt stated they can not pay for transportation, SCALE TECHNICIAN called Lizett from [facility] and she stated that she does not have transportation, SCALE TECHNICIAN to get MONA due to pt bieng on 3L if O2 and not annel to ambulate.
--- NOTE | 2024-11-09 15:18 | PC.SS ---
APPLICATOR SPRAYER met with pt at bedside to follow up from what SNF she came from and she stated she came from [facility], channel marketing specialist to follow up with opal to update on ETA of [facility]
--- NOTE | 2024-11-09 15:44 | PC.SS ---
ELECTRONIC COMMERCE SPECIALIST called [place] to set up transportation for 1900, ELECTRONIC COMMERCE SPECIALIST followed up with Karla from [facility] and updated Nurse on ETA
== END 2024-11-09 17:14 | disposition skilled nursing facility (03) ==
LOC: SERX 21:48 → S3NX 11-09 12:59 → SERHOLD 11-11 08:25 → S3NX 11-11 08:25
PROVIDERS: Admitting Provider Internal Medicine; Emergency Provider Emergency Medicine; PCP Hospitalist; Visit Provider Internal Medicine
DX: J96.01 Acute respiratory failure with hypoxia (principal); J96.02 Acute respiratory failure with hypercapnia; J44.1 Chronic obstructive pulmonary disease with (acute) exacerbation; I10 Essential (primary) hypertension; E78.5 Hyperlipidemia, unspecified; F32.A Depression, unspecified; D50.9 Iron deficiency anemia, unspecified; Z01.810 Encounter for preprocedural cardiovascular examination
CPT/HCPCS: 36415; 36600; 71045; 80053; 80069; 81001; 82803; 83605; 83735; 83880; 84100; 84145; 84443; 84484; 85025; 85379; 85652; 86140; 87040; 87081; 87400; 87634; 87811; 93005; 94640; 94660; 96365; 96372; 96375; 99285; A9270; G0378; J0696; J1650; J2060; J2270; J2919; J7050

== ENCOUNTER 2024-11-19 10:08 | Inpatient (IN) | payer MEDICARE, BC, SELFPAY ==
[2024-11-19] VITALS (29 sets, daily range): BP systolic 98–140; BP diastolic 59–109; PULSE 52–121; RESP 14–30; TEMP 36.1–36.8; O2SAT 70–100; BMI 37.2
--- NOTE | 2024-11-19 10:18 | XR_ITS ---
Examination: AP chest single view TECHNIQUE: Upright sitting AP chest single view Exam date and time: November 19, 2024 1154 hours Comparison November 08, 2024 INDICATIONS: Chest pain today FINDINGS: Reduced inspiratory effort Mild prominence left ventricle Prominent osteopenia Subsegmental atelectasis left base No lobar pneumonia IMPRESSION: Poor inspiratory effort chest x-ray
--- NOTE | 2024-11-19 10:18 | EKG_ITS ---
[facility] Test Date: 2024-11-19 Pat Name: MANUEL ALBA Department: Room: - Gender: Female Biology Internship: : 1945 Requested By: Michael Snow Order Number: [id number] Reading MD: Michael Snow Measurements Intervals [place] Rate: 64 P: 18 MS: 145 QRS: -8 QRSD: 98 T: -7 QT: 401 QTc: 414 Interpretive Statements SINUS RHYTHM WITH MARKED SINUS ARRHYTHMIA MODERATE VOLTAGE CRITERIA FOR LVH, CONSIDER NORMAL VARIANT [MEETS CRITERIA IN ONE OF: R(aVL), S(V1), R(V5), R(V5/V6)+S(V1)] Compared to ECG 11/08/2024 18:21:53 No significant changes /store/S0/[id number].pdf
--- NOTE | 2024-11-19 10:18 | XR_ITS ---
Examination: CT brain head without contrast. 2-D sagittal coronal reconstructions Date and time of exam:November 19, 2024, 1053 hours Comparison October 17, 2024 INDICATIONS: Loss of consciousness episode today CTDI: vol (mGy):59.2 DLP: (mGycm):1205 Technique: Multiple CT axial sections of the brain have been obtained, 5 mm slice thickness. Contrast has not been administered. 2-D sagittal, coronal reconstructions have been obtained Low dose protocols were performed. One or more of the following dose reduction techniques were used; automated exposure control, adjustment of the mA and/or KV according to patient size, use of iterative reconstruction technique. Findings: No significant ventricular enlargement. 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 No mass effect or midline shift Basal cisterns are not remarkable. Fourth ventricle is midline. Cranial vault intact. Impression: Negative for acute hemorrhage, mass effect or midline shift As clinically warranted, brain MRI follow-up would best assess for acute ischemic change
--- NOTE | 2024-11-19 10:22 | PD.EDSOB ---
ED SOB =RME/HPI General Chief Complaint: Shortness of Breath/Dyspnea Stated Complaint: SOB Time Seen by Provider: 11/19/24 10:17 Arrival date/time: 11/19/24 10:08 DR. SNOW MAIN ED EVALUATION 79 y/o female with H/o neuropathy, COPD, morbid obesity, dementia, hyperlipidemia, syncope and collapse, GERD, hypertension, anemia, hyperlipidemia, and respiratory failure presents to ED BIB EMS from [facility] c/o shortness of breath and lethargy x today. EMS reports initial O2 saturation of 71% on 5L O2 via non-rebreather mask, but increased to 95% on 15L O2 following albuterol administration. No modifying factors reported. No other concerns or complaints expressed at this time. Related Data Home Medications ?Medication ?Instructions ?Recorded ?Confirmed gabapentin 100 mg capsule 200 mg PO BID 01/15/18 11/09/24 donepezil 5 mg tablet 5 mg PO QDAY 01/16/18 11/09/24 atorvastatin 20 mg tablet 40 mg PO QPM 09/14/18 11/09/24 duloxetine 60 mg capsule,delayed 60 mg PO BID 04/23/21 11/09/24 release ergocalciferol (vitamin D2) 1,250 50,000 unit PO QWEEK 04/23/21 11/09/24 mcg (50,000 unit) capsule multivitamin (One Daily 1 tab PO QDAY 04/23/21 11/09/24 Multivitamin tablet) metoprolol tartrate 100 mg tablet 100 mg PO BID 05/31/23 11/09/24 cyclobenzaprine 5 mg tablet 5 mg PO HS 10/16/24 11/09/24 brexpiprazole 0.5 mg tablet mg 11/09/24 (Rexulti) pantoprazole 40 mg tablet,delayed 40 mg PO Q12H 11/09/24 11/09/24 release Previous Rx's ?Medication ?Instructions ?Recorded ferrous sulfate 325 mg (65 mg 325 mg PO QOD #15 tabs 06/02/23 iron) tablet,delayed release albuterol sulfate 90 mcg/actuation 2 puff inhalation Q6H PRN 01/18/24 aerosol inhaler shortness of breath or wheezing #8.5 grams quetiapine 25 mg tablet (Seroquel) 25 mg PO HS PRN agitation, 10/19/24 hallucinations #30 tabs Allergies Allergy/AdvReac Type Severity Reaction Status Date / Time ergotamine (From Cafergot) Allergy Intermediate Nausea Verified 09/13/24 20:28 adhesive tape Allergy Mild Rash Verified 09/13/24 20:28 citalopram (From Celexa) Allergy Mild Restless Verified 09/13/24 20:28 leg latex Allergy Mild Rash Verified 09/13/24 20:28 silver Allergy Rash Verified 09/13/24 20:28 Review of Systems Review of Systems Systems Reviewed: All systems reviewed, normal except as documented Narrative Review of Systems: Constitutional: DENIES; Fevers, + Lethargic Eyes: DENIES; Loss of vision Head/Ear/Nose: DENIES; Loss of hearing Throat: DENIES; Dysphagia Cardiovascular: DENIES; Chest pain, dyspnea or syncope Respiratory: Shortness of breath Gastrointestinal: DENIES; Rectal bleeding or melena. Genitourinary: DENIES; Dysuria (painful or difficult urination) Musculoskeletal: DENIES; Arthralgia (pain in a joint),; Skin: DENIES; Rash Neurological: DENIES; Loss of function or movement Psychiatric: DENIES; recent major life stressor, emotional problem, illicit drug use or abuse Endocrinology: DENIES; Weight change Hematologic/Lymphatic: DENIES; Abnormal bruising Allergic/Immunologic: DENIES; Urticaria (hives) Past Medical History Past Medical History NEUROLOGIC: Positive Neurological Disorders, Cerebrovascular Accident, Seizures, Peripheral Neuropathy, Migraine and Head Trauma CARDIAC: Positive Cardiac Disorders, Hypercholesterolemia, Edema, Hypertension and Varicose Veins RESPIRATORY: Positive Chronic Obstructive Pulmonary Disease (COPD), Asthma, Bronchitis, Pneumonia and Sleep Apnea GASTROINTESTINAL: Positive Gastrointestinal Disorders, Gastroesophageal Reflux Disease and Obesity REPRODUCTIVE: Positive Endometriosis and Previous Pregnancies MUSCULOSKELETAL: Positive Musculoskeletal Disorders, Arthritis, Osteoporosis, Degenerative Disk Disease, Carpal Tunnel Syndrome, Fractures and Degenerative Joint Disease ENT: Positive Head Trauma HEMATOLOGIC: Positive Anemia PSYCHO/SOCIAL: Positive Depression and Anxiety OTHER HISTORY: Positive Hospitalization, Autoimmune Disease, Falls, Blood Transfusions, Chicken Pox and Measles Family History FAMILY HISTORY: Positive Family Cardiac Disorders and Family Cancer Surgical History SURGICAL: Positive Ear Surgery, Nose Surgery, Tonsillectomy, Abdominal Surgery and Joint Replacement Social History SMOKING STATUS: Never smoker SUBSTANCE USE: does not use ED Exam Narrative Physical exam: Physical Exam:? General:?? ? Patient is brought in by EMS with obtundation. With history of respiratory concerns and possibly breathing fast. Patient arouses to verbal stimulation but appears to be inattentive. The vital signs were reviewed. O2 sat waveform was hard to corn picker but when was capturing were in the mid to low 90s. The patient is arousable with verbal and painful stimuli but immediately falls back to sleep and becomes inattentive. Patient had a spontaneous respirations that required no assistance at this time . O2 sats are adequate at the present time. Head & Scalp:?? ? Normocephalic, atraumatic. Face:?? ? Appears normal and is without lesions, deformity. No apparent trauma Ears:??? Left external pinna appears normal. Right external pinna appears normal. Eyes:?? ? The sclera is anicteric. The Left and Right Orbit/Lid/Conjunctiva appears normal without swelling, discoloration or injection. Nose: ? ? The nose is without deformity, discharge or tenderness; Throat: ? ? Appears normal.? The mucous membranes are pink and moist without exudates, redness or mass seen.? The tongue appears normal. Neck: The neck is supple and no apparent mass or adenopathy. Chest: The chest wall is normal in size and symmetry and has no chest wall tenderness or crepitus. The patient displays shallow ventilator effort without retractions, accessory muscle use. Patient has adequate fair air movement but breath sounds are diminished canted effusively probably hypoventilatory Cardiovascular: Regular rate and rhythm; No murmurs, rubs, or gallops; Gastrointestinal: The abdomen appears normal.? No obvious hernias or mass. The abdomen is soft and benign, non-distended, with no pain, no guarding and no rebound tenderness.? Bowel sounds are present and normal sounding.? No CVA tenderness. Genitourinary: No apparent injury or trauma. Back/Spine: No apparent injury or trauma Extremities/Musculoskeletal/lymphatic:? ? ? The bilateral upper and lower extremities are warm. There is no evidence of arterial? insufficiency. There is no evidence of venous insufficiency/edema. The patient is obtunded but displays no obvious focal deficits and spontaneously moves bilateral upper and lower extremities with painful or verbal stimuli There is no apparent, injury or trauma. Skin:? The skin is warm, dry and intact.? No rashes. No petechia. No purpura. No abnormal bruising.? The color is appropriate with no cyanosis. Mental status/Psychiatric: Mental status is obtunded no further evaluation can be made Neurological:? The patient is obtunded. The pupils are equal and reactive to light No obvious focal deficits. Patient responds to painful and verbal stimuli. Course Quality Measures none Orders Category Date Time Status Bedside Blood Glucose NOW Care 11/19/24 10:18 Active [employer] Q2HR Care 11/19/24 13:08 Active EKG (ED ONLY) *Do not use* NOW Care 11/19/24 10:18 Completed EKG (ED ONLY) *Do not use* NOW Care 11/19/24 13:11 Active In and Out Catheter X1 Care 11/19/24 13:03 Completed Insert IV NOW Care 11/19/24 10:[address] head/brain wo con Stat Exams 11/19/24 10:18 Completed EKG (ED Only) Stat Exams 11/19/24 10:18 Draft EKG (ED Only) Stat Exams 11/19/24 13:11 Draft XR chest 1V portable Stat Exams 11/19/24 10:18 Completed Alcohol, Blood Medical Stat Lab 11/19/24 10:44 Completed Ammonia Stat Lab 11/19/24 10:41 Completed B-Type Natriuretic Peptide Stat Lab 11/19/24 10:44 Completed Blood Culture (Lab) Stat Lab 11/19/24 10:44 Received CBC Stat Lab 11/19/24 10:24 Completed Comprehensive Metabolic Panel Stat Lab 11/19/24 10:44 Completed Drug Screen,Urine Stat Lab 11/19/24 13:01 Completed Lactate (Lactic Acid) Stat Lab 11/19/24 10:44 Completed Procalcitonin Stat Lab 11/19/24 10:44 Completed Prothrombin Time with INR Stat Lab 11/19/24 10:44 Completed Troponin I Stat Lab 11/19/24 10:44 Completed Type and Screen Stat Lab 11/19/24 10:44 Completed Urinalysis Stat Lab 11/19/24 13:01 Completed Urinalysis, C/S if Indicated Stat Lab 11/19/24 13:01 Completed Venous Blood Gas Stat Lab 11/19/24 10:24 Completed Venous Blood Gas Stat Lab 11/19/24 13:53 Completed ALBUTEROL RT 0.5ml [Proventil Rt 0.5ml] Med 11/19/24 14:04 Discontinued 10 mg INH X1 ONE Dextrose 50% Syr [D50w Syringe Abboject] Med 11/19/24 11:33 Discontinued 25 ml IV X1 ONE MethylPREDNISolone.* [SoluMEDROL Inj] Med 11/19/24 14:04 Discontinued 125 mg IVP X1 ONE Sodium Chloride 0.9% 1000 ml [Ns] 2,000 ml Med 11/19/24 10:17 Active IV 150 mls/hr Sodium Chloride Rt Kristin 0.9% [NS Rt Kristin 0.9%] Med 11/19/24 14:04 Active 3 ml INH PRN PRN BiPAP / CPAP NOW RT 11/19/24 13:18 Active Vital Signs Vital signs: Vital Signs Temperature 98.2 F 11/19/24 10:21 Pulse Rate 77 11/19/24 10:21 Respiratory Rate 22 H 11/19/24 10:21 Blood Pressure 105/71 11/19/24 10:21 Pulse Oximetry (%) 99 11/19/24 10:21 Oxygen Delivery Method Oxy Mask 11/19/24 10:21 Oxygen Flow Rate 15 11/19/24 10:21 Shortness of Breath / Dyspnea MDM Narrative MDM Narrative:: I, Nelda Bedolla, am scribing for and in the presence of Dr. Michael Snow. Review of the chart revealed the patient was just here and discharged for respiratory failure. I elected to observe the patient since she was arousing pretty easily and a venous blood gas came back with a pH of 735 and a pCO2 of 74 which was higher than the baseline but seem to be compensated adequately at this point. She was observed in the ER and later seemed to be a little more lethargic although still arousing at that point we decided put her on BiPAP and get a second venous blood gas. Chest x-ray reveals poor inspiration and a little plate of atelectasis in the left. There is no obvious effusion or consolidating lesions. White count 7.2 hemoglobin 10.8 platelet count 264,000 PT/INR 11.4 and 1.0 sodium 139 potassium 4 3 chloride 98 6 glucose 89 lactic acid 1.0 procalcitonin is 0.04. Urinalysis came back with 1 red cell and 2 white cells. Urine drug screen was negative alcohol level is negative. The workup for altered mental status appears to be negative other than that pCO2 being elevated because the patient was getting worse we started the patient on BiPAP and a second venous blood gas is pending. At that time we contact the hospitalist to admit. Hospitalist will admit and manage BiPAP Patient data External records reviewed:: [facility] previous records (Reviewed prior admission record from 11/08/24- 11/09/24. Patient was discharged with acute respiratory failure with hypoxia and hypercapnia.), EMS form and [facility] records Clinical information provided by:: EMS Social determinants that could affect healthcare access:: housing Patient has the following chronic illnesses:: Neuropathy, COPD, morbid obesity, dementia, hyperlipidemia, syncope and collapse, GERD, hypertension, anemia, hyperlipidemia, and respiratory failure. How is presenting disease/condition affected by chronic disease/condition?: exacerbated by Evaluation data The following diagnostics were reviewed and interpreted by me:: lab results, radiology exam(s) and EKG tracing(s) (12-lead EKG as interpreted by myself shows: Normal sinus rhythm with ventricular rate of 68 bmp, no STEMI, no ischemic changes,) Lab and/or radiology exams considered but not ordered:: None. Interpretation Summary: Patient: MANUEL ALBA. Record#: [id number] Birthdate: 1945 Age/Sex: 79 / F Location: [facility] Attending Dr: Ordering Physician: Michael Snow MD Date of Service: 11/19/24 Procedure(s): CT head/brain wo con Accession Number(s): [id number] cc: Michael Snow MD; Olman Laguna MD; NO PRIMARY/FAMILY,PHYSICIAN~ Examination: CT brain head without contrast. 2-D sagittal coronal reconstructions Date and time of exam:November 19, 2024, 1053 hours Comparison October 17, 2024 INDICATIONS: Loss of consciousness episode today CTDI: vol (mGy):59.2 DLP: (mGycm):1205 Technique: Multiple CT axial sections of the brain have been obtained, 5 mm slice thickness. Contrast has not been administered. 2-D sagittal, coronal reconstructions have been obtained Low dose protocols were performed. One or more of the following dose reduction techniques were used; automated exposure control, adjustment of the mA and/or KV according to patient size, use of iterative reconstruction technique. Findings: No significant ventricular enlargement. 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 No mass effect or midline shift Basal cisterns are not remarkable. Fourth ventricle is midline. Cranial vault intact. Impression: Negative for acute hemorrhage, mass effect or midline shift As clinically warranted, brain MRI follow-up would best assess for acute ischemic change Dictated By: Olman Laguna MD Signed By: <Electronically signed by Olman Laguna MD in OV> 11/19/24 1147 Patient: MANUEL ALBA [facility]. Record#: [id number] Birthdate: 1945 Age/Sex: 79 / F Location: [facility] Attending Dr: Ordering Physician: Michael Snow MD Date of Service: 11/19/24 Procedure(s): XR chest 1V portable Accession Number(s): [id number] cc: Michael Snow MD; Olman Laguna MD; NO PRIMARY/FAMILY,PHYSICIAN~ Examination: AP chest single view TECHNIQUE: Upright sitting AP chest single view Exam date and time: November 19, 2024 1154 hours Comparison November 08, 2024 INDICATIONS: Chest pain today FINDINGS: Reduced inspiratory effort Mild prominence left ventricle Prominent osteopenia Subsegmental atelectasis left base No lobar pneumonia IMPRESSION: Poor inspiratory effort chest x-ray Dictated By: Olman Laguna MD Signed By: <Electronically signed by Olman Laguna MD in OV> 11/19/24 1211 Medications / Prescriptions Medications or Prescriptions considered but not ordered:: None Medication administrations:: Medication Administration History Sodium Chloride (Ns) 2,000 mls @ 150 mls/hr IV .[id number] ONE Stop: 11/19/24 23:36 Last Admin: 11/19/24 11:22 Dose: 150 mls/hr Documented By: JASBIR Sodium Chloride (Sodium Chloride Rt Kristin 0.9% 3 Ml Nebu) 3 ml INH PRN PRN PRN Reason: SOLN Stop: 12/19/24 14:03 Discontinued Medications Albuterol (Albuterol Rt 2.5 Mg/0.5 Ml Nebu) 10 mg INH X1 ONE Stop: 11/19/24 14:05 Last Admin: 11/19/24 14:08 Dose: 10 mg Documented By: SOO Dextrose (Dextrose 50%-Water Inj 50 Ml Syringe) 25 ml IV X1 ONE Stop: 11/19/24 11:34 Last Admin: 11/19/24 11:41 Dose: 25 ml Documented By: JASBIR Methylprednisolone Sodium Succinate (Methylprednisolone Sod Succ 62.5 Mg/Ml 2ml Vial) 125 mg IVP X1 ONE Stop: 11/19/24 14:05 See above if any. Consultations Consultation(s) initiated? (list below): Yes Consultation #1 (Physician, Specialty, Details): Spoke with Hospitalist, Dr. Jordan. Dr. Jordan made aware of the patient?s HPI, PMHx, lab and/or radiology results. Treatment plan was discussed. Will admit for further evaluation and management. Time: 13:53 Diagnosis Shortness of Breath Differential Diagnosis: acute exacerbation of chronic obstructive airways disease, congestive heart failure, community acquired pneumonia and other (Respiratory failure) Most likely diagnosis given after review of the tests above:: See MDM above. Admission Indicated Admission indicated?: indicated Admission Request Was there a request for admission?: Yes Admission Attestation Admission request attestation: Discussed case with [] from Hospitalist service regarding admission. Discussed patients ED course, exam findings, labs, and radiology results. The Hospitalist [agrees,declines] to accept the patient for admission. Disposition Plan Disposition Plan: Admit Critical Care Time Critical Care Time Critical Care Time: Yes Total Critical Care Time (min.): 45 Attestation: The high probability of sudden, clinically significant deterioration in the patient?s condition required the highest level of my preparedness to intervene urgently. ? The services I provided to this patient were to treat and/or prevent clinically significant deterioration. Services included the following: chart data review, reviewing nursing notes and/or old charts, documentation time, furniture rental consultant collaboration regarding findings and treatment options, medication orders and management, direct patient care, vital sign assessments and ordering, interpreting and reviewing diagnostic studies and lab tests. ? Aggregate critical care time includes only time during which I was engaged in work directly related to the patient?s care, as described above, whether at bedside or elsewhere in the Emergency Department. It did not include time spent performing other reported procedures or the services of residents, students, nurses or physician assistants. Discharge Plan Plan Patient Disposition: Admit Acute Care w/in Hospital Prescriptions/Referrals Prescriptions/Med Rec: No Action gabapentin 100 mg Capsule 200 mg PO BID Rx Instructions: 200 mg orally ;100 mg orally donepezil 5 mg Tablet 5 mg PO QDAY atorvastatin 20 mg Tablet 40 mg PO QPM multivitamin [One Daily Multivitamin] Tablet 1 tab PO QDAY ergocalciferol (vitamin D2) 1,250 mcg (50,000 unit) capsule 50,000 unit PO QWEEK Patient Comments: TAKE 1 CAPSULE BY MOUTH EVERY WEEK duloxetine 60 mg capsule,delayed release(DR/EC) 60 mg PO BID Patient Comments: TAKE 1 CAPSULE BY MOUTH TWICE DAILY metoprolol tartrate 100 mg tablet 100 mg PO BID ferrous sulfate 325 mg (65 mg iron) Tablet,Delayed Release (Dr/Ec) 325 mg PO QOD Qty: 15 0RF albuterol sulfate 90 mcg/actuation HFA aerosol inhaler 2 puff inhalation Q6H PRN (Reason: shortness of breath or wheezing) Qty: 8.5 0RF cyclobenzaprine 5 mg tablet 5 mg PO HS Patient Comments: TAKE 1 TABLET BY MOUTH EVERY DAY AT BEDTIME FOR SPASMS quetiapine [Seroquel] 25 mg tablet 25 mg PO HS PRN (Reason: agitation, hallucinations) Qty: 30 0RF pantoprazole 40 mg tablet,delayed release (DR/EC) 40 mg PO Q12H Patient Comments: TAKE 1 TABLET BY MOUTH TWICE DAILY DIRECTED FOR GASTRITIS Rexulti 0.5 mg tablet Referrals: No Primary/Family,Physician [Primary Care Provider] - In 1 week Problem List Clinical Impression: Respiratory failure, Altered mental status, Respiratory failure with hypercapnia, Morbid obesity Patient/Caregiver Discharge Instructions Print Language: Eritrean Stand Alone Forms: [employer] Award Info., Patient Portal Info Letter
[2024-11-19 10:52] LABS: Base Excess, Venous 12 (-3-3); Basophils # (Auto) 0.1 Thou/mm3 (0.0-0.2); Basophils % (Auto) 1 % (0-2.5); Eosinophils # (Auto) 0.2 Thou/mm3 (0.0-0.5); Eosinophils % (Auto) 3 % (0-10); Hematocrit 35.2 % (36.0-46.0); Hemoglobin 10.8 g/dL (12.0-16.0); Immature Granulocytes % (Auto) 0 % (0-0); Immature Granulocytes Auto 0.03 Thou/mm3 (0.00-0.00); Lymphocytes # (Auto) 0.9 Thou/mm3 (1.0-4.8); Lymphocytes % (Auto) 13 % (10-50); Mean Corpuscular HGB Conc 30.7 g/dl (31.0-37.0); Mean Corpuscular Hemoglobin 28.6 pg (25.0-35.0); Mean Corpuscular Volume 93 fL (80-100); Monocytes # (Auto) 0.6 Thou/mm3 (0.0-0.8); Monocytes % (Auto) 9 % (0-12); Neutrophils # (Auto) 5.4 Thou/mm3 (1.8-7.7); Neutrophils % (Auto) 74 % (37-80); Nucleated Red Blood Cell % 0 /100 WBC (0); O2 Saturation, Venous 46 % (96-97); PCO2, Venous 74 mmHg (36-56); PO2, Venous 27 mmHg (15-58); Platelet Count 264 Thou/mm3 (140-440); RDW Standard Deviation 61.8 fL (36.4-46.3); Red Blood Count 3.77 Miln/mm3 (4.00-5.20); White Blood Count 7.2 Thou/mm3 (3.6-11.0); pH, Venous 7.35 (7.33-7.66)
[2024-11-19 11:09] LABS: Prothrombin Time 11.4 Seconds (9.0-12.2)
[2024-11-19] MEDS: SODIUM CHLORIDE 0.9% 1000 ML 2,000 ML 150 ML IV (11:22)
[2024-11-19 11:24] LABS: B-Type Natriuretic Peptide 152 pg/mL (0-100)
[2024-11-19 11:33] LABS: Alanine Aminotransferase 19 U/L (10-49); Albumin/Globulin Ratio 1.1 (1.2-2.2); Alcohol, Blood Medical < 10.0 mg/dL (0-10.0); Alkaline Phosphatase 61 U/L (46-116); Anion Gap 3 (7-16); Aspartate Amino Transferase 28 U/L (0-34); BUN/Creatinine Ratio 22 Ratio (12-20); Bilirubin,Total 0.3 mg/dL (0.3-1.2); Blood Urea Nitrogen 11 mg/dL (9-23); Calcium (Corrected) 9.8 mg/dL (8.5-10.1); Carbon Dioxide 37.9 mMol/L (20.0-31.0); Chloride 98 mMol/L (98-107); Creatinine (Component) 0.5 mg/dL (0.6-1.3); Estimated Creatinine Clearance 101.8 mL/min (>60); Globulin 2.7 gm/dL (2.3-3.5); Glucose 89 mg/dL (74-106); Osmolality,Calculated 275 (275-295); Potassium 4.3 mMol/L (3.4-5.1); Procalcitonin 0.04 ng/ml (0.0-0.49); Sodium 139 mMol/L (136-145); Total Protein 5.7 gm/dL (5.7-8.2); Troponin I < 0.002 ng/mL (0.0-0.045); eGFR > 60 See Note
[2024-11-19] MEDS: DEXTROSE 50%-WATER INJ 50 ML SYRINGE 25 ML IV (11:41)
[2024-11-19 11:57] LABS: Ammonia < 10 uMol/L (11-32)
--- NOTE | 2024-11-19 13:11 | EKG_ITS ---
[facility] Test Date: 2024-11-19 Pat Name: MANUEL ALBA Department: Room: - Gender: Female Hair Assistant: : 1945 Requested By: Michael Snow Order Number: [id number] Reading MD: Michael Snow Measurements Intervals [place] Rate: 68 P: 11 ME: 121 QRS: -7 QRSD: 107 T: -6 QT: 397 QTc: 422 Interpretive Statements SINUS RHYTHM MINIMAL VOLTAGE CRITERIA FOR LVH, CONSIDER NORMAL VARIANT [MEETS CRITERIA IN ONE OF: R(aVL), S(V1), R(V5), R(V5/V6)+S(V1)] Compared to ECG 11/19/2024 11:13:17 Sinus arrhythmia no longer present /store/S0/[id number].pdf
--- NOTE | 2024-11-19 13:17 | PC.NURSE ---
Patient more lethargic, more difficult to arouse, RT called to check pulse ox which reads 84%, wave form not consistent, Edy Schroeder called to bedside. RT called to bedside and will place patient on BI-pap per Dr. Snow's orders
[2024-11-19 13:20] LABS: Collection Type, Urine Clean Catch
[2024-11-19 13:24] LABS: Bilirubin,Urine Negative (Negative); Blood,Urine Negative (Negative); Clarity,Urine Clear (Clear/Hazy); Color,Urine Yellow (Lt Yel-Yel); Culture Indicated,Urine Not Indicated; Glucose, Urine 1+ (Negative); Hyaline Casts,Urine < 1 /hpf (0-1); Ketones,Urine 1+ (Negative); Leukocyte Esterase,Urine Negative (Negative); Nitrite,Urine Negative (Negative); Protein,Urine Trace (Neg - Trace); RBC,Urine 1 /hpf (0-3); Specific Gravity,Urine 1.024 (1.001-1.035); Squamous Epithelial Cell,Urine < 1 /hpf (0-5); WBC,Urine 2 /hpf (0-5)
[2024-11-19 13:31] LABS: Amphetamine/Methamp Scrn,U Negative (Negative); Barbiturate Screen,Urine Negative (Negative); Benzodiazepines Screen,Urine Negative (Negative); Benzoylecgonine Screen, Ur Negative (Negative); Fentanyl Screen,Urine Negative (Negative); Opiate Screen,Urine Negative (Negative); THC Screen,Urine Negative (Negative)
[2024-11-19 14:00] LABS: Base Excess, Venous 11 (-3-3); O2 Saturation, Venous 44 % (96-97); PCO2, Venous 78 mmHg (36-56); PO2, Venous 27 mmHg (15-58); pH, Venous 7.32 (7.33-7.66)
[2024-11-19] MEDS: ALBUTEROL RT 2.5 MG/0.5 ML NEBU 10 MG INH (14:08)
--- NOTE | 2024-11-19 15:08 | PD.RESHP ---
Documentation for date of: 11/19/24 HPI History of Present Illness History of present illness: Gabriela Milan is a 79-year-old female with a past medical history of COPD on 3 L home O2, PE in 2022 s/p therapy, hypertension, hyperlipidemia, GERD, iron deficiency anemia, and depression who presented on 11/19 from [facility] encephalopathic and hypoxic. Patient answering some questions and following some commands but fatigued and on BiPAP, thus history obtained from chart review and facility. Per staff SCT, routine labs showed HCO3 of 41 and attempted to get BiPAP machine but was unable to. Following morning, patient was found encephalopathic with SpO2 in 70s that eventually dropped to the 30s despite breathing treatments. EMS subsequently arrived and on scene SpO2 71% on 5 L nonrebreather that increase to 95% on 15 L following additional albuterol administration. At baseline, patient is alert and oriented x 3 with home O2 of 3 L. No complaints of fever, cough, sore throat, dysuria, or change in bowel habits prior to admission. According to chart review, this is not patient's first time being admitted for hypoxia with most recent admission on 11/09. In ED, initial vitals showed O2 90% on 15 L oxy mask and RR of 22, otherwise vital signs stable. CBC showed chronic normocytic anemia, CHEM panel showed HCO3 of 38 (chronic retainer), BNP 152, ammonia negative, troponin negative, Pro-Williams negative. Initial VBG showed pH 7.35, pCO2 74, and pO2 27 and repeat after BiPAP showed pH 7.3, pCO2 78, and pO2 27. UA without signs of UTI but glucose and ketones present. U tox negative. CXR with poor inspiratory infort, but no acute processes seen. CT head negative, EKG showed NSR. Bedside sugar noted to be 63 and given 25 mL dextrose. Admitted for management of acute on chronic hypoxic-hypercapnic respiratory failure in setting of COPD. PMHx: As stated above PSHx: Multiple surgeries on right femur and knee, right carpal tunnel release, multiple lower back surgeries, rhinoplasty x 2 Allergies: Ergotamines (nausea), Citalopram (restless leg), latex (rash). Sulfa (rash) FHx: Son with CHF, grandson with congenital heart disease, daughter with mitral valve prolapse SHx: Retired, . 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 At baseline patient is bedbound and requires assistance with ADL. Review of Systems Review of Systems ROS Unobtainable: unobtainable due to mental status Exam Vital Signs Temp Pulse Resp BP Pulse Ox O2 Del Method O2 Flow Rate 97.8 F 66 26 H 125/63 98 Oxy Mask 5 11/19/24 12:16 11/19/24 14:11 11/19/24 14:11 11/19/24 12:16 11/19/24 14:11 11/19/24 12:16 11/19/24 12:16 FiO2 30 11/19/24 14:11 Narrative Exam General: fatigued but arousable, oriented to self/place/president, answers simple questions and follow some commands but falls asleep soon thereafter HEENT: NC/AT, mucous membranes moist, bilateral sclera anicteric Cardiovascular: regular rate and rhythm, S1/S2 present, no murmurs appreciated Pulmonary: no wheezing or crackles appreciated Abdominal: obese, soft, non-tender, non-distended Musculoskeletal: 2+ bilateral lower extremity pitting edema, poor capillary refill Skin: purpura in upper extremities bilaterally, warm and dry, intact Neuro: unable to assess Results: Labs 11/20/24 05:03 11/20/24 05:03 Labs: Short CBC 11/19/24 Range/Units 10:24 WBC 7.2 (3.6-11.0) Thou/mm3 Hgb 10.8 L (12.0-16.0) g/dL Hct 35.2 L (36.0-46.0) % Plt Count 264 D (140-440) Thou/mm3 BMP 11/19/24 10:44 Sodium 139 Potassium 4.3 Chloride 98 Carbon Dioxide 37.9 H BUN 11 Creatinine 0.5 L Glucose 89 Calcium 9.0 Cardiac Enzymes 11/19/24 Range/Units 10:44 Troponin I < 0.002 (0.0-0.045) ng/mL Liver Function 11/19/24 Range/Units 10:44 Total Bilirubin 0.3 (0.3-1.2) mg/dL AST 28 (0-34) U/L ALT 19 (10-49) U/L Alkaline Phosphatase 61 (46-116) U/L Albumin 3.0 L (3.4-4.8) gm/dL Urine 11/19/24 Range/Units 13:01 Urine Color Yellow (Lt Yel-Yel) Urine Clarity Clear (Clear/Hazy) Urine pH 6.0 (5.0-7.0) Ur Specific Fords 1.024 (1.001-1.035) Urine Protein Trace (Neg - Trace) Urine Glucose (UA) 1+ A (Negative) ABG Interpretation ABG results: 11/19/24 11/19/24 10:24 13:53 VBG pH 7.35 7.32 L VBG pCO2 74 H 78 H VBG pO2 27 27 VBG Base Excess 12 H 11 H Quality Measures Quality Measures none Advance care planning discussed with:: patient Medications Home Medications and Allergies Home Medications ?Medication ?Instructions ?Recorded ?Confirmed ?Type gabapentin 100 mg capsule 200 mg PO BID 01/15/18 11/19/24 History donepezil 5 mg tablet 5 mg PO QDAY 01/16/18 11/19/24 History atorvastatin 20 mg tablet 40 mg PO QPM 09/14/18 11/19/24 History duloxetine 60 mg capsule,delayed 60 mg PO BID 04/23/21 11/19/24 History release ergocalciferol (vitamin D2) 1,250 50,000 unit PO QWEEK 04/23/21 11/19/24 History mcg (50,000 unit) capsule multivitamin (One Daily 1 tab PO QDAY 04/23/21 11/19/24 History Multivitamin tablet) metoprolol tartrate 100 mg tablet 100 mg PO BID 05/31/23 11/19/24 History cyclobenzaprine 5 mg tablet 5 mg PO HS 10/16/24 11/19/24 History pantoprazole 40 mg tablet,delayed 40 mg PO Q12H 11/09/24 11/19/24 History release aspirin 81 mg tablet,delayed 81 mg PO DAILY 11/19/24 11/19/24 History release Allergies Allergy/AdvReac Type Severity Reaction Status Date / Time ergotamine (From Cafergot) Allergy Intermediate Nausea Verified 09/13/24 20:28 adhesive tape Allergy Mild Rash Verified 09/13/24 20:28 citalopram (From Celexa) Allergy Mild Restless Verified 09/13/24 20:28 leg latex Allergy Mild Rash Verified 09/13/24 20:28 silver Allergy Rash Verified 09/13/24 20:28 Visit Medications Acetaminophen (Acetaminophen Supp 650 Mg Supp) 650 mg MT Q6HR PRN PRN Reason: PAIN 1-3 OR FEVER > 100.4 Stop: 12/19/24 14:49 Albuterol/Ipratropium (Albuterol/Ipratropium (Duoneb) Rt Kristin 3 Ml Nebu) 3 ml INH Q4HRRT CARLO Stop: 12/19/24 14:59 Aspirin (Aspirin Ec 81 Mg Tabec) 81 mg PO QDAY CARLO Stop: 12/20/24 08:59 Atorvastatin Calcium (Atorvastatin Calcium 20 Mg Tablet) 40 mg PO HS CARLO Stop: 12/20/24 20:59 Bisacodyl (Bisacodyl 5 Mg Tabec) 10 mg PO QDAY PRN; Protocol PRN Reason: CONSTIPATION Stop: 12/19/24 15:01 Heparin Sodium (Porcine) (Heparin Sod Inj 5000 Unit/Ml Vial) 5,000 unit SC BID CARLO Stop: 12/03/24 20:59 Sodium Chloride (Ns) 2,000 mls @ 150 mls/hr IV .[id number] ONE Stop: 11/19/24 23:36 Last Admin: 11/19/24 11:22 Dose: 150 mls/hr Lactated Ringer's (Lactated Ringers) 1,000 mls @ 75 mls/hr IV .[id number] [facility] Stop: 12/19/24 14:59 Magnesium Hydroxide (Milk Of Magnesia Susp 30 Ml Udc) 30 ml PO QDAY PRN; Protocol PRN Reason: CONSTIPATION Stop: 12/19/24 15:01 Metoprolol Tartrate (Metoprolol Tartrate 25 Mg Tablet) 100 mg PO BID [facility] Stop: 12/20/24 20:59 Ondansetron HCl (Ondansetron Inj 2 Mg/Ml Inj 2 Ml) 4 mg IV Q6H PRN; Protocol PRN Reason: NAUSEA OR VOMITING Stop: 12/19/24 14:54 Pantoprazole Sodium (Pantoprazole Inj 40 Mg Vial) 40 mg IVP QDAY [facility] Stop: 12/20/24 08:59 Sodium Chloride (Sodium Chloride Rt Kristin 0.9% 3 Ml Nebu) 3 ml INH PRN PRN PRN Reason: SOLN Stop: 12/19/24 14:03 Discontinued Medications Albuterol (Albuterol Rt 2.5 Mg/0.5 Ml Nebu) 10 mg INH X1 ONE Stop: 11/19/24 14:05 Last Admin: 11/19/24 14:08 Dose: 10 mg Dextrose (Dextrose 50%-Water Inj 50 Ml Syringe) 25 ml IV X1 ONE Stop: 11/19/24 11:34 Last Admin: 11/19/24 11:41 Dose: 25 ml Methylprednisolone Sodium Succinate (Methylprednisolone Sod Succ 62.5 Mg/Ml 2ml Vial) 125 mg IVP X1 ONE Stop: 11/19/24 14:05 Assessment & Plan Plan Gabriela Milan is a 79-year-old female with a past medical history of COPD on 3 L home O2, PE in 2022 s/p therapy, hypertension, hyperlipidemia, GERD, iron deficiency anemia, and depression who presented on 11/19 from [facility] encephalopathic and hypoxic. Patient answering some questions and following some commands but fatigued and on BiPAP, thus history obtained from chart review and facility. Per staff SCT, routine labs showed HCO3 of 41 and attempted to get BiPAP machine but was unable to. Following morning, patient was found encephalopathic with SpO2 in 70s that eventually dropped to the 30s despite breathing treatments. EMS subsequently arrived and on scene SpO2 71% on 5 L nonrebreather that increase to 95% on 15 L following additional albuterol administration. At baseline, patient is alert and oriented x 3 with home O2 of 3 L. No complaints of fever, cough, sore throat, dysuria, or change in bowel habits prior to admission. According to chart review, this is not patient's first time being admitted for hypoxia with most recent admission on 11/09. Admitted for management of acute on chronic hypoxic-hypercapnic respiratory failure in setting of COPD. #Acute on chronic hypoxic-hypercapnic respiratory failure #COPD on 3 L home O2 Presents from [facility] hypoxic and encephalopathic. Staff at facility did not stay patient was experiencing cough, sore throat, fever or chills, dysuria, or change in bowel habits prior to admission. Wheezing not appreciated on exam though patient did receive breathing treatments at facility and here in ED, however will hold off on steroids for COPD exacerbation treatment for now. No fever, no leukocytosis, Pro-Williams negative and thus unlikely infectious etiology. U tox negative, ammonia negative. Most recent VBG showed pH 7.32, pCO2 70, pO2 27. Wells' criteria for PE: 3, moderate risk with previous history of PE. ? Continue BiPAP overnight ? DuoNebs as needed ? ABG/VBG at 6 PM ? Follow-up D-dimer and possible CTA chest pending results ? N.p.o., pending nurse swallow screen and speech therapy evaluation ? Maintenance LR at 75 cc/h ? Aspiration precautions ? Follow-up bladder scan #Encephalopathy, hypoxic versus hypercapnic versus medication induced Given the patient presented encephalopathic, will hold home medications. ? Above management ? Home cyclobenzaprine, donepezil, duloxetine, gabapentin, hydroxyzine, Seroquel held #History of hypertension ? Metoprolol tartrate 100 mg p.o. twice daily, pending swallow evaluation #History of hyperlipidemia ? Atorvastatin 40 mg p.o. at bedtime, pending swallow evaluation #GERD ? Pantoprazole 40 mg IV daily #Depression #Chronic back pain ? Home medications held as above Hospital management: Disposition: med tele, management for hypoxia and encephalopathy Fluids: maintenance LR at 75 cc/hr Diet: NPO, pending speech eval Lines: PIV DVT prophylaxis: heparin SC BID GI prophylaxis: pantoprazole 40 mg IV daily CODE STATUS: full code per POLST form ----- Plan discussed with attending physician Dr. Nikki Vazquez MD PGY-1 Internal Medicine Attending Provider Attestation/Addendum I reviewed labs, imaging, EKG, home medications and prior available records. Face to face evaluation was performed by me. I have personally examined the patient and discussed assessment and plan with the IM team. I reviewed the resident note and agree with the plan with exceptions as below. Acute encephalopathy, likely multifactorial in the setting of hyperactive delirium, hypercarbia, hypoglycemia, and polypharmacy Acute respiratory failure with hypercarbia Polypharmacy Hypoactive delirium COPD Chronic hypoxic respiratory failure on 3 L home oxygen Started the patient on BiPAP Held quetiapine, gabapentin, and duloxetine Management of constipation as needed Order bladder scan to rule out urinary retention Gave IV fluids. Monitor I's and O's
--- NOTE | 2024-11-19 15:49 | PC.SS ---
Initial assessment: this is 79 year-old female who presents from [facility]. Patient's granddaughterNiesha assisted with providing information. Patient has been residing at [facility] for about one month now. Patient is wheelchair bound. Patient is full assist with ADL's. Patient utilizes oxygen at facility 2-3L. Patient has a diagnosis of dementia from [facility], provider Hernandez Grijalva. Patient follows facility PCP. Patient's granddaughterNiesha identified as emergency contact. Patient to return to [facility] upon discharge. library services coordinator to follow up with any discharge needs. D/c plan: return to [facility] Next of kin: Niesha padilla
[2024-11-19] MEDS: MethylPREDNISolone SOD SUCC 62.5 MG/ML 2ML VIAL 125 MG IVP (16:12)
[2024-11-19 16:57] LABS: D-Dimer < 250 ng/mL (<600)
[2024-11-19 17:52] LABS: Base Excess, Venous 11 (-3-3); O2 Saturation, Venous 44 % (96-97); PCO2, Venous 59 mmHg (36-56); PO2, Venous 24 mmHg (15-58); pH, Venous 7.42 (7.33-7.66)
[2024-11-19] MEDS: RINGERS LACTATED 1000 ML 1,000 ML 75 ML IV (18:35)
--- NOTE | 2024-11-19 18:44 | PC.NURSE ---
Spoke with Clarisse because pt became massimo and sustained a HR of 48 for a few minutes and has since bounced around between 48 and 52. No new orders yet, he is going to review her chart
[2024-11-19] MEDS: HEPARIN SOD INJ 5000 UNIT/ML VIAL SC (21:19)
[2024-11-20] VITALS (11 sets, daily range): BP systolic 85–156; BP diastolic 54–89; PULSE 63–115; RESP 14–24; TEMP 35.9–36.8; O2SAT 71–100; BMI 38.2
[2024-11-20] MEDS: DEXTROSE 50%-WATER INJ 50 ML SYRINGE 25 ML IV ×2 (03:10)
--- NOTE | 2024-11-20 04:00 | PC.NURSE ---
System downtime from 0200 - 0400.
--- NOTE | 2024-11-20 04:20 | PD.RESEVENT ---
Documentation for date of: 11/20/24 Event Note Event Note: Room number: 376 At 3:05 AM rapid response was called due to patient's saturation level 71%, respiratory rate was 17, fingerstick blood glucose was 55. Patient appeared somnolent with BiPAP mask on with head slumped, pulse oximetry probe was readjusted and had was repositioned in a more extended position which improved saturation to the level 96-98%. Patient was given amp of D50. Blood pressure was measured after the intervention and was 99/54. Will readjust position in the head and will continue with BiPAP. Plan of care discussed with attending Dr. Daily, PGY-[address] Morse. Lulu Hathaway MD, PGY 1.
[2024-11-20] MEDS: RINGERS LACTATED 1000 ML 1,000 ML 75 ML IV ×2 (05:51→17:35)
[2024-11-20 05:57] LABS: Basophils % (Auto) 0 % (0-2.5); Eosinophils % (Auto) 0 % (0-10); Hematocrit 32.8 % (36.0-46.0); Hemoglobin 10.2 g/dL (12.0-16.0); Immature Granulocytes % (Auto) 0 % (0-0); Immature Granulocytes Auto 0.01 Thou/mm3 (0.00-0.00); Lymphocytes # (Auto) 0.4 Thou/mm3 (1.0-4.8); Lymphocytes % (Auto) 8 % (10-50); Mean Corpuscular HGB Conc 31.1 g/dl (31.0-37.0); Mean Corpuscular Hemoglobin 28.3 pg (25.0-35.0); Mean Corpuscular Volume 91 fL (80-100); Monocytes # (Auto) 0.1 Thou/mm3 (0.0-0.8); Monocytes % (Auto) 1 % (0-12); Neutrophils # (Auto) 3.7 Thou/mm3 (1.8-7.7); Neutrophils % (Auto) 90 % (37-80); Nucleated Red Blood Cell % 0 /100 WBC (0); Platelet Count 258 Thou/mm3 (140-440); RDW Standard Deviation 61.2 fL (36.4-46.3); White Blood Count 4.2 Thou/mm3 (3.6-11.0)
[2024-11-20 07:45] LABS: Anion Gap 9 (7-16); BUN/Creatinine Ratio 20 Ratio (12-20); Blood Urea Nitrogen 14 mg/dL (9-23); Calcium 8.5 mg/dL (8.3-10.6); Carbon Dioxide 31.8 mMol/L (20.0-31.0); Cardiac Risk Estimate 1.7 RATIO (3.7-5.6); Chloride 101 mMol/L (98-107); Cholesterol 136 mg/dL (132-200); Creatinine (Component) 0.7 mg/dL (0.6-1.3); Estimated Creatinine Clearance 72.3 mL/min (>60); Glucose 179 mg/dL (74-106); HDL Cholesterol 79 mg/dL (40-60); LDL Cholesterol,Calculated 44 mg/dL (0-130); Magnesium 1.7 mg/dL (1.6-2.6); Osmolality,Calculated 287 (275-295); Phosphorous 4.3 mg/dL (2.4-5.1); Potassium 4.3 mMol/L (3.4-5.1); Sodium 142 mMol/L (136-145); Thyroid Stimulating Hormone 1.78 uIU/mL (0.55-4.78); Triglycerides 65 mg/dL (30-150); eGFR > 60 See Note
[2024-11-20] MEDS: Magnesium Sulfate 2 GM Ivpb 2 GM/50 ML BAG IV (10:13)
[2024-11-20] MEDS: HEPARIN SOD INJ 5000 UNIT/ML VIAL SC ×2 (10:13→22:01)
[2024-11-20] MEDS: ASPIRIN EC 81 MG TABEC PO (10:14)
[2024-11-20] MEDS: PANTOPRAZOLE INJ 40 MG VIAL IVP (10:14)
--- NOTE | 2024-11-20 11:11 | ESPR_ITS ---
Documentation for date of: 11/20/24 Subjective Subjective Interval history: Gabriela Milan is a 79-year-old female with a past medical history of COPD on 3 L home O2, PE in 2022 s/p therapy, hypertension, hyperlipidemia, GERD, iron deficiency anemia, and depression who presented on 11/19 from [facility] encephalopathic and hypoxic. Patient answering some questions and following some commands but fatigued and on BiPAP, thus history obtained from chart review and facility. Per staff SCT, routine labs showed HCO3 of 41 and attempted to get BiPAP machine but was unable to. Following morning, patient was found encephalopathic with SpO2 in 70s that eventually dropped to the 30s despite breathing treatments. EMS subsequently arrived and on scene SpO2 71% on 5 L nonrebreather that increase to 95% on 15 L following additional albuterol administration. At baseline, patient is alert and oriented x 3 with home O2 of 3 L. No complaints of fever, cough, sore throat, dysuria, or change in bowel habits prior to admission. Admitted for hypoxia and encephalopathy. 11/20: Rapid respones overnight for hypoxia with SpO2 71% and fingerstick glucose of 55. Patient was somnolent with BiPAP and head slumped, pulse ox probe was readjusted and head was repositioned that improved saturation to 96 to 98% and given amp of D50. Seen and examined at bedside in patient much more alert and oriented compared to admission. States that she cannot recall incidents leading up to hospitalization and that she would like her phone. Otherwise, patient was on BiPAP overnight and was switched to nasal cannula in AM and started on diet after seen by speech therapy. Exam Vital Signs Temp Pulse Resp BP Pulse Ox O2 Del Method O2 Flow Rate 97.5 F 96 18 98/58 L 98 BiPAP 5 11/20/24 08:00 11/20/24 08:00 11/20/24 08:00 11/20/24 08:00 11/20/24 08:00 11/20/24 08:00 11/20/24 08:00 FiO2 45 11/20/24 08:00 Narrative Exam General: alert, orientated to self/birthdate/place and able to hold conversation though on BiPAP during evaluation HEENT: NC/AT, mucous membranes moist, bilateral sclera anicteric Cardiovascular: regular rate and rhythm, S1/S2 present, no murmurs appreciated Pulmonary: no wheezing or crackles appreciated Abdominal: obese, soft, non-tender, non-distended Musculoskeletal: 2+ bilateral lower extremity pitting edema, poor capillary refill Skin: purpura in upper extremities bilaterally, warm and dry, intact Objective Labs 11/20/24 05:03 11/20/24 05:03 Labs: Laboratory Results - last 24 hr 11/19/24 11/19/24 11/19/24 10:24 10:41 10:44 WBC RBC Hgb Hct MCV MCH MCHC RDW Std Deviation Plt Count Neut % (Auto) Lymph % (Auto) [place] % (Auto) Eos % (Auto) Baso % (Auto) Neut # (Auto) Lymph # (Auto) [place] # (Auto) Eos # (Auto) Baso # (Auto) Immature Gran # (Auto) Absolute Nucleated RBC Immature Gran % Nucleated RBC % D-Dimer < 250 VBG pH VBG pCO2 VBG pO2 VBG O2 Sat (Osiris) VBG Base Excess Sodium 139 Potassium 4.3 Chloride 98 Carbon Dioxide 37.9 H Anion Gap 3 L BUN 11 Creatinine 0.5 L Estim Creat Clear Calc 101.8 eGFR > 60 BUN/Creatinine Ratio 22 H Glucose 89 Calculated Osmolality 275 Calcium 9.0 Corrected Calcium 9.8 Phosphorus Magnesium Total Bilirubin 0.3 AST 28 ALT 19 Alkaline Phosphatase 61 Ammonia < 10 L Troponin I < 0.002 B-Natriuretic Peptide 152 H Total Protein 5.7 Albumin 3.0 L Globulin 2.7 Albumin/Globulin Ratio 1.1 L Triglycerides Cholesterol LDL Cholesterol, Calc HDL Cholesterol Cholesterol/HDL Ratio Procalcitonin 0.04 TSH Ur Collection Type Urine Color Urine Clarity Urine pH Ur Specific [place] Urine Protein Urine Glucose (UA) Urine Ketones Urine Blood Urine Nitrite Urine Bilirubin Urine Urobilinogen (Auto) Ur Leukocyte Esterase Urine RBC Urine WBC Ur Squamous Epith Cells Urine Bacteria Hyaline Casts Ur Culture Indicated? Urine Opiates Screen Urine Fentanyl Screen Ur Barbiturates Screen U Amphetamin/Meth Scrn U Benzodiazepines Scrn U Cocaine Metab Screen U Marijuana (THC) Screen Ethyl Alcohol < 10.0 Blood Type A Positive Antibody Screen NEGATIVE 11/19/24 11/19/24 11/19/24 13:01 13:53 17:41 WBC RBC Hgb Hct MCV MCH MCHC RDW Std Deviation Plt Count Neut % (Auto) Lymph % (Auto) [place] % (Auto) Eos % (Auto) Baso % (Auto) Neut # (Auto) Lymph # (Auto) [place] # (Auto) Eos # (Auto) Baso # (Auto) Immature Gran # (Auto) Absolute Nucleated RBC Immature Gran % Nucleated RBC % D-Dimer VBG pH 7.32 L 7.42 VBG pCO2 78 H 59 H D VBG pO2 27 24 VBG O2 Sat (Osiris) 44 L 44 L VBG Base Excess 11 H 11 H Sodium Potassium Chloride Carbon Dioxide Anion Gap BUN Creatinine Estim Creat Clear Calc eGFR BUN/Creatinine Ratio Glucose Calculated Osmolality Calcium Corrected Calcium Phosphorus Magnesium Total Bilirubin AST ALT Alkaline Phosphatase Ammonia Troponin I B-Natriuretic Peptide Total Protein Albumin Globulin Albumin/Globulin Ratio Triglycerides Cholesterol LDL Cholesterol, Calc HDL Cholesterol Cholesterol/HDL Ratio Procalcitonin TSH Ur Collection Type Clean Catch Urine Color Yellow Urine Clarity Clear Urine pH 6.0 Ur Specific [place] 1.024 Urine Protein Trace Urine Glucose (UA) 1+ A Urine Ketones 1+ A Urine Blood Negative Urine Nitrite Negative Urine Bilirubin Negative Urine Urobilinogen (Auto) 2.0 Ur Leukocyte Esterase Negative Urine RBC 1 Urine WBC 2 Ur Squamous Epith Cells < 1 Urine Bacteria None Hyaline Casts < 1 Ur Culture Indicated? Not Indicated Urine Opiates Screen Negative Urine Fentanyl Screen Negative Ur Barbiturates Screen Negative U Amphetamin/Meth Scrn Negative U Benzodiazepines Scrn Negative U Cocaine Metab Screen Negative U Marijuana (THC) Screen Negative Ethyl Alcohol Blood Type Antibody Screen 11/20/24 05:03 WBC 4.2 D RBC 3.60 L Hgb 10.2 L Hct 32.8 L MCV 91 MCH 28.3 MCHC 31.1 RDW Std Deviation 61.2 H Plt Count 258 Neut % (Auto) 90 H Lymph % (Auto) 8 L [place] % (Auto) 1 Eos % (Auto) 0 Baso % (Auto) 0 Neut # (Auto) 3.7 Lymph # (Auto) 0.4 L [place] # (Auto) 0.1 Eos # (Auto) 0.0 Baso # (Auto) 0.0 Immature Gran # (Auto) 0.01 H Absolute Nucleated RBC 0.00 Immature Gran % 0 Nucleated RBC % 0 D-Dimer VBG pH VBG pCO2 VBG pO2 VBG O2 Sat (Osiris) VBG Base Excess Sodium 142 Potassium 4.3 Chloride 101 Carbon Dioxide 31.8 H Anion Gap 9 BUN 14 Creatinine 0.7 Estim Creat Clear Calc 72.3 eGFR > 60 BUN/Creatinine Ratio 20 Glucose 179 H D Calculated Osmolality 287 Calcium 8.5 Corrected Calcium Phosphorus 4.3 Magnesium 1.7 Total Bilirubin AST ALT Alkaline Phosphatase Ammonia Troponin I B-Natriuretic Peptide Total Protein Albumin Globulin Albumin/Globulin Ratio Triglycerides 65 Cholesterol 136 LDL Cholesterol, Calc 44 HDL Cholesterol 79 H Cholesterol/HDL Ratio 1.7 L Procalcitonin TSH 1.78 D Ur Collection Type Urine Color Urine Clarity Urine pH Ur Specific [place] Urine Protein Urine Glucose (UA) Urine Ketones Urine Blood Urine Nitrite Urine Bilirubin Urine Urobilinogen (Auto) Ur Leukocyte Esterase Urine RBC Urine WBC Ur Squamous Epith Cells Urine Bacteria Hyaline Casts Ur Culture Indicated? Urine Opiates Screen Urine Fentanyl Screen Ur Barbiturates Screen U Amphetamin/Meth Scrn U Benzodiazepines Scrn U Cocaine Metab Screen U Marijuana (THC) Screen Ethyl Alcohol Blood Type Antibody Screen ABG Interpretation ABG results: 11/19/24 11/19/24 11/19/24 10:24 13:53 17:41 VBG pH 7.35 7.32 L 7.42 VBG pCO2 74 H 78 H 59 H D VBG pO2 27 27 24 VBG Base Excess 12 H 11 H 11 H Quality Measures Quality Measures none Advance care planning discussed with:: patient Assessment & Plan Assessment Current Active Medications: Generic Name Dose Route Start Last Admin Trade Name Freq PRN Reason Stop Dose Admin Acetaminophen 650 mg 11/19/24 14:50 Acetaminophen Supp 650 Mg Supp CO 12/19/24 14:49 Q6HR PRN PAIN 1-3 OR FEVER > 100.4 Albuterol/Ipratropium 3 ml 11/19/24 15:12 Albuterol/Ipratropium (Duoneb) Rt Kristin 3 Ml Nebu INH 12/19/24 14:59 Q4HRRT PRN Wheezing or shortness of breath Aspirin 81 mg 11/20/24 09:00 11/20/24 10:14 Aspirin Ec 81 Mg Tabec PO 12/20/24 08:59 81 mg QDAY CARLO Administration Atorvastatin Calcium 40 mg 11/20/24 21:00 Atorvastatin Calcium 20 Mg Tablet PO 12/20/24 20:59 HS CARLO Bisacodyl 10 mg 11/19/24 15:02 Bisacodyl 5 Mg Tabec PO 12/19/24 15:01 QDAY PRN CONSTIPATION Protocol Heparin Sodium (Porcine) 5,000 unit 11/19/24 21:00 04/02/25 10:13 Heparin Sod Inj 5000 Unit/Ml Vial SC 12/03/24 20:59 5,000 unit BID CARLO Administration Lactated Ringer's 1,000 mls @ 75 mls/hr 11/19/24 15:00 11/20/24 05:51 Lactated Ringers IV 12/19/24 14:59 75 mls/hr .[id number] CARLO Administration Ketorolac Tromethamine 30 mg 11/19/24 16:23 Ketorolac Inj 30 Mg/Ml Vial IVP 11/24/24 16:22 Q6HR PRN PAIN SCALE 4-10(Mod-Sev Magnesium Hydroxide 30 ml 11/19/24 15:02 Milk Of Magnesia Susp 30 Ml Udc PO 12/19/24 15:01 QDAY PRN CONSTIPATION Protocol Metoprolol Tartrate 100 mg 11/20/24 21:00 Metoprolol Tartrate 25 Mg Tablet PO 12/20/24 20:59 BID CARLO Ondansetron HCl 4 mg 11/19/24 14:55 Ondansetron Inj 2 Mg/Ml Inj 2 Ml IV 12/19/24 14:54 Q6H PRN NAUSEA OR VOMITING Protocol Pantoprazole Sodium 40 mg 11/20/24 09:00 11/20/24 10:14 Pantoprazole Inj 40 Mg Vial IVP 12/20/24 08:59 40 mg QDAY CARLO Administration Sodium Chloride 3 ml 11/19/24 14:04 Sodium Chloride Rt Kristin 0.9% 3 Ml Nebu INH 12/19/24 14:03 PRN PRN SOLN Plan Gabriela Milan is a 79-year-old female with a past medical history of COPD on 3 L home O2, PE in 2022 s/p therapy, hypertension, hyperlipidemia, GERD, iron deficiency anemia, and depression who presented on 11/19 from [facility] encephalopathic and hypoxic. Patient answering some questions and following some commands but fatigued and on BiPAP, thus history obtained from chart review and facility. Per staff SCT, routine labs showed HCO3 of 41 and attempted to get BiPAP machine but was unable to. Following morning, patient was found encephalopathic with SpO2 in 70s that eventually dropped to the 30s despite breathing treatments. EMS subsequently arrived and on scene SpO2 71% on 5 L nonrebreather that increase to 95% on 15 L following additional albuterol administration. At baseline, patient is alert and oriented x 3 with home O2 of 3 L. No complaints of fever, cough, sore throat, dysuria, or change in bowel habits prior to admission. According to chart review, this is not patient's first time being admitted for hypoxia with most recent admission on 11/09. Admitted for management of acute on chronic hypoxic-hypercapnic respiratory failure in setting of COPD. #Acute on chronic hypoxic-hypercapnic respiratory failure #COPD on 3 L home O2 Presents from [facility] hypoxic and encephalopathic. Staff at facility did not stay patient was experiencing cough, sore throat, fever or chills, dysuria, or change in bowel habits prior to admission. Wheezing not appreciated on exam though patient did receive breathing treatments at facility and in ED, however will hold off on steroids for COPD exacerbation treatment for now. No fever, no leukocytosis, Pro-Williams negative and thus unlikely infectious etiology. U tox negative, ammonia negative. Wells' criteria for PE: 3, moderate risk with previous history of PE. D-dimer negative so will defer CTA chest. ? BiPAP HS PRN ? Supplemental oxygen as needed, has home O2 of 2-3 L at baseline ? Titrate O2 to 88-92% ? DuoNebs as needed ? Aspiration precautions #Encephalopathy, hypoxic versus hypercapnic versus medication induced Given the patient presented encephalopathic, will hold home medications. Bladder scan did not show urinary retention. ? Above management ? Hold home cyclobenzaprine, donepezil, gabapentin, hydroxyzine, Seroquel #History of hypertension ? Hold home metoprolol tartrate 100 mg p.o. BID given low BP #History of hyperlipidemia ? Atorvastatin 40 mg p.o. at bedtime #GERD ? Pantoprazole 40 mg IV daily #Depression #Chronic back pain ? Duloxetine 60 mg PO BID resumed ? All other home medications held as above Hospital management: Disposition: management of hypoxia and encephalopathy, improving Fluids: not indicated Diet: dysphagia 2 - mechanical altered Lines: PIV DVT prophylaxis: heparin SC BID GI prophylaxis: pantoprazole 40 mg IV daily CODE STATUS: full code ----- Plan discussed with attending physician Dr. Nikki Vazquez MD PGY-1 Internal Medicine Attending Provider Attestation/Addendum I reviewed labs, imaging, EKG, home medications and prior available records. Face to face evaluation was performed by me. I have personally examined the patient and discussed assessment and plan with the IM team. I reviewed the resident note and agree with the plan with exceptions as below. Acute encephalopathy, likely multifactorial in the setting of hyperactive delirium, hypercarbia, hypoglycemia, and polypharmacy Acute respiratory failure with hypercarbia Polypharmacy Hypoactive delirium COPD Chronic hypoxic respiratory failure on 3 L home oxygen Rapid response was called for worsening hypoxia however patient's oxygen levels improved. She is currently on nasal cannula Continue nightly Patient got hypotensive in the a.m. Held metoprolol. Gave IV fluids. Monitor BP closely Held quetiapine, gabapentin. Start duloxetine at low-dose 30 mg daily for the chronic pain Management of constipation as needed
--- NOTE | 2024-11-20 14:54 | PC.SS ---
Rounding note: anticipate d/c tomorrow back to SNF.
[2024-11-20] MEDS: SUMAtriptan 25 MG TABLET PO (17:26)
[2024-11-20] MEDS: DULoxetine HCL 30 MG CAPSULE 60 MG PO (22:01)
[2024-11-20] MEDS: ATORVASTATIN CALCIUM 20 MG TABLET 40 MG PO (22:01)
[2024-11-21] VITALS (15 sets, daily range): BP systolic 101–161; BP diastolic 64–106; PULSE 66–132; RESP 12–22; TEMP 36.1–36.6; O2SAT 92–100; BMI 38.6
[2024-11-21 05:56] LABS: Basophils % (Auto) 0 % (0-2.5); Eosinophils # (Auto) 0.1 Thou/mm3 (0.0-0.5); Eosinophils % (Auto) 2 % (0-10); Hematocrit 32.6 % (36.0-46.0); Hemoglobin 10.3 g/dL (12.0-16.0); Immature Granulocytes % (Auto) 0 % (0-0); Immature Granulocytes Auto 0.03 Thou/mm3 (0.00-0.00); Lymphocytes # (Auto) 1.4 Thou/mm3 (1.0-4.8); Lymphocytes % (Auto) 20 % (10-50); Mean Corpuscular HGB Conc 31.6 g/dl (31.0-37.0); Mean Corpuscular Hemoglobin 28.5 pg (25.0-35.0); Mean Corpuscular Volume 90 fL (80-100); Monocytes # (Auto) 0.9 Thou/mm3 (0.0-0.8); Monocytes % (Auto) 12 % (0-12); Neutrophils # (Auto) 4.8 Thou/mm3 (1.8-7.7); Neutrophils % (Auto) 66 % (37-80); Nucleated Red Blood Cell % 0 /100 WBC (0); Platelet Count 297 Thou/mm3 (140-440); RDW Standard Deviation 61.6 fL (36.4-46.3); Red Blood Count 3.61 Miln/mm3 (4.00-5.20); White Blood Count 7.2 Thou/mm3 (3.6-11.0)
[2024-11-21 06:30] LABS: Anion Gap 9 (7-16); BUN/Creatinine Ratio 20 Ratio (12-20); Blood Urea Nitrogen 14 mg/dL (9-23); Calcium 9.4 mg/dL (8.3-10.6); Carbon Dioxide 33.3 mMol/L (20.0-31.0); Chloride 100 mMol/L (98-107); Creatinine (Component) 0.7 mg/dL (0.6-1.3); Estimated Creatinine Clearance 72.8 mL/min (>60); Glucose 89 mg/dL (74-106); Magnesium 1.9 mg/dL (1.6-2.6); Osmolality,Calculated 282 (275-295); Phosphorous 2.9 mg/dL (2.4-5.1); Potassium 3.6 mMol/L (3.4-5.1); Sodium 142 mMol/L (136-145); eGFR > 60 See Note
[2024-11-21] MEDS: RINGERS LACTATED 1000 ML 1,000 ML 75 ML IV ×2 (09:16→23:17)
[2024-11-21] MEDS: DULoxetine HCL 30 MG CAPSULE 60 MG PO ×2 (10:00→20:30)
[2024-11-21] MEDS: GABAPENTIN 100 MG CAPSULE 200 MG PO (10:01)
[2024-11-21] MEDS: ASPIRIN EC 81 MG TABEC PO (10:02)
[2024-11-21] MEDS: ALPRazoLAM 0.25 MG TABLET 0.5 MG PO (10:02)
[2024-11-21] MEDS: METOPROLOL TARTRATE 25 MG TABLET 50 MG PO ×2 (10:03→20:31)
[2024-11-21] MEDS: HEPARIN SOD INJ 5000 UNIT/ML VIAL SC ×2 (10:05→20:30)
[2024-11-21] MEDS: DONEPEZIL HCL 5 MG TABLET PO (10:23)
[2024-11-21] MEDS: PANTOPRAZOLE INJ 40 MG VIAL IVP (10:29)
--- NOTE | 2024-11-21 10:56 | ESPR_ITS ---
Documentation for date of: 11/21/24 Subjective Subjective Interval history: Gabriela Milan is a 79-year-old female with a past medical history of COPD on 3 L home O2, PE in 2022 s/p therapy, hypertension, hyperlipidemia, GERD, iron deficiency anemia, and depression who presented on 11/19 from [facility] encephalopathic and hypoxic. Patient answering some questions and following some commands but fatigued and on BiPAP, thus history obtained from chart review and facility. Per staff SCT, routine labs showed HCO3 of 41 and attempted to get BiPAP machine but was unable to. Following morning, patient was found encephalopathic with SpO2 in 70s that eventually dropped to the 30s despite breathing treatments. EMS subsequently arrived and on scene SpO2 71% on 5 L nonrebreather that increase to 95% on 15 L following additional albuterol administration. At baseline, patient is alert and oriented x 3 with home O2 of 3 L. No complaints of fever, cough, sore throat, dysuria, or change in bowel habits prior to admission. Admitted for hypoxia and encephalopathy. 11/20: Rapid respones overnight for hypoxia with SpO2 71% and fingerstick glucose of 55. Patient was somnolent with BiPAP and head slumped, pulse ox probe was readjusted and head was repositioned that improved saturation to 96 to 98% and given amp of D50. Seen and examined at bedside in patient much more alert and oriented compared to admission. States that she cannot recall incidents leading up to hospitalization and that she would like her phone. Otherwise, patient was on BiPAP overnight and was switched to nasal cannula in AM and started on diet after seen by speech therapy. 11/21: No acute overnight events noted, did not require BiPAP. Seen and examined at bedside. Denies shortness of breath and is breathing comfortably on her baseline of 3 L of NC. Teary-eyed, stating that she is unsure if her son has while being at her facility. Otherwise, is alert and oriented to self/birthdate/year/place. Exam Vital Signs Temp Pulse Resp BP Pulse Ox O2 Del Method O2 Flow Rate 97 F 110 H 18 108/65 93 L Nasal Cannula 3 11/21/24 07:38 11/21/24 10:03 11/21/24 09:42 11/21/24 10:03 11/21/24 09:42 11/21/24 07:38 11/21/24 09:42 FiO2 96 11/21/24 07:18 Narrative Exam General: alert, orientated to self/birthdate/place and able to hold conversation HEENT: NC/AT, mucous membranes moist, bilateral sclera anicteric Cardiovascular: regular rate and rhythm, S1/S2 present, no murmurs appreciated Pulmonary: no wheezing or crackles appreciated Abdominal: obese, soft, non-tender, non-distended Musculoskeletal: 2+ bilateral lower extremity pitting edema, poor capillary refill Skin: purpura in upper extremities bilaterally, warm and dry, intact Objective Labs 11/22/24 05:21 11/22/24 05:21 Labs: Laboratory Results - last 24 hr 11/21/24 05:12 WBC 7.2 D RBC 3.61 L Hgb 10.3 L Hct 32.6 L MCV 90 MCH 28.5 MCHC 31.6 RDW Std Deviation 61.6 H Plt Count 297 D Neut % (Auto) 66 Lymph % (Auto) 20 [place] % (Auto) 12 Eos % (Auto) 2 Baso % (Auto) 0 Neut # (Auto) 4.8 Lymph # (Auto) 1.4 [place] # (Auto) 0.9 H Eos # (Auto) 0.1 Baso # (Auto) 0.0 Immature Gran # (Auto) 0.03 H Absolute Nucleated RBC 0.00 Immature Gran % 0 Nucleated RBC % 0 Sodium 142 Potassium 3.6 D Chloride 100 Carbon Dioxide 33.3 H Anion Gap 9 BUN 14 Creatinine 0.7 Estim Creat Clear Calc 72.8 eGFR > 60 BUN/Creatinine Ratio 20 Glucose 89 D Calculated Osmolality 282 Calcium 9.4 Phosphorus 2.9 Magnesium 1.9 ABG Interpretation ABG results: 11/19/24 11/19/24 11/19/24 10:24 13:53 17:41 VBG pH 7.35 7.32 L 7.42 VBG pCO2 74 H 78 H 59 H D VBG pO2 27 27 24 VBG Base Excess 12 H 11 H 11 H Quality Measures Quality Measures none Advance care planning discussed with:: patient Assessment & Plan Assessment Current Active Medications: Generic Name Dose Route Start Last Admin Trade Name Freq PRN Reason Stop Dose Admin Acetaminophen 650 mg 11/19/24 14:50 Acetaminophen Supp 650 Mg Supp IA 12/19/24 14:49 Q6HR PRN PAIN 1-3 OR FEVER > 100.4 Albuterol/Ipratropium 3 ml 11/19/24 15:12 Albuterol/Ipratropium (Duoneb) Rt Kristin 3 Ml Nebu INH 12/19/24 14:59 Q4HRRT PRN Wheezing or shortness of breath Aspirin 81 mg 11/20/24 09:00 11/21/24 10:02 Aspirin Ec 81 Mg Tabec PO 12/20/24 08:59 81 mg QDAY CARLO Administration Atorvastatin Calcium 40 mg 11/20/24 21:00 11/20/24 22:01 Atorvastatin Calcium 20 Mg Tablet PO 12/20/24 20:59 40 mg HS CARLO Administration Bisacodyl 10 mg 11/19/24 15:02 Bisacodyl 5 Mg Tabec PO 12/19/24 15:01 QDAY PRN CONSTIPATION Protocol Donepezil HCl 5 mg 11/21/24 09:45 11/21/24 10:23 Donepezil Hcl 5 Mg Tablet PO 12/21/24 09:44 5 mg QDAY CARLO Administration Duloxetine HCl 60 mg 11/20/24 21:00 11/21/24 10:00 Duloxetine Hcl 30 Mg Capsule PO 12/20/24 20:59 60 mg BID CARLO Administration Gabapentin 200 mg 11/21/24 09:45 11/21/24 10:01 Gabapentin 100 Mg Capsule PO 12/21/24 09:44 200 mg QDAY CARLO Administration Heparin Sodium (Porcine) 5,000 unit 11/19/24 21:00 11/21/24 10:05 Heparin Sod Inj 5000 Unit/Ml Vial SC 12/03/24 20:59 5,000 unit BID CARLO Administration Lactated Ringer's 1,000 mls @ 75 mls/hr 11/19/24 15:00 11/21/24 09:16 Lactated Ringers IV 12/19/24 14:59 75 mls/hr .[id number] CARLO Administration Ketorolac Tromethamine 30 mg 11/19/24 16:23 Ketorolac Inj 30 Mg/Ml Vial IVP 11/24/24 16:22 Q6HR PRN PAIN SCALE 4-10(Mod-Sev Magnesium Hydroxide 30 ml 11/19/24 15:02 Milk Of Magnesia Susp 30 Ml Udc PO 12/19/24 15:01 QDAY PRN CONSTIPATION Protocol Metoprolol Tartrate 50 mg 11/21/24 09:00 11/21/24 10:03 Metoprolol Tartrate 25 Mg Tablet PO 12/21/24 08:59 50 mg BID CARLO Administration Ondansetron HCl 4 mg 11/19/24 14:55 Ondansetron Inj 2 Mg/Ml Inj 2 Ml IV 12/19/24 14:54 Q6H PRN NAUSEA OR VOMITING Protocol Pantoprazole Sodium 40 mg 11/20/24 09:00 11/21/24 10:29 Pantoprazole Inj 40 Mg Vial IVP 12/20/24 08:59 40 mg QDAY CARLO Administration Quetiapine Fumarate 25 mg 11/21/24 09:45 Quetiapine Fumarate 25 Mg Tablet PO 12/21/24 09:44 HS PRN agitation, hallucinations Sodium Chloride 3 ml 11/19/24 14:04 Sodium Chloride Rt Kristin 0.9% 3 Ml Nebu INH 12/19/24 14:03 PRN PRN SOLN Plan Gabriela Milan is a 79-year-old female with a past medical history of COPD on 3 L home O2, PE in 2022 s/p therapy, hypertension, hyperlipidemia, GERD, iron deficiency anemia, dementia, and depression who presented on 11/19 from [facility] encephalopathic and hypoxic. Patient answering some questions and following some commands but fatigued and on BiPAP, thus history obtained from chart review and facility. Per staff SCT, routine labs showed HCO3 of 41 and attempted to get BiPAP machine but was unable to. Following morning, patient was found encephalopathic with SpO2 in 70s that eventually dropped to the 30s despite breathing treatments. EMS subsequently arrived and on scene SpO2 71% on 5 L nonrebreather that increase to 95% on 15 L following additional albuterol administration. At baseline, patient is alert and oriented x 3 with home O2 of 3 L. No complaints of fever, cough, sore throat, dysuria, or change in bowel habits prior to admission. According to chart review, this is not patient's first time being admitted for hypoxia with most recent admission on 11/09. Admitted for management of acute on chronic hypoxic-hypercapnic respiratory failure in setting of COPD. #Acute on chronic hypoxic-hypercapnic respiratory failure #COPD on 3 L home O2 Presents from [facility] hypoxic and encephalopathic. Staff at facility did not stay patient was experiencing cough, sore throat, fever or chills, dysuria, or change in bowel habits prior to admission. Wheezing not appreciated on exam though patient did receive breathing treatments at facility and in ED, however will hold off on steroids for COPD exacerbation treatment for now. No fever, no leukocytosis, Pro-Williams negative and thus unlikely infectious etiology. U tox negative, ammonia negative. Wells' criteria for PE: 3, moderate risk with previous history of PE. D-dimer negative so will defer CTA chest. ? BiPAP HS PRN ? Supplemental oxygen as needed, has home O2 of 2-3 L at baseline ? Titrate O2 to 88-92% ? DuoNebs as needed ? Aspiration precautions #Encephalopathy, hypoxic versus hypercapnic versus medication induced Given the patient presented encephalopathic, will hold home medications. Bladder scan did not show urinary retention. ? Above management ? Hold home cyclobenzaprine, hydroxyzine #History of hypertension ? Hold home metoprolol tartrate 100 mg p.o. BID given low BP #History of hyperlipidemia ? Atorvastatin 40 mg p.o. at bedtime #GERD ? Pantoprazole 40 mg IV daily #Depression #Chronic back pain ? Duloxetine 60 mg PO BID resumed ? Gabapentin 200 mg PO daily (home dose of 200 mg BID) ? Quetiapine 25 mg PO HS PRN ? All other home medications held as above #Dementia ? Resumed home donepezil 5 mg PO daily Hospital management: Disposition: management of hypoxia and encephalopathy, improving Fluids: not indicated Diet: dysphagia 2 - mechanical altered Lines: PIV DVT prophylaxis: heparin SC BID GI prophylaxis: pantoprazole 40 mg IV daily CODE STATUS: full code ----- Plan discussed with attending physician Dr. Felecia Vazquez MD PGY-1 Internal Medicine Attending Provider Attestation/Addendum Face to face evaluation was performed by me. I have personally seen and examined the patient. I discussed the assessment and plan with the entire medicine team. I reviewed available medical records, imaging studies, laboratory results. I agree with the above subjective data, objective findings, assessment and plan except as corrected by me or noted below Acute on chronic hypoxic and hypercapnic respiratory failure Acute encephalopathy, suspect combination of metabolic encephalopathy from hypoxia and hypercapnia also polypharmacy-gabapentin, Flexeril, donepezil. Possible polypharmacy as mentioned above -Intermittent BiPAP, continue current therapy as ordered. Monitor mental status closely. Start gabapentin low-dose 200 mg daily instead of twice daily hold Flexeril and Seroquel. Likely introduce donepezil as well. More than > 30 minutes spent on the encounter
--- NOTE | 2024-11-21 16:19 | PC.SS ---
Rounding note: pending medication adjustment, possible d/c tomorrow back to SNF.
[2024-11-21] MEDS: ATORVASTATIN CALCIUM 20 MG TABLET 40 MG PO (20:30)
[2024-11-22] VITALS (8 sets, daily range): BP systolic 116–163; BP diastolic 77–97; PULSE 67–117; RESP 16–19; TEMP 34.8–36.2; O2SAT 94–99
[2024-11-22 05:31] LABS: Basophils % (Auto) 1 % (0-2.5); Eosinophils # (Auto) 0.4 Thou/mm3 (0.0-0.5); Eosinophils % (Auto) 6 % (0-10); Hemoglobin 9.8 g/dL (12.0-16.0); Immature Granulocytes % (Auto) 0 % (0-0); Immature Granulocytes Auto 0.02 Thou/mm3 (0.00-0.00); Lymphocytes # (Auto) 1.1 Thou/mm3 (1.0-4.8); Lymphocytes % (Auto) 19 % (10-50); Mean Corpuscular HGB Conc 29.7 g/dl (31.0-37.0); Mean Corpuscular Hemoglobin 28.5 pg (25.0-35.0); Mean Corpuscular Volume 96 fL (80-100); Monocytes # (Auto) 0.7 Thou/mm3 (0.0-0.8); Monocytes % (Auto) 12 % (0-12); Neutrophils # (Auto) 3.7 Thou/mm3 (1.8-7.7); Neutrophils % (Auto) 62 % (37-80); Nucleated Red Blood Cell % 0 /100 WBC (0); Platelet Count 232 Thou/mm3 (140-440); RDW Standard Deviation 65.8 fL (36.4-46.3); Red Blood Count 3.44 Miln/mm3 (4.00-5.20); White Blood Count 5.9 Thou/mm3 (3.6-11.0)
[2024-11-22 06:16] LABS: Anion Gap 4 (7-16); BUN/Creatinine Ratio 16 Ratio (12-20); Blood Urea Nitrogen 11 mg/dL (9-23); Calcium 8.6 mg/dL (8.3-10.6); Carbon Dioxide 35.2 mMol/L (20.0-31.0); Chloride 104 mMol/L (98-107); Creatinine (Component) 0.7 mg/dL (0.6-1.3); Estimated Creatinine Clearance 72.8 mL/min (>60); Glucose 95 mg/dL (74-106); Magnesium 1.7 mg/dL (1.6-2.6); Osmolality,Calculated 284 (275-295); Potassium 3.8 mMol/L (3.4-5.1); Sodium 143 mMol/L (136-145); eGFR > 60 See Note
[2024-11-22] MEDS: DONEPEZIL HCL 5 MG TABLET PO (08:11)
[2024-11-22] MEDS: DULoxetine HCL 30 MG CAPSULE 60 MG PO (08:11)
[2024-11-22] MEDS: METOPROLOL TARTRATE 25 MG TABLET 50 MG PO (08:11)
[2024-11-22] MEDS: GABAPENTIN 100 MG CAPSULE 200 MG PO (08:11)
[2024-11-22] MEDS: ASPIRIN EC 81 MG TABEC PO (08:11)
[2024-11-22] MEDS: PANTOPRAZOLE INJ 40 MG VIAL IVP (08:12)
[2024-11-22] MEDS: HEPARIN SOD INJ 5000 UNIT/ML VIAL SC (08:12)
--- NOTE | 2024-11-22 10:46 | ESDS_ITS ---
Planned Discharge Date 11/22/24 DS: Providers Provider Date of admission: 11/19/24 14:50 Primary care physician: Physician No Primary/Family Admitting Provider: Navneet Jordan MD Attending Provider on Admission: Harry Izquierdo MD Consults: 11/19/24 15:00 Referral Speech Therapy Routine Comment: Encephalopathic 11/20/24 09:00 Referral - [employer] Physician Scientist Routine Comment: zay Lockett Attending Provider on DC: Wilfrido Vazquez MD Discharging Provider: Wilfrido Vazquez MD DS: Diagnosis Problem List Completed Was Problem List Reviewed/Reconciled?: Yes Hospital Course Hospital Course Hospital course: Gabriela Milan is a 79-year-old female with a past medical history of COPD on 3 L home O2, PE in 2022 s/p therapy, hypertension, hyperlipidemia, GERD, iron de ficiency anemia, and depression who presented on 11/19 from [facility] encephalopathic and hypoxic. Patient answering some questions and following some commands but fatigued and on BiPAP, thus history obtained from chart review and facility. Per staff SCT, routine labs showed HCO3 of 41 and attempted to get BiPAP machine but was unable to. Following morning, patient was found encephalopathic with SpO2 in 70s that eventually dropped to the 30s despite breathing treatments. EMS subsequently arrived and on scene SpO2 71% on 5 L nonrebreather that increase to 95% on 15 L following additional albuterol administration. At baseline, patient is alert and oriented x 3 with home O2 of 3 L. No complaints of fever, cough, sore throat, dysuria, or change in bowel habits prior to admission. Admitted for hypoxia and encephalopathy. Throughout hospital course, a rapid response called on night of admission for hypoxia with SpO2 71% and fingerstick glucose of 55. Patient was somnolent with BiPAP and head slumped, pulse ox probe was readjusted and head was repositioned that improved saturation to 96 to 98% and given amp of D50. Seen and examined at bedside following morning and she was much more alert and oriented compared to admission. States that she cannot recall incidents leading up to hospitalization and that she would like her phone. Otherwise, patient was on BiPAP overnight and was switched to nasal cannula in AM and started on diet after seen by speech therapy. Otherwise, patient did well up until discharge. Some of her psychiatric home medications were slowly restarted with some modifications made, including making gabapentin daily instead of BID and held her cyclobenzaprine. Recommended patient to continue BiPAP/CPAP at night upon return to her facility. Diagnoses during admission: #Acute on chronic hypoxic-hypercapnic respiratory failure #COPD on 3 L home O2 #Encephalopathy, hypoxic versus hypercapnic versus medication induced #History of hypertension #History of hyperlipidemia #GERD #Depression #Chronic back pain #Dementia Discharge instructions: - Recommend to continue CPAP/BiPAP at night upon return to facility - BiPAP settings of 12/5 or CPAP setting of 5 - Needs this for day naps - Gabapentin dosage decreased from 200 mg twice daily to just daily to address encephalopathy - If patient were to return encephalopathic, recommend to hold or discontinue donepezil - Metoprolol dosage changed decreased from 100 mg twice daily to 50 mg twice daily due to hypotension on admission and tolerated well during hospitalization - Stop taking cyclobenzaprine, at least until follow-up with PCP - Follow-up with PCP within 1 week of discharge - Recommend sleep study referral from PCP - Return to the ED if symptoms worsen/recur Time Spent with Patient Time attestation: Total time spent providing and/or coordinating discharge services: Exam Vital Signs Temp Pulse Resp BP Pulse Ox O2 Del Method O2 Flow Rate 96.1 F L 70 16 124/77 97 Nasal Cannula 3 11/22/24 07:52 11/22/24 08:11 11/22/24 07:52 11/22/24 08:11 11/22/24 07:52 11/22/24 07:52 11/22/24 07:52 FiO2 96 11/21/24 07:18 Narrative Exam General: alert, orientated to self/birthdate/place and able to hold conversation HEENT: NC/AT, mucous membranes moist, bilateral sclera anicteric Cardiovascular: regular rate and rhythm, S1/S2 present, no murmurs appreciated Pulmonary: no wheezing or crackles appreciated Abdominal: obese, soft, non-tender, non-distended Musculoskeletal: 2+ bilateral lower extremity pitting edema, poor capillary refill Skin: purpura in upper extremities bilaterally, warm and dry, intact Discharge Plan Plan Patient Disposition: Xfer Skilled Nsg Fac (SNF) Care Plan Goals: - Recommend to continue CPAP/BiPAP at night upon return to facility - BiPAP settings of 12/5 or CPAP setting of 5 - Needs this for day naps - Gabapentin dosage decreased from 200 mg twice daily to just daily to address encephalopathy - If patient were to return encephalopathic, recommend to hold or discontinue donepezil - Metoprolol dosage changed decreased from 100 mg twice daily to 50 mg twice daily due to hypotension on admission and tolerated well during hospitalization - Stop taking cyclobenzaprine, at least until follow-up with PCP - Follow-up with PCP within 1 week of discharge - Recommend sleep study referral from PCP - Return to the ED if symptoms worsen/recur Prescriptions/Referrals Prescriptions/Med Rec: Continued donepezil 5 mg Tablet 5 mg PO QDAY atorvastatin 20 mg Tablet 40 mg PO QPM multivitamin [One Daily Multivitamin] Tablet 1 tab PO QDAY ergocalciferol (vitamin D2) 1,250 mcg (50,000 unit) capsule 50,000 unit PO QWEEK Patient Comments: TAKE 1 CAPSULE BY MOUTH EVERY WEEK duloxetine 60 mg capsule,delayed release(DR/EC) 60 mg PO BID Patient Comments: TAKE 1 CAPSULE BY MOUTH TWICE DAILY ferrous sulfate 325 mg (65 mg iron) Tablet,Delayed Release (Dr/Ec) 325 mg PO QOD Qty: 15 0RF aspirin 81 mg tablet,delayed release (DR/EC) 81 mg PO DAILY Patient Comments: TAKE 1 TABLET BY MOUTH EVERY DAY DIRECTED albuterol sulfate 90 mcg/actuation HFA aerosol inhaler 2 puff inhalation Q6H PRN (Reason: shortness of breath or wheezing) Qty: 8.5 0RF quetiapine [Seroquel] 25 mg tablet 25 mg PO HS PRN (Reason: agitation, hallucinations) Qty: 30 0RF pantoprazole 40 mg tablet,delayed release (DR/EC) 40 mg PO Q12H Patient Comments: TAKE 1 TABLET BY MOUTH TWICE DAILY DIRECTED FOR GASTRITIS Changed metoprolol tartrate 100 mg tablet 50 mg PO BID 30 Days Qty: 30 0RF gabapentin 100 mg Capsule 200 mg PO DAILY 30 Days Qty: 60 0RF Rx Instructions: 200 mg orally ;100 mg orally Discontinued cyclobenzaprine 5 mg tablet 5 mg PO HS Patient Comments: TAKE 1 TABLET BY MOUTH EVERY DAY AT BEDTIME FOR SPASMS Referrals: No Primary/Family,Physician [Primary Care Provider] - Patient/Caregiver Discharge Instructions Print Language: Hungarian Stand Alone Forms: [employer] Award Info., Patient Portal Info Letter Discharge Order Discharge Orders: Discharge (Routine); Ordered 11/22/24 Ordered By: Wilfrido Katz [facility] Quality Discharge Quality Measures VTE prophylaxis Attestestation MD Attestation Face to face evaluation was performed by me. I have personally seen and examined the patient. I discussed the assessment and plan with the entire medicine team. I reviewed available medical records, imaging studies, laboratory results. I agree with the above subjective data, objective findings, assessment and plan except as corrected by me or noted below Acute on chronic hypoxic and hypercapnic respiratory failure Acute encephalopathy, suspect combination of metabolic encephalopathy from hypoxia and hypercapnia also polypharmacy-gabapentin, Flexeril, donepezil. Possible polypharmacy as mentioned above Encephalopathy resolved. Patient is at baseline. Decreased gabapentin dosage from 200 milligram twice daily to daily, stop Flexeril. Metoprolol dosage was also decreased. Continue to monitor closely avoid sedatives as much as possible with benzodiazepines. Avoid as needed Seroquel if possible. Flexeril. As mentioned, if develop encephalopathy recommend to stop donepezil as well. More than > 30 minutes spent on the encounter
--- NOTE | 2024-11-22 11:18 | PC.SS ---
SS contacted [facility] and spoke to Tamra in regard to patient discharging today SS inquired about transportation and Tamra informed SS she would contact SS and see if they are able to provide transportation.
--- NOTE | 2024-11-22 13:12 | PC.SS ---
SS follow up note; SS contacted Tamra from [facility] and informed her that patient had discharge orders and if they were able to provide transportation. Tamra reported they are able to transport patient back at 2PM. SS attempted to contact patient grand daughter, Niesha however was unsuccessful. SS met with patient and patient verbalized understanding. SS also updated patient's nurse on ETA. SS will stand by for further needs.
== END 2024-11-22 15:30 | disposition skilled nursing facility (03) | DRG 189 ==
LOC: SERX 14:04 → SERHOLD 15:15 → S3SX 16:53
PROVIDERS: Student in an Organized Health Care Education/Training Program; Admitting Provider Student in an Organized Health Care Education/Training Program; Emergency Provider Emergency Medicine; Visit Provider Internal Medicine
DX: J96.21 Acute and chronic respiratory failure with hypoxia (principal); G92.8 Other toxic encephalopathy; F03.93 Unspecified dementia, unspecified severity, with mood disturbance; J98.11 Atelectasis; J44.1 Chronic obstructive pulmonary disease with (acute) exacerbation; J96.22 Acute and chronic respiratory failure with hypercapnia; E78.5 Hyperlipidemia, unspecified; I10 Essential (primary) hypertension; E66.01 Morbid (severe) obesity due to excess calories; K21.9 Gastro-esophageal reflux disease without esophagitis; F32.A Depression, unspecified; G89.29 Other chronic pain; M54.9 Dorsalgia, unspecified; Z86.711 Personal history of pulmonary embolism; Z99.81 Dependence on supplemental oxygen; Z74.01 Bed confinement status; Z79.899 Other long term (current) drug therapy; Z68.39 Body mass index [BMI] 39.0-39.9, adult; Z79.82 Long term (current) use of aspirin
CPT/HCPCS: 36415; 70450; 71045; 80048; 80053; 80061; 80307; 80320; 81001; 82140; 82803; 83605; 83735; 83880; 84100; 84145; 84443; 84484; 85025; 85379; 85610; 86850; 86900; 86901; 87040; 92610; 93005; 93225; 94644; 94660; 94664; 96374; 99291; J1643; J2470; J2919; J3475; J7030; J7120; A9270; G0480

== ENCOUNTER 2025-02-21 02:20 | Inpatient (IN) | payer MEDICARE, BC, SELFPAY ==
[2025-02-21] VITALS (16 sets, daily range): BP systolic 131–169; BP diastolic 76–105; PULSE 60–113; RESP 12–24; TEMP 35.4–37.5; O2SAT 92–100; BMI 40.1; BMI 40.0
--- NOTE | 2025-02-21 02:25 | PD.EDAMS ---
Altered Mental Status RME/HPI General Chief Complaint: Altered Mental Status Stated Complaint: AMS Time Seen by Provider: 02/21/25 02:32 Arrival date/time: 02/21/25 02:20 RME / HPI RME / HPI narrative: This section includes all my notes and documentations, including HPI, PE, and ED course. Sea Portillo MD HPI: 79yo female with COPD, HTN, HLD, GERD, iron deficiency anemia, and depression BIBA from [facility] here with hypoxia and altered mental status. Patient found by NH staff with no BiPAP (on BiPAP at night) and hypoxic with AMS. Patient is normally alert and oriented with full code status. Can't obtain history from the patient due to AMS. ROS: Unable to obtain history due to the patient's altered mental status. Physical Exam: General:?Patient is obtunded. Hypoxia noted. Eyes:? Conjunctivae and lids clear.? EOMI.? PERRL. ENT:? No nasal congestion. Neck:? Supple.? No carotid bruit.? No JVD.?? Heart:? RRR.? Lungs: In moderate respiratory distress.? Moderately decreased air movement with wheezing and rales. Abdomen:? Soft and nontender.? Legs:? No clubbing, cyanosis, edema.? Skin:? Warm and dry.?? Neuro:? Cranial Nerves II-XII grossly intact.? No peripheral motor deficits. I reviewed EMS and longterm notes. I reviewed all diagnostic test results. My interpretation of the EKG is sinus rhythm with nonspecific changes. My interpretation of the chest x-ray is infiltrates. My review of the CT head report is NAD. My review of the CT angio chest report is: 1. No CT evidence of pulmonary thromboembolism. 2. Bilateral pleural effusions. 3. Bilateral interstitial lung thickening suspicious for pulmonary edema. 4. Consolidation in bilateral upper and lower lobes, compressive atelectasis versus pneumonia. 5. Possible cirrhosis. 6. Nonobstructing right nephrolithiasis. 7. Small pericardial effusion. 8. Coronary arteries calcifications. If acute myocardial infarction is clinically suspected consider correlation with troponin. Blood and urine tests remarkable for Carbon Dioxide 34.5, BNP 208. ABG remarkable for pCO2 63, pO2 72, and pHCO3 36. COVID-negative. Influenza positive. At this point, diagnoses include: Acute on chronic respiratory failure with hypoxia and hypercapnia, AMS (altered mental status), MCC-acquired pneumonia, COPD (chronic obstructive pulmonary disease), CHF (congestive heart failure), Influenza B. Treatment here included Oxygen, BiPAP, DuoNeb, Solu-Medrol, Cefepime, and Vancomycin. Significant improvement not noted. I discussed the case with our hospitalist. About the presentation and exam and diagnostics and treatments here. And need of further care in the hospital. Will accept the patient. Sea Portillo MD Related Data Home Medications ?Medication ?Instructions ?Recorded ?Confirmed donepezil 5 mg tablet 5 mg PO QDAY 01/16/18 11/19/24 atorvastatin 20 mg tablet 40 mg PO QPM 09/14/18 11/19/24 duloxetine 60 mg capsule,delayed 60 mg PO BID 04/23/21 11/19/24 release ergocalciferol (vitamin D2) 1,250 50,000 unit PO QWEEK 04/23/21 11/19/24 mcg (50,000 unit) capsule multivitamin (One Daily 1 tab PO QDAY 04/23/21 11/19/24 Multivitamin tablet) pantoprazole 40 mg tablet,delayed 40 mg PO Q12H 11/09/24 11/19/24 release aspirin 81 mg tablet,delayed 81 mg PO DAILY 11/19/24 11/19/24 release Previous Rx's ?Medication ?Instructions ?Recorded ferrous sulfate 325 mg (65 mg 325 mg PO QOD #15 tabs 06/02/23 iron) tablet,delayed release albuterol sulfate 90 mcg/actuation 2 puff inhalation Q6H PRN 01/18/24 aerosol inhaler shortness of breath or wheezing #8.5 grams quetiapine 25 mg tablet (Seroquel) 25 mg PO HS PRN agitation, 10/19/24 hallucinations #30 tabs gabapentin 100 mg capsule 200 mg (2 x 100 mg) PO DAILY 30 11/22/24 days #60 caps metoprolol tartrate 100 mg tablet 50 mg (1/2 x 100 mg) PO BID 30 11/22/24 days #30 tabs Allergies Allergy/AdvReac Type Severity Reaction Status Date / Time ergotamine (From Cafergot) Allergy Intermediate Nausea Verified 09/13/24 20:28 adhesive tape Allergy Mild Rash Verified 09/13/24 20:28 citalopram (From Celexa) Allergy Mild Restless Verified 09/13/24 20:28 leg latex Allergy Mild Rash Verified 09/13/24 20:28 silver Allergy Rash Verified 09/13/24 20:28 Review of Systems Review of Systems ROS Unobtainable: unobtainable due to mental status ED Exam Narrative Physical exam: As noted in HPI. Course Course Course Narrative: CXR is ordered for determining the etiology of shortness of breath. Quality Measures none Orders Category Date Time Status Admit to Inpatient Status Routine Admission 02/21/25 05:28 Active Patient Condition Routine Admission 02/21/25 05:27 Ordered Activity as Tolerated Routine Care 02/21/25 05:28 Ordered Bedside COVID-19 Antigen Test NOW Care 02/21/25 02:26 Active Bedside Influenza A&B Antigen Test NOW Care 02/21/25 02:26 Completed COVID-19 Screening Questionnaire NOW Care 02/21/25 05:[address] Screening NOW Care 02/21/25 02:28 Active Continuous Pulse Oximetry NOW Care 02/21/25 05:27 Active Decision to Admit X1 Care 02/21/25 05:15 Completed EKG (ED ONLY) *Do not use* NOW Care 02/21/25 02:26 Completed Flu & Pneumonia Vaccine Screen ONCE Care 02/21/25 05:27 Active Handley [Urinary Catheter] QS Care 02/21/25 05:14 Active Neuro Check Q4H Care 02/21/25 05:27 Active Notify provider NEEDED Care 02/21/25 05:27 Active Obtain weight daily Care 02/21/25 05:28 Active Saline [Insert IV] NOW Care 02/21/25 02:26 Active Straight [In and Out Catheter] X1 Care 02/21/25 02:26 Completed Referral Respiratory Therapy Stat Cons 02/21/25 02:[address] angio chest Stat Exams 02/21/25 02:[address] head/brain wo con Stat Exams 02/21/25 02:28 Taken EKG (ED Only) Stat Exams 02/21/25 02:26 Draft XR chest 1V portable Stat Exams 02/21/25 02:28 Taken ABG [Arterial Blood Gas] Stat Lab 02/21/25 02:30 Completed BNP [B-Type Natriuretic Peptide] Stat Lab 02/21/25 02:34 Completed Bilirubin,Direct Stat Lab 02/21/25 02:34 Completed Blood Culture (Lab) Stat Lab 02/21/25 02:30 Received CBC AM DRAW Lab 02/22/25 05:00 Ordered CBC AM DRAW Lab 02/23/25 05:00 Ordered CBC AM DRAW Lab 02/24/25 05:00 Ordered CBC Stat Lab 02/21/25 02:34 Completed CMP [Comprehensive Metabolic Panel] Stat Lab 02/21/25 02:34 Completed CRP [C-Reactive Protein] Stat Lab 02/21/25 02:34 Completed Comprehensive Metabolic Panel AM DRAW Lab 02/22/25 05:00 Ordered Comprehensive Metabolic Panel AM DRAW Lab 02/23/25 05:00 Ordered Comprehensive Metabolic Panel AM DRAW Lab 02/24/25 05:00 Ordered D-Dimer Stat Lab 02/21/25 02:34 Completed Drug Screen,Urine Stat Lab 02/21/25 03:21 Completed ESR [Sed Rate (ESR)] Stat Lab 02/21/25 02:34 Completed Free T4 (Free Thyroxine) Stat Lab 02/21/25 02:34 Completed Lactate (Lactic Acid) Stat Lab 02/21/25 02:34 Completed Magnesium AM DRAW Lab 02/22/25 05:00 Ordered Magnesium Stat Lab 02/21/25 02:34 Completed PT [Prothrombin Time with INR] Stat Lab 02/21/25 02:58 Completed PTT [Partial Thromboplastin Time] Stat Lab 02/21/25 02:58 Completed Phosphorous AM DRAW Lab 02/22/25 05:00 Ordered Procalcitonin Stat Lab 02/21/25 02:34 Completed Prothrombin Time with INR AM DRAW Lab 02/22/25 05:00 Ordered TSH [Thyroid Stimulating Hormone] Stat Lab 02/21/25 02:34 Completed Troponin I Stat Lab 02/21/25 02:34 Completed UA, C/S IF [Urinalysis, C/S if Indicated] Stat Lab 02/21/25 03:21 Completed Acetaminophen Tab [Tylenol Tab] Med 02/21/25 05:27 Active 650 mg PO Q6H PRN Albuterol/Ipratr Rt Kristin [Duoneb Rt Kristin] Med 02/21/25 02:27 Discontinued 3 ml INH X1 ONE Cefepime Inj [Maxipime Inj] 2 gm Med 02/21/25 14:00 Ordered SODIUM CHLORIDE 0.9% (Popper) [Ns 0.9% (P)] 50 ml IV Q8HR Cefepime Inj [Maxipime Inj] 2 gm Med 02/21/25 05:18 Active SODIUM CHLORIDE 0.9% (Popper) [Ns 0.9% (P)] 50 ml IV X1 Heparin Inj Med 02/21/25 09:00 Ordered 5,000 unit SC Q12HR MethylPREDNISolone.* [SoluMEDROL Inj] Med 02/21/25 02:27 Discontinued 125 mg IVP X1 ONE Ondansetron Inj [Zofran Inj] Med 02/21/25 05:27 Ordered 4 mg IVP Q6H PRN Pantoprazole Inj [Protonix Inj] Med 02/21/25 09:00 Active 40 mg IVP QDAY Senna [Senokot] Med 02/21/25 05:27 Ordered 1 tab PO QDAY PRN Sodium Chloride 0.9% 1000 ml [Ns] 1,000 ml Med 02/21/25 04:26 Active IV 100 mls/hr Vancomycin Inj 2,000 mg Med 02/21/25 05:18 Active Sodium Chloride 0.9% 500 ml [Ns] 500 ml IV X1 Vancomycin Pharmacy to Dose Med 02/21/25 09:00 Ordered 1 each IV QDAY Code Status Routine Oth 02/21/25 05:27 Ordered BiPAP / CPAP NOW RT 02/21/25 02:27 Active Vital Signs Vital signs: Vital Signs Temperature 96.8 F 02/21/25 02:29 Pulse Rate 78 02/21/25 02:29 Respiratory Rate 22 H 02/21/25 02:29 Blood Pressure 131/76 H 02/21/25 02:29 Altered Mental Status Patient data External records reviewed:: [facility] previous records (Per chart review, patient was admitted here on 11/19/24 for AMS.) and EMS form Clinical information provided by:: EMS Social determinants that could affect healthcare access:: housing (SNF resident) Patient has the following chronic illnesses:: COPD, HTN, HLD, GERD, iron deficiency anemia, and depression How is presenting disease/condition affected by chronic disease/condition?: exacerbated by Evaluation data The following diagnostics were reviewed and interpreted by me:: lab results, radiology exam(s) and EKG tracing(s) (My interpretation of the EKG is: Sinus rhythm (75 bpm) with nonspecific ST-T changes. Sea Portillo MD) Lab and/or radiology exams considered but not ordered:: none Interpretation Summary: I reviewed all diagnostic test results. My interpretation of the EKG is sinus rhythm with nonspecific changes. My interpretation of the chest x-ray is infiltrates. My review of the CT head report is NAD. My review of the CT angio chest report is: 1. No CT evidence of pulmonary thromboembolism. 2. Bilateral pleural effusions. 3. Bilateral interstitial lung thickening suspicious for pulmonary edema. 4. Consolidation in bilateral upper and lower lobes, compressive atelectasis versus pneumonia. 5. Possible cirrhosis. 6. Nonobstructing right nephrolithiasis. 7. Small pericardial effusion. 8. Coronary arteries calcifications. If acute myocardial infarction is clinically suspected consider correlation with troponin. Blood and urine tests remarkable for Carbon Dioxide 34.5, BNP 208. ABG remarkable for pCO2 63, pO2 72, and pHCO3 36. COVID-negative. Influenza positive. Medications / Prescriptions Medications or Prescriptions considered but not ordered:: none Medication administrations:: Medication Administration History Acetaminophen (Acetaminophen 325 Mg Tablet) 650 mg PO Q6H PRN PRN Reason: Pain 1-3 and/or Fever >100.1 Stop: 03/23/25 05:26 Heparin Sodium (Porcine) (Heparin Sod Inj 5000 Unit/Ml Vial) 5,000 unit SC Q12HR [facility] Stop: 03/07/25 08:59 Sodium Chloride (Ns) 1,000 mls @ 100 mls/hr IV .Q10H ONE Stop: 02/21/25 14:25 Last Admin: 02/21/25 04:41 Dose: 100 mls/hr Documented By: DT Cefepime HCl 2 gm/ Sodium (Chloride) 50 mls @ 100 mls/hr IV X1 ONE Stop: 02/21/25 05:47 Vancomycin HCl 2,000 mg/ (Sodium Chloride) 500 mls @ 150 mls/hr IV X1 ONE Stop: 02/21/25 08:37 Cefepime HCl 2 gm/ Sodium (Chloride) 50 mls @ 100 mls/hr IV Q8HR [facility] Stop: 02/28/25 13:59 Ondansetron HCl (Ondansetron Inj 2 Mg/Ml Inj 2 Ml) 4 mg IVP Q6H PRN; Protocol PRN Reason: NAUSEA OR VOMITING Stop: 03/23/25 05:26 Pantoprazole Sodium (Pantoprazole Inj 40 Mg Vial) 40 mg IVP QDAY CARLO Stop: 03/23/25 08:59 Pharmacy Consult (Vancomycin Pharmacy To Dose 1 Each Each) 1 each IV QDAY CARLO Stop: 03/23/25 08:59 Sennosides (Senna Tablet) 1 tab PO QDAY PRN; Protocol PRN Reason: constipation Stop: 03/23/25 05:26 Discontinued Medications Albuterol/Ipratropium (Albuterol/Ipratropium (Duoneb) Rt Kristin 3 Ml Nebu) 3 ml INH X1 ONE Stop: 02/21/25 02:28 Last Admin: 02/21/25 02:51 Dose: 3 ml Documented By: ABBY Methylprednisolone Sodium Succinate (Methylprednisolone Sod Succ 62.5 Mg/Ml 2ml Vial) 125 mg IVP X1 ONE Stop: 02/21/25 02:28 Last Admin: 02/21/25 02:54 Dose: 125 mg Documented By: GISELLE Treatment here from me included Oxygen, BiPAP, DuoNeb, Solu-Medrol, Cefepime, and Vancomycin. Consultations Consultation(s) initiated? (list below): Yes Consultation #1 (Physician, Specialty, Details): I discussed the case with our hospitalist. About the presentation and exam and diagnostics and treatments here. And need of further care in the hospital. Will accept the patient. Diagnosis Differential diagnosis altered mental status: alcoholic intoxication, altered mental status, delirium, dementia, hypoglycemia, hyponatremia, subarachnoid hemorrhage, sepsis and other (COPD, CHF, pneumonia) Most likely diagnosis given after review of the tests above:: Acute on chronic respiratory failure with hypoxia and hypercapnia, AMS (altered mental status), MCC-acquired pneumonia, COPD (chronic obstructive pulmonary disease), CHF (congestive heart failure), Influenza B. Admission Indicated Admission indicated?: indicated Explain why admission is indicated or not indicated:: Acute on chronic respiratory failure with hypoxia and hypercapnia, AMS (altered mental status), MCC-acquired pneumonia, COPD (chronic obstructive pulmonary disease), CHF (congestive heart failure), Influenza B. Admission Request Was there a request for admission?: Yes Admission Attestation Admission request attestation: Discussed case with [] from Hospitalist service regarding admission. Discussed patients ED course, exam findings, labs, and radiology results. The Hospitalist [agrees,declines] to accept the patient for admission. Disposition Plan Disposition Plan: Admit Critical Care Time Critical Care Time Critical Care Time: Yes Total Critical Care Time (min.): 36 Attestation: Due to a high probability of clinically significant, life threatening deterioration, the patient required my highest level of preparedness to intervene emergently and I personally spent this critical care time directly and personally managing the patient. This critical care time included obtaining a history; examining the patient; ordering and review of studies; arranging urgent treatment with development of a management plan; evaluation of patient's response to treatment; frequent reassessment; and discussions with family and other providers. It was exclusive of separately billable procedures and treating other patients and teaching time. Sea Portillo MD Discharge Plan Plan Patient Disposition: Admit Acute Care w/in Hospital Prescriptions/Referrals Prescriptions/Med Rec: No Action donepezil 5 mg Tablet 5 mg PO QDAY atorvastatin 20 mg Tablet 40 mg PO QPM multivitamin [One Daily Multivitamin] Tablet 1 tab PO QDAY ergocalciferol (vitamin D2) 1,250 mcg (50,000 unit) capsule 50,000 unit PO QWEEK Patient Comments: TAKE 1 CAPSULE BY MOUTH EVERY WEEK duloxetine 60 mg capsule,delayed release(DR/EC) 60 mg PO BID Patient Comments: TAKE 1 CAPSULE BY MOUTH TWICE DAILY ferrous sulfate 325 mg (65 mg iron) Tablet,Delayed Release (Dr/Ec) 325 mg PO QOD Qty: 15 0RF aspirin 81 mg tablet,delayed release (DR/EC) 81 mg PO DAILY Patient Comments: TAKE 1 TABLET BY MOUTH EVERY DAY DIRECTED metoprolol tartrate 100 mg tablet 50 mg PO BID 30 Days Qty: 30 0RF gabapentin 100 mg Capsule 200 mg PO DAILY 30 Days Qty: 60 0RF Rx Instructions: 200 mg orally ;100 mg orally albuterol sulfate 90 mcg/actuation HFA aerosol inhaler 2 puff inhalation Q6H PRN (Reason: shortness of breath or wheezing) Qty: 8.5 0RF quetiapine [Seroquel] 25 mg tablet 25 mg PO HS PRN (Reason: agitation, hallucinations) Qty: 30 0RF pantoprazole 40 mg tablet,delayed release (DR/EC) 40 mg PO Q12H Patient Comments: TAKE 1 TABLET BY MOUTH TWICE DAILY DIRECTED FOR GASTRITIS Referrals: Gerardo([facility])Boubacar MD [Primary Care Provider] - In 1 week Problem List Clinical Impression: Acute on chronic respiratory failure with hypoxia and hypercapnia, AMS (altered mental status), MCC-acquired pneumonia, COPD (chronic obstructive pulmonary disease), CHF (congestive heart failure), Influenza B Patient/Caregiver Discharge Instructions Print Language: [place] Citizen Stand Alone Forms: [employer] Award Info., Patient Portal Info Letter
--- NOTE | 2025-02-21 02:26 | EKG_ITS ---
[facility] Test Date: 2025-02-21 Pat Name: MANUEL ALBA Department: Room: - Gender: Female [employer] Contact Printer: : [id number] Requested By: ED Temporary Provider Order Number: [id number] Reading MD: ED Temporary Provider Measurements Intervals [place] Rate: 75 P: 24 VT: 138 QRS: -4 QRSD: 107 T: -10 QT: 444 QTc: 496 Interpretive Statements SINUS RHYTHM POSSIBLE ANTERIOR MYOCARDIAL INFARCTION , OF INDETERMINATE AGE [30 ms Q WAVE IN V3/V4, OR R < 0.2 mV IN V4] Compared to ECG 11/19/2024 13:17:37 Myocardial infarct finding now present /store/S0/[id number].pdf
--- NOTE | 2025-02-21 02:28 | XR_ITS ---
Examination: CTA chest with intravenous contrast 2-D reconstructions 3-D reconstructions, vascular Date and time of exam: February 21, 2025, 0358 hours INDICATIONS: Onset chest pain shortness of breath hypoxia today CTDI: vol (mGy) 19. DLP: (mGycm) 724. Technique: Multiple axial sections of the thorax have been obtained. 3 mm slice thickness, from below the hemidiaphragms to above the apices of the lungs. Mediastinal and lung density settings have been obtained. 2-D sagittal and coronal reconstructions. 3-D angiographic renderings, 3-D volume renderings, 3D post processing, vascular maximum intensity projections obtained. Contrast administered is 90 cc Isovue 370. Intravenous.. Low dose protocols were performed. One or more of the following dose reduction techniques were used; automated exposure control, adjustment of the mA and/or KV according to patient size, use of iterative reconstruction technique. Findings: No thoracic aortic aneurysm dilatation or dissection No pulmonary artery emboli Mild/moderate enlargement cardiac contour with prominent vascular congestion Subtle edema in the lung de luna Bibasilar pneumonia with moderate to large bilateral pleural effusions Significant calcification left anterior descending coronary artery neck Mitral valvular calcification Liver is irregular in contour, no gallstones Atrophic left kidney 1 mm upper pole right renal calculus Severe osteopenia IMPRESSION: Negative for pulmonary artery emboli Mild heart failure. Bibasilar pneumonia. Moderate to large bilateral pleural effusions. 1 mm nonobstructing right renal calculus
--- NOTE | 2025-02-21 02:28 | XR_ITS ---
Examination: CT brain head without contrast. 2-D sagittal coronal reconstructions Date and time of exam:February 21, 2025, 0355 hours, comparison November 19, 2024 INDICATIONS: Altered mental status today CTDI: vol (mGy):71 DLP: (mGycm):1384 Technique: Multiple CT axial sections of the brain have been obtained, 5 mm slice thickness. Contrast has not been administered. 2-D sagittal, coronal reconstructions have been obtained Low dose protocols were performed. One or more of the following dose reduction techniques were used; automated exposure control, adjustment of the mA and/or KV according to patient size, use of iterative reconstruction technique. Findings: No significant ventricular enlargement. 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 No mass effect or midline shift Basal cisterns are not remarkable. Fourth ventricle is midline. Cranial vault intact. Impression: Negative for acute hemorrhage, mass effect or midline shift
--- NOTE | 2025-02-21 02:28 | XR_ITS ---
Examination: AP chest single view Technique one AP portable semiupright chest single view Date and time: February 21, 2025, 0240 hours Comparison November 19, 2024 INDICATIONS: Altered mental status chest pain shortness of breath today. FINDINGS: Mild chronic heart failure pattern Mild enlargement cardiac contour. Prominent vascular congestion with perihilar basilar edema Large bilateral pleural effusions IMPRESSION: Mild chronic heart failure pattern
[2025-02-21 02:41] LABS: Lactate (Lactic Acid) 0.8 mMol/L (0.4-2.0)
[2025-02-21 02:42] LABS: Basophils # (Auto) 0.1 Thou/mm3 (0.0-0.2); Basophils % (Auto) 2 % (0-2.5); Eosinophils # (Auto) 0.4 Thou/mm3 (0.0-0.5); Eosinophils % (Auto) 8 % (0-10); Hematocrit 34.2 % (36.0-46.0); Hemoglobin 10.9 g/dL (12.0-16.0); Immature Granulocytes Auto 0.01 Thou/mm3 (0.00-0.00); Lymphocytes # (Auto) 1.4 Thou/mm3 (1.0-4.8); Lymphocytes % (Auto) 29 % (10-50); Mean Corpuscular HGB Conc 31.9 g/dl (31.0-37.0); Mean Corpuscular Hemoglobin 29.1 pg (25.0-35.0); Mean Corpuscular Volume 91 fL (80-100); Monocytes # (Auto) 0.6 Thou/mm3 (0.0-0.8); Monocytes % (Auto) 12 % (0-12); Neutrophils # (Auto) 2.4 Thou/mm3 (1.8-7.7); Neutrophils % (Auto) 49 % (37-80); Nucleated Red Blood Cell # 0.00 Thou/mm3 (0.00-0.00); Nucleated Red Blood Cell % 0 /100 WBC (0); Platelet Count 226 Thou/mm3 (140-440); RDW Standard Deviation 49.4 fL (36.4-46.3); Red Blood Count 3.74 Miln/mm3 (4.00-5.20); White Blood Count 4.9 Thou/mm3 (3.6-11.0)
[2025-02-21 02:44] LABS: Base Excess 9 (-3-3); HCO3 36 mEq/L (20-26); Inspired Oxygen, FIO2 21 %; O2 Saturation 94 % (91-98); PCO2 63 mmHg (32.0-48.0); PO2 72 mmHg (83-108); pH, Arterial 7.36 (7.35-7.45)
[2025-02-21 02:45] LABS: Allen Test Performed/OK; Puncture Site Left Radial
[2025-02-21 02:49] LABS: Sed Rate (ESR) 32 mm/hr (0-30)
[2025-02-21] MEDS: ALBUTEROL/IPRATROPIUM (Duoneb) RT SOL 3 ML NEBU INH (02:51)
[2025-02-21] MEDS: MethylPREDNISolone SOD SUCC 62.5 MG/ML 2ML VIAL 125 MG IVP (02:54)
[2025-02-21 03:07] LABS: D-Dimer 271 ng/mL (<600)
[2025-02-21 03:24] LABS: Alanine Aminotransferase 7 U/L (10-49); Albumin, Serum 2.8 gm/dL (3.4-4.8); Albumin/Globulin Ratio 1.3 (1.2-2.2); Alkaline Phosphatase 63 U/L (46-116); Anion Gap 5 (7-16); Aspartate Amino Transferase 18 U/L (0-34); BUN/Creatinine Ratio 14 Ratio (12-20); Bilirubin,Direct < 0.1 mg/dL (0.0-0.3); Bilirubin,Total 0.3 mg/dL (0.3-1.2); Blood Urea Nitrogen 10 mg/dL (9-23); C-Reactive Protein < 0.5 mg/dL (0.0-0.9); Calcium 8.8 mg/dL (8.3-10.6); Calcium (Corrected) 9.8 mg/dL (8.5-10.1); Carbon Dioxide 34.5 mMol/L (20.0-31.0); Chloride 104 mMol/L (98-107); Creatinine (Component) 0.7 mg/dL (0.6-1.3); Estimated Creatinine Clearance 75.9 mL/min (>60); Free T4 (Free Thyroxine) 0.92 ng/dL (0.89-1.76); Globulin 2.2 gm/dL (2.3-3.5); Glucose 92 mg/dL (74-106); Magnesium 1.9 mg/dL (1.6-2.6); Osmolality,Calculated 283 (275-295); Potassium 4.1 mMol/L (3.4-5.1); Procalcitonin < 0.04 ng/ml (0.0-0.49); Sodium 143 mMol/L (136-145); Thyroid Stimulating Hormone 6.03 uIU/mL (0.55-4.78); Total Protein 5.0 gm/dL (5.7-8.2); Troponin I < 0.020 ng/mL (0.0-0.045); eGFR > 60 See Note
[2025-02-21 03:25] LABS: Collection Type, Urine Clean Catch
[2025-02-21 03:27] LABS: B-Type Natriuretic Peptide 208 pg/mL (0-100)
[2025-02-21 03:31] LABS: INR 1.2 (0.9-1.3); Partial Thromboplastin Time 28.2 Seconds (22.0-36.0); Prothrombin Time 12.9 Seconds (9.0-12.2)
[2025-02-21 03:32] LABS: Bilirubin,Urine Negative (Negative); Blood,Urine Negative (Negative); Clarity,Urine Clear (Clear/Hazy); Color,Urine Lt-Yellow (Lt Yel-Yel); Culture Indicated,Urine Not Indicated; Glucose, Urine Negative (Negative); Ketones,Urine Negative (Negative); Leukocyte Esterase,Urine Positive (Negative); Nitrite,Urine Negative (Negative); PH,Urine 6.0 (5.0-7.0); Protein,Urine Negative (Neg - Trace); RBC,Urine 1 /hpf (0-3); Specific Gravity,Urine 1.013 (1.001-1.035); Squamous Epithelial Cell,Urine < 1 /hpf (0-5); Urobilinogen,Urine Negative mg/dL (0.0-1.0); WBC,Urine 6 /hpf (0-5)
[2025-02-21 03:41] LABS: Amphetamine/Methamp Scrn,U Negative (Negative); Barbiturate Screen,Urine Negative (Negative); Benzodiazepines Screen,Urine Negative (Negative); Benzoylecgonine Screen, Ur Negative (Negative); Fentanyl Screen,Urine Negative (Negative); Opiate Screen,Urine Positive (Negative); THC Screen,Urine Negative (Negative)
[2025-02-21] MEDS: SODIUM CHLORIDE 0.9% 1000 ML 1,000 ML 100 ML IV (04:41)
--- NOTE | 2025-02-21 05:05 | PRELIM_ITS ---
CT scan of the head without intravenous contrast (axial sections with sagittal and coronal reformats) February 21, 2025 0355 hours Clinical history: Altered mental status. Comparison: None available at the time of this report. Findings: There is no evidence of intracranial hemorrhage, mass effect or midline shift. There are periventricular white matter hypodensities, compatible with chronic small vessel ischemia. There is moderate volume loss. The calvarium is unremarkable. The mastoid air cells and the visualized paranasal sinuses are clear. Impression: No evidence of intracranial hemorrhage, mass effect or midline shift. Periventricular chronic small vessel ischemia and volume loss. Aspect score 10. Report Electronically Signed By: Onofre Whitlock 02/21/2025 5:04:14 AM [EST]
--- NOTE | 2025-02-21 05:05 | PRELIM_ITS ---
CT angiogram of the chest with intravenous contrast (axial sections with sagittal and coronal reformats). February 21, 2025 at 0358 hours Clinical History: Shortness of breath, hypoxia. Technique:Helical axial sections with sagittal and coronal reformats of the chest were obtained with intravenous contrast. Iterative reconstruction technique was employed to reduce patient radiation exposure. 3D/MIP reconstructed images were also provided. Comparison: None available at the time of this report. Findings: There is no filling defect within the pulmonary artery divisions to suggest pulmonary thromboembolism. The mediastinum demonstrates no evidence of mass or lymphadenopathy. The thoracic aorta is unremarkable. There is a small pericardial effusion. No pneumothorax. Large bilateral pleural effusions. Mild bilateral interstitial lung thickening. Consolidation in bilateral upper and lower lobes. Degenerative changes of the imaged portions of the spine. Chronic multilevel disc disease. Vascular calcifications. Nonobstructing right kidney stone. Mild irregular liver margins. Coronary arteries calcifications. Impression: 1. No CT evidence of pulmonary thromboembolism. 2. Bilateral pleural effusions. 3. Bilateral interstitial lung thickening suspicious for pulmonary edema. 4. Consolidation in bilateral upper and lower lobes, compressive atelectasis versus pneumonia. 5. Possible cirrhosis. 6. Nonobstructing right nephrolithiasis. 7. Small pericardial effusion. 8. Coronary arteries calcifications. If acute myocardial infarction is clinically suspected consider correlation with troponin. Report Electronically Signed By: Onofre Whitlock 02/21/2025 5:03:59 AM [EST]
--- NOTE | 2025-02-21 05:41 | ESHP_ITS ---
<Statement entered by Leo Kaur MD - 02/21/25 06:52> I Leo Kaur MD reviewed the note and agree with the resident's assessment & plan with exceptions as below. I have personally reviewed labs, imaging, home meds/prior records, examined the patient, formulated and discussed management plan with the IM team. A 79-year-old female with history of COPD on home oxygen, history of PE, HTN presented to ED with altered mental status and shortness of breath and noted to be hypoxic, hypercapnic requiring increased supplemental oxygen. Admit patient for acute hypoxemic hypercapnic respiratory failure likely secondary to COPD exacerbation in addition to possible opioid use. Administer Narcan, start on BiPAP therapy, started on cefepime and vancomycin empirically for complicated pneumonia/parapneumonic effusion. Consult pulmonology/critical care for thoracentesis and will have pleural fluid cultures and Gram stain. Will continue to provide supportive as needed Documentation for date of: 02/21/25 HPI History of Present Illness Chief complaint: Shortness of breath, altered mental status History of present illness: 79-year-old female with a past medical history of COPD on 3 L home O2, PE in 2022 s/p therapy, hypertension, hyperlipidemia, GERD, iron deficiency anemia, and depression who presented on 02/21/2025 from SNF due to shortness of breath and altered mental status. Patient answering some questions and following some commands but fatigued and on BiPAP during initial assessment, thus history obtained from chart review and signout from ED physician. Patient has multiple admissions in the past for similar presentation. Medical history: As stated above Surgical history: Multiple surgeries on right femur and knee, right carpal tunnel release, multiple lower back surgeries, rhinoplasty x 2 Allergies: Ergotamines (nausea), Citalopram (restless leg), latex (rash). Sulfa (rash) Medications: Pending official med rec Family history: Son with CHF, grandson with congenital heart disease, daughter with mitral valve prolapse Social history: Retired, . 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 At baseline patient is bedbound and requires assistance with ADL. ROS: Unable to obtain as the patient has BiPAP on and has difficulty providing answers In the ED, patient presented mildly hypertensive 131/76, heart rate 78, respiratory rate 22, afebrile satting 100 on BiPAP. Pertinent lab findings include hemoglobin 10.9 with MCV of 91, ESR 32, ABG showed pH of 7.36, PCO2 of 63, PO2 of 72, bicarb of 36, BNP of 208, troponin within normal limits, TSH 6.03, free T40.92. Urinalysis did not show any bacteria but there was mild pyuria with some positive leukocyte esterase and nitrites. U tox positive for opiates. EKG shows sinus rhythm without any concerning ST changes. CTA of the chest shows no evidence of PE but there is bilateral pleural effusions, interstitial lung thickening, consolidation in the bilateral upper and lower lobes, possible cirrhosis, nonobstructing right nephrolithiasis, small pericardial effusion and coronary artery calcifications. CT head shows some periventricular chronic small vessel ischemia with volume loss but no intracranial hemorrhage, mass effect or midline shift. Patient will be admitted for acute hypoxic respiratory failure secondary to pneumonia will be treated with IV antibiotics and possible thoracentesis for pleural effusions. Will consider cardiology consultation for small pericardial effusion. Exam Vital Signs Temp Pulse Resp BP Pulse Ox O2 Del Method O2 Flow Rate 97.0 F 63 18 149/77 H 100 BiPAP 6 02/21/25 05:00 02/21/25 05:00 02/21/25 05:00 02/21/25 05:00 02/21/25 05:00 02/21/25 05:00 02/21/25 02:51 FiO2 40 02/21/25 04:27 Narrative Exam Physical Exam: GENERAL: Awakens to multiple stimulations with eye opening, on BiPAP, morbidly obese, does answer questions appropriately but slowly HEENT: NC/AT. Moist mucosa. PERRLA/EOMI. CARDIO: Distant heart sounds, no obvious murmurs, no JVD. PULM: No coughing but on BiPAP currently. Anterior lung de luna clear to auscultation, did not auscultate posterior lung de luna due to body habitus and patient being on BiPAP GI: Abdomen soft, NT/ND, +BS. URO/COMPENSATION ANALYST: +Handley catheter SKIN/MSK/EXT: No wounds/discoloration/rashes/edema/amputations. +Pedal pulses present B/L. NEURO: GCS 11, oriented to person, spasticity noted on left upper extremity, able to move lower extremities bilaterally Results: Labs 02/21/25 02:34 02/21/25 02:34 Labs: Short CBC 02/21/25 Range/Units 02:34 WBC 4.9 (3.6-11.0) Thou/mm3 Hgb 10.9 L (12.0-16.0) g/dL Hct 34.2 L (36.0-46.0) % Plt Count 226 (140-440) Thou/mm3 BMP 02/21/25 02:34 Sodium 143 Potassium 4.1 Chloride 104 Carbon Dioxide 34.5 H BUN 10 Creatinine 0.7 Glucose 92 Calcium 8.8 Cardiac Enzymes 02/21/25 Range/Units 02:34 Troponin I < 0.020 (0.0-0.045) ng/mL Liver Function 02/21/25 Range/Units 02:34 Total Bilirubin 0.3 (0.3-1.2) mg/dL Direct Bilirubin < 0.1 (0.0-0.3) mg/dL AST 18 (0-34) U/L ALT 7 L (10-49) U/L Alkaline Phosphatase 63 (46-116) U/L Albumin 2.8 L (3.4-4.8) gm/dL Urine 02/21/25 Range/Units 03:21 Urine Color Lt-Yellow (Lt Yel-Yel) Urine Clarity Clear (Clear/Hazy) Urine pH 6.0 (5.0-7.0) Ur Specific [place] 1.013 (1.001-1.035) Urine Protein Negative (Neg - Trace) Urine Glucose (UA) Negative (Negative) ABG Interpretation ABG results: 02/21/25 02:30 ABG pH 7.36 ABG pCO2 63 H ABG pO2 72 L ABG HCO3 36 H ABG O2 Saturation 94 ABG Base Excess 9 H Quality Measures Quality Measures none Advance care planning discussed with:: patient Medications Home Medications and Allergies Home Medications ?Medication ?Instructions ?Recorded ?Confirmed ?Type donepezil 5 mg tablet 5 mg PO QDAY 01/16/18 History atorvastatin 20 mg tablet 40 mg PO QPM 09/14/18 History duloxetine 60 mg capsule,delayed 60 mg PO BID 04/23/21 11/19/24 History release ergocalciferol (vitamin D2) 1,250 50,000 unit PO QWEEK 04/23/21 11/19/24 History mcg (50,000 unit) capsule multivitamin (One Daily 1 tab PO QDAY 04/23/2111/19 History Multivitamin tablet) pantoprazole 40 mg tablet,delayed 40 mg PO Q12H 11/19/24 History release aspirin 81 mg tablet,delayed 81 mg PO DAILY 11/19/24 0 11/19/24 History release Allergies Allergy/AdvReac Type Severity Reaction Status Date / Time ergotamine (From Cafergot) Allergy Intermediate Nausea Verified 09/13/24 20:28 adhesive tape Allergy Mild Rash Verified 09/13/24 20:28 citalopram (From Celexa) Allergy Mild Restless Verified 09/13/24 20:28 leg latex Allergy Mild Rash Verified 09/13/24 20:28 silver Allergy Rash Verified 09/13/24 20:28 Visit Medications Acetaminophen (Acetaminophen 325 Mg Tablet) 650 mg PO Q6H PRN PRN Reason: Pain 1-3 and/or Fever >100.1 Stop: 03/23/25 05:26 Heparin Sodium (Porcine) (Heparin Sod Inj 5000 Unit/Ml Vial) 5,000 unit SC Q12HR [facility] Stop: 03/07/25 08:59 Sodium Chloride (Ns) 1,000 mls @ 100 mls/hr IV .Q10H ONE Stop: 02/21/25 14:25 Last Admin: 02/21/25 04:41 Dose: 100 mls/hr Cefepime HCl 2 gm/ Sodium (Chloride) 50 mls @ 100 mls/hr IV X1 ONE Stop: 02/21/25 05:47 Vancomycin HCl 2,000 mg/ (Sodium Chloride) 500 mls @ 150 mls/hr IV X1 ONE Stop: 02/21/25 08:37 Cefepime HCl 2 gm/ Sodium (Chloride) 50 mls @ 100 mls/hr IV Q8HR [facility] Stop: 02/28/25 13:59 Ondansetron HCl (Ondansetron Inj 2 Mg/Ml Inj 2 Ml) 4 mg IVP Q6H PRN; Protocol PRN Reason: NAUSEA OR VOMITING Stop: 03/23/25 05:26 Pantoprazole Sodium (Pantoprazole Inj 40 Mg Vial) 40 mg IVP QDAY [facility] Stop: 03/23/25 08:59 Pharmacy Consult (Vancomycin Pharmacy To Dose 1 Each Each) 1 each IV QDAY [facility] Stop: 03/23/25 08:59 Sennosides (Senna Tablet) 1 tab PO QDAY PRN; Protocol PRN Reason: constipation Stop: 03/23/25 05:26 Discontinued Medications Albuterol/Ipratropium (Albuterol/Ipratropium (Duoneb) Rt Kristin 3 Ml Nebu) 3 ml INH X1 ONE Stop: 02/21/25 02:28 Last Admin: 02/21/25 02:51 Dose: 3 ml Methylprednisolone Sodium Succinate (Methylprednisolone Sod Succ 62.5 Mg/Ml 2ml Vial) 125 mg IVP X1 ONE Stop: 02/21/25 02:28 Last Admin: 02/21/25 02:54 Dose: 125 mg Assessment & Plan Plan 79-year-old female with a past medical history of COPD on 3 L home O2, PE in 2022 s/p therapy, hypertension, hyperlipidemia, GERD, iron deficiency anemia, and depression who presented on 02/21/2025 from SNF due to shortness of breath and altered mental status will be admitted for acute hypoxic respiratory failure secondary to pneumonia will be treated with IV antibiotics and possible thoracentesis for pleural effusions. Will consider cardiology consultation for small pericardial effusion. #Acute hypoxic respiratory failure secondary to #Influenza B positive #Bilateral pleural effusions #Community-acquired pneumonia #COPD on home oxygen As stated above, patient has multiple admissions for the same presentations Requiring BiPAP as she presented hypoxic, currently saturating 100 IPAP 12, EPAP 6 ABG showed pH of 7.36, DGN907, PO272 and bicarb of 36 CTA of the chest shows no evidence of PE but there is bilateral pleural effusions, interstitial lung thickening, consolidation in the bilateral upper and lower lobes, possible cirrhosis, nonobstructing right nephrolithiasis, small pericardial effusion and coronary artery calcifications. CT head shows some periventricular chronic small vessel ischemia with volume loss but no intracranial hemorrhage, mass effect or midline shift. In the ED, patient given cefepime, oseltamivir, steroids and breathing treatment Plan: Continue IV cefepime and IV vancomycin Breathing treatment as needed, Xopenex Consider IV steroids - no wheezing appreciated Discuss need for thoracentesis with ICU team Continue BIPAP Aspiration precautions, HOB >30 Speech and PT eval #Acute encephalopathy, improving Secondary to above presentation vs. U tox positive for opioid Plan: Monitor opioid use Treat underlying cause of encephalopathy as above #Cirrhosis? Found on preliminary CT findings, no documented history of cirrhosis No documented history of alcohol use disorder Plan: Await for final radiologic findings #Nonobstructing nephrolithiasis Found on preliminary CT findings Plan: Monitor for any acute changes #Hypertension #Hyperlipidemia #Iron deficiency anemia #Depression Chronic medical conditions, pending med rec Plan: Restart home medications when appropriate Health Maintenance: Lines: PIV, Handley Diet: Pending nurse swallow, speech eval Bowel: Senna as needed GI prophylaxis: IV Protonix DVT prophylaxis: Subcu heparin Dispo: IV antibiotics for pneumonia and possible thoracentesis Code: Full Patient seen and examined with attending Dr. Vincent Byrd, DO PGY-2 Internal Medicine - [facility]
[2025-02-21] MEDS: CEFEPIME INJ 2 GM in SODIUM CHLORIDE 0.9% (Popper) 50 ML IV ×3 (06:06→22:41)
--- NOTE | 2025-02-21 06:08 | PC.NURSE ---
Spoke with patients granddaughter regarding patients condition and received updated information from Sonia regarding the patient. Patient at baseline is wheelchair bound per grand-daughter. Sonia states she is unsure if the patient has been having issues swallowing. Patient is incontinent of bowel and bladder. Edilma area is slightly reddened. Patient is alert and able to communicate. Patient voice is soft and she tends to mumble. PO medications will be held at this time due to the patient being unsure if she can swallow or not. Patient is currently on bipap to aid with oxygenation.
[2025-02-21] MEDS: Vancomycin Inj 2,000 MG in SODIUM CHLORIDE 0.9% 500 ML 500 ML 150 MG IV (09:49)
--- NOTE | 2025-02-21 14:51 | PC.RT ---
Unable to obtain abg, spoke with md, order to be changed to vbg.
[2025-02-21 15:24] LABS: Base Excess, Venous 7 (-3-3); O2 Saturation, Venous 80 % (96-97); PCO2, Venous 48 mmHg (36-56); PO2, Venous 43 mmHg (15-58); pH, Venous 7.44 (7.33-7.66)
--- NOTE | 2025-02-21 16:18 | ESPR_ITS ---
Documentation for date of: 02/21/25 Subjective Subjective Interval history: Patient seen at bedside on BiPAP. She denies chest pain, worsening shortness of breath, new cough, or headache. Her bed remains elevated for aspiration precautions. She only complains of mild neck discomfort. Handley catheter is functioning well with yellow urine output, no urinary or bowel issues reported, and there have been no new hypoglycemic episodes. Exam Vital Signs Temp Pulse Resp BP Pulse Ox O2 Del Method O2 Flow Rate 98.6 F 109 H 24 H 163/88 H 95 BiPAP 2 02/21/25 16:02 02/21/25 16:02 02/21/25 16:02 02/21/25 16:02 02/21/25 16:02 02/21/25 16:02 02/21/25 16:02 FiO2 40 02/21/25 16:02 Narrative Exam Gen: On BiPAP, awake, AOx3 but mild baseline slowness. Neuro: Follows commands, slow to answer but oriented. CV: RRR, no murmurs, no muffled heart sounds. Resp: Breath sounds absent at lung bases, no wheezing, no distress on BiPAP. Abd: Soft, NT/ND. Ext: Bilateral LE edema. Lines: Handley in place, PIV intact. Urine: Yellow, clear. Objective Labs 02/21/25 02:34 02/21/25 02:34 Labs: Laboratory Results - last 24 hr 02/21/25 02/21/25 02/21/25 02:30 02:34 02:58 WBC 4.9 RBC 3.74 L Hgb 10.9 L Hct 34.2 L MCV 91 MCH 29.1 MCHC 31.9 RDW Std Deviation 49.4 H Plt Count 226 Neut % (Auto) 49 Lymph % (Auto) 29 [place] % (Auto) 12 Eos % (Auto) 8 Baso % (Auto) 2 Neut # (Auto) 2.4 Lymph # (Auto) 1.4 [place] # (Auto) 0.6 Eos # (Auto) 0.4 Baso # (Auto) 0.1 Immature Gran # (Auto) 0.01 H Absolute Nucleated RBC 0.00 Immature Gran % 0 Nucleated RBC % 0 ESR 32 H PT 12.9 H INR 1.2 APTT 28.2 D-Dimer 271 Puncture Site Left Radial ABG pH 7.36 ABG pCO2 63 H ABG pO2 72 L ABG HCO3 36 H ABG O2 Saturation 94 ABG Base Excess 9 H VBG pH VBG pCO2 VBG pO2 VBG O2 Sat ([place]) VBG Base Excess FiO2 21 Sodium 143 Potassium 4.1 Chloride 104 Carbon Dioxide 34.5 H Anion Gap 5 L BUN 10 Creatinine 0.7 Estim Creat Clear Calc 75.9 eGFR > 60 BUN/Creatinine Ratio 14 Glucose 92 Calculated Osmolality 283 Lactic Acid 0.8 Calcium 8.8 Corrected Calcium 9.8 Magnesium 1.9 Total Bilirubin 0.3 Direct Bilirubin < 0.1 AST 18 ALT 7 L Alkaline Phosphatase 63 Troponin I < 0.020 C-Reactive Prot, Quant < 0.5 B-Natriuretic Peptide 208 H Total Protein 5.0 L Albumin 2.8 L Globulin 2.2 L Albumin/Globulin Ratio 1.3 Procalcitonin < 0.04 TSH 6.03 H Free T4 0.92 Ur Collection Type Urine Color Urine Clarity Urine pH Ur Specific [place] Urine Protein Urine Glucose (UA) Urine Ketones Urine Blood Urine Nitrite Urine Bilirubin Urine Urobilinogen (Auto) Ur Leukocyte Esterase Urine RBC Urine WBC Ur Squamous Epith Cells Urine Bacteria Ur Culture Indicated? Urine Opiates Screen Urine Fentanyl Screen Ur Barbiturates Screen U Amphetamin/Meth Scrn U Benzodiazepines Scrn U Cocaine Metab Screen U Marijuana (THC) Screen 02/21/25 02/21/25 03:21 15:14 WBC RBC Hgb Hct MCV MCH MCHC RDW Std Deviation Plt Count Neut % (Auto) Lymph % (Auto) [place] % (Auto) Eos % (Auto) Baso % (Auto) Neut # (Auto) Lymph # (Auto) [place] # (Auto) Eos # (Auto) Baso # (Auto) Immature Gran # (Auto) Absolute Nucleated RBC Immature Gran % Nucleated RBC % ESR PT INR APTT D-Dimer Puncture Site ABG pH ABG pCO2 ABG pO2 ABG HCO3 ABG O2 Saturation ABG Base Excess VBG pH 7.44 VBG pCO2 48 VBG pO2 43 VBG O2 Sat ([place]) 80 L VBG Base Excess 7 H FiO2 Sodium Potassium Chloride Carbon Dioxide Anion Gap BUN Creatinine Estim Creat Clear Calc eGFR BUN/Creatinine Ratio Glucose Calculated Osmolality Lactic Acid Calcium Corrected Calcium Magnesium Total Bilirubin Direct Bilirubin AST ALT Alkaline Phosphatase Troponin I C-Reactive Prot, Quant B-Natriuretic Peptide Total Protein Albumin Globulin Albumin/Globulin Ratio Procalcitonin TSH Free T4 Ur Collection Type Clean Catch Urine Color Lt-Yellow Urine Clarity Clear Urine pH 6.0 Ur Specific [place] 1.013 Urine Protein Negative Urine Glucose (UA) Negative Urine Ketones Negative Urine Blood Negative Urine Nitrite Negative Urine Bilirubin Negative Urine Urobilinogen (Auto) Negative Ur Leukocyte Esterase Positive Urine RBC 1 Urine WBC 6 H Ur Squamous Epith Cells < 1 Urine Bacteria None Ur Culture Indicated? Not Indicated Urine Opiates Screen Positive A Urine Fentanyl Screen Negative Ur Barbiturates Screen Negative U Amphetamin/Meth Scrn Negative U Benzodiazepines Scrn Negative U Cocaine Metab Screen Negative U Marijuana (THC) Screen Negative ABG Interpretation ABG results: 02/21/25 02/21/25 02:30 15:14 ABG pH 7.36 ABG pCO2 63 H ABG pO2 72 L ABG HCO3 36 H ABG O2 Saturation 94 ABG Base Excess 9 H VBG pH 7.44 VBG pCO2 48 VBG pO2 43 VBG Base Excess 7 H Quality Measures Quality Measures none Advance care planning discussed with:: patient Assessment & Plan Assessment Current Active Medications: Generic Name Dose Route Start Last Admin Trade Name Freq PRN Reason Stop Dose Admin Acetaminophen 650 mg 02/21/25 05:27 Acetaminophen 325 Mg Tablet PO 03/23/25 05:26 Q6H PRN Pain 1-3 and/or Fever >100.1 Heparin Sodium (Porcine) 5,000 unit 02/21/25 09:00 02/21/25 09:50 Heparin Sod Inj 5000 Unit/Ml Vial SC 03/07/25 08:59 Not Given Q12HR CARLO Cefepime HCl 2 gm/ Sodium 50 mls @ 100 mls/hr 02/21/25 14:00 02/21/25 16:05 Chloride IV 02/28/25 13:59 100 mls/hr Q8HR CARLO Administration Vancomycin/Sodium Chloride 200 mls @ 120 mls/hr 02/21/25 22:00 Vancomycin/Ns 1 Gm Ivpb IV 02/28/25 21:59 BID@1000,2200 CARLO Levalbuterol HCl 0.63 mg 02/21/25 06:14 Levalbuterol Rt 0.63 Mg/3 Ml Nebu INH 03/23/25 06:13 Q8HR PRN WHEEZING Ondansetron HCl 4 mg 02/21/25 05:27 Ondansetron Inj 2 Mg/Ml Inj 2 Ml IVP 03/23/25 05:26 Q6H PRN NAUSEA OR VOMITING Protocol Oseltamivir Phosphate 75 mg 02/21/25 21:00 Oseltamivir 75 Mg Capsule PO 02/26/25 09:01 BID [facility] Pantoprazole Sodium 40 mg 02/21/25 09:00 02/21/25 09:49 Pantoprazole Inj 40 Mg Vial IVP 03/23/25 08:59 40 mg QDAY CARLO Administration Pharmacy Consult 1 each 02/21/25 09:00 Vancomycin Pharmacy To Dose 1 Each Each IV 03/23/25 08:59 QDAY PRN CONSULT Sennosides 1 tab 02/21/25 05:27 Senna Tablet PO 03/23/25 05:26 QDAY PRN constipation Protocol Plan 79F with severe COPD on home O2 presenting with acute on chronic hypercapnic hypoxic respiratory failure due to CAP/Influenza B with large bilateral pleural effusions, mild encephalopathy, improving CO2 retention on BiPAP but persistent hypoxia, now with new LE edema and stable small pericardial effusion. #Acute on chronic hypercapnic hypoxic respiratory failure -VBG improved (CO2 down to 48 from 63, pH normalized at 7.44) -Continue IV cefepime, vancomycin, oseltamivir. -Monitor ABGs/VBGs daily. -Keep HOB >30?, aspiration precautions. Speech eval pending. #Community-Acquired Pneumonia / Influenza B -Primary infectious trigger. -Continue IV antibiotics. -Blood cultures pending. -Continue oseltamivir #Bilateral Pleural Effusions -Large, contributing to hypoxia ? absent lung bases sound on exam -Discuss thoracentesis with ICU/Pulm to improve oxygenation. #Acute Encephalopathy -Mild, multifactorial ? residual CO2 effect, infection, possible sedation from home meds/opioids. -Patient AOx3 but still slightly slow to answer. -Monitor sugars, no new hypoglycemia. #Small Pericardial Effusion -Incidental, no tamponade signs. -Continue monitoring, echo if signs develop. #Possible Cirrhosis -Imaging suggests cirrhosis; LFTs normal. -Monitor for signs; no action now. #Elevated TSH with normal free T4 -Subclinical hypothyroidism. -No acute treatment needed, follow outpatient. #Nonobstructing Nephrolithiasis -Handley patent, no hematuria or pain. -Continue to monitor. Chronic Conditions: #Chronic COPD on 3 L O2 #Chronic Hypertension #Chronic Hyperlipidemia #GERD #Iron Deficiency Anemia #Depression #Possible Dementia/Chronic Encephalopathy Health Maintenance: * Lines: PIV, Handley. * Diet: Pending nurse swallow --> Dysphagia 2 - Mechanical Altered * Bowel: Senna PRN. * GI prophylaxis: IV Protonix. * DVT prophylaxis: SubQ heparin. * Disposition: Continue IV abx, consider thoracentesis. * Code Status: Full. ----- Plan discussed with attending physician Dr. Tea Worrell MD PGY-1 Internal Medicine Attending Provider Attestation/Addendum Dilcia Arias DO, attest that I was physically present for the benavides portions of the service and evaluated the patient with the resident and I reviewed and discussed the case with the resident and agree with the resident's findings and plans of care as documented above Patient seen and evaluated this AM in ED. Patient remains on BiPap, but mental status improved. Patient is A&Ox3. She states she has been feeling unwell since yesterday. She endorses using CPAP at night. Patient found to be flu positive. Will continue wtih tamiflu and IV abx.F/u with cultures. will repeat ABG. If improved, will switch BiPap to qHS. Will start patient on low dose diuretic due to effusions and mild heart failure. No peripheral edema noted on exam.
[2025-02-21] MEDS: ACETAMINOPHEN 325 MG TABLET 650 MG PO (21:22)
[2025-02-21] MEDS: OSELTAMIVIR 75 MG CAPSULE PO (21:22)
[2025-02-21] MEDS: HEPARIN SOD INJ 5000 UNIT/ML VIAL SC (21:23)
[2025-02-22] VITALS (9 sets, daily range): BP systolic 119–147; BP diastolic 78–93; PULSE 96–115; RESP 17–23; TEMP 36.1–36.6; O2SAT 90–99
--- NOTE | 2025-02-22 02:26 | PC.NURSE ---
Called RT (Justyn) for Bipap/Cipap at HS for the patient as ordered. Per Rt, will come and bring machine at bedside.
[2025-02-22] MEDS: ACETAMINOPHEN 325 MG TABLET 650 MG PO (03:23)
[2025-02-22] MEDS: CEFEPIME INJ 2 GM in SODIUM CHLORIDE 0.9% (Popper) 50 ML IV ×3 (05:24→21:04)
--- NOTE | 2025-02-22 06:00 | PC.NURSE ---
Patient arrived in med surg unit around 22:00 PM. Assisted patient to bed. Provided safety and comfort.
[2025-02-22 06:02] LABS: Basophils # (Auto) 0.0 Thou/mm3 (0.0-0.2); Basophils % (Auto) 0 % (0-2.5); Eosinophils # (Auto) 0.0 Thou/mm3 (0.0-0.5); Eosinophils % (Auto) 0 % (0-10); Hematocrit 34.6 % (36.0-46.0); Hemoglobin 11.0 g/dL (12.0-16.0); Immature Granulocytes Auto 0.01 Thou/mm3 (0.00-0.00); Lymphocytes # (Auto) 1.0 Thou/mm3 (1.0-4.8); Lymphocytes % (Auto) 13 % (10-50); Mean Corpuscular HGB Conc 31.8 g/dl (31.0-37.0); Mean Corpuscular Hemoglobin 29.2 pg (25.0-35.0); Mean Corpuscular Volume 92 fL (80-100); Monocytes # (Auto) 1.0 Thou/mm3 (0.0-0.8); Monocytes % (Auto) 13 % (0-12); Neutrophils # (Auto) 5.6 Thou/mm3 (1.8-7.7); Neutrophils % (Auto) 74 % (37-80); Nucleated Red Blood Cell # 0.00 Thou/mm3 (0.00-0.00); Nucleated Red Blood Cell % 0 /100 WBC (0); Platelet Count 266 Thou/mm3 (140-440); RDW Standard Deviation 49.5 fL (36.4-46.3); Red Blood Count 3.77 Miln/mm3 (4.00-5.20); White Blood Count 7.5 Thou/mm3 (3.6-11.0)
[2025-02-22 06:49] LABS: Alanine Aminotransferase 10 U/L (10-49); Albumin, Serum 3.1 gm/dL (3.4-4.8); Albumin/Globulin Ratio 1.3 (1.2-2.2); Alkaline Phosphatase 64 U/L (46-116); Anion Gap 10 (7-16); Aspartate Amino Transferase 18 U/L (0-34); BUN/Creatinine Ratio 15 Ratio (12-20); Bilirubin,Total 0.4 mg/dL (0.3-1.2); Blood Urea Nitrogen 12 mg/dL (9-23); Calcium 8.9 mg/dL (8.3-10.6); Calcium (Corrected) 9.6 mg/dL (8.5-10.1); Carbon Dioxide 31.9 mMol/L (20.0-31.0); Chloride 102 mMol/L (98-107); Creatinine (Component) 0.8 mg/dL (0.6-1.3); Estimated Creatinine Clearance 66.3 mL/min (>60); Globulin 2.3 gm/dL (2.3-3.5); Glucose 95 mg/dL (74-106); Magnesium 1.9 mg/dL (1.6-2.6); Osmolality,Calculated 286 (275-295); Phosphorous 4.1 mg/dL (2.4-5.1); Potassium 4.3 mMol/L (3.4-5.1); Sodium 144 mMol/L (136-145); Total Protein 5.4 gm/dL (5.7-8.2); eGFR > 60 See Note
[2025-02-22 08:02] LABS: INR 1.2 (0.9-1.3); Prothrombin Time 12.8 Seconds (9.0-12.2)
--- NOTE | 2025-02-22 08:21 | XR_ITS ---
Examination: Ultrasound hemithoraces Technique: Grayscale sonographic images right and left hemithoraces Date and time: February 22, 2025 0932 hrs. Indications: Pneumonia this week with bilateral pleural effusions on chest imaging Findings: Minimal bilateral pleural fluid Impression: Minimal bilateral pleural fluid
[2025-02-22] MEDS: OSELTAMIVIR 75 MG CAPSULE PO ×2 (08:32→20:17)
[2025-02-22] MEDS: ONDANSETRON INJ 2 MG/ML INJ 2 ML 4 MG IVP (08:40)
[2025-02-22] MEDS: VANCOMYCIN/NS 1 GM IVPB 200 ML IV ×2 (10:08→21:52)
--- NOTE | 2025-02-22 12:07 | PC.SS ---
Rounding note: Cultures pending 79YO White female, reason for visit: PNEUMONIA WITH EFFUSIONS. Bark Tanner met with patient at bedside, role and purpose of contact was explained. Patient confirmed her demographic information. Patient stated his primary medical surrogate decisionmaker is her granddaughter Niesha Mohr [phone]. Patient is maximum assist ADLs and uses a wheelchair for ambulation. Patient utilizes 2L of oxygen at all times. ?PCP: Dr. Carrillo. Next of kin: Granddaughter Niesha Mohr [phone] Discharge plan: return to [facility], transportation needed.
[2025-02-22] MEDS: HYDROcodone/APAP 5/325 TABLET 1 TAB PO ×2 (13:22→21:24)
--- NOTE | 2025-02-22 15:36 | ESPR_ITS ---
Documentation for date of: 02/22/25 Subjective Subjective Interval history: Patient was seen and examined at the bedside. No acute overnight events were reported. She was complaining of headache therefore Imitrex was given x 1. Patient was found to have upper extremity swelling therefore Doppler ultrasound was ordered. Patient will be continued on Tamiflu for influenza pneumonia. Labs showed hemoglobin at 11. White count stable. Kidney functions were unremarkable. Patient is off BiPAP and was interacting well. Patient needs to be on CPAP overnight and RT was made aware. Prelim blood cultures negative. Will continue with cefepime and vancomycin. Exam Vital Signs Temp Pulse Resp BP Pulse Ox O2 Del Method O2 Flow Rate 96.9 F 108 H 20 127/78 96 Nasal Cannula 2 02/22/25 12:00 02/22/25 12:00 02/22/25 12:00 02/22/25 12:00 02/22/25 12:00 02/22/25 12:00 02/22/25 12:00 FiO2 40 02/22/25 12:00 Narrative Exam GENERAL APPEARANCE: AxOx4, obese female in no acute distress. Saturating well on 3 L NC. HEENT: NC, AT. MMM. EOMI, clear conjunctiva, oropharynx clear. NECK: Supple without lymphadenopathy. No stiffness or restricted ROM. HEART: Regular rate and regular rhythm, normal S1/S2, no m/r/g LUNGS: Bilateral decreased breath sounds on bases. ABDOMEN: Soft, nontender, nondistended with good bowel sounds heard. BACK: No CVAT, no obvious deformity. EXTREMITIES: Upper extremity swollen and edematous possible IV infiltration. 2+ pitting edema in both lower extremities. NEUROLOGICAL: Grossly nonfocal. Alert and oriented, moving all 4 extremities. CN not formally tested but appear grossly intact. Skin: Warm and dry without any rash. Psych: Appropriate mood and affect Objective Labs 02/23/25 04:39 02/23/25 04:39 Labs: Laboratory Results - last 24 hr 02/22/25 04:25 WBC 7.5 D RBC 3.77 L Hgb 11.0 L Hct 34.6 L MCV 92 MCH 29.2 MCHC 31.8 RDW Std Deviation 49.5 H Plt Count 266 D Neut % (Auto) 74 Lymph % (Auto) 13 [place] % (Auto) 13 H Eos % (Auto) 0 Baso % (Auto) 0 Neut # (Auto) 5.6 Lymph # (Auto) 1.0 [place] # (Auto) 1.0 H Eos # (Auto) 0.0 Baso # (Auto) 0.0 Immature Gran # (Auto) 0.01 H Absolute Nucleated RBC 0.00 Immature Gran % 0 Nucleated RBC % 0 PT 12.8 H INR 1.2 Sodium 144 Potassium 4.3 Chloride 102 Carbon Dioxide 31.9 H Anion Gap 10 BUN 12 Creatinine 0.8 Estim Creat Clear Calc 66.3 eGFR > 60 BUN/Creatinine Ratio 15 Glucose 95 Calculated Osmolality 286 Calcium 8.9 Corrected Calcium 9.6 Phosphorus 4.1 Magnesium 1.9 Total Bilirubin 0.4 AST 18 ALT 10 Alkaline Phosphatase 64 Total Protein 5.4 L Albumin 3.1 L Globulin 2.3 Albumin/Globulin Ratio 1.3 ABG Interpretation ABG results: 02/21/25 02/21/25 02:30 15:14 ABG pH 7.36 ABG pCO2 63 H ABG pO2 72 L ABG HCO3 36 H ABG O2 Saturation 94 ABG Base Excess 9 H VBG pH 7.44 VBG pCO2 48 VBG pO2 43 VBG Base Excess 7 H Quality Measures Quality Measures VTE prophylaxis (Heparin SC) Advance care planning discussed with:: patient Assessment & Plan Assessment Current Active Medications: Generic Name Dose Route Start Last Admin Trade Name Freq PRN Reason Stop Dose Admin Acetaminophen 650 mg 02/21/25 05:27 02/22/25 03:23 Acetaminophen 325 Mg Tablet PO 03/23/25 05:26 650 mg Q6H PRN Administration Pain 1-3 and/or Fever >100.1 Hydrocodone Bitart/Acetaminophen 1 tab 02/22/25 12:26 02/22/25 13:22 Hydrocodone/Apap 5/325 Tablet PO 02/27/25 12:25 1 tab Q8HR PRN Administration PAIN SCALE 4-10(Mod-Sev Heparin Sodium (Porcine) 5,000 unit 02/21/25 09:00 02/22/25 08:27 Heparin Sod Inj 5000 Unit/Ml Vial SC 03/07/25 08:59 Not Given Q12HR CARLO Cefepime HCl 2 gm/ Sodium 50 mls @ 100 mls/hr 02/21/25 14:00 02/22/25 13:21 Chloride IV 02/28/25 13:59 100 mls/hr Q8HR CARLO Administration Vancomycin/Sodium Chloride 200 mls @ 120 mls/hr 02/22/25 10:00 02/22/25 10:08 Vancomycin/Ns 1 Gm Ivpb IV 03/01/25 09:59 120 mls/hr BID@1000,2200 CARLO Administration Protocol Levalbuterol HCl 0.63 mg 02/21/25 06:14 Levalbuterol Rt 0.63 Mg/3 Ml Nebu INH 03/23/25 06:13 Q8HR PRN WHEEZING Ondansetron HCl 4 mg 02/21/25 05:27 02/22/25 08:40 Ondansetron Inj 2 Mg/Ml Inj 2 Ml IVP 03/23/25 05:26 4 mg Q6H PRN Administration NAUSEA OR VOMITING Protocol Oseltamivir Phosphate 75 mg 02/21/25 21:00 02/22/25 08:32 Oseltamivir 75 Mg Capsule PO 02/26/25 09:01 75 mg BID CARLO Administration Pantoprazole Sodium 40 mg 02/21/25 09:00 02/22/25 08:32 Pantoprazole Inj 40 Mg Vial IVP 03/23/25 08:59 40 mg QDAY CARLO Administration Pharmacy Consult 1 each 02/21/25 09:00 Vancomycin Pharmacy To Dose 1 Each Each IV 03/23/25 08:59 QDAY PRN CONSULT Sennosides 1 tab 02/21/25 05:27 Senna Tablet PO 03/23/25 05:26 QDAY PRN constipation Protocol Plan This 79F with severe COPD on home O2 presenting with acute on chronic hypercapnic hypoxic respiratory failure due to CAP/Influenza B with large bilateral pleural effusions, mild encephalopathy, improving CO2 retention on BiPAP but persistent hypoxia, now with new LE edema and stable small pericardial effusion. #Acute on chronic hypercapnic hypoxic respiratory failure ? Likely related to community-acquired pneumonia versus influenza versus bilateral pleural effusions versus COPD exacerbation -VBG improved (CO2 down to 48 from 63, pH normalized at 7.44) ?Prelim blood cultures negative x 24 hours. Patient is breathing well on 3 L NC. Plan: -Continue IV cefepime, vancomycin, oseltamivir. -Monitor ABGs/VBGs daily. -Keep HOB >30?, aspiration precautions. Speech eval pending. ?CPAP at night -BiPAP as needed # Influenza pneumonia -Primary infectious trigger. - Continue Tamiflu -Droplet precaution #Bilateral Pleural Effusions -Large, contributing to hypoxia ? absent lung bases sound on exam - Pleural ultrasound showed small bilateral pleural effusions. Does not require thoracentesis. #Acute Encephalopathy, likely related to hypercapnia resolved -Mild, multifactorial ? residual CO2 effect, infection, possible sedation from home meds/opioids. -Patient AOx3 but still slightly slow to answer. -Monitor sugars, no new hypoglycemia. #Small Pericardial Effusion -Incidental, no tamponade signs. -Continue monitoring, echo if signs develop. #Possible Cirrhosis -Imaging suggests cirrhosis; LFTs normal. -Monitor for signs; no action now. #Elevated TSH with normal free T4 -Subclinical hypothyroidism. -No acute treatment needed, follow outpatient. #Nonobstructing Nephrolithiasis -Handley patent, no hematuria or pain. -Continue to monitor. Chronic Conditions: #Chronic COPD on 3 L O2 #History of PE in 2022 not on anticoagulation #BRYSON ?Continue CPAP at night ? RT following #Chronic Hypertension ? Resumed metoprolol 50 twice daily #Chronic Hyperlipidemia ?Resumed atorvastatin 40 mg at bedtime #GERD ?Resumed Protonix 40 mg p.o. daily #Iron Deficiency Anemia ? Will continue ferrous sulfate upon discharge #Depression ?Resumed duloxetine 60 mg twice daily #Possible Dementia/Chronic Encephalopathy ? Resumed donepezil 5 mg p.o. at bedtime Health Maintenance: * Lines: PIV, Handley. * Diet: Dysphagia 2 - Mechanical Altered * Bowel: Senna PRN. * GI prophylaxis: IV Protonix. * DVT prophylaxis: SubQ heparin. * Disposition: Continue IV abx and Tamiflu, insufficient fluid for thoracentesis. * Code Status: Full. ----- Plan discussed with attending physician Dr. Tea Torrez MD, PGY 3 Attending Provider Attestation/Addendum I, Dilcia Metcalf, DO, attest that I was physically present for the benavides portions of the service and evaluated the patient with the resident and I reviewed and discussed the case with the resident and agree with the resident's findings and plans of care as documented above Patient seen and evaluated this AM. She complains of headache and her chronic neck pain for which she takes imitrex and norco. Will restart home meds. Patient is on 2L/NC and remains at baseline. Patient did not have a cpap at night, will re-order for this evening. Will f/u with final cultures and sensitivities. If patient remains stable, anticipate DC home within next 24h.
--- NOTE | 2025-02-22 18:24 | XR_ITS ---
Examination: Venous duplex upper extremity sonogram, bilateral. Date and time of exam: Shortness of breath chest pain today arm pain and swelling Date and time: February 22, 2025 11:06 AM Technique: Multiple sonographic images of the deep venous system have been obtained. B-mode/2-D grayscale imaging of vascular structures and Doppler spectral analysis (waveforms) and color performed Both legs are examined. Findings: Deep venous systems do not demonstrate abnormal echogenicity. All visualized deep veins exhibit compressibility. All visualized deep veins exhibit augmentation. Impression: Negative for deep vein thrombosis
--- NOTE | 2025-02-22 18:24 | PC.NURSE ---
Notified Dr Torrez at bedside about worsening BUE swelling
[2025-02-22] MEDS: HEPARIN SOD INJ 5000 UNIT/ML VIAL SC (20:20)
[2025-02-22] MEDS: METOPROLOL TARTRATE 25 MG TABLET 50 MG PO (21:00)
[2025-02-22] MEDS: DULoxetine HCL 30 MG CAPSULE 60 MG PO (21:01)
[2025-02-22] MEDS: ATORVASTATIN CALCIUM 20 MG TABLET 40 MG PO (21:01)
[2025-02-22] MEDS: BACLOFEN 10 MG TABLET PO (21:01)
[2025-02-22] MEDS: DONEPEZIL HCL 5 MG TABLET PO (21:10)
[2025-02-23] VITALS (8 sets, daily range): BP systolic 127–139; BP diastolic 73–96; PULSE 78–113; RESP 16–21; TEMP 36.1–36.4; O2SAT 90–96; BMI 12.0
[2025-02-23] MEDS: BACLOFEN 10 MG TABLET PO ×2 (05:00→13:34)
[2025-02-23] MEDS: CEFEPIME INJ 2 GM in SODIUM CHLORIDE 0.9% (Popper) 50 ML IV ×2 (05:00→13:34)
[2025-02-23 05:50] LABS: Basophils # (Auto) 0.1 Thou/mm3 (0.0-0.2); Basophils % (Auto) 2 % (0-2.5); Eosinophils # (Auto) 0.3 Thou/mm3 (0.0-0.5); Eosinophils % (Auto) 6 % (0-10); Hematocrit 32.8 % (36.0-46.0); Hemoglobin 10.2 g/dL (12.0-16.0); Immature Granulocytes Auto 0.01 Thou/mm3 (0.00-0.00); Lymphocytes # (Auto) 1.0 Thou/mm3 (1.0-4.8); Lymphocytes % (Auto) 17 % (10-50); Mean Corpuscular HGB Conc 31.1 g/dl (31.0-37.0); Mean Corpuscular Hemoglobin 29.4 pg (25.0-35.0); Mean Corpuscular Volume 95 fL (80-100); Monocytes # (Auto) 0.6 Thou/mm3 (0.0-0.8); Monocytes % (Auto) 10 % (0-12); Neutrophils # (Auto) 3.8 Thou/mm3 (1.8-7.7); Neutrophils % (Auto) 65 % (37-80); Nucleated Red Blood Cell # 0.00 Thou/mm3 (0.00-0.00); Nucleated Red Blood Cell % 0 /100 WBC (0); Platelet Count 241 Thou/mm3 (140-440); RDW Standard Deviation 52.1 fL (36.4-46.3); Red Blood Count 3.47 Miln/mm3 (4.00-5.20); White Blood Count 5.9 Thou/mm3 (3.6-11.0)
[2025-02-23 06:32] LABS: Alanine Aminotransferase 10 U/L (10-49); Albumin, Serum 3.1 gm/dL (3.4-4.8); Albumin/Globulin Ratio 1.4 (1.2-2.2); Alkaline Phosphatase 59 U/L (46-116); Anion Gap 9 (7-16); Aspartate Amino Transferase 19 U/L (0-34); BUN/Creatinine Ratio 18 Ratio (12-20); Bilirubin,Total 0.4 mg/dL (0.3-1.2); Blood Urea Nitrogen 14 mg/dL (9-23); Calcium 8.9 mg/dL (8.3-10.6); Calcium (Corrected) 9.6 mg/dL (8.5-10.1); Carbon Dioxide 32.2 mMol/L (20.0-31.0); Chloride 103 mMol/L (98-107); Creatinine (Component) 0.8 mg/dL (0.6-1.3); Estimated Creatinine Clearance 66.3 mL/min (>60); Globulin 2.2 gm/dL (2.3-3.5); Glucose 82 mg/dL (74-106); Magnesium 2.0 mg/dL (1.6-2.6); Osmolality,Calculated 286 (275-295); Phosphorous 4.1 mg/dL (2.4-5.1); Potassium 4.3 mMol/L (3.4-5.1); Sodium 144 mMol/L (136-145); Total Protein 5.3 gm/dL (5.7-8.2); eGFR > 60 See Note
[2025-02-23] MEDS: HEPARIN SOD INJ 5000 UNIT/ML VIAL SC (08:17)
[2025-02-23] MEDS: DULoxetine HCL 30 MG CAPSULE 60 MG PO (08:17)
[2025-02-23] MEDS: METOPROLOL TARTRATE 25 MG TABLET 50 MG PO (08:17)
[2025-02-23] MEDS: ASPIRIN EC 81 MG TABEC PO (08:17)
[2025-02-23] MEDS: OSELTAMIVIR 75 MG CAPSULE PO (08:17)
[2025-02-23] MEDS: VANCOMYCIN/NS 1 GM IVPB 200 ML IV (09:44)
[2025-02-23] MEDS: HYDROcodone/APAP 5/325 TABLET 1 TAB PO (13:42)
--- NOTE | 2025-02-23 16:21 | ESDS_ITS ---
<Statement entered by Dilcia Metcalf DO - 02/24/25 08:59> I, Dilcia Metcalf DO, attest that I was physically present for the benavides portions of the service and evaluated the patient with the resident and I reviewed and discussed the case with the resident and agree with the resident's findings and plans of care as documented above Planned Discharge Date 02/23/25 DS: Providers Provider Date of admission: 02/21/25 06:04 Primary care physician: Boubacar Carrillo MD ([facility]) Admitting Provider: Leo Kaur MD Attending Provider on Admission: Leo Kaur MD Consults: 02/21/25 02:27 Referral Respiratory Therapy Stat Comment: BiPAP 02/21/25 06:05 Referral Physical Therapy Routine Comment: Physician Instructions: 02/21/25 06:08 Referral Speech Therapy Routine Comment: Attending Provider on DC: Dr Dilcia Metcalf Discharging Provider: RESIDENT Osiris DS: Diagnosis Problem List Completed Was Problem List Reviewed/Reconciled?: Yes Hospital Course Hospital Course Hospital course: Hospital Course: Gabriela Milan is a 79-year-old female with severe COPD on 3L home oxygen, history of PE in 2022, BRYSON on CPAP, hypertension, hyperlipidemia, GERD, iron deficiency anemia, depression, and baseline mild dementia. She was admitted on 02/21/2025 from SNF due to shortness of breath and altered mental status. In the ED, she was found hypoxic with ABG showing acute on chronic hypercapnia (CO2 63, pH 7.36) and required BiPAP. Imaging revealed bilateral pleural effusions, bilateral consolidation consistent with pneumonia, a small pericardial effusion, and possible cirrhosis. CTA ruled out PE. She was also positive for Influenza B. She was started on IV cefepime, vancomycin, oseltamivir, BiPAP support, and supportive care. Prelim blood cultures remained negative. She was transitioned off BiPAP to nasal cannula as her CO2 improved on repeat VBG (CO2 down to 48, pH normalized). Her oxygen saturation remained stable on nasal cannula. Pleural ultrasound showed minimal bilateral pleural fluid ? thoracentesis was not indicated. During admission, she had an episode of headache treated with Imitrex and mild right upper extremity swelling for which Doppler was negative for DVT. Handley remained patent with no urinary concerns. Her encephalopathy improved completely, and she has been AOx3 with no new confusion. Her home medications for hypertension, hyperlipidemia, GERD, depression, and dementia were gradually resumed. She tolerated her dysphagia 2 diet well. She remained stable overnight with no acute events and is medically clear for discharge back to SNF today. Diagnoses During Admission: #Acute on chronic hypercapnic hypoxic respiratory failure #Community-acquired pneumonia (CAP) #Influenza B infection #Bilateral pleural effusions #Mild acute encephalopathy, resolved #Small pericardial effusion #Possible cirrhosis (imaging), LFTs normal #Nonobstructing nephrolithiasis #Chronic COPD on 3L home O2 #Obstructive sleep apnea (BRYSON) #History of PE (2022), no anticoagulation #Hypertension #Hyperlipidemia #GERD #Iron deficiency anemia #Depression #Possible dementia Care Plan Goal You have been started on the following medications: * Tamiflu (oseltamivir) 75mg twice daily for 4 more days * Doxycycline 100?mg twice daily for 4 more days -Please continue all your home medications as previously prescribed. -Follow up with your primary care doctor within 7?10 days. -Return to the ED if you develop any new or worsening symptoms such as shortness of breath, chest pain, confusion, fever, or worsening cough. ----- Plan discussed with attending physician Dr. Tea Worrell MD PGY-1 Internal Medicine Time Spent with Patient Time attestation: Total time spent providing and/or coordinating discharge services: Time spent: Greater than 30 minutes Exam Vital Signs Temp Pulse Resp BP Pulse Ox O2 Del Method O2 Flow Rate 97.2 F 113 H 20 127/96 H 96 Nasal Cannula 3 02/23/25 12:02/23/25 12:02/23/25 12:02/23/25 12:00 02/23/25 12:02/23/25 12:02/23/25 12:00 FiO2 28 02/23/25 03:06 Narrative Exam Physical Exam * Gen: Awake, alert, in no acute distress on nasal cannula. * Neuro: AOx3, conversant, no focal deficit. * CV: RRR, no murmurs, no distant/muffled sounds. * Resp: Breathing comfortably on NC 3?L, mild cough with clear sputum. Breath sounds diminished at bases, otherwise clear anteriorly. * Abd: Soft, NT/ND, +BS. * Ext: No upper extremity swelling today, LE with mild edema. Pulses present. * Lines: Handley in place, patent. PIV intact. * Skin: No rashes or wounds. Discharge Plan Plan Patient Disposition: Xfer Skilled Nsg Fac (SNF) Patient condition on transfer: Stable Care Plan Goals: You have been started on the following medications: -Tamiflu 75mg twice daily for 4 days -Doxycycline 100mg twice daily for 4 days Please continue taking all home meds as previously prescribed Please follow up with your primary doctor within 7-10 days Please return to the ED if you develop new or worsening symptoms Prescriptions/Referrals Prescriptions/Med Rec: New oseltamivir 75 mg Capsule 75 mg PO BID 4 Days Qty: 8 0RF doxycycline hyclate 100 mg capsule 100 mg PO BID 4 Days Qty: 8 0RF Continued donepezil 5 mg Tablet 5 mg PO HS atorvastatin 20 mg Tablet 40 mg PO QPM multivitamin [One Daily Multivitamin] Tablet 1 tab PO QDAY ergocalciferol (vitamin D2) 1,250 mcg (50,000 unit) capsule 50,000 unit PO QWEEK Patient Comments: TAKE 1 CAPSULE BY MOUTH EVERY WEEK duloxetine 60 mg capsule,delayed release(DR/EC) 60 mg PO BID Patient Comments: TAKE 1 CAPSULE BY MOUTH TWICE DAILY ferrous sulfate 325 mg (65 mg iron) Tablet,Delayed Release (Dr/Ec) 325 mg PO QOD Qty: 15 0RF aspirin 81 mg tablet,delayed release (DR/EC) 81 mg PO DAILY Patient Comments: TAKE 1 TABLET BY MOUTH EVERY DAY DIRECTED metoprolol tartrate 100 mg tablet 50 mg PO BID 30 Days Qty: 30 0RF hydrocodone-acetaminophen 5-325 mg tablet 1 tab PO Q8H PRN (Reason: pain) Rx Instructions: moderate pain 4-5, severe pain 6-9 baclofen 10 mg tablet 10 mg PO Q8H gabapentin 300 mg capsule 300 mg PO BID sumatriptan succinate 100 mg tablet 100 mg PO .@day PRN (Reason: migraine headache) Rx Instructions: May have additional dose/ max dose 2 in 24H albuterol sulfate 90 mcg/actuation HFA aerosol inhaler 2 puff inhalation Q6H PRN (Reason: shortness of breath or wheezing) Qty: 8.5 0RF quetiapine [Seroquel] 25 mg tablet 25 mg PO HS PRN (Reason: agitation, hallucinations) Qty: 30 0RF pantoprazole 40 mg tablet,delayed release (DR/EC) 40 mg PO .AM Patient Comments: TAKE 1 TABLET BY MOUTH IN THE MORNING Discontinued gabapentin 100 mg Capsule 200 mg PO DAILY 30 Days Qty: 60 0RF Rx Instructions: 200 mg orally ;100 mg orally Referrals: Gerardo([facility]),Boubacar Aguirre MD [Primary Care Provider] - Patient/Caregiver Discharge Instructions Print Language: German Stand Alone Forms: [employer] Award Info., Patient Portal Info Letter Discharge Order Discharge Orders: Discharge (Routine); Ordered 02/23/25 Ordered By: Rafael Brian Quality Discharge Quality Measures VTE prophylaxis
--- NOTE | 2025-02-23 16:36 | PC.SS ---
SS spoke with medical team informed of transportation for 1500 SS spoke with Niesha pt niece, informed of transportation for 1500 SS provided all necessary paperwork for [place] via [employer] and set up transportation with [facility] transportation set for [address] [facility], confirmed pt medi-therese is not activated; SS informed Tamra, pt will return to [facility] today SS met pt at bedside; provided information for medicare; pt alert and orietnted times 4; pt resides at [facility] an planned to return; pt states has medi-therese; if medi-therese has not started; pt unable to pay for transportation
[2025-02-24 13:44] LABS: Cocci Serology, IgM Negative (Negative)
[2025-02-25 12:42] LABS: Cocci Serology, IgG Negative (Negative)
== END 2025-02-23 15:05 | disposition skilled nursing facility (03) | DRG 193 ==
LOC: SERX 05:17 → SERHOLD 06:50 → S3NX 02-23 11:00 → SERHOLD 02-23 18:46
PROVIDERS: Student in an Organized Health Care Education/Training Program; Admitting Provider Student in an Organized Health Care Education/Training Program; Emergency Provider Emergency Medicine; PCP Hospitalist; Visit Provider Student in an Organized Health Care Education/Training Program
DX: J10.00 Influenza due to other identified influenza virus with unspecified type of pneumonia (principal); J96.21 Acute and chronic respiratory failure with hypoxia; J96.22 Acute and chronic respiratory failure with hypercapnia; G93.40 Encephalopathy, unspecified; J44.0 Chronic obstructive pulmonary disease with (acute) lower respiratory infection; E87.29 Other acidosis; F03.A3 Unspecified dementia, mild, with mood disturbance; I31.39 Other pericardial effusion (noninflammatory); I50.9 Heart failure, unspecified; I11.0 Hypertensive heart disease with heart failure; E78.5 Hyperlipidemia, unspecified; D50.9 Iron deficiency anemia, unspecified; N20.0 Calculus of kidney; E03.8 Other specified hypothyroidism; F32.A Depression, unspecified; G47.33 Obstructive sleep apnea (adult) (pediatric); G89.29 Other chronic pain; K21.9 Gastro-esophageal reflux disease without esophagitis; Z74.01 Bed confinement status; Z79.82 Long term (current) use of aspirin; Z86.711 Personal history of pulmonary embolism; Z99.81 Dependence on supplemental oxygen; Z79.899 Other long term (current) drug therapy
CPT/HCPCS: 36415; 36600; 70450; 71045; 71275; 76999; 80053; 80202; 80307; 81001; 82248; 82803; 83605; 83735; 83880; 84100; 84145; 84439; 84443; 84484; 85025; 85379; 85610; 85652; 85730; 86140; 86331; 86635; 87040; 87081; 87400; 87811; 92610; 93005; 93225; 93970; 94640; 94660; 96361; 96365; 96366; 96367; 96372; 96375; 99291; A4314; A4649; A9270; J0692; J1644; J2405; J2470; J2919; J3370; J7030; J7050; J7999; Q9967

== ENCOUNTER 2025-03-11 05:23 | Emergency (ER) | payer MEDICARE, BC, SELFPAY ==
[2025-03-11] VITALS (12 sets, daily range): BP systolic 104–135; BP diastolic 62–96; PULSE 56–664; RESP 12–90; TEMP 35.6–36.7; O2SAT 90–100; BMI 37.2
--- NOTE | 2025-03-11 05:44 | PD.EDRME ---
Rapid Medical Screening Exam RME Arrival date/time: 03/11/25 05:23 Chief Complaint: Weakness RME Narrative: 80yo female BIBA from [facility] presents to the ED for complaints of low BP and low O2. Patient was found to be saturating at 90% room air by SNF staff. EMS administered 6L/NC and it went up to 96. Patient's blood pressure was low in the 90s per SNF staff. Patient notes having a cough. No fever or chills.
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
--- NOTE | 2025-03-11 07:00 | PC.NURSE ---
REPORT RECEIVED AT THIS TIME; RUTHIE HENNESSY RN, :PT COMING IN FROM [facility] WITH C/O FROM THE STAFF THAT SHE WAS HYPOTENSIVE IN THE 90'S SYSTOLIC AND LOW OXYGENATION. PT WAS SATTING HERE 90% ON ROOM AIR. PT USES 2L OF OXYGEN AT THE [facility] FOR BASELINE. PT'S BP HAS BEEN STABLE. PT HAS A 20G TO RAC. PMH OF DEMENTIA, COPD, HYPERLIPIDEMIA, GERD, AND HYPERTENSION. PT CONNECTED TO MONITORS AT THIS TIME.
[2025-03-11 07:57] LABS: Collection Type, Urine Catheter; Squamous Epithelial Cell,Urine 0 /hpf (0-5)
[2025-03-11 08:00] LABS: Base Excess, Venous 6 (-3-3); Basophils # (Auto) 0.1 Thou/mm3 (0.0-0.2); Basophils % (Auto) 2 % (0-2.5); Eosinophils # (Auto) 0.5 Thou/mm3 (0.0-0.5); Eosinophils % (Auto) 12 % (0-10); Hematocrit 37.4 % (36.0-46.0); Hemoglobin 11.8 g/dL (12.0-16.0); Immature Granulocytes Auto 0.01 Thou/mm3 (0.00-0.00); Lymphocytes # (Auto) 1.6 Thou/mm3 (1.0-4.8); Lymphocytes % (Auto) 36 % (10-50); Mean Corpuscular HGB Conc 31.6 g/dl (31.0-37.0); Mean Corpuscular Hemoglobin 28.9 pg (25.0-35.0); Mean Corpuscular Volume 92 fL (80-100); Monocytes # (Auto) 0.6 Thou/mm3 (0.0-0.8); Monocytes % (Auto) 14 % (0-12); Neutrophils # (Auto) 1.6 Thou/mm3 (1.8-7.7); Neutrophils % (Auto) 36 % (37-80); Nucleated Red Blood Cell # 0.00 Thou/mm3 (0.00-0.00); Nucleated Red Blood Cell % 0 /100 WBC (0); O2 Saturation, Venous 66 % (96-97); PCO2, Venous 44 mmHg (36-56); PO2, Venous 33 mmHg (15-58); Platelet Count 190 Thou/mm3 (140-440); RDW Standard Deviation 51.2 fL (36.4-46.3); Red Blood Count 4.08 Miln/mm3 (4.00-5.20); White Blood Count 4.5 Thou/mm3 (3.6-11.0); pH, Venous 7.46 (7.33-7.66)
[2025-03-11 08:01] LABS: Lactate (Lactic Acid) 1.1 mMol/L (0.4-2.0)
[2025-03-11 08:19] LABS: Ammonia < 10 uMol/L (11-32)
[2025-03-11 08:20] LABS: B-Type Natriuretic Peptide 35 pg/mL (0-100)
[2025-03-11 08:20] LABS: Amphetamine/Methamp Scrn,U Negative (Negative); Barbiturate Screen,Urine Negative (Negative); Benzodiazepines Screen,Urine Negative (Negative); Benzoylecgonine Screen, Ur Negative (Negative); Fentanyl Screen,Urine Negative (Negative); Opiate Screen,Urine Positive (Negative); THC Screen,Urine Negative (Negative)
[2025-03-11 08:31] LABS: INR 1.1 (0.9-1.3); Prothrombin Time 12.1 Seconds (9.0-12.2)
[2025-03-11 08:33] LABS: Alanine Aminotransferase 8 U/L (10-49); Albumin, Serum 3.2 gm/dL (3.4-4.8); Albumin/Globulin Ratio 1.5 (1.2-2.2); Alcohol, Blood Medical < 10.0 mg/dL (0-10.0); Alkaline Phosphatase 65 U/L (46-116); Anion Gap 7 (7-16); Aspartate Amino Transferase 17 U/L (0-34); BUN/Creatinine Ratio 13 Ratio (12-20); Bilirubin,Total 0.3 mg/dL (0.3-1.2); Blood Urea Nitrogen 10 mg/dL (9-23); Calcium 9.4 mg/dL (8.3-10.6); Calcium (Corrected) 10.0 mg/dL (8.5-10.1); Carbon Dioxide 31.7 mMol/L (20.0-31.0); Chloride 108 mMol/L (98-107); Creatinine (Component) 0.8 mg/dL (0.6-1.3); Estimated Creatinine Clearance 62.6 mL/min (>60); Globulin 2.2 gm/dL (2.3-3.5); Glucose 86 mg/dL (74-106); Osmolality,Calculated 290 (275-295); Potassium 3.8 mMol/L (3.4-5.1); Procalcitonin < 0.04 ng/ml (0.0-0.49); Sodium 147 mMol/L (136-145); Total Protein 5.4 gm/dL (5.7-8.2); Troponin I < 0.020 ng/mL (0.0-0.045); eGFR > 60 See Note
[2025-03-11 08:41] LABS: Bacteria,Urine 1+; Bilirubin,Urine Negative (Negative); Blood,Urine Negative (Negative); Clarity,Urine Clear (Clear/Hazy); Color,Urine Yellow (Lt Yel-Yel); Glucose, Urine Negative (Negative); Hyaline Casts,Urine < 1 /hpf (0-1); Ketones,Urine Negative (Negative); Leukocyte Esterase,Urine Negative (Negative); Nitrite,Urine Positive (Negative); PH,Urine 7.5 (5.0-7.0); Protein,Urine Negative (Neg - Trace); RBC,Urine 1 /hpf (0-3); Specific Gravity,Urine 1.016 (1.001-1.035); Urobilinogen,Urine Negative mg/dL (0.0-1.0); WBC,Urine 1 /hpf (0-5)
[2025-03-11 08:42] LABS: Culture Indicated,Urine Yes
--- NOTE | 2025-03-11 09:27 | PC.NURSE ---
Called [facility], spoke with Frankie he will speak with Radiologist about reading ct and xray
--- NOTE | 2025-03-11 09:31 | PC.NURSE ---
Patient 02 sats 88% on 2l/02 via nc, increased 02 to 6l, 02 sats increased to 94% at this time.
--- NOTE | 2025-03-11 11:07 | PC.NURSE ---
Called luis spoke with Chicho regarding all xray results, per Chicho he will contact Dr. Marian sofia reading images.
--- NOTE | 2025-03-11 13:51 | PC.NURSE ---
Telephone report given to nurse Marquis at [facility] at [phone].
--- NOTE | 2025-03-11 14:12 | PC.CC ---
ASW was asked by assigned RN to arrange transportion back to SNF. ASW asked Transfer RN to sign the MONA as the pts medicare does not cover transportation. ASW submitted the MONA and transportation form along with facesheet to [facility]. P/u ETA [id number]
== END 2025-03-11 15:43 | disposition home or self-care (01) ==
PROVIDERS: Emergency Provider Emergency Medicine; PCP Hospitalist
DX: R53.1 Weakness (principal); E87.0 Hyperosmolality and hypernatremia; G89.29 Other chronic pain; Z86.73 Personal history of transient ischemic attack (TIA), and cerebral infarction without residual deficits; R07.9 Chest pain, unspecified; R55 Syncope and collapse
CPT/HCPCS: 51701; 36415; 70450; 71045; 80053; 80307; 80320; 81001; 82140; 82803; 83605; 83880; 84145; 84484; 85025; 85610; 86850; 86900; 86901; 87040; 87077; 87086; 87186; 93005; 99284; G0480

== ENCOUNTER 2025-03-17 14:26 | Emergency (ER) | payer MEDICARE, BC, SELFPAY ==
[2025-03-17 14:28] VITALS: BP 95/63; PULSE 92; RESP 20; TEMP 36.7; BMI 37.2
[2025-03-17 14:34] VITALS: PULSE 99; RESP 18; O2SAT 93
--- NOTE | 2025-03-17 15:52 | PD.EDWEAK ---
ED Weakness RME/HPI General Chief complaint: Weakness Stated complaint: WEAKNESS Time Seen by Provider: 03/17/25 14:30 Arrival date/time: 03/17/25 14:26 RME / HPI RME / HPI Narrative: DR. SUMMERS MAIN ED EVALUATION: 80-year-old female with past medical history of COPD on 3L home oxygen, history of PE in 2022, BRYSON on CPAP, hypertension, hyperlipidemia, GERD, iron deficiency anemia, depression, and baseline mild dementia presents to the Emergency Department [facility] from [facility] with complaint of jerking movements. Per nursing staff, patient normally has some of these movements, but today they were more extreme and accompanied by generalized weakness. Patient also has chronic neck and back pain. Related Data Home Medications ?Medication ?Instructions ?Recorded ?Confirmed donepezil 5 mg tablet 5 mg PO HS 01/16/18 02/21/25 atorvastatin 20 mg tablet 40 mg PO QPM 09/14/18 02/21/25 duloxetine 60 mg capsule,delayed 60 mg PO BID 04/23/21 02/21/25 release ergocalciferol (vitamin D2) 1,250 50,000 unit PO QWEEK 04/23/21 02/22/25 mcg (50,000 unit) capsule multivitamin (One Daily 1 tab PO QDAY 04/23/21 02/22/25 Multivitamin tablet) pantoprazole 40 mg tablet,delayed 40 mg PO .AM 11/09/24 02/21/25 release aspirin 81 mg tablet,delayed 81 mg PO DAILY 11/19/24 02/21/25 release baclofen 10 mg tablet 10 mg PO Q8H 02/21/25 02/21/25 gabapentin 300 mg capsule 300 mg PO BID neuropathy 02/21/25 02/22/25 hydrocodone 5 mg-acetaminophen 325 1 tab PO Q8H PRN pain 02/21/25 02/21/25 mg tablet sumatriptan succinate 100 mg tablet 100 mg PO .@day PRN migraine 02/22/25 02/22/25 headache Previous Rx's ?Medication ?Instructions ?Recorded ferrous sulfate 325 mg (65 mg 325 mg PO QOD #15 tabs 06/02/23 iron) tablet,delayed release albuterol sulfate 90 mcg/actuation 2 puff inhalation Q6H PRN 01/18/24 aerosol inhaler shortness of breath or wheezing #8.5 grams quetiapine 25 mg tablet (Seroquel) 25 mg PO HS PRN agitation, 10/19/24 hallucinations #30 tabs metoprolol tartrate 100 mg tablet 50 mg (1/2 x 100 mg) PO BID 30 11/22/24 days #30 tabs Allergies Allergy/AdvReac Type Severity Reaction Status Date / Time ergotamine (From Cafergot) Allergy Intermediate Nausea Verified 09/13/24 20:28 adhesive tape Allergy Mild Rash Verified 09/13/24 20:28 citalopram (From Celexa) Allergy Mild Restless Verified 09/13/24 20:28 leg latex Allergy Mild Rash Verified 09/13/24 20:28 silver Allergy Rash Verified 09/13/24 20:28 Review of Systems Review of Systems Systems Reviewed: All systems reviewed, normal except as documented Past Medical History Past Medical History NEUROLOGIC: Positive Neurological Disorders, Cerebrovascular Accident, Transient Ischemic Attacks (TIA), Seizures, Peripheral Neuropathy, Migraine and Head Trauma CARDIAC: Positive Hypercholesterolemia, Edema, Hypertension and Varicose Veins RESPIRATORY: Positive Chronic Obstructive Pulmonary Disease (COPD), Asthma, Bronchitis, Pneumonia and Sleep Apnea GASTROINTESTINAL: Positive Gastrointestinal Disorders, Gastroesophageal Reflux Disease and Obesity REPRODUCTIVE: Positive Endometriosis and Previous Pregnancies MUSCULOSKELETAL: Positive Musculoskeletal Disorders (tardive dyskinesia), Arthritis, Osteoporosis, Degenerative Disk Disease, Carpal Tunnel Syndrome, Fractures, Degenerative Joint Disease and Poliovirus ENT: Positive Head Trauma HEMATOLOGIC: Positive Blood Disorders and Anemia PSYCHO/SOCIAL: Positive Depression and Anxiety OTHER HISTORY: Positive Hospitalization, Autoimmune Disease, Falls, Blood Transfusions, Chicken Pox and Measles Family History FAMILY HISTORY: Positive Family Cardiac Disorders and Family Cancer Surgical History SURGICAL: Positive Ear Surgery, Nose Surgery, Tonsillectomy, Abdominal Surgery, Joint Replacement and Hysterectomy Social History SMOKING STATUS: Never smoker SUBSTANCE USE: does not use ED Exam Narrative Physical exam: GENERAL APPEARANCE: alert and oriented x 4, well-developed, well-nourished, in no acute distress VITALS: All vitals were reviewed and the pulse ox is 93% on 2 L/min via a nasal cannula. HEENT: Normocephalic, atraumatic; pupils equal, round, reactive to light; EOMI; mucous membranes pink, moist; oropharynx clear NECK: Supple LUNGS: CTABL; no wheezes, no rales, no rhonchi HEART: Regular rate, regular rhythm; normal S1, S2; no murmurs ABDOMEN: non distended; normal BS; soft, no tenderness, no guarding, no rebound; no masses, no organomegaly, no hernia BACK: no CVA tenderness EXTREMITIES: atraumatic; no edema NEUROLOGIC: awake; alert and oriented x4; mild clonic jerking noted PSYCHIATRIC: appropriate mood and affect SKIN: warm, dry, normal color; no rashes Course Quality Measures none Orders Category Date Time Status Legal Officer NOW Care 03/17/25 16:05 Active EKG (ED ONLY) *Do not use* NOW Care 03/17/25 16:05 Completed IV [Insert IV] NOW Care 03/17/25 16:31 Active EKG (ED Only) Stat Exams 03/17/25 16:05 Draft B-Type Natriuretic Peptide Stat Lab 03/17/25 16:44 Completed CBC Stat Lab 03/17/25 16:44 Completed Comprehensive Metabolic Panel Stat Lab 03/17/25 16:44 Completed Lipase Stat Lab 03/17/25 16:44 Completed Magnesium Stat Lab 03/17/25 16:44 Completed Troponin I Stat Lab 03/17/25 16:44 Completed UA, C/S IF [Urinalysis, C/S if Indicated] Stat Lab 03/17/25 16:06 Ordered Magnesium Sulfate 2 GM Ivpb [Magnesium Sulfate Ivpb] Med 03/17/25 17:53 Active 2 gm in 50 ml IV X1 Vital Signs Vital signs: Vital Signs Temperature 98.1 F 03/17/25 14:28 Pulse Rate 92 03/17/25 14:28 Respiratory Rate 20 03/17/25 14:28 Blood Pressure 95/63 03/17/25 14:28 Weakness MDM Narrative MDM Narrative:: [employer] am scribing for and in the presence of Dr. Summers. Patient data External records reviewed:: [facility] previous records and EMS form Clinical information provided by:: patient and EMS Social determinants that could affect healthcare access:: housing ([facility]) Patient has the following chronic illnesses:: COPD on 3L home oxygen, history of PE in 2022, BRYS[place] on CPAP, hypertension, hyperlipidemia, GERD, iron deficiency anemia, depression, and baseline mild dementia How is presenting disease/condition affected by chronic disease/condition?: exacerbated by Evaluation data The following diagnostics were reviewed and interpreted by me:: lab results and EKG tracing(s) Lab and/or radiology exams considered but not ordered:: none Interpretation Summary: My interpretation: EKG performed at 1609 hours, sinus rhythm, rate 92, slightest ST depressions in V1, T wave inversion in V1, lead 3 and AVF, and V3-V6, no acute ischemic changes Medications / Prescriptions Medications or Prescriptions considered but not ordered:: none Medication administrations:: Medication Administration History Magnesium Sulfate (Magnesium Sulfate Ivpb) 2 gm in 50 mls @ 25 mls/hr IV X1 ONE Stop: 03/17/25 19:52 Last Admin: 03/17/25 18:10 Dose: 25 mls/hr Documented By: DB see above if any Consultations Consultation(s) initiated? (list below): No Diagnosis Weakness Differential Diagnosis: other (seizure activity, electrolyte imbalance, infection-related delirium) Most likely diagnosis given after review of the tests above:: Myoclonic jerks Hypomagnesemia Admission Indicated Admission indicated?: not indicated Explain why admission is indicated or not indicated:: No final disposition plan at this time, still pending diagnostic tests. Patient signout to the sap bw bi developer provider. Admission Request Was there a request for admission?: No Disposition Plan Disposition Plan: other (specify) (Patient signed out to Dr. Yoder.) Discharge Plan Prescriptions/Referrals Prescriptions/Med Rec: No Action donepezil 5 mg Tablet 5 mg PO HS atorvastatin 20 mg Tablet 40 mg PO QPM multivitamin [One Daily Multivitamin] Tablet 1 tab PO QDAY ergocalciferol (vitamin D2) 1,250 mcg (50,000 unit) capsule 50,000 unit PO QWEEK Patient Comments: TAKE 1 CAPSULE BY MOUTH EVERY WEEK duloxetine 60 mg capsule,delayed release(DR/EC) 60 mg PO BID Patient Comments: TAKE 1 CAPSULE BY MOUTH TWICE DAILY ferrous sulfate 325 mg (65 mg iron) Tablet,Delayed Release (Dr/Ec) 325 mg PO QOD Qty: 15 0RF aspirin 81 mg tablet,delayed release (DR/EC) 81 mg PO DAILY Patient Comments: TAKE 1 TABLET BY MOUTH EVERY DAY DIRECTED metoprolol tartrate 100 mg tablet 50 mg PO BID 30 Days Qty: 30 0RF hydrocodone-acetaminophen 5-325 mg tablet 1 tab PO Q8H PRN (Reason: pain) Rx Instructions: moderate pain 4-5, severe pain 6-9 baclofen 10 mg tablet 10 mg PO Q8H gabapentin 300 mg capsule 300 mg PO BID sumatriptan succinate 100 mg tablet 100 mg PO .@day PRN (Reason: migraine headache) Rx Instructions: May have additional dose/ max dose 2 in 24H albuterol sulfate 90 mcg/actuation HFA aerosol inhaler 2 puff inhalation Q6H PRN (Reason: shortness of breath or wheezing) Qty: 8.5 0RF quetiapine [Seroquel] 25 mg tablet 25 mg PO HS PRN (Reason: agitation, hallucinations) Qty: 30 0RF pantoprazole 40 mg tablet,delayed release (DR/EC) 40 mg PO .AM Patient Comments: TAKE 1 TABLET BY MOUTH IN THE MORNING Referrals: No Primary/Family,Physician [Primary Care Provider] - In 1 week Problem List Clinical Impression: Myoclonic jerking, Hypomagnesemia Patient/Caregiver Discharge Instructions Print Language: Kazakh
[2025-03-17 16:05] VITALS: PULSE 107
--- NOTE | 2025-03-17 16:05 | EKG_ITS ---
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
[2025-03-17 16:22] VITALS: BP 127/80; PULSE 89; RESP 16; TEMP 36.7
[2025-03-17 16:56] LABS: Basophils # (Auto) 0.1 Thou/mm3 (0.0-0.2); Basophils % (Auto) 2 % (0-2.5); Eosinophils # (Auto) 0.4 Thou/mm3 (0.0-0.5); Eosinophils % (Auto) 10 % (0-10); Hematocrit 37.2 % (36.0-46.0); Hemoglobin 11.4 g/dL (12.0-16.0); Immature Granulocytes Auto 0.01 Thou/mm3 (0.00-0.00); Lymphocytes # (Auto) 1.4 Thou/mm3 (1.0-4.8); Lymphocytes % (Auto) 31 % (10-50); Mean Corpuscular HGB Conc 30.6 g/dl (31.0-37.0); Mean Corpuscular Hemoglobin 29.2 pg (25.0-35.0); Mean Corpuscular Volume 95 fL (80-100); Monocytes # (Auto) 0.6 Thou/mm3 (0.0-0.8); Monocytes % (Auto) 13 % (0-12); Neutrophils # (Auto) 2.1 Thou/mm3 (1.8-7.7); Neutrophils % (Auto) 46 % (37-80); Nucleated Red Blood Cell # 0.00 Thou/mm3 (0.00-0.00); Nucleated Red Blood Cell % 0 /100 WBC (0); Platelet Count 196 Thou/mm3 (140-440); RDW Standard Deviation 51.8 fL (36.4-46.3); Red Blood Count 3.90 Miln/mm3 (4.00-5.20); White Blood Count 4.6 Thou/mm3 (3.6-11.0)
[2025-03-17 17:37] LABS: Alanine Aminotransferase 8 U/L (10-49); Albumin, Serum 3.2 gm/dL (3.4-4.8); Albumin/Globulin Ratio 1.5 (1.2-2.2); Alkaline Phosphatase 73 U/L (46-116); Anion Gap 6 (7-16); Aspartate Amino Transferase 20 U/L (0-34); BUN/Creatinine Ratio 13 Ratio (12-20); Bilirubin,Total 0.2 mg/dL (0.3-1.2); Blood Urea Nitrogen 12 mg/dL (9-23); Calcium 9.1 mg/dL (8.3-10.6); Calcium (Corrected) 9.7 mg/dL (8.5-10.1); Carbon Dioxide 31.6 mMol/L (20.0-31.0); Chloride 105 mMol/L (98-107); Creatinine (Component) 0.9 mg/dL (0.6-1.3); Estimated Creatinine Clearance 55.6 mL/min (>60); Globulin 2.2 gm/dL (2.3-3.5); Glucose 103 mg/dL (74-106); Lipase 16 U/L (12-53); Magnesium 1.4 mg/dL (1.6-2.6); Osmolality,Calculated 284 (275-295); Potassium 4.3 mMol/L (3.4-5.1); Sodium 143 mMol/L (136-145); Total Protein 5.4 gm/dL (5.7-8.2); Troponin I < 0.020 ng/mL (0.0-0.045); eGFR > 60 See Note
[2025-03-17] MEDS: Magnesium Sulfate 2 GM Ivpb 2 GM/50 ML BAG IV (18:10)
[2025-03-17 18:20] VITALS: BP 129/88; PULSE 89; RESP 19; TEMP 36.4; O2SAT 96
[2025-03-17 18:25] LABS: B-Type Natriuretic Peptide 25 pg/mL (0-100)
--- NOTE | 2025-03-17 18:39 | PD.EDADDENDU ---
Emergency Room Addendum <Nelda Bedolla - Last Filed: 03/17/25 18:39> Addendum Narrative: 1800: Care assumed from Dr. Summers (emergency physician). Past medical, surgical, social and family history reviewed. Vitals and home medications reviewed. Results and treatment plan discussed. I will assume the care of the patient at this time and will follow the patient, pending The following addendum documentation note is intended to reflect any pending information, findings, or radiology results not included in the patient?s initial chart by the previous shift scribe. <Dylan Salazar YoderDO - Last Filed: 03/17/25 19:00> Addendum Narrative: 1800: Care assumed from Dr. Summers (emergency physician). Past medical, surgical, social and family history reviewed. Vitals and home medications reviewed. Results and treatment plan discussed. I will assume the care of the patient at this time and will follow the patient, pending The following addendum documentation note is intended to reflect any pending information, findings, or radiology results not included in the patient?s initial chart by the previous shift scribe. I went into evaluate the patient. The patient states that she feels much better. Patient is currently undergoing magnesium supplementation. Level was 1.4. When the magnesium is fully administered the patient is stable for discharge back to her extended care facility.
[2025-03-17 20:32] VITALS: BP 129/85; PULSE 99; RESP 18; TEMP 36.5; O2SAT 96
== END 2025-03-17 21:06 | disposition skilled nursing facility (03) ==
PROVIDERS: Emergency Provider Emergency Medicine
DX: G25.3 Myoclonus (principal); E83.42 Hypomagnesemia; R94.31 Abnormal electrocardiogram [ECG] [EKG]; I10 Essential (primary) hypertension; E78.5 Hyperlipidemia, unspecified; J44.9 Chronic obstructive pulmonary disease, unspecified; Z99.81 Dependence on supplemental oxygen
CPT/HCPCS: 36415; 80053; 81001; 83690; 83735; 83880; 84484; 85025; 93005; 99283; J3475